=== PATIENT | female | born 1935 | race Caucasian/White ===

== ENCOUNTER 2021-07-28 09:03 | Inpatient (IN) | payer MEDICARE ==
[2021-07-28] MEDS ORDERED: ALBUTEROL HFA INHALER INHALATION PRN (09:41)
[2021-07-28] MEDS ORDERED: ALBUTEROL HFA INHALER INHALATION STA (09:41)
[2021-07-28] MEDS ORDERED: SODIUM CHLORIDE 0.9% 500 ML 500 ML IV STA (09:42)
--- NOTE | 2021-07-28 09:44 | ED ---
General Adult HPI - General Chief complaint: Upper Respiratory Infection Stated complaint: Cough, Fever Time Seen by Provider: 07/28/21 09:21 Source: patient, family, RN notes reviewed Mode of arrival: ambulatory Limitations: no limitations - History of Present Illness Initial comments: Patient is a pleasant 86-year-old female presenting to the emergency department with concerns for infection. Onset of symptoms was around a week ago. Patient does have cough that has been intermittent, somewhat severe at times. Patient does feel short of breath. Patient has had intermittent fevers. Questionable loss of taste or smell. Decreased appetite and decreased oral intake. No vomiting. Patient has had some loose stools. Patient has been vaccinated for COVID-19. Patient did take 2 tests at home they both came back negative. - Related Data Home Medications Medication Instructions Recorded Confirmed amLODIPine [Norvasc] 5 mg PO HS 09/21/14 07/28/21 busPIRone HCl [Buspar] 10 mg PO BID 09/21/14 07/28/21 Acetaminophen Tab [Tylenol Tab] 1,000 mg PO Q6H PRN 07/28/21 07/28/21 Atorvastatin [Lipitor] 20 mg PO HS 07/28/21 07/28/21 Diclofenac Sodium Gel [Voltaren 4 gm TOPICAL QID PRN 07/28/21 07/28/21 Gel] Gabapentin 600 mg PO TID 07/28/21 07/28/21 Ipratropium [place] 0.06%Nasal 2 spray EA NOSTRIL TID 07/28/21 07/28/21 [Atrovent Nasal 0.06%] Irbesartan [Avapro] 150 mg PO DAILY 07/28/21 07/28/21 Levothyroxine Sodium [Synthroid] 75 mcg PO DAILY 07/28/21 07/28/21 Mesalamine [Mesalamine ER] 1.5 gm PO DAILY 07/28/21 07/28/21 Allergies Allergy/AdvReac Type Severity Reaction Status Date / Time Sulfa (Sulfonamide Allergy Rash/Hives/ Verified 07/28/21 10:48 Antibiotics) Swelling Review of Systems ROS Statement: Those systems with pertinent positive or pertinent negative responses have been documented in the HPI. ROS Other: All systems not noted in ROS Statement are negative. Constitutional: Reports: fever, chills Eyes: Denies: eye pain ENT: Denies: ear pain Respiratory: Reports: cough, dyspnea Cardiovascular: Denies: chest pain Endocrine: Reports: fatigue Gastrointestinal: Reports: nausea. Denies: abdominal pain, vomiting Genitourinary: Denies: dysuria Musculoskeletal: Denies: back pain Skin: Denies: rash Neurological: Denies: weakness Past Medical History Past Medical History: Rheumatoid Arthritis (RA) Additional Past Medical History / Comment(s): CROHN'S DX, DIET CONTROLLED DIABETES, DEG DISC DX, auto immune, fibromyalgia History of Any Multi-Drug Resistant Organisms: None Reported Past Surgical History: Hysterectomy Past Anesthesia/Blood Transfusion Reactions: No Reported Reaction Past Psychological History: Anxiety Past Alcohol Use History: None Reported Past Drug Use History: None Reported - Past Family History Sister(s) Family Medical History: Cancer Additional Family Medical History / Comment(s): BREAST Mother Family Medical History: Congestive Heart Failure (CHF) General Exam Limitations: no limitations General appearance: alert, in no apparent distress Head exam: Present: normocephalic Eye exam: Present: normal appearance Neck exam: Present: normal inspection Respiratory exam: Present: rhonchi Cardiovascular Exam: Present: regular rate, normal rhythm, systolic murmur (States chronic) GI/Abdominal exam: Present: soft. Absent: tenderness Extremities exam: Present: normal inspection. Absent: pedal edema, calf tenderness Neurological exam: Present: alert Psychiatric exam: Present: normal affect, normal mood Skin exam: Present: normal color Course Vital Signs 07/28/21 07/28/21 07/28/21 09:12 10:16 10:19 Temperature 98.4 F Pulse Rate 96 80 Respiratory 18 18 28 H Rate Blood Pressure 120/75 107/72 O2 Sat by Pulse 81 L 95 Oximetry EKG Findings - EKG Comments: EKG Findings:: Normal sinus rhythm with a rate of 79. W[place] 144. QRS 104. QT 408. QTC 467. Normal axis. LVH with repolarization changes. Medical Decision Making - Medical Decision Making Suspicion still is somewhat high for COVID-19 infection. Patient and family updated. Case was discussed in detail with Dr. Snyder, who will admit covering Dr. peter ramos. Pulmonary will be placed on consult. Patient and family are familiar with Dr. Mora. Computed tomography scan will be ordered as well. - Lab Data Result diagrams: 07/28/21 10:15 07/28/21 10:15 Lab Results 07/28/21 07/28/21 07/28/21 Range/Units 09:42 10:15 10:15 WBC 13.9 H (3.8-10.6) k/uL RBC 5.06 (3.80-5.40) m/uL Hgb 15.1 (11.4-16.0) gm/dL Hct 44.6 (34.0-46.0) % MCV 88.1 (80.0-100.0) fL MCH 29.8 (25.0-35.0) pg MCHC 33.8 (31.0-37.0) g/dL RDW 13.7 (11.5-15.5) % Plt Count 273 (150-450) k/uL MPV 7.3 Neutrophils % 89 % Lymphocytes % 6 % Monocytes % 3 % Eosinophils % 1 % Basophils % 0 % Neutrophils # 12.4 H (1.3-7.7) k/uL Lymphocytes # 0.8 L (1.0-4.8) k/uL Monocytes # 0.5 (0-1.0) k/uL Eosinophils # 0.1 (0-0.7) k/uL Basophils # 0.0 (0-0.2) k/uL PT 11.0 (9.0-12.0) sec INR 1.0 (<1.2) APTT 24.9 (22.0-30.0) sec D-Dimer 1.09 H (<0.60) mg/L FEU Sodium (137-145) mmol/L Potassium (3.5-5.1) mmol/L Chloride (98-107) mmol/L Carbon Dioxide (22-30) mmol/L Anion Gap mmol/L BUN (7-17) mg/dL Creatinine (0.52-1.04) mg/dL Est GFR (CKD-EPI)AfAm (>60 ml/min/1.73 sqM) Est GFR (CKD-EPI)NonAf (>60 ml/min/1.73 sqM) Glucose (74-99) mg/dL Plasma Lactic Acid Alexis (0.7-2.0) mmol/L Calcium (8.4-10.2) mg/dL Magnesium (1.6-2.3) mg/dL Total Bilirubin (0.2-1.3) mg/dL AST (14-36) U/L ALT (4-34) U/L Alkaline Phosphatase (38-126) U/L Lactate Dehydrogenase (313-618) U/L C-Reactive Protein (<1.0) mg/dL NT-Pro-B Natriuret Pep pg/mL Total Protein (6.3-8.2) g/dL Albumin (3.5-5.0) g/dL Coronavirus (PCR) Not Detected (Not Detectd) 07/28/21 07/28/21 07/28/21 Range/Units 10:15 10:15 10:15 WBC (3.8-10.6) k/uL RBC (3.80-5.40) m/uL Hgb (11.4-16.0) gm/dL Hct (34.0-46.0) % MCV (80.0-100.0) fL MCH (25.0-35.0) pg MCHC (31.0-37.0) g/dL RDW (11.5-15.5) % Plt Count (150-450) k/uL MPV Neutrophils % % Lymphocytes % % Monocytes % % Eosinophils % % Basophils % % Neutrophils # (1.3-7.7) k/uL Lymphocytes # (1.0-4.8) k/uL Monocytes # (0-1.0) k/uL Eosinophils # (0-0.7) k/uL Basophils # (0-0.2) k/uL PT (9.0-12.0) sec INR (<1.2) APTT (22.0-30.0) sec D-Dimer (<0.60) mg/L FEU Sodium 133 L (137-145) mmol/L Potassium 4.3 (3.5-5.1) mmol/L Chloride 98 (98-107) mmol/L Carbon Dioxide 24 (22-30) mmol/L Anion Gap 11 mmol/L BUN 20 H (7-17) mg/dL Creatinine 0.74 (0.52-1.04) mg/dL Est GFR (CKD-EPI)AfAm 87 (>60 ml/min/1.73 sqM) Est GFR (CKD-EPI)NonAf 75 (>60 ml/min/1.73 sqM) Glucose 127 H (74-99) mg/dL Plasma Lactic Acid Alexis 1.3 (0.7-2.0) mmol/L Calcium 9.3 (8.4-10.2) mg/dL Magnesium 1.8 (1.6-2.3) mg/dL Total Bilirubin 0.9 (0.2-1.3) mg/dL AST 50 H (14-36) U/L ALT 25 (4-34) U/L Alkaline Phosphatase 92 (38-126) U/L Lactate Dehydrogenase 1055 H (313-618) U/L C-Reactive Protein 7.6 H (<1.0) mg/dL NT-Pro-B Natriuret Pep 1100 pg/mL Total Protein 6.2 L (6.3-8.2) g/dL Albumin 3.7 (3.5-5.0) g/dL Coronavirus (PCR) (Not Detectd) - Radiology Data Radiology results: image reviewed (Chest x-ray shows bilateral interstitial changes) Disposition Clinical Impression: Dyspnea, Hypoxia Disposition: ADMITTED IP TO THIS [facility] Condition: Serious Is patient prescribed a controlled substance at d/c from ED?: No Referrals: Ozzy Chaney DO [Primary Care Provider] - 1-2 days Decision Time: 11:44
--- NOTE | 2021-07-28 10:16 | XR ---
EXAMINATION TYPE: XR chest 1V portable DATE OF EXAM: 07/28/2021 HISTORY: Shortness of breath. COMPARISON: 11/03/2014 TECHNIQUE: Single view of the chest is submitted. FINDINGS: Demonstrated are scattered senescent parenchymal change. Diffuse bilateral reticulonodular infiltrates are seen compatible with Covid 19 pneumonia. The heart is stable. Hilar and mediastinal structures are within normal limits. Degenerative changes are seen of the dorsal spine. IMPRESSION: 1. Diffuse bilateral reticulonodular infiltrates are seen compatible with Covid 19 pneumonia.
[2021-07-28 10:34] LABS: Partial Thromboplastin Time 24.9 sec (22.0-30.0)
[2021-07-28 10:37] LABS: Basophils % (A) 0 %; Eosinophils # (A) 0.1 k/uL (0-0.7); Eosinophils % (A) 1 %; HCT 44.6 % (34.0-46.0); HGB 15.1 gm/dL (11.4-16.0); Lymphocytes # (A) 0.8 k/uL (1.0-4.8); Lymphocytes % (A) 6 %; MCH 29.8 pg (25.0-35.0); MCHC 33.8 g/dL (31.0-37.0); MCV 88.1 fL (80.0-100.0); Mean Platelet Volume 7.3; Monocytes # (A) 0.5 k/uL (0-1.0); Monocytes % (A) 3 %; Neutrophils # (A) 12.4 k/uL (1.3-7.7); Neutrophils % (A) 89 %; Platelet Count 273 k/uL (150-450); RBC 5.06 m/uL (3.80-5.40); RDW 13.7 % (11.5-15.5); WBC 13.9 k/uL (3.8-10.6)
[2021-07-28 10:43] LABS: Albumin 3.7 g/dL (3.5-5.0); C Reactive Protein 7.6 mg/dL (<1.0); Calcium 9.3 mg/dL (8.4-10.2); Magnesium 1.8 mg/dL (1.6-2.3); Potassium 4.3 mmol/L (3.5-5.1); Total Bilirubin 0.9 mg/dL (0.2-1.3); Total Protein 6.2 g/dL (6.3-8.2)
[2021-07-28] MEDS ORDERED: NALOXONE 0.4 MG/ML 1 ML VIAL IV PRN (11:46)
[2021-07-28] MEDS ORDERED: AZITHROMYCIN 500 MG in SODIUM CHLORIDE 0.9% 250 ML IVPB STA (11:48)
[2021-07-28] MEDS ORDERED: PNEUMONIA PROTOCOL UTILIZED 1 EACH MISC PO PRN (11:48)
[2021-07-28] MEDS ORDERED: DEXAMETHASONE SOD PHOSPHATE 10 MG/ML 1 ML VIAL IVP SCH (12:00)
--- NOTE | 2021-07-28 13:16 | CT ---
EXAMINATION TYPE: CT angio chest DATE OF EXAM: 07/28/2021 COMPARISON: None HISTORY: dyspnea CT DLP: 253 mGycm CONTRAST: CT chest with contrast and 3D reconstruction with MIP imaging is performed with IV Contrast, patient injected with 100 mL of Isovue 370. Contrast-enhanced CT of the chest was performed through the course of the pulmonary arteries with kacey g and mediastinal window settings submitted. 3D reconstruction with MIP imaging was also performed. PULMONARY ARTERIES: The pulmonary arteries and their major tributaries are patent. I do not see juan pablo dence for sizable filling defect to suggest pulmonary embolic process. LUNGS: Reticulonodular and groundglass infiltrates. Underlying fibrosis. No evidence for atelectasis. No pulmonary nodule or mass is detected. No pleural effusion. MEDIASTINUM: Thoracic aorta is of normal caliber,however, evaluation is limited given timing of the contrast bolus. If there is concern for thoracic aortic pathology consider ION. Correlate clinicall y . The heart is enlarged. No evidence for mediastinal mass. No mediastinal lymph nodes greater uma n 1cm. HILAR STRUCTURES: No evidence for mass. No hilar lymph nodes greater than 1 cm. UPPER ABDOMEN: No significant abnormality is seen. IMPRESSION: 1. No evidence for Pulmonary embolism at this time.
[2021-07-28] MEDS ORDERED: MELATONIN 3 MG TABLET PO PRN (13:28)
[2021-07-28] MEDS ORDERED: ONDANSETRON 4 MG/2 ML VIAL IVP PRN (13:28)
--- NOTE | 2021-07-28 13:57 | P.HPIM ---
History of Present Illness H&P Date: 07/28/21 Chief Complaint: Short of breath This is a pleasant 86-year-old patient, follows with Dr. Chaney. Chronic stable medical conditions include rheumatoid arthritis, Crohn's disease, diet- controlled diabetes, autoimmune disorder, fibromyalgia. She does follow Dr. Reed from rheumatology and does Rituxan injections every 6 months. Sees due for her next one. Patient did take her COVID vaccines back in . She doesn't go out much. For 7 days patient suspect upper cough. Very congested. Clear sputum. Has had fever and chills. Patient also had diarrhea. Some dark stool. No abdominal pain. Patient chronic stable medical conditions also include anxiety, hypothyroid, peripheral neuropathy, hyperlipidemia. Appetite is poor. Initial rapid COVID testing in the ER was negative. A more definitive PCR was sent out. Patient is accompanied by her [id number]. Patient is rather tired and rundown. She is also had chronic immune lung condition in the past. Review of systems: GEN.: Tired, fever or chills, decreased appetite EYES: None HEENT: None NECK: None RESPIRATORY: As above CARDIOVASCULAR: None GASTROINTESTINAL: As above GENITOURINARY: None MUSCULOSKELETAL: Joint pains LYMPHATICS: None HEMATOLOGICAL: None PSYCHIATRY: None NEUROLOGICAL: None Past medical history to include: Anxiety, hypothyroid, peripheral neuropathy, hyperlipidemia, rheumatoid arthritis, Crohn's disease, diet-controlled diabetes, autoimmune lung disorder, fibromyalgia Social history: Lives with son and [id number]. No smoking no alcohol. Family history: Breast cancer Physical examination: VITAL SIGNS: 98.4, 96, 24, 120/75, 81% on room air: On presentation GENERAL: BMI 29.3, declining in bed, awake, tired. EYES: Pupils equal. Conjunctiva normal. HEENT: External appearance of nose and ears normal, oral cavity grossly normal. NECK: JVD not raised; masses not palpable. HEART: First and second heart sounds are normal; no edema. LUNGS: Respiratory rate increased, bilateral coarse crackles. ABDOMEN: Soft, nontender, liver spleen not palpable, no masses palpable. PSYCH: Alert and oriented x3; mood and affect some anxietyl. MUSCULAR skeletal: Evidence of rheumatoid arthritis especially in the hands, significant NEUROLOGICAL: Cranial nerves grossly intact; no facial asymmetry, power and sensation grossly intact. LYMPHATICS: No lymph nodes palpable in the axilla and neck INVESTIGATIONS, reviewed in the clinical context: WBC 13.9 hemoglobin 15.1 platelets 273 lymphocytes 0.8 d-dimer 1.09 sodium 133 potassium 4.3 creatinine 0.74 CRP 7.6 Coronavirus [PCR/rapid]: Negative Influenza A, influenza B, RSV, Coronavirus PCR: Not detected EKG tracing personally reviewed by me-normal sinus rhythm, LVH Chest x-ray film personally reviewed by me-bilateral infiltrate changes, so we'll discontinue chronic. Also looked at the films from 2017 CT angiogram chest: Negative for PE. Reticular-nodular and groundglass infiltrates. Underlying fibrosis. Assessment and plan: -Possible bacterial pneumonia suspected gram-negative. IV cefepime. Check pro-calcitonin. Sputum for Gram stain and culture. -Acute severe hypoxic respiratory failure from pneumonia Oxygen supplementation -Clinical suspicion for COVID-19 was high. Initial rapid antigen tested PCR was negative. A more definitive repeat COVID-19 immunoassay test was done/PCR that came back also negative -Chronic rheumatoid arthritis Patient does getRituxan injections every 6 months -Chronic Crohn's disease Patient did complain of some dock stools. No abdominal pain. GI services are not available in the hospital. We'll consult content writer surgery. 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 bronchodilators. Resume home medications. Check procalcitonin. Care was discussed with the patient and [id number] at the bedside. Consult pulmonary. Sputum for Gram stain and culture. Mucinex. Given the complexity and severity of patient's condition expect the patient to be in the hospital at least for 2 overnights Past Medical History Past Medical History: Rheumatoid Arthritis (RA) Additional Past Medical History / Comment(s): CROHN'S DX, DIET CONTROLLED DIABETES, DEG DISC DX, auto immune, fibromyalgia History of Any Multi-Drug Resistant Organisms: None Reported Past Surgical History: Hysterectomy Past Anesthesia/Blood Transfusion Reactions: No Reported Reaction Past Psychological History: Anxiety Past Alcohol Use History: None Reported Past Drug Use History: None Reported - Past Family History Sister(s) Family Medical History: Cancer Additional Family Medical History / Comment(s): BREAST Mother Family Medical History: Congestive Heart Failure (CHF) Medications and Allergies Home Medications Medication Instructions Recorded Confirmed Type amLODIPine [Norvasc] 5 mg PO HS 09/21/14 07/28/21 History busPIRone HCl [Buspar] 10 mg PO BID 09/21/14 07/28/21 History Acetaminophen Tab [Tylenol Tab] 1,000 mg PO Q6H PRN 07/28/21 07/28/21 History Atorvastatin [Lipitor] 20 mg PO HS 07/28/21 07/28/21 History Diclofenac Sodium Gel [Voltaren 4 gm TOPICAL QID PRN 07/28/21 07/28/21 History Gel] Gabapentin 600 mg PO TID 07/28/21 07/28/21 History Ipratropium [place] 0.06%Nasal 2 spray EA NOSTRIL TID 07/28/21 07/28/21 History [Atrovent Nasal 0.06%] Irbesartan [Avapro] 150 mg PO DAILY 07/28/21 07/28/21 History Levothyroxine Sodium [Synthroid] 75 mcg PO DAILY 07/28/21 07/28/21 History Mesalamine [Mesalamine ER] 1.5 gm PO DAILY 07/28/21 07/28/21 History Allergies Allergy/AdvReac Type Severity Reaction Status Date / Time Sulfa (Sulfonamide Allergy Rash/Hives/ Verified 07/28/21 10:48 Antibiotics) Swelling Physical Exam Vitals: Vital Signs Temp Pulse Resp BP Pulse Ox 07/28/21 10:19 28 H 07/28/21 10:16 80 18 107/72 95 07/28/21 09:12 98.4 F 96 18 120/75 81 L Intake and Output 07/27/21 07/28/21 07/28/21 22:59 06:59 14:59 Other: Weight 72.575 kg Results CBC & Chem 7: 07/28/21 10:15 07/28/21 10:15 Labs: Abnormal Lab Results - Last 24 Hours (Table) 07/28/21 07/28/21 07/28/21 Range/Units 10:15 10:15 10:15 WBC 13.9 H (3.8-10.6) k/uL Neutrophils # 12.4 H (1.3-7.7) k/uL Lymphocytes # 0.8 L (1.0-4.8) k/uL D-Dimer 1.09 H (<0.60) mg/L FEU Sodium 133 L (137-145) mmol/L BUN 20 H (7-17) mg/dL Glucose 127 H (74-99) mg/dL AST 50 H (14-36) U/L Lactate Dehydrogenase 1055 H (313-618) U/L C-Reactive Protein 7.6 H (<1.0) mg/dL Total Protein 6.2 L (6.3-8.2) g/dL
[2021-07-28] MEDS: SODIUM CHLORIDE 0.9% 1,000 ML IV SCH ×2 (14:02→23:49)
[2021-07-28] MEDS: guaiFENesin 600 MG TABLET.ER PO SCH ×3 (14:22→21:01)
[2021-07-28] MEDS: ENOXAPARIN 40 MG/0.4 ML SYRINGE SQ SCH (14:24)
[2021-07-28] MEDS: ASCORBIC ACID 500 MG TAB PO SCH ×2 (14:24→21:02)
[2021-07-28] MEDS: CHOLECALCIFEROL 25 MCG (1000 IU) TABLET PO SCH (14:24)
[2021-07-28] MEDS: ZINC SULFATE 220 MG CAP PO SCH (14:49)
[2021-07-28] MEDS: ALBUTEROL HFA INHALER INHALATION SCH ×2 (14:58→21:48)
[2021-07-28] MEDS ORDERED: CEFEPIME 2 GM in SODIUM CHLORIDE 0.9% 100 ML IVPB SCH (16:00)
--- NOTE | 2021-07-28 16:53 | P.CNPUL ---
History of Present Illness Consult date: 07/28/21 Requesting physician: Aly Snyder Reason for consult: pneumonia Chief complaint: Cough and shortness of breath. History of present illness: This is an 86-year-old female primarily a patient of Dr. Rodriguez, patient is known to have history of rheumatoid arthritis, on multiple medications for her rheumatoid arthritis, she is also on rituxin infusions every 6 months. Patient is being followed by rheumatology, patient is current on her immunization including COVID-19 vaccination, she did receive moderna, 2 injections, and she did not receive her third booster. Patient stated that her last injection was in October. Came in today with 7 days' history of cough, congestion, describes the cough as productive with slightly yellow tinged sputum, patient also has multiple GI symptoms including poor appetite, diarrhea, denies any abdominal pain. She also had intermittent fevers and chills. Body aches were also described. However the patient had negative rapid PCR for COVID-19 infection and a follow-up test was also done and it came back also negative. Her chest x- ray and CT of the chest are abnormal. Chest x-ray is suggestive of interstitial lung disease. CT of the chest showed diffuse reticulonodular and ground glass opacities throughout both lungs. Possible underlying fibrosis noted. No pulmonary mass nodule and no real effusion noted. No evidence of lymphadenopathy. And no evidence of thromboembolic disease. CBC showed a bit of leukocytosis with WBC count of 13.9. Lymphopenia was noted. Normal electrolytes, normal renal profile, LDH was 1055 and BNP level was 1100. Pro- calcitonin level is pending. Patient had negative PCR for sanchez virus infection. She had negative screening for influenza A, influenza B, RSV. Patient was hypoxic on room air, O2 saturations was 81%, however she was placed on 5 L and her oxygen saturation was up to 96% considering her pulmonary presentation, this consult was initiated. And I saw the patient in the ER. Patient is already on Rocephin and Zithromax, however the admitting physician changed her antibiotics to cefepime. She is on DVT prophylaxis, she is also on methylprednisolone 40 mg IV push every 8 hours. Review of Systems GEN.: Multiple confusional symptoms as noted in HPI. EYES: None HEENT: None NECK: None RESPIRATORY: As noted in HPI. CARDIOVASCULAR: None GASTROINTESTINAL: As above GENITOURINARY: None MUSCULOSKELETAL: History of rheumatoid arthritis. LYMPHATICS: None HEMATOLOGICAL: None PSYCHIATRY: None NEUROLOGICAL: None Past Medical History Past Medical History: Rheumatoid Arthritis (RA) Additional Past Medical History / Comment(s): CROHN'S DX, DIET CONTROLLED DIABETES, DEG DISC DX, auto immune, fibromyalgia History of Any Multi-Drug Resistant Organisms: None Reported Past Surgical History: Hysterectomy Past Anesthesia/Blood Transfusion Reactions: No Reported Reaction Past Psychological History: Anxiety Past Alcohol Use History: None Reported Past Drug Use History: None Reported - Past Family History Sister(s) Family Medical History: Cancer Additional Family Medical History / Comment(s): BREAST Mother Family Medical History: Congestive Heart Failure (CHF) Medications and Allergies Home Medications Medication Instructions Recorded Confirmed Type amLODIPine [Norvasc] 5 mg PO HS 09/21/14 07/28/21 History busPIRone HCl [Buspar] 10 mg PO BID 09/21/14 07/28/21 History Acetaminophen Tab [Tylenol Tab] 1,000 mg PO Q6H PRN 07/28/21 07/28/21 History Atorvastatin [Lipitor] 20 mg PO HS 07/28/21 07/28/21 History Diclofenac Sodium Gel [Voltaren 4 gm TOPICAL QID PRN 07/28/21 07/28/21 History Gel] Gabapentin 600 mg PO TID 07/28/21 07/28/21 History Ipratropium [place] 0.06%Nasal 2 spray EA NOSTRIL TID 07/28/21 07/28/21 History [Atrovent Nasal 0.06%] Irbesartan [Avapro] 150 mg PO DAILY 07/28/21 07/28/21 History Levothyroxine Sodium [Synthroid] 75 mcg PO DAILY 07/28/21 07/28/21 History Mesalamine [Mesalamine ER] 1.5 gm PO DAILY 07/28/21 07/28/21 History Allergies Allergy/AdvReac Type Severity Reaction Status Date / Time Sulfa (Sulfonamide Allergy Rash/Hives/ Verified 07/28/21 10:48 Antibiotics) Swelling Physical Exam Vitals: Vital Signs Temp Pulse Resp BP Pulse Ox 07/28/21 16:09 85 18 136/95 96 07/28/21 10:19 28 H 07/28/21 10:16 80 18 107/72 95 07/28/21 09:12 98.4 F 96 18 120/75 81 L Intake and Output 07/28/21 07/28/21 07/28/21 06:59 14:59 22:59 Other: Weight 72.575 kg Physical Exam: Revealed an 86-year-old female extremely pleasant, in no distress, on 5 L nasal cannula. Head: Atraumatic, normocephalic. HEENT: Latanya, EOMI, nonicteric. [Neck is supple.] [No neck masses.] [No thyromegaly.] [No JVD.] Moist mucous membranes. Chest: [Symmetrical chest expansion, bilateral crackles and rhonchi noted. Cardiac Exam: [Normal S1 and S2, no S3 gallop, no murmur.] Abdomen: [Soft, nontender, no megaly, no rebound, no guarding, normal bowel sounds.] Extremities: [No clubbing, no edema, no cyanosis. Rheumatoid deformities noted in both hands, otherwise negative.] Neurological Exam: Alert and oriented 3, no gross focal deficits. Psychiatric: Normal mood, affect and normal mental status examination. Skin: No rashes. Results - Laboratory Findings CBC and BMP: 07/28/21 10:15 07/28/21 10:15 PT/INR, D-dimer PT 11.0 sec (9.0-12.0) 07/28/21 10:15 INR 1.0 (<1.2) 07/28/21 10:15 D-Dimer 1.09 mg/L FEU (<0.60) H 07/28/21 10:15 Abnormal lab findings: Abnormal Labs 07/28/21 07/28/21 07/28/21 10:15 10:15 10:15 WBC 13.9 H Neutrophils # 12.4 H Lymphocytes # 0.8 L D-Dimer 1.09 H Sodium 133 L BUN 20 H Glucose 127 H AST 50 H Lactate Dehydrogenase 1055 H C-Reactive Protein 7.6 H Total Protein 6.2 L - Diagnostic Findings CT scan - chest: image reviewed (As noted in HPI.) Assessment and Plan Assessment: Impression: Acute hypoxic respiratory failure secondary to interstitial lung disease and suspect superimposed community acquired pneumonia, strongly doubt COVID-19 pneumonia considering the patient had 2 negative PCR tests, and she is immunized/vaccinated. Rheumatoid arthritis and rheumatoid lung disease. Is strongly suspected based on the chest x-ray from this admission and based on previous chest x-ray from 2017. Bronchiolitis obliterans with organizing pneumonia is also in the differential hence we will continue Solu-Medrol. Benign essential hypertension. Dyslipidemia. History of hypothyroidism. Recommendation: Agree with antibiotics/cefepime Agree with bronchodilators. Agree with checking pro-calcitonin. Reviewed and discussed the CT of the chest findings with the patient and her [id number]. If the patient does not show much improvement in the next couple of days, will definitely consider bronchoscopy and lavage on this patient. We will continue to follow. Time with Patient: Greater than 30
[2021-07-28] MEDS: methylPREDNISolone SOD SUCCI 40 MG/ML 1 ML VIAL IV SCH ×2 (17:54→23:49)
[2021-07-28] MEDS: CEFEPIME 2 GM in SODIUM CHLORIDE 0.9% 100 ML IVPB SCH (18:19)
[2021-07-28 20:27] LABS: Glucose,Whole Blood 118 mg/dL (75-99)
[2021-07-28] MEDS ORDERED: amLODIPine 5 MG TAB PO SCH (21:00)
[2021-07-28] MEDS: busPIRone HCl 10 MG TAB PO SCH (21:02)
[2021-07-28] MEDS: GABAPENTIN 300 MG CAP PO SCH (21:02)
[2021-07-28] MEDS: ATORVASTATIN 20 MG TAB PO SCH (21:02)
[2021-07-28] MEDS: IPRATROPIUM BROMIDE 0.06% NASAL SPRAY (15 ML) EA NOSTRIL SCH (21:07)
[2021-07-29] MEDS: ALBUTEROL HFA INHALER INHALATION SCH ×5 (01:16→20:55)
[2021-07-29] MEDS: CEFEPIME 2 GM in SODIUM CHLORIDE 0.9% 100 ML IVPB SCH ×2 (05:59→16:55)
[2021-07-29] MEDS: ACETAMINOPHEN TAB 500 MG TAB PO PRN (05:59)
[2021-07-29] MEDS ORDERED: DICLOFENAC SODIUM GEL 100 GM TUBE TOPICAL PRN (06:00)
[2021-07-29] MEDS: LEVOTHYROXINE 75 MCG TAB PO SCH (06:05)
--- NOTE | 2021-07-29 07:41 | XR ---
EXAMINATION TYPE: XR chest 1V DATE OF EXAM: 07/29/2021 COMPARISON: Chest x-ray 07/28/2021 HISTORY: Pneumonia TECHNIQUE: Single frontal view of the chest is obtained. FINDINGS: Bilateral airspace disease, prominence of interstitium again noted. Cardiac mediastinal si lhouette is likely stable accounting for differences in technique, exam is apical lordotic, heart is enlarged. There are overlying artifacts. There is no evident pneumothorax or pleural effusion. There is a spinal curvature. Prominence of pulmonary arteries noted. IMPRESSION: Correlate for pneumonia, there is underlying interstitial lung disease and possibly pulm onary artery hypertension
[2021-07-29] MEDS: BALSALAZIDE DISODIUM 750 MG CAPSULE PO SCH ×3 (08:52→23:07)
[2021-07-29] MEDS: busPIRone HCl 10 MG TAB PO SCH ×2 (08:52→23:10)
[2021-07-29] MEDS: ENOXAPARIN 40 MG/0.4 ML SYRINGE SQ SCH (08:53)
[2021-07-29] MEDS: methylPREDNISolone SOD SUCCI 40 MG/ML 1 ML VIAL IV SCH ×3 (08:53→23:11)
[2021-07-29] MEDS: guaiFENesin 600 MG TABLET.ER PO SCH ×4 (08:53→23:08)
[2021-07-29] MEDS: CHOLECALCIFEROL 25 MCG (1000 IU) TABLET PO SCH (08:53)
[2021-07-29] MEDS: ASCORBIC ACID 500 MG TAB PO SCH ×2 (08:53→23:08)
[2021-07-29] MEDS: ZINC SULFATE 220 MG CAP PO SCH (08:53)
[2021-07-29] MEDS: GABAPENTIN 300 MG CAP PO SCH ×3 (08:53→23:10)
[2021-07-29] MEDS: LOSARTAN 50 MG TAB PO SCH (08:53)
[2021-07-29] MEDS ORDERED: AZITHROMYCIN 500 MG TAB PO SCH (09:00)
[2021-07-29] MEDS ORDERED: amLODIPine 2.5 MG TAB PO SCH (09:00)
[2021-07-29] MEDS: SODIUM CHLORIDE 0.9% 1,000 ML IV SCH (15:39)
--- NOTE | 2021-07-29 17:56 | P.PN ---
Progress Note - Text Progress Note Date: 07/29/21 Chief Complaint: Short of breath This is a pleasant 86-year-old patient, follows with Dr. Chaney. Chronic stable medical conditions include rheumatoid arthritis, Crohn's disease, diet- controlled diabetes, autoimmune disorder, fibromyalgia. She does follow Dr. Reed from rheumatology and does Rituxan injections every 6 months. Sees due for her next one. Patient did take her COVID vaccines back in . She doesn't go out much. For 7 days patient suspect upper cough. Very congested. Clear sputum. Has had fever and chills. Patient also had diarrhea. Some dark stool. No abdominal pain. Patient chronic stable medical conditions also include anxiety, hypothyroid, peripheral neuropathy, hyperlipidemia. Appetite is poor. Initial rapid COVID testing in the ER was negative. A more definitive PCR was sent out. Patient is accompanied by her [id number]. Patient is rather tired and rundown. She is also had chronic immune lung condition in the past. July 29: Short of breath. Tired. 5 L nasal cannula. Eating about 50%. In bed. Review of systems: Was done for constitutional, cardiovascular, GI, pulmonary. relevant finding as above Active Medications Acetaminophen (Acetaminophen Tab 500 Mg Tab) 1,000 mg PO Q6HR PRN PRN Reason: Fever>101 Last Admin: 07/29/21 05:59 Dose: 1,000 mg Documented by: Albuterol Sulfate (Albuterol Hfa Inhaler) 2 puff INHALATION RT-Q6H [facility] Last Admin: 07/29/21 15:15 Dose: 2 puff Documented by: Albuterol Sulfate (Albuterol Hfa Inhaler) 2 puff INHALATION RT-Q6H PRN PRN Reason: Shortness Of Breath Or Wheezing Amlodipine Besylate (Amlodipine 2.5 Mg Tab) 2.5 mg PO [facility] Ascorbic Acid (Ascorbic Acid 500 Mg Tab) 500 mg PO BID [facility] Last Admin: 07/29/21 08:53 Dose: 500 mg Documented by: Atorvastatin Calcium (Atorvastatin 20 Mg Tab) 20 mg PO HS [facility] Last Admin: 07/28/21 21:02 Dose: 20 mg Documented by: Balsalazide (Balsalazide Disodium 750 Mg Capsule) 2,250 mg PO TID [facility] Last Admin: 07/29/21 15:39 Dose: 2,250 mg Documented by: Buspirone HCl (Buspirone Hcl 10 Mg Tab) 10 mg PO BID [facility] Last Admin: 07/29/21 08:52 Dose: 10 mg Documented by: Cholecalciferol (Cholecalciferol 25 Mcg (1000 Iu) Tablet) 100 mcg PO DAILY [facility] Last Admin: 07/29/21 08:53 Dose: 100 mcg Documented by: Diclofenac Sodium (Diclofenac Sodium Gel 100 Gm Tube) 4 gm TOPICAL QID PRN; Protocol PRN Reason: Pain Enoxaparin Sodium (Enoxaparin 40 Mg/0.4 Ml Syringe) 40 mg SQ DAILY [facility] Last Admin: 07/29/21 08:53 Dose: 40 mg Documented by: Gabapentin (Gabapentin 300 Mg Cap) 600 mg PO TID [facility] Last Admin: 07/29/21 15:39 Dose: 600 mg Documented by: Guaifenesin (Guaifenesin 600 Mg Tablet.Er) 600 mg PO QID [facility] Last Admin: 07/29/21 16:55 Dose: 600 mg Documented by: Sodium Chloride (Saline 0.9%) 1,000 mls @ 75 mls/hr IV .[id number] [facility] Last Admin: 07/29/21 15:39 Dose: 75 mls/hr Documented by: Cefepime HCl 2 gm/ Sodium (Chloride) 100 mls @ 25 mls/hr IVPB Q12H [facility] Last Admin: 07/29/21 16:55 Dose: 25 mls/hr Documented by: Ipratropium Ferron (Ipratropium Ferron 0.06% Nasal Harlan (15 Ml)) 2 spray EA NOSTRIL TID [facility] Last Admin: 07/28/21 21:07 Dose: Not Given Documented by: Levothyroxine Sodium (Levothyroxine 75 Mcg Tab) 75 mcg PO DAILY@0630 [facility] Last Admin: 07/29/21 06:05 Dose: 75 mcg Documented by: Lorazepam (Lorazepam 0.5 Mg Tab) 0.5 mg PO Q6HR PRN PRN Reason: Anxiety Losartan Potassium (Losartan 50 Mg Tab) 50 mg PO DAILY [facility] Last Admin: 07/29/21 08:53 Dose: 50 mg Documented by: Melatonin (Melatonin 3 Mg Tablet) 3 mg PO HS PRN PRN Reason: Insomnia Methylprednisolone Sodium Succinate (Methylprednisolone Sod Succi 40 Mg/Ml 1 Ml Vial) 40 mg IV Q8HR [facility] Last Admin: 07/29/21 15:39 Dose: 40 mg Documented by: Miscellaneous Information (Pneumonia Protocol Utilized 1 Each [facility]) 1 each PO ONCE PRN PRN Reason: Per Protocol Naloxone HCl (Naloxone 0.4 Mg/Ml 1 Ml Vial) 0.2 mg IV Q2M PRN PRN Reason: Opioid Reversal Ondansetron HCl (Ondansetron 4 Mg/2 Ml Vial) 4 mg IVP Q8HR PRN PRN Reason: Nausea And Vomiting Zinc Sulfate (Zinc Sulfate 220 Mg Cap) 220 mg PO DAILY [facility] Last Admin: 07/29/21 08:53 Dose: 220 mg Documented by: Past medical history to include: Anxiety, hypothyroid, peripheral neuropathy, hyperlipidemia, rheumatoid arthritis, Crohn's disease, diet-controlled diabetes, autoimmune lung disorder, fibromyalgia Social history: Lives with son and [id number]. No smoking no alcohol. Family history: Breast cancer Physical examination: VITAL SIGNS: 97.7, 97, 17, 129 with 70, 92% on 5 L GENERAL: Declining bed, awake, tired. EYES: Pupils equal. Conjunctiva normal. HEENT: External appearance of nose and ears normal, oral cavity grossly normal. NECK: JVD not raised; masses not palpable. HEART: First and second heart sounds are normal; no edema. LUNGS: Respiratory rate increased, bilateral coarse crackles. ABDOMEN: Soft, nontender, liver spleen not palpable, no masses palpable. PSYCH: Alert and oriented x3; mood and affect some anxietyl. MUSCULAR skeletal: Evidence of rheumatoid arthritis especially in the hands, significant INVESTIGATIONS, reviewed in the clinical context: July 29: Procalcitonin 3.98 WBC 13.9 hemoglobin 15.1 platelets 273 lymphocytes 0.8 d-dimer 1.09 sodium 133 potassium 4.3 creatinine 0.74 CRP 7.6 Coronavirus [PCR/rapid]: Negative Influenza A, influenza B, RSV, Coronavirus PCR: Not detected EKG tracing personally reviewed by me-normal sinus rhythm, LVH Chest x-ray film personally reviewed by me-bilateral infiltrate changes, so we'll discontinue chronic. Also looked at the films from 2017 CT angiogram chest: Negative for PE. Reticular-nodular and groundglass infiltrates. Underlying fibrosis. Assessment and plan: - bacterial pneumonia suspected gram-negative. IV cefepime. . Sputum for Gram stain and culture. -Acute severe hypoxic respiratory failure from pneumonia: Slow to respond 5 L nasal cannula -Patient had complained of dark stools. Consult surgery. Check occult blood in stool -Initial Clinical suspicion for COVID-19 was high. Initial rapid antigen tested PCR was negative. A more definitive repeat COVID-19 immunoassay test was done/PCR that came back also negative -Chronic rheumatoid arthritis Patient does getRituxan injections every 6 months -Chronic Crohn's disease Patient did complain of some dark stools. No abdominal pain. GI services are not available in the hospital. We'll consult airborne operations manager surgery. 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 bronchodilators. 5 L nasal cannula. Mucinex. Encourage oral intake. Up in chair as tolerated. Check occult blood. Consult surgery. Follow H&H.
--- NOTE | 2021-07-29 18:16 | P.PN ---
Subjective Progress Note Date: 07/29/21 Principal diagnosis: Acute hypoxic respiratory failure secondary to pneumonia, patient ruled out for COVID-19 pneumonia with -2 tests. However it is not entirely ruled out. This is an 86-year-old female primarily a patient of Dr. Rodriguez, patient is known to have history of rheumatoid arthritis, on multiple medications for her rheumatoid arthritis, she is also on rituxin infusions every 6 months. Patient is being followed by rheumatology, patient is current on her immunization including COVID-19 vaccination, she did receive moderna, 2 injections, and she did not receive her third booster. Patient stated that her last injection was in October. Came in today with 7 days' history of cough, congestion, describes the cough as productive with slightly yellow tinged sputum, patient also has multiple GI symptoms including poor appetite, diarrhea, denies any abdominal pa in. She also had intermittent fevers and chills. Body aches were also described. However the patient had negative rapid PCR for COVID-19 infection and a follow-up test was also done and it came back also negative. Her chest x- ray and CT of the chest are abnormal. Chest x-ray is suggestive of interstitial lung disease. CT of the chest showed diffuse reticulonodular and ground glass opacities throughout both lungs. Possible underlying fibrosis noted. No pulmonary mass nodule and no real effusion noted. No evidence of lymphadenopathy. And no evidence of thromboembolic disease. CBC showed a bit of leukocytosis with WBC count of 13.9. Lymphopenia was noted. Normal electrolytes, normal renal profile, LDH was 1055 and BNP level was 1100. Pro- calcitonin level is pending. Patient had negative PCR for sanchez virus infection. She had negative screening for influenza A, influenza B, RSV. Patient was hypoxic on room air, O2 saturations was 81%, however she was placed on 5 L and her oxygen saturation was up to 96% considering her pulmonary presentation, this consult was initiated. And I saw the patient in the ER. Patient is already on Rocephin and Zithromax, however the admitting physician changed her antibiotics to cefepime. She is on DVT prophylaxis, she is also on methylprednisolone 40 mg IV push every 8 hours. Reevaluated today on 07/29/2021, patient is feeling better today, breathing easier, less cough and less shortness of breath, less GI symptoms. Patient came in with multiple constitutional symptoms as noted above. Chest x-ray showed bilateral interstitial infiltrates, PCR for COVID-19 pneumonia was negative 2. Patient is now on 5 L nasal cannula, O2 sats is 94%. Her pro calcitonin today is 1.25. Patient tested negative for COVID-19, tested negative for influenza A, influenza B and for RSV. Objective - Vital Signs Vital signs: Vital Signs Temp 98.3 F 07/29/21 16:45 Pulse 80 07/29/21 16:45 Resp 18 07/29/21 16:45 BP 118/68 07/29/21 16:45 Pulse Ox 94 L 07/29/21 16:45 Intake & Output 07/28/21 07/29/21 07/29/21 18:59 06:59 18:59 Intake Total 200 100 Balance 200 100 Weight 72.575 kg Intake: Intake, IV Titration 200 100 Amount Cefepime 2 gm In Sodium 100 100 Chloride 0.9% 100 ml @ 25 mls/hr IVPB Q12H [facility] Rx# :[id number] Cefepime 2 gm In Sodium 100 Chloride 0.9% 100 ml @ 25 mls/hr IVPB Q8HR [facility] Rx# :[id number] Other: Voiding Method Bedside Commode # Voids 1 # Bowel Movements 0 - Exam Physical Exam: Revealed an 86-year-old female extremely pleasant, in main is on 5 L nasal cannula with O2 sat showed 94% Head: Atraumatic, normocephalic. HEENT: Latanya, EOMI, nonicteric. [Neck is supple.] [No neck masses.] [No thyromegaly.] [No JVD.] Moist mucous membranes. Chest: [Symmetrical chest expansion, bilateral crackles and rhonchi noted. Cardiac Exam: [Normal S1 and S2, no S3 gallop, no murmur.] Abdomen: [Soft, nontender, no megaly, no rebound, no guarding, normal bowel sounds.] Extremities: [No clubbing, no edema, no cyanosis. Rheumatoid deformities noted in both hands, otherwise negative.] Neurological Exam: Alert and oriented 3, no gross focal deficits. Psychiatric: Normal mood, affect and normal mental status examination. Skin: No rashes. - Labs CBC & Chem 7: 07/28/21 10:15 07/28/21 10:15 Labs: Abnormal Lab Results - Last 24 Hours (Table) 07/28/21 07/28/21 Range/Units 10:15 20:25 POC Glucose (mg/dL) 118 H (75-99) mg/dL Ferritin 375.0 H (10.0-291.0) ng/mL Microbiology - Last 24 Hours (Table) 07/28/21 11:45 Blood Culture - Preliminary Blood No Growth after 24 hours 07/28/21 12:00 Blood Culture - Preliminary Blood No Growth after 24 hours Assessment and Plan Assessment: Impression: Acute hypoxic respiratory failure secondary to interstitial lung disease and suspect superimposed community acquired pneumonia, strongly doubt COVID-19 pneumonia considering the patient had 2 negative PCR tests, and she is immunized/vaccinated. Patient was also noted to have elevated pro calcitonin. Rheumatoid arthritis and rheumatoid lung disease. Is strongly suspected based on the chest x-ray from this admission and based on previous chest x-ray from 2017. Bronchiolitis obliterans with organizing pneumonia is also in the differential hence we will continue Solu-Medrol. Benign essential hypertension. Dyslipidemia. History of hypothyroidism. Recommendation: Continue antibiotics/cefepime Continue bronchodilators. Monitor pro calcitonin. Would recommend possibly Solu-Medrol if the patient does not show significant improvement in the next 2 days. Would even recommending bronchoscopy if necessary We will continue to follow. Time with Patient: Less than 30
[2021-07-29] MEDS: amLODIPine 2.5 MG TAB PO SCH (23:09)
[2021-07-29] MEDS: ATORVASTATIN 20 MG TAB PO SCH (23:10)
[2021-07-29] MEDS: IPRATROPIUM BROMIDE 0.06% NASAL SPRAY (15 ML) EA NOSTRIL SCH (23:21)
[2021-07-30] MEDS: ALBUTEROL HFA INHALER INHALATION SCH ×4 (03:34→19:37)
[2021-07-30] MEDS: CEFEPIME 2 GM in SODIUM CHLORIDE 0.9% 100 ML IVPB SCH ×2 (05:54→16:22)
[2021-07-30] MEDS: LEVOTHYROXINE 75 MCG TAB PO SCH (05:54)
[2021-07-30] MEDS: SODIUM CHLORIDE 0.9% 1,000 ML IV SCH ×2 (05:54→16:22)
[2021-07-30 06:38] LABS: Basophils % (A) 0 %; Eosinophils % (A) 0 %; HCT 41.1 % (34.0-46.0); HGB 13.2 gm/dL (11.4-16.0); Hypochromasia Moderate; Lymphocytes # (A) 0.6 k/uL (1.0-4.8); Lymphocytes % (A) 6 %; MCH 29.6 pg (25.0-35.0); MCHC 32.1 g/dL (31.0-37.0); MCV 92.2 fL (80.0-100.0); Mean Platelet Volume 7.9; Monocytes # (A) 0.3 k/uL (0-1.0); Monocytes % (A) 3 %; Neutrophils # (A) 10.3 k/uL (1.3-7.7); Neutrophils % (A) 91 %; Platelet Count 285 k/uL (150-450); RBC 4.46 m/uL (3.80-5.40); RDW 13.3 % (11.5-15.5); WBC 11.3 k/uL (3.8-10.6)
[2021-07-30] MEDS: CHOLECALCIFEROL 25 MCG (1000 IU) TABLET PO SCH (08:02)
[2021-07-30] MEDS: ASCORBIC ACID 500 MG TAB PO SCH ×2 (08:02→20:32)
[2021-07-30] MEDS: busPIRone HCl 10 MG TAB PO SCH ×2 (08:02→20:32)
[2021-07-30] MEDS: methylPREDNISolone SOD SUCCI 40 MG/ML 1 ML VIAL IV SCH ×3 (08:02→23:24)
[2021-07-30] MEDS: ZINC SULFATE 220 MG CAP PO SCH (08:02)
[2021-07-30] MEDS: BALSALAZIDE DISODIUM 750 MG CAPSULE PO SCH (08:03)
[2021-07-30] MEDS: ENOXAPARIN 40 MG/0.4 ML SYRINGE SQ SCH (08:03)
[2021-07-30] MEDS: guaiFENesin 600 MG TABLET.ER PO SCH ×4 (08:04→20:32)
[2021-07-30] MEDS: LOSARTAN 50 MG TAB PO SCH (08:04)
[2021-07-30] MEDS: GABAPENTIN 300 MG CAP PO SCH ×3 (08:04→20:31)
--- NOTE | 2021-07-30 10:36 | P.GSCN ---
History of Present Illness Consult date: 07/30/21 Reason for Consult: GI bleed History of present illness: Patient admitted with shortness of breath. The evaluated for atypical pneumonia. Covid tests have been negative. She did have a dark colored stool. States it was tarry in color. Stool is now brown in color. No abdominal pain. Patient has a history of previous ulcers and follows with Dr. Reed for a personal history of Crohn's disease. Hemoglobin 13.2. Review of Systems The patient denies any acute changes in vision or hearing, no dysphagia or odyn ophagia, no chest pain or shortness of breath, no dysuria or hematuria, no headache, no runny nose, no unexplained weight loss Past Medical History Past Medical History: Rheumatoid Arthritis (RA) Additional Past Medical History / Comment(s): CROHN'S DX, DIET CONTROLLED DIABETES, DEG DISC DX, auto immune, fibromyalgia History of Any Multi-Drug Resistant Organisms: None Reported Past Surgical History: Hysterectomy, Orthopedic Surgery Additional Past Surgical History / Comment(s): Rt TKR Past Anesthesia/Blood Transfusion Reactions: No Reported Reaction Past Psychological History: Anxiety Smoking Status: Never smoker Past Alcohol Use History: None Reported Past Drug Use History: None Reported - Past Family History Sister(s) Family Medical History: Cancer Additional Family Medical History / Comment(s): BREAST Mother Family Medical History: Congestive Heart Failure (CHF) Medications and Allergies Home Medications Medication Instructions Recorded Confirmed Type amLODIPine [Norvasc] 2.5 mg PO HS 09/21/14 07/29/21 History busPIRone HCl [Buspar] 10 mg PO BID 09/21/14 07/28/21 History Acetaminophen Tab [Tylenol Tab] 1,000 mg PO Q6H PRN 07/28/21 07/28/21 History Atorvastatin [Lipitor] 20 mg PO HS 07/28/21 07/28/21 History Diclofenac Sodium Gel [Voltaren 4 gm TOPICAL QID PRN 07/28/21 07/28/21 History Gel] Gabapentin 600 mg PO TID 07/28/21 07/28/21 History Ipratropium Braxton 0.06%Nasal 2 spray EA NOSTRIL TID 07/28/21 07/28/21 History [Atrovent Nasal 0.06%] Irbesartan [Avapro] 150 mg PO DAILY 07/28/21 07/28/21 History Levothyroxine Sodium [Synthroid] 75 mcg PO DAILY 07/28/21 07/28/21 History Mesalamine [Mesalamine ER] 1.5 gm PO DAILY 07/28/21 07/28/21 History Allergies Allergy/AdvReac Type Severity Reaction Status Date / Time Sulfa (Sulfonamide Allergy Rash/Hives/ Verified 07/28/21 10:48 Antibiotics) Swelling Surgical - Exam Vital Signs Temp Pulse Resp BP Pulse Ox 98.4 F 96 18 120/75 81 L 07/28/21 09:12 07/28/21 09:12 07/28/21 09:12 07/28/21 09:12 07/28/21 09:12 Physical exam: General: Well-developed, well-nourished HEENT: Normocephalic, sclerae nonicteric Abdomen: Nontender, nondistended Extremities: Mild lower extremity edema Neuro: Alert and oriented Results - Labs 07/30/21 05:52 07/28/21 10:15 Abnormal Lab Results - Last 24 Hours (Table) 07/29/21 07/30/21 Range/Units 10:03 05:52 WBC 11.3 H (3.8-10.6) k/uL Neutrophils # 10.3 H (1.3-7.7) k/uL Lymphocytes # 0.6 L (1.0-4.8) k/uL Procalcitonin 1.25 H (0.02-0.09) ng/mL Microbiology - Last 24 Hours (Table) 07/28/21 11:45 Blood Culture - Preliminary Blood No Growth after 24 hours 07/28/21 12:00 Blood Culture - Preliminary Blood No Growth after 24 hours Assessment and Plan (1) GI bleed Narrative/Plan: 86-year-old female with dark tarry stool. Those symptoms have resolved. Patient only on prophylactic Lovenox at this point. Patient has a personal history of Crohn's disease and follows with Dr. Reed for that. Recommend GI consult if bleeding recurs. No surgical intervention planned. We'll sign off. Call if needed. Current Visit: Yes Status: Acute Code(s): K92.2 - GASTROINTESTINAL HEMORRHAGE, UNSPECIFIED SNOMED Code(s): 52753228
--- NOTE | 2021-07-30 12:56 | P.PN ---
Subjective Progress Note Date: 07/30/21 This is an 86-year-old female primarily a patient of Dr. Rodriguez, patient is known to have history of rheumatoid arthritis, on multiple medications for her rheumatoid arthritis, she is also on rituxin infusions every 6 months. Patient is being followed by rheumatology, patient is current on her immunization including COVID-19 vaccination, she did receive moderna, 2 injections, and she did not receive her third booster. Patient stated that her last injection was in October. Came in today with 7 days' history of cough, congestion, describes the cough as productive with slightly yellow tinged sputum, patient also has multiple GI symptoms including poor appetite, diarrhea, denies any abdominal marysol n. She also had intermittent fevers and chills. Body aches were also described. However the patient had negative rapid PCR for COVID-19 infection and a follow-up test was also done and it came back also negative. Her chest x- ray and CT of the chest are abnormal. Chest x-ray is suggestive of interstitial lung disease. CT of the chest showed diffuse reticulonodular and ground glass opacities throughout both lungs. Possible underlying fibrosis noted. No pulmonary mass nodule and no real effusion noted. No evidence of lymphadenopathy. And no evidence of thromboembolic disease. CBC showed a bit of leukocytosis with WBC count of 13.9. Lymphopenia was noted. Normal electrolytes, normal renal profile, LDH was 1055 and BNP level was 1100. Pro- calcitonin level is pending. Patient had negative PCR for sanchez virus infection. She had negative screening for influenza A, influenza B, RSV. Patient was hypoxic on room air, O2 saturations was 81%, however she was placed on 5 L and her oxygen saturation was up to 96% considering her pulmonary presentation, this consult was initiated. And I saw the patient in the ER. Patient is already on Rocephin and Zithromax, however the admitting physician changed her antibiotics to cefepime. She is on DVT prophylaxis, she is also on methylprednisolone 40 mg IV push every 8 hours. Reevaluated today on 07/29/2021, patient is feeling better today, breathing easier, less cough and less shortness of breath, less GI symptoms. Patient came in with multiple constitutional symptoms as noted above. Chest x-ray showed bilateral interstitial infiltrates, PCR for COVID-19 pneumonia was negative 2. Patient is now on 5 L nasal cannula, O2 sats is 94%. Her pro calcitonin today is 1.25. Patient tested negative for COVID-19, tested negative for influenza A, influenza B and for RSV. On 07/30/2021 patient seen in follow-up on medical surgical floor, she is resting comfortably in bed, she remains on 5 L of oxygen, pulse ox is 91-92%, breathing comfortably, she states her cough is improving, she is not producing any significant amount of sputum, at times she is able to clear some sanderson colored phlegm, she has been afebrile, hemodynamically she has been stable, she remains on cefepime for possibility of underlying community-acquired pneumonia, she remains on IV steroids, she tested negative for COVID 19, RSV and influenza A and B, her pro calcitonin level is improving on today's labs and is down to 0.95 from previous levels of 3.98 on admission. White count is improving and is down to 11.3, hemoglobin is 13.2, blood cultures have shown no growth, mild wheezes on today's exam. Objective - Vital Signs Vital signs: Vital Signs Temp 97.9 F 07/30/21 09:22 Pulse 82 07/30/21 09:22 Resp 20 07/30/21 09:22 BP 147/79 07/30/21 09:22 Pulse Ox 92 L 07/30/21 09:22 Intake & Output 07/29/21 07/30/21 07/30/21 18:59 06:59 18:59 Intake Total 100 Balance 100 Intake: Intake, IV Titration 100 Amount Cefepime 2 gm In Sodium 100 Chloride 0.9% 100 ml @ 25 mls/hr IVPB Q12H [facility] Rx# :[id number] Other: Voiding Method Bedside Commode # Voids 1 - Exam GENERAL EXAM: Alert, very pleasant, 86-year-old white female, on 5 L of oxygen and the pulse ox of 92% comfortable in no apparent distress. HEAD: Normocephalic/atraumatic. EYES: Normal reaction of pupils, equal size. Conjunctiva pink, sclera white. NOSE: Clear with pink turbinates. THROAT: No erythema or exudates. NECK: No masses, no JVD, no thyroid enlargement, no adenopathy. CHEST: No chest wall deformity. Symmetrical expansion. LUNGS: Equal air entry with bilateral crackles and mild wheezes CVS: Regular rate and rhythm, normal S1 and S2, no gallops, no murmurs, no rubs ABDOMEN: Soft, nontender. No hepatosplenomegaly, normal bowel sounds, no guarding or rigidity. EXTREMITIES: No clubbing, no edema, no cyanosis, 2+ pulses and upper and lower extremities. MUSCULOSKELETAL: Muscle strength and tone normal. SPINE: No scoliosis or deformity SKIN: No rashes CENTRAL NERVOUS SYSTEM: Alert and oriented -3. No focal deficits, tone is normal in all 4 extremities. PSYCHIATRIC: Alert and oriented -3. Appropriate affect. Intact judgment and insight. - Labs CBC & Chem 7: 07/30/21 05:52 07/28/21 10:15 Labs: Abnormal Lab Results - Last 24 Hours (Table) 07/29/21 07/30/21 07/30/21 Range/Units 10:03 05:52 05:52 WBC 11.3 H (3.8-10.6) k/uL Neutrophils # 10.3 H (1.3-7.7) k/uL Lymphocytes # 0.6 L (1.0-4.8) k/uL Procalcitonin 1.25 H 0.95 H (0.02-0.09) ng/mL Microbiology - Last 24 Hours (Table) 07/28/21 11:45 Blood Culture - Preliminary Blood No Growth after 24 hours 07/28/21 12:00 Blood Culture - Preliminary Blood No Growth after 24 hours Assessment and Plan Plan: Assessment: #1. Acute hypoxic respiratory failure secondary to interstitial lung disease and suspected superimposed, mucoid pneumonia. Patient tested negative for COVID-19, influenza A and B and RSV. Patient also had 2 previous negative PCR test. Patient is fully immunized against COVID 19. #2. Elevated pro-calcitonin suggesting possibility of bacterial pneumonia, possibly community acquired, patient is currently covered with cefepime #3. History of rheumatoid arthritis and rheumatoid lung disease. #4. Bronchiolitis obliterans with organizing pneumonia #5. Hypertension #6. Dyslipidemia #7. History of hypothyroidism Plan: Clinically patient is feeling better, her cough is improving She states she was never really short of breath but her cough was one of her main complaints Weaning FiO2 to maintain O2 saturations at or above 90% Encouraged patient to sit up in the chair, Sputum sample has been collected and will be sent for culture Pro-calcitonin level is improving Vital signs have been stable We'll continue to follow I performed a history & physical examination of the patient and discussed their management with my nurse practitioner, Saundra Schwartz. I reviewed the nurse practitioner's note and agree with the documented findings and plan of care. Lung sounds are positive for diminished breath sounds throughout the lung salvador. The findings and the impression was discussed with the patient. I attest to the documentation by the nurse practitioner. Time with Patient: Less than 30
--- NOTE | 2021-07-30 13:29 | P.PN ---
Progress Note - Text Progress Note Date: 07/30/21 Chief Complaint: Short of breath This is a pleasant 86-year-old patient, follows with Dr. Chaney. Chronic stable medical conditions include rheumatoid arthritis, Crohn's disease, diet- controlled diabetes, autoimmune disorder, fibromyalgia. She does follow Dr. Reed from rheumatology and does Rituxan injections every 6 months. Sees due for her next one. Patient did take her COVID vaccines back in . She doesn't go out much. For 7 days patient suspect upper cough. Very congested. Clear sputum. Has had fever and chills. Patient also had diarrhea. Some dark stool. No abdominal pain. Patient chronic stable medical conditions also include anxiety, hypothyroid, peripheral neuropathy, hyperlipidemia. Appetite is poor. Initial rapid COVID testing in the ER was negative. A more definitive PCR was sent out. Patient is accompanied by her [id number]. Patient is rather tired and rundown. She is also had chronic immune lung condition in the past. July 29: Short of breath. Tired. 5 L nasal cannula. Eating about 50%. In bed. July 30: Some shortness of breath. Some cough. 5 L nasal cannula. Eating some. Tired. Review of systems: Was done for constitutional, cardiovascular, GI, pulmonary. relevant finding as above Active Medications Acetaminophen (Acetaminophen Tab 500 Mg Tab) 1,000 mg PO Q6HR PRN PRN Reason: Fever>101 Last Admin: 07/29/21 05:59 Dose: 1,000 mg Documented by: Albuterol Sulfate (Albuterol Hfa Inhaler) 2 puff INHALATION RT-Q6H [facility] Last Admin: 07/30/21 11:55 Dose: 2 puff Documented by: Albuterol Sulfate (Albuterol Hfa Inhaler) 2 puff INHALATION RT-Q6H PRN PRN Reason: Shortness Of Breath Or Wheezing Amlodipine Besylate (Amlodipine 2.5 Mg Tab) 2.5 mg PO [facility] Last Admin: 07/29/21 23:09 Dose: 2.5 mg Documented by: Ascorbic Acid (Ascorbic Acid 500 Mg Tab) 500 mg PO BID [facility] Last Admin: 07/30/21 08:02 Dose: 500 mg Documented by: Atorvastatin Calcium (Atorvastatin 20 Mg Tab) 20 mg PO [facility] Last Admin: 07/29/21 23:10 Dose: 20 mg Documented by: Balsalazide (Balsalazide Disodium 750 Mg Capsule) 2,250 mg PO TID [facility] Last Admin: 07/30/21 08:03 Dose: 2,250 mg Documented by: Buspirone HCl (Buspirone Hcl 10 Mg Tab) 10 mg PO BID [facility] Last Admin: 07/30/21 08:02 Dose: 10 mg Documented by: Cholecalciferol (Cholecalciferol 25 Mcg (1000 Iu) Tablet) 100 mcg PO DAILY [facility] Last Admin: 07/30/21 08:02 Dose: 100 mcg Documented by: Diclofenac Sodium (Diclofenac Sodium Gel 100 Gm Tube) 4 gm TOPICAL QID PRN; Protocol PRN Reason: Pain Enoxaparin Sodium (Enoxaparin 40 Mg/0.4 Ml Syringe) 40 mg SQ DAILY [facility] Last Admin: 07/30/21 08:03 Dose: 40 mg Documented by: Gabapentin (Gabapentin 300 Mg Cap) 600 mg PO TID [facility] Last Admin: 07/30/21 08:04 Dose: 600 mg Documented by: Guaifenesin (Guaifenesin 600 Mg Tablet.Er) 600 mg PO QID [facility] Last Admin: 07/30/21 12:02 Dose: 600 mg Documented by: Sodium Chloride (Saline 0.9%) 1,000 mls @ 75 mls/hr IV .[id number] [facility] Last Admin: 07/30/21 05:54 Dose: 75 mls/hr Documented by: Cefepime HCl 2 gm/ Sodium (Chloride) 100 mls @ 25 mls/hr IVPB Q12H [facility] Last Admin: 07/30/21 05:54 Dose: 25 mls/hr Documented by: Ipratropium [place] (Ipratropium [place] 0.06% Nasal [place] (15 Ml)) 2 spray EA NOSTRIL TID [facility] Last Admin: 07/29/21 23:21 Dose: Not Given Documented by: Levothyroxine Sodium (Levothyroxine 75 Mcg Tab) 75 mcg PO DAILY@0630 [facility] Last Admin: 07/30/21 05:54 Dose: 75 mcg Documented by: Lorazepam (Lorazepam 0.5 Mg Tab) 0.5 mg PO Q6HR PRN PRN Reason: Anxiety Losartan Potassium (Losartan 50 Mg Tab) 50 mg PO DAILY [facility] Last Admin: 07/30/21 08:04 Dose: 50 mg Documented by: Melatonin (Melatonin 3 Mg Tablet) 3 mg PO HS PRN PRN Reason: Insomnia Methylprednisolone Sodium Succinate (Methylprednisolone Sod Succi 40 Mg/Ml 1 Ml Vial) 40 mg IV Q8HR [facility] Last Admin: 07/30/21 08:02 Dose: 40 mg Documented by: Miscellaneous Information (Pneumonia Protocol Utilized 1 Each [facility]) 1 each PO ONCE PRN PRN Reason: Per Protocol Naloxone HCl (Naloxone 0.4 Mg/Ml 1 Ml Vial) 0.2 mg IV Q2M PRN PRN Reason: Opioid Reversal Ondansetron HCl (Ondansetron 4 Mg/2 Ml Vial) 4 mg IVP Q8HR PRN PRN Reason: Nausea And Vomiting Zinc Sulfate (Zinc Sulfate 220 Mg Cap) 220 mg PO DAILY [facility] Last Admin: 07/30/21 08:02 Dose: 220 mg Documented by: Past medical history to include: Anxiety, hypothyroid, peripheral neuropathy, hyperlipidemia, rheumatoid arthritis, Crohn's disease, diet-controlled diabetes, autoimmune lung disorder, fibromyalgia Social history: Lives with son and [id number]. No smoking no alcohol. Family history: Breast cancer Physical examination: VITAL SIGNS: 97.9, 82, 20, 147.79, 92% on 5 L GENERAL: reclining bed, awake, tired. EYES: Pupils equal. Conjunctiva normal. HEENT: External appearance of nose and ears normal, oral cavity grossly normal. NECK: JVD not raised; masses not palpable. HEART: First and second heart sounds are normal; no edema. LUNGS: Respiratory rate increased, decreased- bilateral coarse crackles. ABDOMEN: Soft, nontender, liver spleen not palpable, no masses palpable. PSYCH: Alert and oriented x3; mood and affect some anxiety MUSCULAR skeletal: Evidence of rheumatoid arthritis especially in the hands, significant INVESTIGATIONS, reviewed in the clinical context: July 30: White count 9.3 hemoglobin 13.2 pro-calcitonin 0.95 July 29: Procalcitonin 3.98 WBC 13.9 hemoglobin 15.1 platelets 273 lymphocytes 0.8 d-dimer 1.09 sodium 133 potassium 4.3 creatinine 0.74 CRP 7.6 Coronavirus [PCR/rapid]: Negative Influenza A, influenza B, RSV, Coronavirus PCR: Not detected EKG tracing personally reviewed by me-normal sinus rhythm, LV[facility] Chest x-ray film personally reviewed by me-bilateral infiltrate changes, so we'll discontinue chronic. Also looked at the films from 2017 CT angiogram chest: Negative for PE. Reticular-nodular and groundglass infiltrates. Underlying fibrosis. Assessment and plan: - bacterial pneumonia suspected gram-negative.: Slow to respond IV cefepime. . Sputum for Gram stain and culture. -Acute severe hypoxic respiratory failure from pneumonia: Slow to respond 5 L nasal cannula -Patient had complained of dark stools. Consult surgery. Check occult blood in stool -Initial Clinical suspicion for COVID-19 was high. Initial rapid antigen tested PCR was negative. A more definitive repeat COVID-19 immunoassay test was done/PCR that came back also negative -Chronic rheumatoid arthritis Patient does getRituxan injections every 6 months -Chronic Crohn's disease Patient did complain of some dark stools. No abdominal pain. GI services are not available in the hospital. We'll consult international guest coordinator surgery. 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 bronchodilators. 5 L nasal cannula. Mucinex. No further dark stools. No interventions per surgery. Follow closely.
[2021-07-30] MEDS: IPRATROPIUM BROMIDE 0.06% NASAL SPRAY (15 ML) EA NOSTRIL SCH ×2 (16:07→20:32)
[2021-07-30] MEDS: ATORVASTATIN 20 MG TAB PO SCH (20:31)
[2021-07-30] MEDS: amLODIPine 2.5 MG TAB PO SCH (20:31)
[2021-07-31] MEDS: ALBUTEROL HFA INHALER INHALATION SCH ×4 (01:04→19:41)
[2021-07-31] MEDS: CEFEPIME 2 GM in SODIUM CHLORIDE 0.9% 100 ML IVPB SCH ×2 (06:19→17:25)
[2021-07-31] MEDS: methylPREDNISolone SOD SUCCI 40 MG/ML 1 ML VIAL IV SCH ×3 (06:20→17:25)
[2021-07-31] MEDS: LEVOTHYROXINE 75 MCG TAB PO SCH (06:20)
[2021-07-31 07:38] LABS: Basophils % (A) 0 %; Eosinophils % (A) 0 %; HCT 39.5 % (34.0-46.0); HGB 12.7 gm/dL (11.4-16.0); Hypochromasia Slight; Lymphocytes # (A) 0.7 k/uL (1.0-4.8); Lymphocytes % (A) 4 %; MCH 28.9 pg (25.0-35.0); MCHC 32.2 g/dL (31.0-37.0); MCV 89.7 fL (80.0-100.0); Mean Platelet Volume 7.1; Monocytes # (A) 0.6 k/uL (0-1.0); Monocytes % (A) 4 %; Neutrophils % (A) 92 %; Platelet Count 375 k/uL (150-450); RDW 13.3 % (11.5-15.5); WBC 17.4 k/uL (3.8-10.6)
[2021-07-31] MEDS: guaiFENesin 600 MG TABLET.ER PO SCH ×4 (09:07→21:43)
[2021-07-31] MEDS: ZINC SULFATE 220 MG CAP PO SCH (09:07)
[2021-07-31] MEDS: CHOLECALCIFEROL 25 MCG (1000 IU) TABLET PO SCH (09:07)
[2021-07-31] MEDS: IPRATROPIUM BROMIDE 0.06% NASAL SPRAY (15 ML) EA NOSTRIL SCH ×3 (09:07→23:18)
[2021-07-31] MEDS: GABAPENTIN 300 MG CAP PO SCH ×3 (09:07→21:41)
[2021-07-31] MEDS: busPIRone HCl 10 MG TAB PO SCH ×2 (09:07→21:40)
[2021-07-31] MEDS: ENOXAPARIN 40 MG/0.4 ML SYRINGE SQ SCH (09:07)
[2021-07-31] MEDS: LOSARTAN 50 MG TAB PO SCH (09:07)
[2021-07-31] MEDS: ASCORBIC ACID 500 MG TAB PO SCH ×2 (09:07→21:41)
[2021-07-31] MEDS: IPRATROPIUM-ALBUTEROL 3 ML NEB INHALATION SCH ×4 (12:52→23:11)
--- NOTE | 2021-07-31 14:55 | P.PN ---
Progress Note - Text Progress Note Date: 07/31/21 Chief Complaint: Short of breath This is a pleasant 86-year-old patient, follows with Dr. Chaney. Chronic stable medical conditions include rheumatoid arthritis, Crohn's disease, diet- controlled diabetes, autoimmune disorder, fibromyalgia. She does follow Dr. Reed from rheumatology and does Rituxan injections every 6 months. Sees due for her next one. Patient did take her COVID vaccines back in . She doesn't go out much. For 7 days patient suspect upper cough. Very congested. Clear sputum. Has had fever and chills. Patient also had diarrhea. Some dark stool. No abdominal pain. Patient chronic stable medical conditions also include anxiety, hypothyroid, peripheral neuropathy, hyperlipidemia. Appetite is poor. Initial rapid COVID testing in the ER was negative. A more definitive PCR was sent out. Patient is accompanied by her [id number]. Patient is rather tired and rundown. She is also had chronic immune lung condition in the past. July 29: Short of breath. Tired. 5 L nasal cannula. Eating about 50%. In bed. July 30: Some shortness of breath. Some cough. 5 L nasal cannula. Eating some. Tired. July 31: Worsening short of breath. On 15 L nasal cannula. Congested cough. Eating about 50%. Laying in bed Review of systems: Was done for constitutional, cardiovascular, GI, pulmonary. relevant finding as above Active Medications Acetaminophen (Acetaminophen Tab 500 Mg Tab) 1,000 mg PO Q6HR PRN PRN Reason: Fever>101 Last Admin: 07/29/21 05:59 Dose: 1,000 mg Documented by: Albuterol Sulfate (Albuterol Hfa Inhaler) 2 puff INHALATION RT-Q6H [facility] Last Admin: 07/31/21 12:51 Dose: 2 puff Documented by: Albuterol Sulfate (Albuterol Hfa Inhaler) 2 puff INHALATION RT-Q6H PRN PRN Reason: Shortness Of Breath Or Wheezing Albuterol/Ipratropium (Ipratropium-Albuterol 3 Ml Neb) 3 ml INHALATION RT-Q4H [facility] Last Admin: 07/31/21 12:52 Dose: Not Given Documented by: Amlodipine Besylate (Amlodipine 2.5 Mg Tab) 2.5 mg PO [facility] Last Admin: 07/30/21 20:31 Dose: 2.5 mg Documented by: Ascorbic Acid (Ascorbic Acid 500 Mg Tab) 500 mg PO BID [facility] Last Admin: 07/31/21 09:07 Dose: 500 mg Documented by: Atorvastatin Calcium (Atorvastatin 20 Mg Tab) 20 mg PO HS [facility] Last Admin: 07/30/21 20:31 Dose: 20 mg Documented by: Budesonide/Formoterol Fumarate (Symbicort 160-4.5 Mcg Inhaler) 2 puff INHALATION RT-BID [facility] Buspirone HCl (Buspirone Hcl 10 Mg Tab) 10 mg PO BID [facility] Last Admin: 07/31/21 09:07 Dose: 10 mg Documented by: Cholecalciferol (Cholecalciferol 25 Mcg (1000 Iu) Tablet) 100 mcg PO DAILY [facility] Last Admin: 07/31/21 09:07 Dose: 100 mcg Documented by: Diclofenac Sodium (Diclofenac Sodium Gel 100 Gm Tube) 4 gm TOPICAL QID PRN; Protocol PRN Reason: Pain Enoxaparin Sodium (Enoxaparin 40 Mg/0.4 Ml Syringe) 40 mg SQ DAILY [facility] Last Admin: 07/31/21 09:07 Dose: 40 mg Documented by: Gabapentin (Gabapentin 300 Mg Cap) 600 mg PO TID [facility] Last Admin: 07/31/21 09:07 Dose: 600 mg Documented by: Guaifenesin (Guaifenesin 600 Mg Tablet.Er) 600 mg PO QID [facility] Last Admin: 07/31/21 09:07 Dose: 600 mg Documented by: Sodium Chloride (Saline 0.9%) 1,000 mls @ 75 mls/hr IV .[id number] [facility] Last Admin: 07/30/21 16:22 Dose: 75 mls/hr Documented by: Cefepime HCl 2 gm/ Sodium (Chloride) 100 mls @ 25 mls/hr IVPB Q12H [facility] Last Admin: 07/31/21 06:19 Dose: 25 mls/hr Documented by: Ipratropium [place] (Ipratropium [place] 0.06% Nasal [place] (15 Ml)) 2 spray EA NOSTRIL TID [facility] Last Admin: 07/31/21 13:38 Dose: Not Given Documented by: Levothyroxine Sodium (Levothyroxine 75 Mcg Tab) 75 mcg PO DAILY@0630 [facility] Last Admin: 07/31/21 06:20 Dose: 75 mcg Documented by: Lorazepam (Lorazepam 0.5 Mg Tab) 0.5 mg PO Q6HR PRN PRN Reason: Anxiety Losartan Potassium (Losartan 50 Mg Tab) 50 mg PO DAILY [facility] Last Admin: 07/31/21 09:07 Dose: 50 mg Documented by: Melatonin (Melatonin 3 Mg Tablet) 3 mg PO HS [facility] Methylprednisolone Sodium Succinate (Methylprednisolone Sod Succi 40 Mg/Ml 1 Ml Vial) 40 mg IV Q6HR [facility] Last Admin: 07/31/21 13:41 Dose: 40 mg Documented by: Miscellaneous Information (Pneumonia Protocol Utilized [address] [facility]) 1 each PO ONCE PRN PRN Reason: Per Protocol Naloxone HCl (Naloxone 0.4 Mg/Ml 1 Ml Vial) 0.2 mg IV Q2M PRN PRN Reason: Opioid Reversal Ondansetron HCl (Ondansetron 4 Mg/2 Ml Vial) 4 mg IVP Q8HR PRN PRN Reason: Nausea And Vomiting Zinc Sulfate (Zinc Sulfate 220 Mg Cap) 220 mg PO DAILY [facility] Last Admin: 07/31/21 09:07 Dose: 220 mg Documented by: Past medical history to include: Anxiety, hypothyroid, peripheral neuropathy, hyperlipidemia, rheumatoid arthritis, Crohn's disease, diet-controlled diabetes, autoimmune lung disorder, fibromyalgia Social history: Lives with son and [id number]. No smoking no alcohol. Family history: Breast cancer Physical examination: VITAL SIGNS: 97, 96, 92, 1 58 x 69, 88% on 15 L GENERAL: reclining bed, awake, tired. EYES: Pupils equal. Conjunctiva normal. HEENT: External appearance of nose and ears normal, oral cavity grossly normal. NECK: JVD not raised; masses not palpable. HEART: First and second heart sounds are normal; no edema. LUNGS: Respiratory rate increased, not able to speak in full sentences, decreased- bilateral coarse crackles. ABDOMEN: Soft, nontender, liver spleen not palpable, no masses palpable. PSYCH: Alert and oriented x3; mood and affect some anxiety MUSCULAR skeletal: Evidence of rheumatoid arthritis especially in the hands, significant INVESTIGATIONS, reviewed in the clinical context: July 31: White count 17.4 hemoglobin 12.7 Occult stool positive July 30: White count 9.3 hemoglobin 13.2 pro-calcitonin 0.95 July 29: Procalcitonin 3.98 WBC 13.9 hemoglobin 15.1 platelets 273 lymphocytes 0.8 d-dimer 1.09 sodium 133 potassium 4.3 creatinine 0.74 CRP 7.6 Coronavirus [PCR/rapid]: Negative Influenza A, influenza B, RSV, Coronavirus PCR: Not detected EKG tracing personally reviewed by me-normal sinus rhythm, [facility] Chest x-ray film personally reviewed by me-bilateral infiltrate changes, so we'll discontinue chronic. Also looked at the films from 2017 CT angiogram chest: Negative for PE. Reticular-nodular and groundglass infiltrates. Underlying fibrosis. Assessment and plan: - bacterial pneumonia suspected gram-negative.: Slow to respond IV cefepime. . Sputum for Gram stain and culture. -Acute severe hypoxic respiratory failure from pneumonia: Worsening 15 L nasal cannula -Patient had complained of dark stools. Consult surgery. Stool occult positive. Consult GI -Initial Clinical suspicion for COVID-19 was high. Initial rapid antigen tested PCR was negative. A more definitive repeat COVID-19 immunoassay test was done/PCR that came back also negative -Chronic rheumatoid arthritis Patient does getRituxan injections every 6 months -Chronic Crohn's disease Patient did complain of some dark stools. No abdominal pain. GI services are not available in the hospital. We'll consult concrete truck driver surgery. 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 bronchodilators. 15 L nasal cannula. Consult GI for dark stools. Add Symbicort. Follow with pulmonary.
[2021-07-31] MEDS ORDERED: FUROSEMIDE 10 MG/ML 4 ML VIAL IV STA (16:46)
[2021-07-31] MEDS: SODIUM CHLORIDE 0.9% 1,000 ML IV SCH (17:22)
--- NOTE | 2021-07-31 17:28 | P.PN ---
Subjective Progress Note Date: 07/31/21 This is an 86-year-old female primarily a patient of Dr. Rodriguez, patient is known to have history of rheumatoid arthritis, on multiple medications for her rheumatoid arthritis, she is also on rituxin infusions every 6 months. Patient is being followed by rheumatology, patient is current on her immunization including COVID-19 vaccination, she did receive moderna, 2 injections, and she did not receive her third booster. Patient stated that her last injection was in October. Came in today with 7 days' history of cough, congestion, describes the cough as productive with slightly yellow tinged sputum, patient also has multiple GI symptoms including poor appetite, diarrhea, denies any abdominal marysol n. She also had intermittent fevers and chills. Body aches were also described. However the patient had negative rapid PCR for COVID-19 infection and a follow-up test was also done and it came back also negative. Her chest x- ray and CT of the chest are abnormal. Chest x-ray is suggestive of interstitial lung disease. CT of the chest showed diffuse reticulonodular and ground glass opacities throughout both lungs. Possible underlying fibrosis noted. No pulmonary mass nodule and no real effusion noted. No evidence of lymphadenopathy. And no evidence of thromboembolic disease. CBC showed a bit of leukocytosis with WBC count of 13.9. Lymphopenia was noted. Normal electrolytes, normal renal profile, LDH was 1055 and BNP level was 1100. Pro- calcitonin level is pending. Patient had negative PCR for sanchez virus infection. She had negative screening for influenza A, influenza B, RSV. Patient was hypoxic on room air, O2 saturations was 81%, however she was placed on 5 L and her oxygen saturation was up to 96% considering her pulmonary presentation, this consult was initiated. And I saw the patient in the ER. Patient is already on Rocephin and Zithromax, however the admitting physician changed her antibiotics to cefepime. She is on DVT prophylaxis, she is also on methylprednisolone 40 mg IV push every 8 hours. Reevaluated today on 07/29/2021, patient is feeling better today, breathing easier, less cough and less shortness of breath, less GI symptoms. Patient came in with multiple constitutional symptoms as noted above. Chest x-ray showed bilateral interstitial infiltrates, PCR for COVID-19 pneumonia was negative 2. Patient is now on 5 L nasal cannula, O2 sats is 94%. Her pro calcitonin today is 1.25. Patient tested negative for COVID-19, tested negative for influenza A, influenza B and for RSV. On 07/30/2021 patient seen in follow-up on medical surgical floor, she is resting comfortably in bed, she remains on 5 L of oxygen, pulse ox is 91-92%, breathing comfortably, she states her cough is improving, she is not producing any significant amount of sputum, at times she is able to clear some sanderson colored phlegm, she has been afebrile, hemodynamically she has been stable, she remains on cefepime for possibility of underlying community-acquired pneumonia, she remains on IV steroids, she tested negative for COVID 19, RSV and influenza A and B, her pro calcitonin level is improving on today's labs and is down to 0.95 from previous levels of 3.98 on admission. White count is improving and is down to 11.3, hemoglobin is 13.2, blood cultures have shown no growth, mild wheezes on today's exam. On 07/31/2021 patient seen in follow-up on medical surgical floor, her oxygen demand had increased in last 24 hours, and patient today is on 15 L per high flow nasal cannula and 100% nonrebreather mask, and her pulse ox is in the order of 85-88%, she's been afebrile, hemodynamically she is been stable, she states that she has been coughing up some pink tinged phlegm. Denies any chest discomfort, lung sounds reveal diffuse crackles throughout the lung salvador, she remains on cefepime for empiric antibiotic coverage, her blood cultures have remained negative, remains on IV steroids and nebulized bronchodilators. This x-ray is pending, patient will be given a dose of IV Lasix, her pro-calcitonin level is actually improving on today's labs, to 0.95. CTA chest showed no PE Objective - Vital Signs Vital signs: Vital Signs Temp 97.0 F L 07/31/21 14:33 Pulse 96 07/31/21 14:33 Resp 16 07/31/21 14:33 BP 158/69 07/31/21 14:33 Pulse Ox 88 L 07/31/21 14:33 Intake & Output 12/12/21 12/13/21 12/13/21 18:59 06:59 18:59 Intake Total 100 Balance 100 Intake: Intake, IV Titration 100 Amount Cefepime 2 gm In Sodium 100 Chloride 0.9% 100 ml @ 25 mls/hr IVPB Q12H [facility] Rx# :[id number] Other: Voiding Method Toilet Toilet Bedside Commode Bedside Commode # Voids 2 - Exam GENERAL EXAM: Alert, very pleasant, 86-year-old white female, 15 L and 100% nonrebreather mask, with pulse ox of 84% comfortable in no apparent distress. HEAD: Normocephalic/atraumatic. EYES: Normal reaction of pupils, equal size. Conjunctiva pink, sclera white. NOSE: Clear with pink turbinates. THROAT: No erythema or exudates. NECK: No masses, no JVD, no thyroid enlargement, no adenopathy. CHEST: No chest wall deformity. Symmetrical expansion. LUNGS: Equal air entry with bilateral crackles and mild wheezes CVS: Regular rate and rhythm, normal S1 and S2, no gallops, no murmurs, no rubs ABDOMEN: Soft, nontender. No hepatosplenomegaly, normal bowel sounds, no guarding or rigidity. EXTREMITIES: No clubbing, no edema, no cyanosis, 2+ pulses and upper and lower extremities. MUSCULOSKELETAL: Muscle strength and tone normal. SPINE: No scoliosis or deformity SKIN: No rashes CENTRAL NERVOUS SYSTEM: Alert and oriented -3. No focal deficits, tone is normal in all 4 extremities. PSYCHIATRIC: Alert and oriented -3. Appropriate affect. Intact judgment and insight. - Labs CBC & Chem 7: 07/31/21 06:33 07/28/21 10:15 Labs: Abnormal Lab Results - Last 24 Hours (Table) 07/31/21 Range/Units 06:33 WBC 17.4 H (3.8-10.6) k/uL Neutrophils # 16.0 H (1.3-7.7) k/uL Lymphocytes # 0.7 L (1.0-4.8) k/uL Microbiology - Last 24 Hours (Table) 07/28/21 11:45 Blood Culture - Preliminary Blood No Growth after 72 hours 07/28/21 12:00 Blood Culture - Preliminary Blood No Growth after 72 hours Assessment and Plan Plan: Assessment: #1. Acute hypoxic respiratory failure secondary to interstitial lung disease and suspected superimposed, mucoid pneumonia. Patient tested negative for COVID-19, influenza A and B and RSV. Patient also had 2 previous negative PCR test. Patient is fully immunized against COVID 19. Today's evaluation her oxygenation has worsened, and patient is being placed on Airvo. #2. Elevated pro-calcitonin suggesting possibility of bacterial pneumonia, possibly community acquired, patient is currently covered with cefepime, improving #3. History of rheumatoid arthritis and rheumatoid lung disease. #4. Bronchiolitis obliterans with organizing pneumonia #5. Hypertension #6. Dyslipidemia #7. History of hypothyroidism Plan: Continue IV steroids Continue current antibiotics We will give the patient 1 dose of Lasix obtain stat chest x-ray The chest x-ray in the morning Send a sputum culture Continue nebulized bronchodilators patient is requiring more oxygen and she will be placed on Airvo Procalcitonin level is improving Accurate intake and output Daily weight Follow up CMP in am I performed a history & physical examination of the patient and discussed their management with my nurse practitioner, Saundra Schwartz. I reviewed the nurse practitioner's note and agree with the documented findings and plan of care. Lung sounds are positive for diminished breath sounds throughout the lung salvador. The findings and the impression was discussed with the patient. I attest to the documentation by the nurse practitioner. Time with Patient: Less than 30
--- NOTE | 2021-07-31 17:44 | XR ---
EXAMINATION TYPE: XR chest 1V portable DATE OF EXAM: 07/31/2021 COMPARISON: 07/29/2021 HISTORY: Shortness of breath and cough TECHNIQUE: Single frontal view of the chest is obtained. FINDINGS: There are increased bilateral diffuse marked interstitial opacities. No pleural effusion, or pneumothorax seen. The cardiac silhouette size is within normal limits. The osseous structures are intact. IMPRESSION: Worsening diffuse interstitial opacities.
[2021-07-31] MEDS: methylPREDNISolone SOD SUCCI 125 MG/2 ML VIAL IV SCH ×2 (18:18→23:16)
[2021-07-31] MEDS: SYMBICORT 160-4.5 MCG INHALER INHALATION SCH (19:42)
[2021-07-31] MEDS: MELATONIN 3 MG TABLET PO SCH (21:40)
[2021-07-31] MEDS: ATORVASTATIN 20 MG TAB PO SCH (21:40)
[2021-07-31] MEDS: amLODIPine 2.5 MG TAB PO SCH (21:40)
[2021-07-31] MEDS ORDERED: ALBUTEROL NEBULIZED 2.5 MG/3 ML INHALATION PRN (23:08)
[2021-07-31] MEDS ORDERED: ALBUTEROL HFA INHALER INHALATION PRN (23:10)
[2021-08-01] MEDS: methylPREDNISolone SOD SUCCI 125 MG/2 ML VIAL IV SCH ×4 (05:17→22:55)
[2021-08-01] MEDS: CEFEPIME 2 GM in SODIUM CHLORIDE 0.9% 100 ML IVPB SCH ×3 (05:17→20:54)
[2021-08-01] MEDS: LEVOTHYROXINE 75 MCG TAB PO SCH (05:21)
[2021-08-01] MEDS: IPRATROPIUM-ALBUTEROL 3 ML NEB INHALATION SCH ×5 (05:25→19:34)
--- NOTE | 2021-08-01 08:13 | XR ---
EXAMINATION TYPE: XR chest 1V portable DATE OF EXAM: 08/01/2021 COMPARISON: 07/31/2021 HISTORY: Shortness of breath TECHNIQUE: Single frontal view of the chest is obtained. FINDINGS: There are increased bilateral diffuse marked interstitial opacities. No pleural effusion, or pneumothorax seen. The cardiac silhouette size is within normal limits. The osseous structures are intact. IMPRESSION: Diffuse bilateral infiltrates are stable. Correlate for diffuse pneumonia versus ARDS.
[2021-08-01] MEDS: SYMBICORT 160-4.5 MCG INHALER INHALATION SCH ×2 (09:28→19:34)
[2021-08-01 09:42] LABS: Basophils # (A) 0.03 X 10*3/uL (0.00-0.10); Basophils % (A) 0.2 %; Eosinophils # (A) 0 X 10*3/uL (0.04-0.35); Eosinophils % (A) 0 %; HCT 43.3 % (37.2-46.3); HGB 13.5 g/dL (12.0-15.0); Lymphocytes # (A) 0.39 X 10*3/uL (0.90-5.00); Lymphocytes % (A) 2.7 %; MCHC 31.2 g/dL (32.0-37.0); MCV 89.6 fL (80.0-97.0); Mean Platelet Volume 9.5 fL (9.5-12.2); Monocytes # (A) 0.45 X 10*3/uL (0.20-1.00); Monocytes % (A) 3.1 %; Neutrophils # (A) 13.38 X 10*3/uL (1.80-7.70); Neutrophils % (A) 92.3 %; Platelet Count 340 X 10*3/uL (140-440); RBC 4.83 X 10*6/uL (4.10-5.20); RDW 13.3 % (11.5-14.5); WBC 14.49 X 10*3/uL (4.50-10.00)
[2021-08-01] MEDS: GABAPENTIN 300 MG CAP PO SCH ×3 (10:01→20:52)
[2021-08-01] MEDS: LOSARTAN 50 MG TAB PO SCH (10:01)
[2021-08-01] MEDS: busPIRone HCl 10 MG TAB PO SCH ×2 (10:01→20:52)
[2021-08-01] MEDS: guaiFENesin 600 MG TABLET.ER PO SCH ×5 (10:01→20:52)
[2021-08-01] MEDS: ASCORBIC ACID 500 MG TAB PO SCH ×2 (10:01→20:52)
[2021-08-01] MEDS: ENOXAPARIN 40 MG/0.4 ML SYRINGE SQ SCH (10:01)
[2021-08-01] MEDS: ZINC SULFATE 220 MG CAP PO SCH (10:01)
[2021-08-01] MEDS: CHOLECALCIFEROL 25 MCG (1000 IU) TABLET PO SCH (10:01)
[2021-08-01 10:54] LABS: African American GFR (CKD) 110.9 (60.0-200.0); Albumin 3.7 g/dL (3.8-4.9); Albumin/Globulin Ratio 1.68 (1.60-3.17); Anion Gap 12.5 mmol/L (10.00-18.00); BUN/Creat Ratio 40.75 Ratio (12.00-20.00); Blood Urea Nitrogen 16.3 mg/dL (9.0-27.0); Calcium 8.9 mg/dL (8.7-10.3); Carbon Dioxide 32.5 mmol/L (20.0-27.5); Globulin 2.2 g/dL (1.6-3.3); Non-African American GFR(CKD) 95.6 (60.0-200.0); Potassium 4.2 mmol/L (3.5-5.5); Total Bilirubin 0.6 mg/dL (0.30-1.20); Total Protein 5.9 g/dL (6.2-8.2)
--- NOTE | 2021-08-01 11:25 | P.CONS ---
History of Present Illness - Reason for Consult Consult date: 08/01/21 dark stool Requesting physician: Aly Snyder - Chief Complaint Shortness of breath, cough, fever - History of Present Illness This is an 86-year-old female who presented to the emergency department 4 days ago with complaints of cough, shortness of breath and fever. Patient had a CT angiogram of the chest and that had ruled out pulmonary embolism. Pulmonary consultation was placed and patient is being treated for mucoid a pneumonia with suspected COVID-19 infection. However patient has had 2 negative COVID-19 swabs. The patient initially reported some black stools on admission therefore initially general surgery was consulted and now gastroenterology. She has a past medical history including rheumatoid arthritis Crohn's disease, type 2 diabetes mellitus diet controlled and fibromyalgia.the patient reports taking mesalamine for her Crohn's disease and states her last Crohn's exacerbation was approximately 2 years ago. She follows with Dr. Villafuerte for her Crohn's disease and states that it is been well controlled. She denies any abdominal pain, cramping, bloody bowel movements, diarrhea, nausea or vomiting. Her last colonoscopy was reported 3 years ago. Patient's respiratory status has been declining transition to Airvo yesterday. She's been afebrile. WBC 14.4 hemoglobin 13.5 hematocrit 43 platelet count 340,000. She did have a positive occult stool on 07/30/2021. Patient states she is no longer having any black stool or blood in her stool. She states her stools soft and brown. Review of Systems REVIEW OF SYSTEMS: CARDIOPULMONARY: No chest pain. Shortness of breath and cough. Gastrointestinal: No abdominal pain.. No nausea or vomiting. No hematemesis, coffee-ground emesis. No rectal bleeding, or melena. GENITOURINARY: No dysuria or hematuria. MUSCULOSKELETAL: Reports normal range of motion., Joint pain. SKIN: No rashes. No jaundice. ENDOCRINE: No chills, fevers. No excessive weight gain or loss. No polydipsia or polyuria. PSYCHIATRIC: Unremarkable. NEUROLOGY: No change in mental status. Denies dizziness, headache. ENT: Vision unremarkable. CONSTITUTIONAL: No recent weight loss. No fever, chills, night sweats. Past Medical History Past Medical History: Rheumatoid Arthritis (RA) Additional Past Medical History / Comment(s): CROHN'S DX, DIET CONTROLLED DIABETES, DEG DISC DX, auto immune, fibromyalgia History of Any Multi-Drug Resistant Organisms: None Reported Past Surgical History: Hysterectomy, Orthopedic Surgery Additional Past Surgical History / Comment(s): Rt TKR Past Anesthesia/Blood Transfusion Reactions: No Reported Reaction Past Psychological History: Anxiety Smoking Status: Never smoker Past Alcohol Use History: None Reported Past Drug Use History: None Reported - Past Family History Sister(s) Family Medical History: Cancer Additional Family Medical History / Comment(s): BREAST Mother Family Medical History: Congestive Heart Failure (CHF) Medications and Allergies Home Medications Medication Instructions Recorded Confirmed Type amLODIPine [Norvasc] 2.5 mg PO HS 09/21/14 07/29/21 History busPIRone HCl [Buspar] 10 mg PO BID 09/21/14 07/28/21 History Acetaminophen Tab [Tylenol Tab] 1,000 mg PO Q6H PRN 07/28/21 07/28/21 History Atorvastatin [Lipitor] 20 mg PO HS 07/28/21 07/28/21 History Diclofenac Sodium Gel [Voltaren 4 gm TOPICAL QID PRN 07/28/21 07/28/21 History Gel] Gabapentin 600 mg PO TID 07/28/21 07/28/21 History Ipratropium [place] 0.06%Nasal 2 spray EA NOSTRIL TID 07/28/21 07/28/21 History [Atrovent Nasal 0.06%] Irbesartan [Avapro] 150 mg PO DAILY 07/28/21 07/28/21 History Levothyroxine Sodium [Synthroid] 75 mcg PO DAILY 07/28/21 07/28/21 History Mesalamine [Mesalamine ER] 1.5 gm PO DAILY 07/28/21 07/28/21 History Allergies Allergy/AdvReac Type Severity Reaction Status Date / Time Sulfa (Sulfonamide Allergy Rash/Hives/ Verified 07/28/21 10:48 Antibiotics) Swelling Physical Exam Vitals: Vital Signs Temp Pulse Pulse Resp BP BP Pulse Ox 08/01/21 05:31 96.4 F L 94 26 H 154/85 90 L 08/01/21 01:49 97.6 F 89 20 135/67 92 L 07/31/21 23:06 81 L 07/31/21 22:46 81 L 07/31/21 22:33 97.4 F L 90 20 123/71 79 L 07/31/21 18:17 97.4 F L 93 18 152/81 83 L 07/31/21 16:59 90 07/31/21 16:43 90 07/31/21 14:33 97.0 F L 96 16 158/69 88 L 07/31/21 10:00 98.2 F 95 17 151/77 85 L 07/31/21 09:01 91 L Intake and Output 07/31/21 08/01/21 08/01/21 22:59 06:59 14:59 Other: Voiding Method Bedside Commode # Voids 3 3 Weight 81.5 kg General appearance: The patient is alert, oriented, appears in no acute distress. HET: Head is normocephalic and atraumatic. Conjunctiva pink. Sclera anicteric. Neck: Supple without lymphadenopathy. Trachea midline. Heart: S1 S2. Regular rate and rhythm. Lungs: Clear to auscultation. Abdomen: Soft, nontender, nondistended with bowel sounds. No guarding or rigidity. Skin: No rashes. No jaundice. Extremities: Normal skin color and turgor. No pedal edema. Neurological: No focal deficits. Alert and oriented x3. Results CBC & Chem 7: 08/01/21 06:48 08/01/21 06:48 Labs: Microbiology - Last 24 Hours (Table) 07/28/21 11:45 Blood Culture - Preliminary Blood No Growth after 72 hours 07/28/21 12:00 Blood Culture - Preliminary Blood No Growth after 72 hours Comments: Chest CT angiogram with no evidence of pulmonary embolism Most recent chest x-ray showing diffuse bilateral infiltrates that are stable. Correlate for diffuse pneumonia versus ARDS Assessment and Plan (1) Crohn's disease Narrative/Plan: Is a 86-year-old patient known to Dr. Villafuerte with a history of Crohn's disease. Patient states her Crohn's disease has been now well controlled and is on mesalamine. Her last exacerbation was approximately 2 years ago. The patient had presented to the emergency department with complaints of shortness of breath and cough. She is currently being treated for mucoid no pneumonia and has become hypoxic secondary to the above. She is now on Arava. Apparently she states on initial admission 4 days ago she did have some black stool, they tested that and it was positive for occult blood. Patient denies any further black stools states that she's been having normal brown bowel movement since. Her hemoglobin is stable at 13.5. She reports her last colonoscopy approximately 3 years ago. There are no plans for any endoscopic evaluation. Likely occult blood related to patient's history of Crohn's disease. Seems to be well controlled at this time on her mesalamine. Patient will follow up outpatient with Dr. Villafuerte as previously scheduled. Current Visit: Yes Status: Acute Code(s): K50.90 - CROHN'S DISEASE, UNSPECIFIED, WITHOUT COMPLICATIONS SNOMED Code(s): 55863966 (2) Pneumonia Current Visit: Yes Status: Acute Code(s): J18.9 - PNEUMONIA, UNSPECIFIED ORGANISM SNOMED Code(s): 908372820 (3) Hypoxia Current Visit: Yes Status: Acute Code(s): R09.02 - HYPOXEMIA SNOMED Code (s): 025603284 Plan: 1. Continue symptomatic and supportive care 2. Continue mesalamine 3. No plans on endoscopic evaluation 4. Patient to follow-up with Dr. Villafuerte as scheduled 5. Repeat CBC in morning Thank you for this consultation, we will continue to follow. Dr. Kandice Villafuerte I agree with the dictator's note, documented as a scribe by Tomasa Pichardo.
[2021-08-01 12:44] LABS: ABG Base Excess 18.4 mmol/L; ABG Oxygen Saturation 91.8 % (94-97); ABG PCO2 57 mmHg (35-45); ABG PH 7.47 (7.35-7.45); ABG TCO2 44 mmol/L (19-24); Allen Test Performed? Yes
[2021-08-01 12:52] LABS: ABG PO2 57 mmHg (83-108)
[2021-08-01 12:53] LABS: ABG HCO3 42 mmol/L (21-25)
--- NOTE | 2021-08-01 13:02 | P.PN ---
Subjective Progress Note Date: 08/01/21 This is an 86-year-old female primarily a patient of Dr. Rodriguez, patient is known to have history of rheumatoid arthritis, on multiple medications for her rheumatoid arthritis, she is also on rituxin infusions every 6 months. Patient is being followed by rheumatology, patient is current on her immunization including COVID-19 vaccination, she did receive moderna, 2 injections, and she did not receive her third booster. Patient stated that her last injection was in October. Came in today with 7 days' history of cough, congestion, describes the cough as productive with slightly yellow tinged sputum, patient also has multiple GI symptoms including poor appetite, diarrhea, denies any abdominal marysol n. She also had intermittent fevers and chills. Body aches were also described. However the patient had negative rapid PCR for COVID-19 infection and a follow-up test was also done and it came back also negative. Her chest x- ray and CT of the chest are abnormal. Chest x-ray is suggestive of interstitial lung disease. CT of the chest showed diffuse reticulonodular and ground glass opacities throughout both lungs. Possible underlying fibrosis noted. No pulmonary mass nodule and no real effusion noted. No evidence of lymphadenopathy. And no evidence of thromboembolic disease. CBC showed a bit of leukocytosis with WBC count of 13.9. Lymphopenia was noted. Normal electrolytes, normal renal profile, LDH was 1055 and BNP level was 1100. Pro- calcitonin level is pending. Patient had negative PCR for sanchez virus infection. She had negative screening for influenza A, influenza B, RSV. Patient was hypoxic on room air, O2 saturations was 81%, however she was placed on 5 L and her oxygen saturation was up to 96% considering her pulmonary presentation, this consult was initiated. And I saw the patient in the ER. Patient is already on Rocephin and Zithromax, however the admitting physician changed her antibiotics to cefepime. She is on DVT prophylaxis, she is also on methylprednisolone 40 mg IV push every 8 hours. Reevaluated today on 07/29/2021, patient is feeling better today, breathing easier, less cough and less shortness of breath, less GI symptoms. Patient came in with multiple constitutional symptoms as noted above. Chest x-ray showed bilateral interstitial infiltrates, PCR for COVID-19 pneumonia was negative 2. Patient is now on 5 L nasal cannula, O2 sats is 94%. Her pro calcitonin today is 1.25. Patient tested negative for COVID-19, tested negative for influenza A, influenza B and for RSV. On 07/30/2021 patient seen in follow-up on medical surgical floor, she is resting comfortably in bed, she remains on 5 L of oxygen, pulse ox is 91-92%, breathing comfortably, she states her cough is improving, she is not producing any significant amount of sputum, at times she is able to clear some sanderson colored phlegm, she has been afebrile, hemodynamically she has been stable, she remains on cefepime for possibility of underlying community-acquired pneumonia, she remains on IV steroids, she tested negative for COVID 19, RSV and influenza A and B, her pro calcitonin level is improving on today's labs and is down to 0.95 from previous levels of 3.98 on admission. White count is improving and is down to 11.3, hemoglobin is 13.2, blood cultures have shown no growth, mild wheezes on today's exam. On 07/31/2021 patient seen in follow-up on medical surgical floor, her oxygen demand had increased in last 24 hours, and patient today is on 15 L per high flow nasal cannula and 100% nonrebreather mask, and her pulse ox is in the order of 85-88%, she's been afebrile, hemodynamically she is been stable, she states that she has been coughing up some pink tinged phlegm. Denies any chest discomfort, lung sounds reveal diffuse crackles throughout the lung salvador, she remains on cefepime for empiric antibiotic coverage, her blood cultures have remained negative, remains on IV steroids and nebulized bronchodilators. This x-ray is pending, patient will be given a dose of IV Lasix, her pro-calcitonin level is actually improving on today's labs, to 0.95. CTA chest showed no PE On 08/01/2021 patient is seen in follow-up on medical surgical floor. Yesterday her oxygenation has significantly worsened, patient was placed on Airvo at 60 L and FiO2 of 90%, and a nonrebreather mask, and her pulse ox was 81%, and patient was becoming tachypneic and tired. She was subsequently placed on BiPAP support with pressures of 12 and 6 in the 100%. She is satting better, at 92-93%, breathing more comfortably, she is awake and alert, answering questions a ppropriately, she was given a dose of IV Lasix yesterday, her net fluid balance is difficult to estimate, today's chest x-ray shows diffuse bilateral infiltrates that are stable in appearance, no pleural effusion or pneumothorax. Correlate for diffuse pneumonia versus ARDS. Patient is on antibiotics in the form of cefepime, blood cultures have shown no growth so far. We have not been able to obtain a sputum for culture. Afebrile, hemodynamically she's been stable. She is on IV steroids and nebulized bronchodilators. Her pro calcitonin level was actually improving on yesterday's labs, and today it is further improved and is down to 0.25 from initial level of 3.98 on 07/28/2021. ProBNP level was 1100. White blood cell count is slightly improved compared to yesterday, and is down to 14.49, hemoglobin is 13.5, sodium is 142, potassium is 4.2, BUN is 16, creatinine 0.4. Patient tested negative for COVID-19 per PCR test, and her antibiotic test was also negative, negative for influenza A and B and RSV. Objective - Vital Signs Vital signs: Vital Signs Temp 96.1 F L 08/01/21 10:21 Pulse 85 08/01/21 10:21 Resp 24 08/01/21 10:46 BP 151/76 08/01/21 10:21 Pulse Ox 91 L 08/01/21 10:21 Intake & Output 07/31/21 08/01/21 08/01/21 18:59 06:59 18:59 Weight 81.5 kg Other: Voiding Method Toilet Bedside Commode Bedside Commode Bedside Commode # Voids 3 3 - Exam GENERAL EXAM: Alert, very pleasant, 86-year-old white female, currently on BiPAP support at 12 and 6 and FiO2 100% HEAD: Normocephalic/atraumatic. EYES: Normal reaction of pupils, equal size. Conjunctiva pink, sclera white. NOSE: Clear with pink turbinates. THROAT: No erythema or exudates. NECK: No masses, no JVD, no thyroid enlargement, no adenopathy. CHEST: No chest wall deformity. Symmetrical expansion. LUNGS: Equal air entry with bilateral crackles and mild wheezes CVS: Regular rate and rhythm, normal S1 and S2, no gallops, no murmurs, no rubs ABDOMEN: Soft, nontender. No hepatosplenomegaly, normal bowel sounds, no guarding or rigidity. EXTREMITIES: No clubbing, no edema, no cyanosis, 2+ pulses and upper and lower extremities. MUSCULOSKELETAL: Muscle strength and tone normal. SPINE: No scoliosis or deformity SKIN: No rashes CENTRAL NERVOUS SYSTEM: Alert and oriented -3. No focal deficits, tone is normal in all 4 extremities. PSYCHIATRIC: Alert and oriented -3. Appropriate affect. Intact judgment and insight. - Labs CBC & Chem 7: 08/01/21 06:48 08/01/21 06:48 Labs: Abnormal Lab Results - Last 24 Hours (Table) 08/01/21 08/01/21 08/01/21 Range/Units 06:48 06:48 06:48 WBC 14.49 H (4.50-10.00) X 10*3/uL MCHC 31.2 L (32.0-37.0) g/dL Immature Gran # 0.24 H (0.00-0.04) X 10*3/uL Neutrophils # 13.38 H (1.80-7.70) X 10*3/uL Lymphocytes # 0.39 L (0.90-5.00) X 10*3/uL Eosinophils # 0 L (0.04-0.35) X 10*3/uL Carbon Dioxide 32.5 H (20.0-27.5) mmol/L Creatinine 0.4 L (0.6-1.5) mg/dL BUN/Creatinine Ratio 40.75 H (12.00-20.00) Ratio Glucose 201 H (70-110) mg/dL AST 38 H (13-35) U/L Total Protein 5.9 L (6.2-8.2) g/dL Albumin 3.7 L (3.8-4.9) g/dL Procalcitonin 0.25 H (0.02-0.09) ng/mL Microbiology - Last 24 Hours (Table) 07/28/21 11:45 Blood Culture - Preliminary Blood No Growth after 72 hours 07/28/21 12:00 Blood Culture - Preliminary Blood No Growth after 72 hours Assessment and Plan Plan: Assessment: #1. Acute hypoxic respiratory failure secondary to interstitial lung disease and suspected superimposed, mucoid pneumonia. Patient tested negative for COVID-19, influenza A and B and RSV. Patient also had 2 previous negative PCR test. Patient is fully immunized against COVID 19. Subsequently patient required Airvo and a nonrebreather, and was placed on BiPAP support on 08/01/2021 for respiratory fatigue. Will be transferred to the intensive care unit today on 08/01/2021. Current BiPAP pressures are 15 and 5 and FiO2 100% #2. ARDS related to pneumonia, currently on cefepime, IV steroids. Will be transferred to intensive care unit today on 08/01/2021 #3. Elevated pro-calcitonin suggesting possibility of bacterial pneumonia, possibly community acquired, patient is currently covered with cefepime, improving pro-calcitonin down to 0.25 on today's labs #4. 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 Hypertension #7. Dyslipidemia #8. History of hypothyroidism Plan: BiPAP support has been increased to 15 and 5, FiO2 is 100% Today's chest x-ray has been reviewed, patient's oxygenation has significantly worsened in the last 24 hours She is likely developing ARDS We will obtain a blood gas on those above-mentioned settings We'll transfer the patient to the intensive care unit for closer monitoring Continue IV steroids Continue current antibiotics Send a sputum culture Continue nebulized bronchodilators Discussed CODE STATUS with the patient and her family and she will remain a full code for now I performed a history & physical examination of the patient and discussed their management with my nurse practitioner, Saundra Schwartz. I reviewed the nurse practitioner's note and agree with the documented findings and plan of care. Lung sounds are positive for diminished breath sounds throughout the lung salvador. The findings and the impression was discussed with the patient. I attest to the documentation by the nurse practitioner. Time with Patient: Less than 30
[2021-08-01] MEDS: IPRATROPIUM BROMIDE 0.06% NASAL SPRAY (15 ML) EA NOSTRIL SCH ×4 (14:16→23:53)
[2021-08-01 14:33] LABS: Glucose,Whole Blood 255 mg/dL (75-99)
--- NOTE | 2021-08-01 14:39 | P.PN ---
Progress Note - Text Progress Note Date: 08/01/21 Chief Complaint: Short of breath This is a pleasant 86-year-old patient, follows with Dr. Chaney. Chronic stable medical conditions include rheumatoid arthritis, Crohn's disease, diet- controlled diabetes, autoimmune disorder, fibromyalgia. She does follow Dr. Reed from rheumatology and does Rituxan injections every 6 months. Sees due for her next one. Patient did take her COVID vaccines back in . She doesn't go out much. For 7 days patient suspect upper cough. Very congested. Clear sputum. Has had fever and chills. Patient also had diarrhea. Some dark stool. No abdominal pain. Patient chronic stable medical conditions also include anxiety, hypothyroid, peripheral neuropathy, hyperlipidemia. Appetite is poor. Initial rapid COVID testing in the ER was negative. A more definitive PCR was sent out. Patient is accompanied by her [id number]. Patient is rather tired and rundown. She is also had chronic immune lung condition in the past. July 29: Short of breath. Tired. 5 L nasal cannula. Eating about 50%. In bed. July 30: Some shortness of breath. Some cough. 5 L nasal cannula. Eating some. Tired. July 31: Worsening short of breath. On 15 L nasal cannula. Congested cough. Eating about 50%. Laying in bed August 01: Shortness of breath not improving. Patient placed on BiPAP. Being moved to the ICU. Decreased oral intake. Tired. Now having brown stools. Seen by GI. No further intervention. Review of systems: Was done for constitutional, cardiovascular, GI, pulmonary. relevant finding as above Active Medications Acetaminophen (Acetaminophen Tab 500 Mg Tab) 1,000 mg PO Q6HR PRN PRN Reason: Fever>101 Last Admin: 07/29/21 05:59 Dose: 1,000 mg Documented by: Albuterol Sulfate (Albuterol Hfa Inhaler) 2 puff INHALATION RT-Q6H PRN PRN Reason: Shortness Of Breath Or Wheezing Albuterol/Ipratropium (Ipratropium-Albuterol 3 Ml Neb) 3 ml INHALATION RT-Q4H [facility] Last Admin: 08/01/21 12:55 Dose: Not Given Documented by: Amlodipine Besylate (Amlodipine 2.5 Mg Tab) 2.5 mg PO HS [facility] Last Admin: 07/31/21 21:40 Dose: 2.5 mg Documented by: Ascorbic Acid (Ascorbic Acid 500 Mg Tab) 500 mg PO BID [facility] Last Admin: 08/01/21 10:01 Dose: 500 mg Documented by: Atorvastatin Calcium (Atorvastatin 20 Mg Tab) 20 mg PO [facility] Last Admin: 07/31/21 21:40 Dose: 20 mg Documented by: Budesonide/Formoterol Fumarate (Symbicort 160-4.5 Mcg Inhaler) 2 puff INHALATION RT-BID [facility] Last Admin: 08/01/21 09:28 Dose: Not Given Documented by: Buspirone HCl (Buspirone Hcl 10 Mg Tab) 10 mg PO BID [facility] Last Admin: 08/01/21 10:01 Dose: 10 mg Documented by: Cholecalciferol (Cholecalciferol 25 Mcg (1000 Iu) Tablet) 100 mcg PO DAILY [facility] Last Admin: 08/01/21 10:01 Dose: 100 mcg Documented by: Diclofenac Sodium (Diclofenac Sodium Gel 100 Gm Tube) 4 gm TOPICAL QID PRN; Protocol PRN Reason: Pain Enoxaparin Sodium (Enoxaparin 40 Mg/0.4 Ml Syringe) 40 mg SQ DAILY [facility] Last Admin: 08/01/21 10:01 Dose: 40 mg Documented by: Gabapentin (Gabapentin 300 Mg Cap) 600 mg PO TID [facility] Last Admin: 08/01/21 10:01 Dose: 600 mg Documented by: Guaifenesin (Guaifenesin 600 Mg Tablet.Er) 600 mg PO QID [facility] Last Admin: 08/01/21 12:30 Dose: Not Given Documented by: Cefepime HCl 2 gm/ Sodium (Chloride) 100 mls @ 25 mls/hr IVPB Q8H [facility] Last Admin: 08/01/21 14:17 Dose: 25 mls/hr Documented by: Ipratropium [place] (Ipratropium [place] 0.06% Nasal [place] (15 Ml)) 2 spray EA NOSTRIL TID [facility] Last Admin: 08/01/21 14:16 Dose: Not Given Documented by: Levothyroxine Sodium (Levothyroxine 75 Mcg Tab) 75 mcg PO DAILY@0630 [facility] Last Admin: 08/01/21 05:21 Dose: 75 mcg Documented by: Lorazepam (Lorazepam 0.5 Mg Tab) 0.5 mg PO Q6HR PRN PRN Reason: Anxiety Losartan Potassium (Losartan 50 Mg Tab) 50 mg PO DAILY [facility] Last Admin: 08/01/21 10:01 Dose: 50 mg Documented by: Melatonin (Melatonin 3 Mg Tablet) 3 mg PO HS [facility] Last Admin: 07/31/21 21:40 Dose: 3 mg Documented by: Methylprednisolone Sodium Succinate (Methylprednisolone Sod Succi 125 Mg/2 Ml Vial) 60 mg IV Q6HR [facility] Last Admin: 08/01/21 12:40 Dose: 60 mg Documented by: Miscellaneous Information (Pneumonia Protocol Utilized 1 Each [facility] 1 each PO ONCE PRN PRN Reason: Per Protocol Naloxone HCl (Naloxone 0.4 Mg/Ml 1 Ml Vial) 0.2 mg IV Q2M PRN PRN Reason: Opioid Reversal Ondansetron HCl (Ondansetron 4 Mg/2 Ml Vial) 4 mg IVP Q8HR PRN PRN Reason: Nausea And Vomiting Zinc Sulfate (Zinc Sulfate 220 Mg Cap) 220 mg PO DAILY [facility] Last Admin: 08/01/21 10:01 Dose: 220 mg Documented by: Past medical history to include: Anxiety, hypothyroid, peripheral neuropathy, hyperlipidemia, rheumatoid arthritis, Crohn's disease, diet-controlled diabetes, autoimmune lung disorder, fibromyalgia Social history: Lives with son and [id number]. No smoking no alcohol. Family history: Breast cancer Physical examination: VITAL SIGNS: 96.1, 95, 18, 1 5176, 91% on BiPAP GENERAL: reclining bed, awake, tired. EYES: Pupils equal. Conjunctiva normal. HEENT: External appearance of nose and ears normal, oral cavity grossly normal. NECK: JVD not raised; masses not palpable. HEART: First and second heart sounds are normal; no edema. LUNGS: Respiratory rate increased, not able to speak in full sentences, decreased- bilateral coarse crackles. ABDOMEN: Soft, nontender, liver spleen not palpable, no masses palpable. PSYCH: Alert and oriented x3; mood and affect some anxiety MUSCULAR skeletal: Evidence of rheumatoid arthritis especially in the hands, significant INVESTIGATIONS, reviewed in the clinical context: August 01: White count 14.4 hemoglobin 13.5. ABG: PCO2 57 pO2 57. Potassium 4.2 creatinine 0.4 July 31: White count 17.4 hemoglobin 12.7 Occult stool positive July 30: White count 9.3 hemoglobin 13.2 pro-calcitonin 0.95 July 29: Procalcitonin 3.98 WBC 13.9 hemoglobin 15.1 platelets 273 lymphocytes 0.8 d-dimer 1.09 sodium 133 potassium 4.3 creatinine 0.74 CRP 7.6 Coronavirus [PCR/rapid]: Negative Influenza A, influenza B, RSV, Coronavirus PCR: Not detected EKG tracing personally reviewed by me-normal sinus rhythm, LV[facility] Chest x-ray film personally reviewed by me-bilateral infiltrate changes, so we'll discontinue chronic. Also looked at the films from 2017 CT angiogram chest: Negative for PE. Reticular-nodular and groundglass infiltrates. Underlying fibrosis. Assessment and plan: - bacterial pneumonia suspected gram-negative.: Slow to respond IV cefepime. . Sputum for Gram stain and culture. -Acute severe hypoxic respiratory failure from pneumonia: Worsening BiPAP -ARDS secondary to suspected mucoid pneumonia Follow with celery packer -Patient had complained of dark stools. Consult surgery. Stool occult positive. Consult GI -Initial Clinical suspicion for COVID-19 was high. Initial rapid antigen tested PCR was negative. A more definitive repeat COVID-19 immunoassay test was done/PCR that came back also negative -Chronic rheumatoid arthritis Patient does getRituxan injections every 6 months -Chronic Crohn's disease Patient did complain of some dark stools. No abdominal pain. GI services are not available in the hospital. We'll consult bakery demonstrator surgery. 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 bronchodilators. BiPAP seen by GI currently no further intervention patient be moved to the ICU.
[2021-08-01 16:57] LABS: Glucose,Whole Blood 267 mg/dL (75-99)
[2021-08-01] MEDS: INSULIN ASPART (NovoLOG) 100 UNIT/ML VIAL SQ SCH ×2 (16:58→20:53)
[2021-08-01 20:06] LABS: Glucose,Whole Blood 137 mg/dL (75-99)
[2021-08-01] MEDS: ATORVASTATIN 20 MG TAB PO SCH (20:52)
[2021-08-01] MEDS: amLODIPine 2.5 MG TAB PO SCH (20:52)
[2021-08-01] MEDS: MELATONIN 3 MG TABLET PO SCH (21:58)
[2021-08-02] MEDS: IPRATROPIUM-ALBUTEROL 3 ML NEB INHALATION SCH ×6 (00:15→20:57)
[2021-08-02 04:21] LABS: Basophils # (A) 0.1 k/uL (0-0.2); Basophils % (A) 1 %; Eosinophils % (A) 0 %; HCT 44.4 % (34.0-46.0); Hypochromasia Slight; Lymphocytes # (A) 0.3 k/uL (1.0-4.8); Lymphocytes % (A) 2 %; MCH 28.5 pg (25.0-35.0); MCHC 31.7 g/dL (31.0-37.0); MCV 90.1 fL (80.0-100.0); Mean Platelet Volume 7.5; Monocytes # (A) 0.6 k/uL (0-1.0); Monocytes % (A) 4 %; Neutrophils # (A) 14.1 k/uL (1.3-7.7); Neutrophils % (A) 93 %; Platelet Count 371 k/uL (150-450); RBC 4.92 m/uL (3.80-5.40); RDW 13.1 % (11.5-15.5); WBC 15.2 k/uL (3.8-10.6)
[2021-08-02 05:08] LABS: African American GFR (CKD) >90 (>60 ml/min/1.73 sqM); Anion Gap 4 mmol/L; Blood Urea Nitrogen 27 mg/dL (7-17); Carbon Dioxide 38 mmol/L (22-30); Chloride 94 mmol/L (98-107); Glucose 206 mg/dL (74-99); Non-African American GFR(CKD) >90 (>60 ml/min/1.73 sqM); Potassium 4.5 mmol/L (3.5-5.1); Sodium 136 mmol/L (137-145)
[2021-08-02 06:25] LABS: Glucose,Whole Blood 194 mg/dL (75-99)
[2021-08-02] MEDS: CEFEPIME 2 GM in SODIUM CHLORIDE 0.9% 100 ML IVPB SCH ×3 (06:33→21:02)
[2021-08-02] MEDS: LEVOTHYROXINE 75 MCG TAB PO SCH (06:33)
[2021-08-02] MEDS: INSULIN ASPART (NovoLOG) 100 UNIT/ML VIAL SQ SCH ×4 (06:33→21:11)
[2021-08-02] MEDS: methylPREDNISolone SOD SUCCI 125 MG/2 ML VIAL IV SCH ×3 (06:33→19:15)
--- NOTE | 2021-08-02 07:10 | XR ---
EXAMINATION TYPE: XR chest 1V portable DATE OF EXAM: 08/02/2021 CLINICAL HISTORY: Difficulty breathing progress study. TECHNIQUE: Single AP portable semiupright view of the chest is obtained. COMPARISON: Chest x-ray from one day earlier and older studies. FINDINGS: Bilateral confluent reticular increased opacities redemonstrated. Cardiac silhouette size stable and within normal limits with ectatic and atherosclerotic aortic knob causing right-sided trac heal deviation. Underlying scoliosis redemonstrated. IMPRESSION: Bilateral confluent increased opacities redemonstrated consistent with covid-19 infection and/or ARDS. No significant change from one day earlier.
[2021-08-02] MEDS: SYMBICORT 160-4.5 MCG INHALER INHALATION SCH ×2 (07:52→20:57)
[2021-08-02] MEDS: ENOXAPARIN 40 MG/0.4 ML SYRINGE SQ SCH (08:55)
[2021-08-02] MEDS: CHOLECALCIFEROL 25 MCG (1000 IU) TABLET PO SCH (08:55)
[2021-08-02] MEDS: LOSARTAN 50 MG TAB PO SCH (08:56)
[2021-08-02] MEDS: ZINC SULFATE 220 MG CAP PO SCH (08:56)
[2021-08-02] MEDS: guaiFENesin 600 MG TABLET.ER PO SCH ×5 (08:56→21:14)
[2021-08-02] MEDS: GABAPENTIN 300 MG CAP PO SCH ×2 (08:56→19:15)
[2021-08-02] MEDS: ASCORBIC ACID 500 MG TAB PO SCH ×2 (08:56→21:00)
--- NOTE | 2021-08-02 12:11 | P.PN ---
Subjective Progress Note Date: 08/02/21 This is an 86-year-old female primarily a patient of Dr. Rodriguez, patient is known to have history of rheumatoid arthritis, on multiple medications for her rheumatoid arthritis, she is also on rituxin infusions every 6 months. Patient is being followed by rheumatology, patient is current on her immunization including COVID-19 vaccination, she did receive moderna, 2 injections, and she did not receive her third booster. Patient stated that her last injection was in October. Came in today with 7 days' history of cough, congestion, describes the cough as productive with slightly yellow tinged sputum, patient also has multiple GI symptoms including poor appetite, diarrhea, denies any abdominal marysol n. She also had intermittent fevers and chills. Body aches were also described. However the patient had negative rapid PCR for COVID-19 infection and a follow-up test was also done and it came back also negative. Her chest x- ray and CT of the chest are abnormal. Chest x-ray is suggestive of interstitial lung disease. CT of the chest showed diffuse reticulonodular and ground glass opacities throughout both lungs. Possible underlying fibrosis noted. No pulmonary mass nodule and no real effusion noted. No evidence of lymphadenopathy. And no evidence of thromboembolic disease. CBC showed a bit of leukocytosis with WBC count of 13.9. Lymphopenia was noted. Normal electrolytes, normal renal profile, LDH was 1055 and BNP level was 1100. Pro- calcitonin level is pending. Patient had negative PCR for sanchez virus infection. She had negative screening for influenza A, influenza B, RSV. Patient was hypoxic on room air, O2 saturations was 81%, however she was placed on 5 L and her oxygen saturation was up to 96% considering her pulmonary presentation, this consult was initiated. And I saw the patient in the ER. Patient is already on Rocephin and Zithromax, however the admitting physician changed her antibiotics to cefepime. She is on DVT prophylaxis, she is also on methylprednisolone 40 mg IV push every 8 hours. Reevaluated today on 07/29/2021, patient is feeling better today, breathing easier, less cough and less shortness of breath, less GI symptoms. Patient came in with multiple constitutional symptoms as noted above. Chest x-ray showed bilateral interstitial infiltrates, PCR for COVID-19 pneumonia was negative 2. Patient is now on 5 L nasal cannula, O2 sats is 94%. Her pro calcitonin today is 1.25. Patient tested negative for COVID-19, tested negative for influenza A, influenza B and for RSV. On 07/30/2021 patient seen in follow-up on medical surgical floor, she is resting comfortably in bed, she remains on 5 L of oxygen, pulse ox is 91-92%, breathing comfortably, she states her cough is improving, she is not producing any significant amount of sputum, at times she is able to clear some sanderson colored phlegm, she has been afebrile, hemodynamically she has been stable, she remains on cefepime for possibility of underlying community-acquired pneumonia, she remains on IV steroids, she tested negative for COVID 19, RSV and influenza A and B, her pro calcitonin level is improving on today's labs and is down to 0.95 from previous levels of 3.98 on admission. White count is improving and is down to 11.3, hemoglobin is 13.2, blood cultures have shown no growth, mild wheezes on today's exam. On 07/31/2021 patient seen in follow-up on medical surgical floor, her oxygen demand had increased in last 24 hours, and patient today is on 15 L per high flow nasal cannula and 100% nonrebreather mask, and her pulse ox is in the order of 85-88%, she's been afebrile, hemodynamically she is been stable, she states that she has been coughing up some pink tinged phlegm. Denies any chest discomfort, lung sounds reveal diffuse crackles throughout the lung salvador, she remains on cefepime for empiric antibiotic coverage, her blood cultures have remained negative, remains on IV steroids and nebulized bronchodilators. This x-ray is pending, patient will be given a dose of IV Lasix, her pro-calcitonin level is actually improving on today's labs, to 0.95. CTA chest showed no PE On 08/01/2021 patient is seen in follow-up on medical surgical floor. Yesterday her oxygenation has significantly worsened, patient was placed on Airvo at 60 L and FiO2 of 90%, and a nonrebreather mask, and her pulse ox was 81%, and patient was becoming tachypneic and tired. She was subsequently placed on BiPAP support with pressures of 12 and 6 in the 100%. She is satting better, at 92-93%, breathing more comfortably, she is awake and alert, answering questions a ppropriately, she was given a dose of IV Lasix yesterday, her net fluid balance is difficult to estimate, today's chest x-ray shows diffuse bilateral infiltrates that are stable in appearance, no pleural effusion or pneumothorax. Correlate for diffuse pneumonia versus ARDS. Patient is on antibiotics in the form of cefepime, blood cultures have shown no growth so far. We have not been able to obtain a sputum for culture. Afebrile, hemodynamically she's been stable. She is on IV steroids and nebulized bronchodilators. Her pro calcitonin level was actually improving on yesterday's labs, and today it is further improved and is down to 0.25 from initial level of 3.98 on 07/28/2021. ProBNP level was 1100. White blood cell count is slightly improved compared to yesterday, and is down to 14.49, hemoglobin is 13.5, sodium is 142, potassium is 4.2, BUN is 16, creatinine 0.4. Patient tested negative for COVID-19 per PCR test, and her antibiotic test was also negative, negative for influenza A and B and RSV. The patient is seen today 08/02/2021 in follow-up in the intensive care unit. She was transferred here yesterday after developing worsening hypoxemic respiratory failure. She is currently resting fairly comfortably in bed. Awake and alert in no acute distress. She is on the AirVo high flow oxygen at 60 L and 90% FiO2 with a nonrebreather mask used on and off. She has normal saline running at 20 ML's per hour. Chest x-ray continues to show possible septic ARDS versus pulmonary fibrosis versus rheumatoid lung. Blood cultures reveal no growth. White count 15.2. Hemoglobin 14.0. Lymphocytes 0.3. Sodium 136. Potassium 4.5. BUN 27. Creatinine 0.44. Glucose 206. Calcium 9.0. She is continued on DuoNeb inhalations, Symbicort, IV Solu-Medrol. Lovenox, vitamin supplements. She is on antibiotics in the form of cefepime. Pro calcitonin is down to 0.25. Objective - Vital Signs Vital signs: Vital Signs Temp 98.0 F 08/01/21 20:00 Pulse 82 08/02/21 07:00 Resp 21 08/02/21 07:00 BP 165/84 08/02/21 07:00 Pulse Ox 92 L 08/02/21 07:42 Intake & Output 08/01/21 08/02/21 08/02/21 18:59 06:59 18:59 Intake Total 490 440 20 Output Total 460 540 50 Balance 30 -100 -30 Weight 73.2 kg Intake: IV 20 200 20 ns 20 200 20 Intake, IV Titration 150 Amount Sodium Chloride 0.9% 1, 150 000 ml @ 75 mls/hr IV . [id number] [facility] Rx#:[id number] Oral 320 240 Output: Urine 460 540 50 Other: Voiding Method Indwelling Catheter Indwelling Catheter - Exam GENERAL EXAM: Alert, very pleasant, 86-year-old female patient, currently on AirVo high flow oxygen at 60 L and 90% FiO2 HEAD: Normocephalic/atraumatic. EYES: Normal reaction of pupils, equal size. Conjunctiva pink, sclera white. NOSE: Clear with pink turbinates. THROAT: No erythema or exudates. NECK: No masses, no JVD, no thyroid enlargement, no adenopathy. CHEST: No chest wall deformity. Symmetrical expansion. LUNGS: Equal air entry with bilateral crackles and mild wheezes CVS: Regular rate and rhythm, normal S1 and S2, no gallops, no murmurs, no rubs ABDOMEN: Soft, nontender. No hepatosplenomegaly, normal bowel sounds, no guarding or rigidity. EXTREMITIES: No clubbing, no edema, no cyanosis, 2+ pulses and upper and lower extremities. MUSCULOSKELETAL: Muscle strength and tone normal. SPINE: No scoliosis or deformity SKIN: No rashes CENTRAL NERVOUS SYSTEM:No focal deficits, tone is normal in all 4 extremities. PSYCHIATRIC: Alert and oriented -3. Appropriate affect. Intact judgment and insight. - Labs CBC & Chem 7: 08/02/21 03:34 08/02/21 03:34 Labs: Abnormal Lab Results - Last 24 Hours (Table) 08/01/21 08/01/21 08/01/21 Range/Units 12:38 14:32 16:55 WBC (3.8-10.6) k/uL Neutrophils # (1.3-7.7) k/uL Lymphocytes # (1.0-4.8) k/uL ABG pH 7.47 H (7.35-7.45) ABG pCO2 57 H (35-45) mmHg ABG pO2 57 L* (83-108) mmHg ABG HCO3 42 H* (21-25) mmol/L ABG Total CO2 44 H (19-24) mmol/L ABG O2 Saturation 91.8 L (94-97) % Sodium (137-145) mmol/L Chloride (98-107) mmol/L Carbon Dioxide (22-30) mmol/L BUN (7-17) mg/dL Creatinine (0.52-1.04) mg/dL Glucose (74-99) mg/dL POC Glucose (mg/dL) 255 H 267 H (75-99) mg/dL 08/01/21 08/02/21 08/02/21 Range/Units 20:04 03:34 03:34 WBC 15.2 H (3.8-10.6) k/uL Neutrophils # 14.1 H (1.3-7.7) k/uL Lymphocytes # 0.3 L (1.0-4.8) k/uL ABG pH (7.35-7.45) ABG pCO2 (35-45) mmHg ABG pO2 (83-108) mmHg ABG HCO3 (21-25) mmol/L ABG Total CO2 (19-24) mmol/L ABG O2 Saturation (94-97) % Sodium 136 L (137-145) mmol/L Chloride 94 L (98-107) mmol/L Carbon Dioxide 38 H (22-30) mmol/L BUN 27 H (7-17) mg/dL Creatinine 0.44 L (0.52-1.04) mg/dL Glucose 206 H (74-99) mg/dL POC Glucose (mg/dL) 137 H (75-99) mg/dL 08/02/21 Range/Units 06:23 WBC (3.8-10.6) k/uL Neutrophils # (1.3-7.7) k/uL Lymphocytes # (1.0-4.8) k/uL ABG pH (7.35-7.45) ABG pCO2 (35-45) mmHg ABG pO2 (83-108) mmHg ABG HCO3 (21-25) mmol/L ABG Total CO2 (19-24) mmol/L ABG O2 Saturation (94-97) % Sodium (137-145) mmol/L Chloride (98-107) mmol/L Carbon Dioxide (22-30) mmol/L BUN (7-17) mg/dL Creatinine (0.52-1.04) mg/dL Glucose (74-99) mg/dL POC Glucose (mg/dL) 194 H (75-99) mg/dL Microbiology - Last 24 Hours (Table) 07/28/21 11:45 Blood Culture - Preliminary Blood No Growth after 96 hours 07/28/21 12:00 Blood Culture - Preliminary Blood No Growth after 96 hours Assessment and Plan Assessment: 1 Acute hypoxic respiratory failure secondary to interstitial lung disease and suspected superimposed, mucoid pneumonia. Patient tested negative for COVID-19, influenza A and B and RSV. Patient also had 2 previous negative PCR test. Patient is fully immunized against COVID 19. Subsequently patient required Airvo and a nonrebreather, and was placed on BiPAP support on 08/01/2021 for respiratory fatigue. Transferred to the intensive care unit on 08/01/2021. Currently on AirVo high flow oxygen at 60 L and 90% FiO2 2 ARDS related to pneumonia, currently on cefepime, IV steroids. 3 Elevated pro-calcitonin suggesting possibility of bacterial pneumonia, possibly community acquired, patient is currently covered with cefepime, improving pro-calcitonin down to 0.25 on today's labs 4 History of rheumatoid arthritis and rheumatoid lung disease. 5 Bronchiolitis obliterans with organizing pneumonia 6 Hypertension 7 Dyslipidemia 8 History of hypothyroidism Plan: The patient was seen and evaluated We'll continue the current treatment plan Remains on bronchodilators, IV Solu-Medrol, antibiotics Currently on AirVo high flow oxygen Titrate the FiO2 as tolerated We will continue to follow I, the cosigning physician, performed a history & physical examination of the patient. Lungs sounds bilateral wheeze, coarse crackles. Maintaining good O2 saturations in the 90s on AirVo high flow oxygen at 60 L and 90% FiO2 along with a nonrebreather mask. I discussed the assessment and plan of care with my nurse practitioner, Micaela Parsons. I attest to the above note as dictated by her.
[2021-08-02 12:16] LABS: Glucose,Whole Blood 271 mg/dL (75-99)
[2021-08-02] MEDS: busPIRone HCl 10 MG TAB PO SCH ×3 (12:28→21:01)
[2021-08-02] MEDS: IPRATROPIUM BROMIDE 0.06% NASAL SPRAY (15 ML) EA NOSTRIL SCH ×2 (12:32→18:59)
--- NOTE | 2021-08-02 13:18 | P.PN ---
Subjective Progress Note Date: 08/02/21 Principal diagnosis: This is an 86-year-old female who presented to the emergency department 4 days ago with complaints of cough, shortness of breath and fever. Patient had a CT a ngiogram of the chest and that had ruled out pulmonary embolism. Pulmonary consultation was placed and patient is being treated for mucoid a pneumonia with suspected COVID-19 infection. However patient has had 2 negative COVID-19 swabs. The patient initially reported some black stools on admission therefore initially general surgery was consulted and now gastroenterology. She has a past medical history including rheumatoid arthritis Crohn's disease, type 2 diabetes mellitus diet controlled and fibromyalgia.the patient reports taking mesalamine for her Crohn's disease and states her last Crohn's exacerbation was approximately 2 years ago. She follows with Dr. Villafuerte for her Crohn's disease and states that it is been well controlled. She denies any abdominal pain, cramping, bloody bowel movements, diarrhea, nausea or vomiting. Her last colonoscopy was reported 3 years ago. 08/02/2021 Patient is seen and examined in the ICU. She was transferred to the ICU for sending hypoxemic respiratory failure. He continues to deny any signs or symptoms of GI bleed. Her hemoglobin is stable at 14, up from 13.5 yesterday. She denies any abdominal pain, nausea, or vomiting. Objective - Vital Signs Vital signs: Vital Signs Temp 98.0 F 08/01/21 20:00 Pulse 82 08/02/21 07:00 Resp 21 08/02/21 07:00 BP 165/84 08/02/21 07:00 Pulse Ox 92 L 08/02/21 07:42 Intake & Output 08/01/21 08/02/21 08/02/21 18:59 06:59 18:59 Intake Total 490 440 20 Output Total 460 540 50 Balance 30 -100 -30 Weight 73.2 kg Intake: IV 20 200 20 ns 20 200 20 Intake, IV Titration 150 Amount Sodium Chloride 0.9% 1, 150 000 ml @ 75 mls/hr IV . [id number] [facility] Rx#:[id number] Oral 320 240 Output: Urine 460 540 50 Other: Voiding Method Indwelling Catheter Indwelling Catheter - Exam General appearance: The patient is alert, oriented, appears in no acute distress. HET: Head is normocephalic and atraumatic. Conjunctiva pink. Sclera anicteric. Neck: Supple without lymphadenopathy. Abdomen: Soft, nontender, nondistended with bowel sounds. No guarding or rigidity. Extremities: Normal skin color and turgor. No pedal edema Skin: No rashes, no jaundice Neurological: No focal deficits. Alert and oriented x 3. - Labs CBC & Chem 7: 08/02/21 03:34 08/02/21 03:34 Labs: Abnormal Lab Results - Last 24 Hours (Table) 08/01/21 08/01/21 08/01/21 Range/Units 06:48 06:48 06:48 WBC 14.49 H (4.50-10.00) X 10*3/uL MCHC 31.2 L (32.0-37.0) g/dL Immature Gran # 0.24 H (0.00-0.04) X 10*3/uL Neutrophils # 13.38 H (1.80-7.70) X 10*3/uL Lymphocytes # 0.39 L (0.90-5.00) X 10*3/uL Eosinophils # 0 L (0.04-0.35) X 10*3/uL ABG pH (7.35-7.45) ABG pCO2 (35-45) mmHg ABG pO2 (83-108) mmHg ABG HCO3 (21-25) mmol/L ABG Total CO2 (19-24) mmol/L ABG O2 Saturation (94-97) % Sodium (137-145) mmol/L Chloride (98-107) mmol/L Carbon Dioxide 32.5 H (20.0-27.5) mmol/L BUN (7-17) mg/dL Creatinine 0.4 L (0.6-1.5) mg/dL BUN/Creatinine Ratio 40.75 H (12.00-20.00) Ratio Glucose 201 H (70-110) mg/dL POC Glucose (mg/dL) (75-99) mg/dL AST 38 H (13-35) U/L Total Protein 5.9 L (6.2-8.2) g/dL Albumin 3.7 L (3.8-4.9) g/dL Procalcitonin 0.25 H (0.02-0.09) ng/mL 08/01/21 08/01/21 08/01/21 Range/Units 12:38 14:32 16:55 WBC (4.50-10.00) X 10*3/uL MCHC (32.0-37.0) g/dL Immature Gran # (0.00-0.04) X 10*3/uL Neutrophils # (1.80-7.70) X 10*3/uL Lymphocytes # (0.90-5.00) X 10*3/uL Eosinophils # (0.04-0.35) X 10*3/uL ABG pH 7.47 H (7.35-7.45) ABG pCO2 57 H (35-45) mmHg ABG pO2 57 L* (83-108) mmHg ABG HCO3 42 H* (21-25) mmol/L ABG Total CO2 44 H (19-24) mmol/L ABG O2 Saturation 91.8 L (94-97) % Sodium (137-145) mmol/L Chloride (98-107) mmol/L Carbon Dioxide (20.0-27.5) mmol/L BUN (7-17) mg/dL Creatinine (0.6-1.5) mg/dL BUN/Creatinine Ratio (12.00-20.00) Ratio Glucose (70-110) mg/dL POC Glucose (mg/dL) 255 H 267 H (75-99) mg/dL AST (13-35) U/L Total Protein (6.2-8.2) g/dL Albumin (3.8-4.9) g/dL Procalcitonin (0.02-0.09) ng/mL 08/01/21 08/02/21 08/02/21 Range/Units 20:04 03:34 03:34 WBC 15.2 H (4.50-10.00) X 10*3/uL MCHC (32.0-37.0) g/dL Immature Gran # (0.00-0.04) X 10*3/uL Neutrophils # 14.1 H (1.80-7.70) X 10*3/uL Lymphocytes # 0.3 L (0.90-5.00) X 10*3/uL Eosinophils # (0.04-0.35) X 10*3/uL ABG pH (7.35-7.45) ABG pCO2 (35-45) mmHg ABG pO2 (83-108) mmHg ABG HCO3 (21-25) mmol/L ABG Total CO2 (19-24) mmol/L ABG O2 Saturation (94-97) % Sodium 136 L (137-145) mmol/L Chloride 94 L (98-107) mmol/L Carbon Dioxide 38 H (20.0-27.5) mmol/L BUN 27 H (7-17) mg/dL Creatinine 0.44 L (0.6-1.5) mg/dL BUN/Creatinine Ratio (12.00-20.00) Ratio Glucose 206 H (70-110) mg/dL POC Glucose (mg/dL) 137 H (75-99) mg/dL AST (13-35) U/L Total Protein (6.2-8.2) g/dL Albumin (3.8-4.9) g/dL Procalcitonin (0.02-0.09) ng/mL 08/02/21 Range/Units 06:23 WBC (4.50-10.00) X 10*3/uL MCHC (32.0-37.0) g/dL Immature Gran # (0.00-0.04) X 10*3/uL Neutrophils # (1.80-7.70) X 10*3/uL Lymphocytes # (0.90-5.00) X 10*3/uL Eosinophils # (0.04-0.35) X 10*3/uL ABG pH (7.35-7.45) ABG pCO2 (35-45) mmHg ABG pO2 (83-108) mmHg ABG HCO3 (21-25) mmol/L ABG Total CO2 (19-24) mmol/L ABG O2 Saturation (94-97) % Sodium (137-145) mmol/L Chloride (98-107) mmol/L Carbon Dioxide (20.0-27.5) mmol/L BUN (7-17) mg/dL Creatinine (0.6-1.5) mg/dL BUN/Creatinine Ratio (12.00-20.00) Ratio Glucose (70-110) mg/dL POC Glucose (mg/dL) 194 H (75-99) mg/dL AST (13-35) U/L Total Protein (6.2-8.2) g/dL Albumin (3.8-4.9) g/dL Procalcitonin (0.02-0.09) ng/mL Microbiology - Last 24 Hours (Table) 07/28/21 11:45 Blood Culture - Preliminary Blood No Growth after 96 hours 07/28/21 12:00 Blood Culture - Preliminary Blood No Growth after 96 hours Assessment and Plan (1) Crohn's disease Narrative/Plan: Is a 86-year-old patient known to Dr. Villafuerte with a history of Crohn's disease. Patient states her Crohn's disease has been now well controlled and is on mesalamine. Her last exacerbation was approximately 2 years ago. The patient had presented to the emergency department with complaints of shortness of breath and cough. She is currently being treated for mucoid no pneumonia and has become hypoxic secondary to the above. She is now on Arava. Apparently she states on initial admission 4 days ago she did have some black stool, they tested that and it was positive for occult blood. Patient denies any further black stools states that she's been having normal brown bowel movement since. Her hemoglobin is stable at 13.5. She reports her last colonoscopy approximately 3 years ago. There are no plans for any endoscopic evaluation. Likely occult blood related to patient's history of Crohn's disease. Seems to be well controlled at this time on her mesalamine. Patient will follow up outpatient with Dr. Villafuerte as previously scheduled. Current Visit: Yes Status: Acute Code(s): K50.90 - CROHN'S DISEASE, UNSPECIFIED, WITHOUT COMPLICATIONS SNOMED Code(s): 94555412 (2) Pneumonia Current Visit: Yes Status: Acute Code(s): J18.9 - PNEUMONIA, UNSPECIFIED ORGANISM SNOMED Code(s): 311021972 (3) Hypoxia Current Visit: Yes Status: Acute Code(s): R09.02 - HYPOXEMIA SNOMED Code(s): 442686466 Plan: 1. Continue symptomatic and supportive care 2. Continue mesalamine 3. No plans on endoscopic evaluation 4. Patient to follow-up with Dr. Villafuerte as scheduled 5. Monitor for signs and symptoms of GI bleed Thank you for this consultation, we will continue to follow. Dr. Kandice Villafuerte I agree with the dictator's note, documented as a scribe by Tomasa Pichardo.
[2021-08-02] MEDS: SODIUM CHLORIDE 0.9% 1,000 ML IV SCH ×2 (14:18→21:15)
[2021-08-02 17:46] LABS: Glucose,Whole Blood 118 mg/dL (75-99)
--- NOTE | 2021-08-02 18:48 | P.PN ---
Progress Note - Text Progress Note Date: 08/02/21 Chief Complaint: Short of breath This is a pleasant 86-year-old patient, follows with Dr. Chaney. Chronic stable medical conditions include rheumatoid arthritis, Crohn's disease, diet- controlled diabetes, autoimmune disorder, fibromyalgia. She does follow Dr. Reed from rheumatology and does Rituxan injections every 6 months. Sees due for her next one. Patient did take her COVID vaccines back in . She doesn't go out much. For 7 days patient suspect upper cough. Very congested. Clear sputum. Has had fever and chills. Patient also had diarrhea. Some dark stool. No abdominal pain. Patient chronic stable medical conditions also include anxiety, hypothyroid, peripheral neuropathy, hyperlipidemia. Appetite is poor. Initial rapid COVID testing in the ER was negative. A more definitive PCR was sent out. Patient is accompanied by her [id number]-gel. Patient is rather tired and rundown. She is also had chronic immune lung condition in the past. July 29: Short of breath. Tired. 5 L nasal cannula. Eating about 50%. In bed. July 30: Some shortness of breath. Some cough. 5 L nasal cannula. Eating some. Tired. July 31: Worsening short of breath. On 15 L nasal cannula. Congested cough. Eating about 50%. Laying in bed August 01: Shortness of breath not improving. Patient placed on BiPAP. Being moved to the ICU. Decreased oral intake. Tired. Now having brown stools. Seen by GI. No further intervention. August 02: ICU. Moved yesterday. Airvo:. 60 L/90%. With a nonrebreather mask. Barely eating. Short of breath. Tired. Sitting up in bed. Review of systems: Was done for constitutional, cardiovascular, GI, pulmonary. relevant finding as above Active Medications Acetaminophen (Acetaminophen Tab 500 Mg Tab) 1,000 mg PO Q6HR PRN PRN Reason: Fever>101 Last Admin: 07/29/21 05:59 Dose: 1,000 mg Documented by: Albuterol Sulfate (Albuterol Hfa Inhaler) 2 puff INHALATION RT-Q6H PRN PRN Reason: Shortness Of Breath Or Wheezing Albuterol/Ipratropium (Ipratropium-Albuterol 3 Ml Neb) 3 ml INHALATION RT-Q4H KWAME Last Admin: 12/15/21 16:28 Dose: Not Given Documented by: Amlodipine Besylate (Amlodipine 2.5 Mg Tab) 2.5 mg PO HS [facility] Last Admin: 08/01/21 20:52 Dose: 2.5 mg Documented by: Ascorbic Acid (Ascorbic Acid 500 Mg Tab) 500 mg PO BID [facility] Last Admin: 08/02/21 08:56 Dose: 500 mg Documented by: Atorvastatin Calcium (Atorvastatin 20 Mg Tab) 20 mg PO HS [facility] Last Admin: 08/01/21 20:52 Dose: 20 mg Documented by: Budesonide/Formoterol Fumarate (Symbicort 160-4.5 Mcg Inhaler) 2 puff INHALATION RT-BID [facility] Last Admin: 08/02/21 07:52 Dose: Not Given Documented by: Buspirone HCl (Buspirone Hcl 10 Mg Tab) 10 mg PO BID [facility] Last Admin: 08/02/21 13:07 Dose: Not Given Documented by: Cholecalciferol (Cholecalciferol 25 Mcg (1000 Iu) Tablet) 100 mcg PO DAILY [facility] Last Admin: 08/02/21 08:55 Dose: 100 mcg Documented by: Diclofenac Sodium (Diclofenac Sodium Gel 100 Gm Tube) 4 gm TOPICAL QID PRN; Protocol PRN Reason: Pain Enoxaparin Sodium (Enoxaparin 40 Mg/0.4 Ml Syringe) 40 mg SQ DAILY [facility] Last Admin: 08/02/21 08:55 Dose: 40 mg Documented by: Gabapentin (Gabapentin 300 Mg Cap) 600 mg PO TID [facility] Last Admin: 08/02/21 08:56 Dose: 600 mg Documented by: Guaifenesin (Guaifenesin 600 Mg Tablet.Er) 600 mg PO QID [facility] Last Admin: 08/02/21 13:07 Dose: Not Given Documented by: Cefepime HCl 2 gm/ Sodium (Chloride) 100 mls @ 25 mls/hr IVPB Q8H [facility] Last Admin: 08/02/21 14:17 Dose: 25 mls/hr Documented by: Sodium Chloride (Saline 0.9%) 1,000 mls @ 75 mls/hr IV .[id number] [facility] Last Admin: 08/02/21 14:18 Dose: 75 mls/hr Documented by: Insulin Aspart (Insulin Aspart (Novolog) 100 Unit/Ml Vial) 0 unit SQ ACHS [facility]; Protocol Last Admin: 08/02/21 13:00 Dose: 8 unit Documented by: Ipratropium [place] (Ipratropium [place] 0.06% Nasal Redig (15 Ml)) 2 spray EA NOSTRIL TID [facility] Last Admin: 08/02/21 12:32 Dose: 2 spray Documented by: Levothyroxine Sodium (Levothyroxine 75 Mcg Tab) 75 mcg PO DAILY@0630 [facility] Last Admin: 08/02/21 06:33 Dose: 75 mcg Documented by: Lorazepam (Lorazepam 0.5 Mg Tab) 0.5 mg PO Q6HR PRN PRN Reason: Anxiety Losartan Potassium (Losartan 50 Mg Tab) 50 mg PO DAILY [facility] Last Admin: 08/02/21 08:56 Dose: 50 mg Documented by: Melatonin (Melatonin 3 Mg Tablet) 3 mg PO HS [facility] Last Admin: 08/01/21 21:58 Dose: 3 mg Documented by: Methylprednisolone Sodium Succinate (Methylprednisolone Sod Succi 125 Mg/2 Ml Vial) 60 mg IV Q6HR [facility] Last Admin: 08/02/21 12:28 Dose: 60 mg Documented by: Miscellaneous Information (Pneumonia Protocol Utilized 1 Each [facility]) 1 each PO ONCE PRN PRN Reason: Per Protocol Naloxone HCl (Naloxone 0.4 Mg/Ml 1 Ml Vial) 0.2 mg IV Q2M PRN PRN Reason: Opioid Reversal Ondansetron HCl (Ondansetron 4 Mg/2 Ml Vial) 4 mg IVP Q8HR PRN PRN Reason: Nausea And Vomiting Zinc Sulfate (Zinc Sulfate 220 Mg Cap) 220 mg PO DAILY [facility] Last Admin: 08/02/21 08:56 Dose: 220 mg Documented by: Past medical history to include: Anxiety, hypothyroid, peripheral neuropathy, hyperlipidemia, rheumatoid arthritis, Crohn's disease, diet-controlled diabetes, autoimmune lung disorder, fibromyalgia Social history: Lives with son and [id number]. No smoking no alcohol. Family history: Breast cancer Physical examination: VITAL SIGNS: Afebrile, 82, 21, 1 6584, 92% on Airvo 60/88 GENERAL: reclining bed, awake, tired. EYES: Pupils equal. Conjunctiva normal. HEENT: External appearance of nose and ears normal, oral cavity grossly normal. NECK: JVD not raised; masses not palpable. HEART: First and second heart sounds are normal; no edema. LUNGS: Respiratory rate increased, not able to speak in full sentences, decreased- bilateral coarse crackles. ABDOMEN: Soft, nontender, liver spleen not palpable, no masses palpable. PSYCH: Alert and oriented x3; mood and affect-anxiety MUSCULAR skeletal: Evidence of rheumatoid arthritis especially in the hands, significant INVESTIGATIONS, reviewed in the clinical context: August 02: WBC 15.2 hemoglobin 14 platelets 371 sodium 136 potassium 4.5 BUN 27 creatinine 0.44. Chest x-ray: Bilateral cloudy infiltrates August 01: White count 14.4 hemoglobin 13.5. ABG: PCO2 57 pO2 57. Potassium 4.2 creatinine 0.4 July 31: White count 17.4 hemoglobin 12.7 Occult stool positive July 30: White count 9.3 hemoglobin 13.2 pro-calcitonin 0.95 July 29: Procalcitonin 3.98 WBC 13.9 hemoglobin 15.1 platelets 273 lymphocytes 0.8 d-dimer 1.09 sodium 133 potassium 4.3 creatinine 0.74 CRP 7.6 Coronavirus [PCR/rapid]: Negative Influenza A, influenza B, RSV, Coronavirus PCR: Not detected EKG tracing personally reviewed by me-normal sinus rhythm, [facility] Chest x-ray film personally reviewed by me-bilateral infiltrate changes, so we'll discontinue chronic. Also looked at the films from 2017 CT angiogram chest: Negative for PE. Reticular-nodular and groundglass infiltrates. Underlying fibrosis. Assessment and plan: - bacterial pneumonia suspected gram-negative.: Not improving IV cefepime. . Sputum for Gram stain and culture. -Acute severe hypoxic respiratory failure from pneumonia: Worsening On Airvo -ARDS secondary to suspected mucoid pneumonia Follow with manual arts therapist -Patient had complained of dark stools. Stool occult positive. Seen by GI. Follow -Initial Clinical suspicion for COVID-19 was high. Initial rapid antigen tested PCR was negative. A more definitive repeat COVID-19 immunoassay test was done/PCR that came back also negative -Chronic rheumatoid arthritis Patient does get Rituxan injections every 6 months -Chronic Crohn's disease Patient did complain of some dark stools. No abdominal pain. Initially GI services are not available in the hospital. We'll consult labour market economist surgery. 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 IV Solu-Medrol, bronchodilators. Airvo prognosis guarded. Follow with consultants.
[2021-08-02 20:48] LABS: Glucose,Whole Blood 244 mg/dL (75-99)
[2021-08-02] MEDS: ATORVASTATIN 20 MG TAB PO SCH (21:00)
[2021-08-02] MEDS: amLODIPine 2.5 MG TAB PO SCH (21:01)
[2021-08-02] MEDS: LORazepam 0.5 MG TAB PO PRN (21:10)
[2021-08-02] MEDS: MELATONIN 3 MG TABLET PO SCH (22:36)
[2021-08-03] MEDS: IPRATROPIUM-ALBUTEROL 3 ML NEB INHALATION SCH ×6 (00:09→19:44)
[2021-08-03] MEDS: GABAPENTIN 300 MG CAP PO SCH ×2 (00:52→08:20)
[2021-08-03] MEDS: methylPREDNISolone SOD SUCCI 125 MG/2 ML VIAL IV SCH ×4 (00:52→19:25)
[2021-08-03] MEDS: IPRATROPIUM BROMIDE 0.06% NASAL SPRAY (15 ML) EA NOSTRIL SCH ×2 (00:53→19:31)
[2021-08-03 04:06] LABS: Basophils % (A) 0 %; Eosinophils % (A) 0 %; HCT 39.7 % (34.0-46.0); HGB 12.5 gm/dL (11.4-16.0); Hypochromasia Slight; Lymphocytes # (A) 0.4 k/uL (1.0-4.8); Lymphocytes % (A) 3 %; MCH 28.2 pg (25.0-35.0); MCHC 31.5 g/dL (31.0-37.0); MCV 89.7 fL (80.0-100.0); Mean Platelet Volume 7.6; Monocytes # (A) 0.5 k/uL (0-1.0); Monocytes % (A) 4 %; Neutrophils # (A) 12.6 k/uL (1.3-7.7); Neutrophils % (A) 93 %; Platelet Count 344 k/uL (150-450); RBC 4.43 m/uL (3.80-5.40); RDW 13.1 % (11.5-15.5); WBC 13.5 k/uL (3.8-10.6)
[2021-08-03 04:16] LABS: ALT 22 U/L (4-34); AST 28 U/L (14-36); African American GFR (CKD) >90 (>60 ml/min/1.73 sqM); Albumin 2.8 g/dL (3.5-5.0); Alkaline Phosphatase 95 U/L (38-126); Anion Gap 1 mmol/L; Blood Urea Nitrogen 35 mg/dL (7-17); Calcium 8.5 mg/dL (8.4-10.2); Carbon Dioxide 39 mmol/L (22-30); Chloride 96 mmol/L (98-107); Glucose 160 mg/dL (74-99); Non-African American GFR(CKD) >90 (>60 ml/min/1.73 sqM); Potassium 4.5 mmol/L (3.5-5.1); Sodium 136 mmol/L (137-145); Total Bilirubin 0.8 mg/dL (0.2-1.3); Total Protein 5.2 g/dL (6.3-8.2)
[2021-08-03 06:42] LABS: Glucose,Whole Blood 227 mg/dL (75-99)
[2021-08-03] MEDS: LEVOTHYROXINE 75 MCG TAB PO SCH (06:45)
[2021-08-03] MEDS: CEFEPIME 2 GM in SODIUM CHLORIDE 0.9% 100 ML IVPB SCH ×3 (06:45→21:01)
[2021-08-03] MEDS: INSULIN ASPART (NovoLOG) 100 UNIT/ML VIAL SQ SCH ×4 (06:49→20:58)
--- NOTE | 2021-08-03 07:10 | XR ---
EXAMINATION TYPE: XR chest 1V portable DATE OF EXAM: 08/03/2021 CLINICAL HISTORY: Difficulty breathing and pneumonia progress study. TECHNIQUE: Single AP portable semiupright view of the chest is obtained. COMPARISON: Chest x-ray from one day earlier and older studies. FINDINGS: Bilateral confluent reticular increased opacities redemonstrated. Cardiac silhouette size stable and upper limits of normal with ectatic and atherosclerotic aortic knob causing right-sided tr acheal deviation. Underlying scoliosis redemonstrated. IMPRESSION: Bilateral confluent increased opacities redemonstrated consistent with covid-19 infection and/or ARDS. No significant change from one day earlier.
[2021-08-03] MEDS: busPIRone HCl 10 MG TAB PO SCH ×2 (08:20→21:13)
[2021-08-03] MEDS: LOSARTAN 50 MG TAB PO SCH (08:20)
[2021-08-03] MEDS: ENOXAPARIN 40 MG/0.4 ML SYRINGE SQ SCH (08:20)
[2021-08-03] MEDS: ZINC SULFATE 220 MG CAP PO SCH (08:20)
[2021-08-03] MEDS: CHOLECALCIFEROL 25 MCG (1000 IU) TABLET PO SCH (08:20)
[2021-08-03] MEDS: LORazepam 0.5 MG TAB PO PRN ×2 (08:20→20:58)
[2021-08-03] MEDS: guaiFENesin 600 MG TABLET.ER PO SCH ×4 (08:20→21:07)
[2021-08-03] MEDS: ASCORBIC ACID 500 MG TAB PO SCH ×2 (08:20→20:58)
[2021-08-03] MEDS ORDERED: SALINE NASAL GEL 14.1 GM TUBE NASAL PRN (08:40)
--- NOTE | 2021-08-03 09:12 | P.PN ---
Subjective Progress Note Date: 08/03/21 This is an 86-year-old female primarily a patient of Dr. Rodriguez, patient is known to have history of rheumatoid arthritis, on multiple medications for her rheumatoid arthritis, she is also on rituxin infusions every 6 months. Patient is being followed by rheumatology, patient is current on her immunization including COVID-19 vaccination, she did receive moderna, 2 injections, and she did not receive her third booster. Patient stated that her last injection was in October. Came in today with 7 days' history of cough, congestion, describes the cough as productive with slightly yellow tinged sputum, patient also has multiple GI symptoms including poor appetite, diarrhea, denies any abdominal marysol n. She also had intermittent fevers and chills. Body aches were also described. However the patient had negative rapid PCR for COVID-19 infection and a follow-up test was also done and it came back also negative. Her chest x- ray and CT of the chest are abnormal. Chest x-ray is suggestive of interstitial lung disease. CT of the chest showed diffuse reticulonodular and ground glass opacities throughout both lungs. Possible underlying fibrosis noted. No pulmonary mass nodule and no real effusion noted. No evidence of lymphadenopathy. And no evidence of thromboembolic disease. CBC showed a bit of leukocytosis with WBC count of 13.9. Lymphopenia was noted. Normal electrolytes, normal renal profile, LDH was 1055 and BNP level was 1100. Pro- calcitonin level is pending. Patient had negative PCR for sanchez virus infection. She had negative screening for influenza A, influenza B, RSV. Patient was hypoxic on room air, O2 saturations was 81%, however she was placed on 5 L and her oxygen saturation was up to 96% considering her pulmonary presentation, this consult was initiated. And I saw the patient in the ER. Patient is already on Rocephin and Zithromax, however the admitting physician changed her antibiotics to cefepime. She is on DVT prophylaxis, she is also on methylprednisolone 40 mg IV push every 8 hours. Reevaluated today on 07/29/2021, patient is feeling better today, breathing easier, less cough and less shortness of breath, less GI symptoms. Patient came in with multiple constitutional symptoms as noted above. Chest x-ray showed bilateral interstitial infiltrates, PCR for COVID-19 pneumonia was negative 2. Patient is now on 5 L nasal cannula, O2 sats is 94%. Her pro calcitonin today is 1.25. Patient tested negative for COVID-19, tested negative for influenza A, influenza B and for RSV. On 07/30/2021 patient seen in follow-up on medical surgical floor, she is resting comfortably in bed, she remains on 5 L of oxygen, pulse ox is 91-92%, breathing comfortably, she states her cough is improving, she is not producing any significant amount of sputum, at times she is able to clear some sanderson colored phlegm, she has been afebrile, hemodynamically she has been stable, she remains on cefepime for possibility of underlying community-acquired pneumonia, she remains on IV steroids, she tested negative for COVID 19, RSV and influenza A and B, her pro calcitonin level is improving on today's labs and is down to 0.95 from previous levels of 3.98 on admission. White count is improving and is down to 11.3, hemoglobin is 13.2, blood cultures have shown no growth, mild wheezes on today's exam. On 07/31/2021 patient seen in follow-up on medical surgical floor, her oxygen demand had increased in last 24 hours, and patient today is on 15 L per high flow nasal cannula and 100% nonrebreather mask, and her pulse ox is in the order of 85-88%, she's been afebrile, hemodynamically she is been stable, she states that she has been coughing up some pink tinged phlegm. Denies any chest discomfort, lung sounds reveal diffuse crackles throughout the lung salvador, she remains on cefepime for empiric antibiotic coverage, her blood cultures have remained negative, remains on IV steroids and nebulized bronchodilators. This x-ray is pending, patient will be given a dose of IV Lasix, her pro-calcitonin level is actually improving on today's labs, to 0.95. CTA chest showed no PE On 08/01/2021 patient is seen in follow-up on medical surgical floor. Yesterday her oxygenation has significantly worsened, patient was placed on Airvo at 60 L and FiO2 of 90%, and a nonrebreather mask, and her pulse ox was 81%, and patient was becoming tachypneic and tired. She was subsequently placed on BiPAP support with pressures of 12 and 6 in the 100%. She is satting better, at 92-93%, breathing more comfortably, she is awake and alert, answering questions a ppropriately, she was given a dose of IV Lasix yesterday, her net fluid balance is difficult to estimate, today's chest x-ray shows diffuse bilateral infiltrates that are stable in appearance, no pleural effusion or pneumothorax. Correlate for diffuse pneumonia versus ARDS. Patient is on antibiotics in the form of cefepime, blood cultures have shown no growth so far. We have not been able to obtain a sputum for culture. Afebrile, hemodynamically she's been stable. She is on IV steroids and nebulized bronchodilators. Her pro calcitonin level was actually improving on yesterday's labs, and today it is further improved and is down to 0.25 from initial level of 3.98 on 07/28/2021. ProBNP level was 1100. White blood cell count is slightly improved compared to yesterday, and is down to 14.49, hemoglobin is 13.5, sodium is 142, potassium is 4.2, BUN is 16, creatinine 0.4. Patient tested negative for COVID-19 per PCR test, and her antibiotic test was also negative, negative for influenza A and B and RSV. The patient is seen today 08/02/2021 in follow-up in the intensive care unit. She was transferred here yesterday after developing worsening hypoxemic respiratory failure. She is currently resting fairly comfortably in bed. Awake and alert in no acute distress. She is on the AirVo high flow oxygen at 60 L and 90% FiO2 with a nonrebreather mask used on and off. She has normal saline running at 20 ML's per hour. Chest x-ray continues to show possible septic ARDS versus pulmonary fibrosis versus rheumatoid lung. Blood cultures reveal no growth. White count 15.2. Hemoglobin 14.0. Lymphocytes 0.3. Sodium 136. Potassium 4.5. BUN 27. Creatinine 0.44. Glucose 206. Calcium 9.0. She is continued on DuoNeb inhalations, Symbicort, IV Solu-Medrol. Lovenox, vitamin supplements. She is on antibiotics in the form of cefepime. Pro calcitonin is down to 0.25. The patient is seen today 08/03/2021 in follow-up in the intensive care unit. She is currently sitting up in bed. Awake and alert in mild respiratory distress. She did utilize BiPAP for a few hours last night 31/01 in the 100% FiO2. She was subsequently transitioned to AirVo high flow oxygen at 60 L and 90% FiO2 plus a nonrebreather mask to maintain O2 saturations in the low 90s. She is normal saline at 75 ML's per hour. Chest x-ray continues to show bilateral patchy infiltrates. About the same today compared to previous. White count 13.5. Hemoglobin 12.5. Lymphocytes 0.4. Sodium 136. Potassium 4.5. Creatinine 0.44. Glucose 160. AST 28. ALT 22. She is continued on Symbicort, OB overall, IV Solu-Medrol. She remains on Lovenox for DVT prophylaxis. Vitamin supplements. She is on antibiotics in the form of cefepime. Objective - Vital Signs Vital signs: Vital Signs Temp 97.8 F 08/03/21 08:00 Pulse 83 08/03/21 08:00 Resp 12 08/03/21 08:00 BP 165/84 08/03/21 08:00 Pulse Ox 94 L 08/03/21 08:00 Intake & Output 08/02/21 08/03/21 08/03/21 18:59 06:59 18:59 Intake Total 740 1585 350 Output Total 560 630 75 Balance 180 955 275 Weight 72.5 kg Intake: IV 240 845 150 ns 240 845 150 Oral 500 740 200 Output: Urine 560 630 75 Other: Voiding Method Indwelling Catheter Indwelling Catheter - Exam GENERAL EXAM: Alert, very pleasant, 86-year-old female patient, currently on AirVo high flow oxygen at 60 L and 90% FiO2 HEAD: Normocephalic/atraumatic. EYES: Normal reaction of pupils, equal size. Conjunctiva pink, sclera white. NOSE: Clear with pink turbinates. THROAT: No erythema or exudates. NECK: No masses, no JVD, no thyroid enlargement, no adenopathy. CHEST: No chest wall deformity. Symmetrical expansion. LUNGS: Equal air entry with bilateral crackles and mild wheezes CVS: Regular rate and rhythm, normal S1 and S2, no gallops, no murmurs, no rubs ABDOMEN: Soft, nontender. No hepatosplenomegaly, normal bowel sounds, no guarding or rigidity. EXTREMITIES: No clubbing, no edema, no cyanosis, 2+ pulses and upper and lower extremities. MUSCULOSKELETAL: Muscle strength and tone normal. SPINE: No scoliosis or deformity SKIN: No rashes CENTRAL NERVOUS SYSTEM:No focal deficits, tone is normal in all 4 extremities. PSYCHIATRIC: Alert and oriented -3. Appropriate affect. Intact judgment and i nsight. - Labs CBC & Chem 7: 08/03/21 03:16 08/03/21 03:16 Labs: Abnormal Lab Results - Last 24 Hours (Table) 08/02/21 08/02/21 08/02/21 Range/Units 12:11 17:44 20:46 WBC (3.8-10.6) k/uL Neutrophils # (1.3-7.7) k/uL Lymphocytes # (1.0-4.8) k/uL Sodium (137-145) mmol/L Chloride (98-107) mmol/L Carbon Dioxide (22-30) mmol/L BUN (7-17) mg/dL Creatinine (0.52-1.04) mg/dL Glucose (74-99) mg/dL POC Glucose (mg/dL) 271 H 118 H 244 H (75-99) mg/dL Total Protein (6.3-8.2) g/dL Albumin (3.5-5.0) g/dL 08/03/21 08/03/21 08/03/21 Range/Units 03:16 03:16 06:41 WBC 13.5 H (3.8-10.6) k/uL Neutrophils # 12.6 H (1.3-7.7) k/uL Lymphocytes # 0.4 L (1.0-4.8) k/uL Sodium 136 L (137-145) mmol/L Chloride 96 L (98-107) mmol/L Carbon Dioxide 39 H (22-30) mmol/L BUN 35 H (7-17) mg/dL Creatinine 0.44 L (0.52-1.04) mg/dL Glucose 160 H (74-99) mg/dL POC Glucose (mg/dL) 227 H (75-99) mg/dL Total Protein 5.2 L (6.3-8.2) g/dL Albumin 2.8 L (3.5-5.0) g/dL Microbiology - Last 24 Hours (Table) 07/28/21 12:00 Blood Culture - Preliminary Blood No Growth after 120 hours 07/28/21 11:45 Blood Culture - Preliminary Blood No Growth after 120 hours Assessment and Plan Assessment: 1 Acute hypoxic respiratory failure secondary to interstitial lung disease and suspected superimposed, mucoid pneumonia. Patient tested negative for COVID-19, influenza A and B and RSV. Patient also had 2 previous negative PCR test. Patient is fully immunized against COVID 19. Subsequently patient required Airvo and a nonrebreather, and was placed on BiPAP support on 08/01/2021 for respiratory fatigue. Transferred to the intensive care unit on 08/01/2021. Currently on AirVo high flow oxygen at 60 L and 90% FiO2 2 ARDS related to pneumonia, currently on cefepime, IV steroids. 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 Lungs sounds bilateral wheeze, coarse crackles. Maintaining good O2 saturations in the 90s on AirVo high flow oxygen at 60 L and 90% FiO2 along with a nonrebreather mask. I discussed the assessment and plan of care with my nurse practitioner, Micaela Parsons. I attest to the above note as dictated by her. Time with Patient: Greater than 30
[2021-08-03] MEDS: SYMBICORT 160-4.5 MCG INHALER INHALATION SCH ×2 (09:33→19:44)
[2021-08-03 09:55] LABS: C Reactive Protein 3.3 mg/dL (<1.0)
[2021-08-03] MEDS: MAG HYDROX/AL HYDROX/SIMETH 30 ML, LIDOCAINE VISCOUS 30 ML, diphenhydrAMINE ELIXIR 75 M... PO SCH ×12 (10:31→21:03)
[2021-08-03 11:34] LABS: Glucose,Whole Blood 208 mg/dL (75-99)
--- NOTE | 2021-08-03 14:49 | P.PN ---
Progress Note - Text Progress Note Date: 08/03/21 Chief Complaint: Short of breath This is a pleasant 86-year-old patient, follows with Dr. Chaney. Chronic stable medical conditions include rheumatoid arthritis, Crohn's disease, diet- controlled diabetes, autoimmune disorder, fibromyalgia. She does follow Dr. Reed from rheumatology and does Rituxan injections every 6 months. Sees due for her next one. Patient did take her COVID vaccines back in . She doesn't go out much. For 7 days patient suspect upper cough. Very congested. Clear sputum. Has had fever and chills. Patient also had diarrhea. Some dark stool. No abdominal pain. Patient chronic stable medical conditions also include anxiety, hypothyroid, peripheral neuropathy, hyperlipidemia. Appetite is poor. Initial rapid COVID testing in the ER was negative. A more definitive PCR was sent out. Patient is accompanied by her [id number]. Patient is rather tired and rundown. She is also had chronic immune lung condition in the past. July 29: Short of breath. Tired. 5 L nasal cannula. Eating about 50%. In bed. July 30: Some shortness of breath. Some cough. 5 L nasal cannula. Eating some. Tired. July 31: Worsening short of breath. On 15 L nasal cannula. Congested cough. Eating about 50%. Laying in bed August 01: Shortness of breath not improving. Patient placed on BiPAP. Being moved to the ICU. Decreased oral intake. Tired. Now having brown stools. Seen by GI. No further intervention. August 02: ICU. Moved yesterday. Airvo:. 60 L/90%. With a nonrebreather mask. Barely eating. Short of breath. Tired. Sitting up in bed. August 03: ICU. On BiPAP. Decreased by mouth intake. Tired. Short of breath. Review of systems: Was done for constitutional, cardiovascular, GI, pulmonary. relevant finding as above Active Medications Acetaminophen (Acetaminophen Tab 500 Mg Tab) 1,000 mg PO Q6HR PRN PRN Reason: Fever>101 Last Admin: 07/29/21 05:59 Dose: 1,000 mg Documented by: Albuterol Sulfate (Albuterol Hfa Inhaler) 2 puff INHALATION RT-Q6H PRN PRN Reason: Shortness Of Breath Or Wheezing Albuterol/Ipratropium (Ipratropium-Albuterol 3 Ml Neb) 3 ml INHALATION RT-QID [facility] Last Admin: 08/03/21 12:39 Dose: 3 ml Documented by: Amlodipine Besylate (Amlodipine 2.5 Mg Tab) 2.5 mg PO HS [facility] Last Admin: 08/02/21 21:01 Dose: 2.5 mg Documented by: Ascorbic Acid (Ascorbic Acid 500 Mg Tab) 500 mg PO BID [facility] Last Admin: 08/03/21 08:20 Dose: 500 mg Documented by: Atorvastatin Calcium (Atorvastatin 20 Mg Tab) 20 mg PO [facility] Last Admin: 08/02/21 21:00 Dose: 20 mg Documented by: Budesonide/Formoterol Fumarate (Symbicort 160-4.5 Mcg Inhaler) 2 puff INHALATION RT-BID [facility] Last Admin: 08/03/21 09:33 Dose: Not Given Documented by: Buspirone HCl (Buspirone Hcl 10 Mg Tab) 10 mg PO BID [facility] Last Admin: 08/03/21 08:20 Dose: 10 mg Documented by: Cholecalciferol (Cholecalciferol 25 Mcg (1000 Iu) Tablet) 100 mcg PO DAILY [facility] Last Admin: 08/03/21 08:20 Dose: 100 mcg Documented by: Al Hydroxide/Mg Hydroxide 30 ml/ Lidocaine HCl 30 ml/Diphenhydramine HCl 75 mg/Acetaminophen 960 mg 0 ml PO TID [facility] Last Admin: 08/03/21 10:31 Dose: 30 ml Documented by: Diclofenac Sodium (Diclofenac Sodium Gel 100 Gm Tube) 4 gm TOPICAL QID PRN; Protocol PRN Reason: Pain Enoxaparin Sodium (Enoxaparin 40 Mg/0.4 Ml Syringe) 40 mg SQ DAILY [facility] Last Admin: 08/03/21 08:20 Dose: 40 mg Documented by: Gabapentin (Gabapentin 300 Mg Cap) 600 mg PO TID [facility] Last Admin: 08/03/21 08:20 Dose: 600 mg Documented by: Guaifenesin (Guaifenesin 600 Mg Tablet.Er) 600 mg PO QID [facility] Last Admin: 08/03/21 08:20 Dose: 600 mg Documented by: Cefepime HCl 2 gm/ Sodium (Chloride) 100 mls @ 25 mls/hr IVPB Q8H [facility] Last Admin: 08/03/21 06:45 Dose: 25 mls/hr Documented by: Sodium Chloride (Saline 0.9%) 1,000 mls @ 75 mls/hr IV .[id number] [facility] Last Admin: 08/02/21 21:15 Dose: 75 mls/hr Documented by: Insulin Aspart (Insulin Aspart (Novolog) 100 Unit/Ml Vial) 0 unit SQ [facility]; Protocol Last Admin: 08/03/21 12:56 Dose: 6 unit Documented by: Insulin Detemir (Insulin Detemir (Levemir) 100 Unit/Ml Syr) 14 unit SQ [facility] Ipratropium [place] (Ipratropium [place] 0.06% Nasal Var[place] (15 Ml)) 2 spray EA NOSTRIL TID [facility] Last Admin: 08/03/21 00:53 Dose: Not Given Documented by: Levothyroxine Sodium (Levothyroxine 75 Mcg Tab) 75 mcg PO DAILY@0630 [facility] Last Admin: 08/03/21 06:45 Dose: 75 mcg Documented by: Lorazepam (Lorazepam 0.5 Mg Tab) 0.5 mg PO Q6HR PRN PRN Reason: Anxiety Last Admin: 08/03/21 08:20 Dose: 0.5 mg Documented by: Losartan Potassium (Losartan 50 Mg Tab) 50 mg PO DAILY [facility] Last Admin: 08/03/21 08:20 Dose: 50 mg Documented by: Melatonin (Melatonin 3 Mg Tablet) 3 mg PO [facility] Last Admin: 08/02/21 22:36 Dose: Not Given Documented by: Methylprednisolone Sodium Succinate (Methylprednisolone Sod Succi 125 Mg/2 Ml Vial) 60 mg IV Q6HR [facility] Last Admin: 08/03/21 06:45 Dose: 60 mg Documented by: Miscellaneous Information (Pneumonia Protocol Utilized 1 Each [facility]) 1 each PO ONCE PRN PRN Reason: Per Protocol Naloxone HCl (Naloxone 0.4 Mg/Ml 1 Ml Vial) 0.2 mg IV Q2M PRN PRN Reason: Opioid Reversal Ondansetron HCl (Ondansetron 4 Mg/2 Ml Vial) 4 mg IVP Q8HR PRN PRN Reason: Nausea And Vomiting Sodium Chloride (Saline Nasal Gel 14.1 Gm Tube) 1 applic NASAL Q4HR PRN PRN Reason: Dry Nasal Passages Zinc Sulfate (Zinc Sulfate 220 Mg Cap) 220 mg PO DAILY [facility] Last Admin: 08/03/21 08:20 Dose: 220 mg Documented by: Past medical history to include: Anxiety, hypothyroid, peripheral neuropathy, hyperlipidemia, rheumatoid arthritis, Crohn's disease, diet-controlled diabetes, autoimmune lung disorder, fibromyalgia Social history: Lives with son and orgbjnaq-py-qox. No smoking no alcohol. Family history: Breast cancer Physical examination: VITAL SIGNS: 97.8, 83, 22, 160/84, 94% on BiPAP GENERAL: reclining bed, awake, tired. EYES: Pupils equal. Conjunctiva normal. HEENT: External appearance of nose and ears normal, oral cavity grossly normal. NECK: JVD not raised; masses not palpable. HEART: First and second heart sounds are normal; no edema. LUNGS: Respiratory rate increased, not able to speak in full sentences, decreased- bilateral coarse crackles. ABDOMEN: Soft, nontender, liver spleen not palpable, no masses palpable. PSYCH: Alert and oriented x3; mood and affect-anxiety MUSCULAR skeletal: Evidence of rheumatoid arthritis especially in the hands, significant INVESTIGATIONS, reviewed in the clinical context: August 03: WBC 13.5 hemoglobin 12.5 platelets 344 d-dimer 1.4 potassium 4.5 crit 35 creatinine 0.44 CRP 3.3 August 02: WBC 15.2 hemoglobin 14 platelets 371 sodium 136 potassium 4.5 BUN 27 creatinine 0.44. Chest x-ray: Bilateral cloudy infiltrates August 01: White count 14.4 hemoglobin 13.5. ABG: PCO2 57 pO2 57. Potassium 4.2 creatinine 0.4 July 31: White count 17.4 hemoglobin 12.7 Occult stool positive July 30: White count 9.3 hemoglobin 13.2 pro-calcitonin 0.95 July 29: Procalcitonin 3.98 WBC 13.9 hemoglobin 15.1 platelets 273 lymphocytes 0.8 d-dimer 1.09 sodium 133 potassium 4.3 creatinine 0.74 CRP 7.6 Coronavirus [PCR/rapid]: Negative Influenza A, influenza B, RSV, Coronavirus PCR: Not detected EKG tracing personally reviewed by me-normal sinus rhythm, [facility] Chest x-ray film personally reviewed by me-bilateral infiltrate changes, so we'll discontinue chronic. Also looked at the films from 2017 CT angiogram chest: Negative for PE. Reticular-nodular and groundglass infiltrates. Underlying fibrosis. Assessment and plan: - bacterial pneumonia suspected gram-negative.: Not improving IV cefepime. 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 Stool occult positive. Seen by GI. Follow conservatively -Initial Clinical suspicion for COVID-19 was high. Initial rapid antigen tested PCR was negative. A more definitive repeat COVID-19 immunoassay test was done/PCR that came back also negative -Chronic rheumatoid arthritis Patient does get Rituxan injections every 6 months -Chronic Crohn's disease Patient did complain of some dark stools. No abdominal pain. Initially GI services are not available in the hospital. 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 IV Solu-Medrol, bronchodilators. BiPAP, prognosis guarded. Follow with consultants.
--- NOTE | 2021-08-03 15:47 | P.PN ---
Subjective Progress Note Date: 08/03/21 Principal diagnosis: This is an 86-year-old female who presented to the emergency department 4 days ago with complaints of cough, shortness of breath and fever. Patient had a CT a ngiogram of the chest and that had ruled out pulmonary embolism. Pulmonary consultation was placed and patient is being treated for mucoid a pneumonia with suspected COVID-19 infection. However patient has had 2 negative COVID-19 swabs. The patient initially reported some black stools on admission therefore initially general surgery was consulted and now gastroenterology. She has a past medical history including rheumatoid arthritis Crohn's disease, type 2 diabetes mellitus diet controlled and fibromyalgia.the patient reports taking mesalamine for her Crohn's disease and states her last Crohn's exacerbation was approximately 2 years ago. She follows with Dr. Villafuerte for her Crohn's disease and states that it is been well controlled. She denies any abdominal pain, cramping, bloody bowel movements, diarrhea, nausea or vomiting. Her last colonoscopy was reported 3 years ago. 08/02/2021 Patient is seen and examined in the ICU. She was transferred to the ICU for sending hypoxemic respiratory failure. He continues to deny any signs or symptoms of GI bleed. Her hemoglobin is stable at 14, up from 13.5 yesterday. She denies any abdominal pain, nausea, or vomiting. 86-year-old female known to GI services with a history of Crohn's disease. Initial consultation was for black stool. She's had a stable hemoglobin since admission with no further signs of GI blood loss. Seen and examined in the ICU. No acute changes from a GI perspective. No signs or symptoms of GI bleed. Hemoglobin stable. Objective - Vital Signs Vital signs: Vital Signs Temp 97.8 F 08/03/21 08:00 Pulse 83 08/03/21 08:00 Resp 12 08/03/21 08:00 BP 165/84 08/03/21 08:00 Pulse Ox 94 L 08/03/21 08:00 Intake & Output 08/02/21 08/03/21 08/03/21 18:59 06:59 18:59 Intake Total 740 1585 350 Output Total 560 630 75 Balance 180 955 275 Weight 72.5 kg Intake: IV 240 845 150 ns 240 845 150 Oral 500 740 200 Output: Urine 560 630 75 Other: Voiding Method Indwelling Catheter Indwelling Catheter - Exam General appearance: The patient is alert, oriented, appears in no acute distress. HET: Head is normocephalic and atraumatic. Conjunctiva pink. Sclera anicteric. Neck: Supple without lymphadenopathy. Abdomen: Soft, nontender, nondistended with bowel sounds. No guarding or rigidity. Extremities: Normal skin color and turgor. No pedal edema Skin: No rashes, no jaundice Neurological: No focal deficits. Alert and oriented x 3. - Labs CBC & Chem 7: 08/03/21 03:16 08/03/21 03:16 Labs: Abnormal Lab Results - Last 24 Hours (Table) 08/02/21 08/02/21 08/02/21 Range/Units 12:11 17:44 20:46 WBC (3.8-10.6) k/uL Neutrophils # (1.3-7.7) k/uL Lymphocytes # (1.0-4.8) k/uL Sodium (137-145) mmol/L Chloride (98-107) mmol/L Carbon Dioxide (22-30) mmol/L BUN (7-17) mg/dL Creatinine (0.52-1.04) mg/dL Glucose (74-99) mg/dL POC Glucose (mg/dL) 271 H 118 H 244 H (75-99) mg/dL Total Protein (6.3-8.2) g/dL Albumin (3.5-5.0) g/dL 08/03/21 08/03/21 08/03/21 Range/Units 03:16 03:16 06:41 WBC 13.5 H (3.8-10.6) k/uL Neutrophils # 12.6 H (1.3-7.7) k/uL Lymphocytes # 0.4 L (1.0-4.8) k/uL Sodium 136 L (137-145) mmol/L Chloride 96 L (98-107) mmol/L Carbon Dioxide 39 H (22-30) mmol/L BUN 35 H (7-17) mg/dL Creatinine 0.44 L (0.52-1.04) mg/dL Glucose 160 H (74-99) mg/dL POC Glucose (mg/dL) 227 H (75-99) mg/dL Total Protein 5.2 L (6.3-8.2) g/dL Albumin 2.8 L (3.5-5.0) g/dL Microbiology - Last 24 Hours (Table) 07/28/21 12:00 Blood Culture - Preliminary Blood No Growth after 120 hours 07/28/21 11:45 Blood Culture - Preliminary Blood No Growth after 120 hours Assessment and Plan (1) Crohn's disease Narrative/Plan: Is a 86-year-old patient known to Dr. Villafuerte with a history of Crohn's disease. Patient states her Crohn's disease has been now well controlled and is on mesalamine. Her last exacerbation was approximately 2 years ago. The patient had presented to the emergency department with complaints of shortness of breath and cough. She is currently being treated for mucoid no pneumonia and has become hypoxic secondary to the above. She is now on Arava. Apparently she states on initial admission 4 days ago she did have some black stool, they tested that and it was positive for occult blood. Patient denies any further black stools states that she's been having normal brown bowel movement since. Her hemoglobin is stable at 13.5. She reports her last colonoscopy approximately 3 years ago. There are no plans for any endoscopic evaluation. Likely occult blood related to patient's history of Crohn's disease. Seems to be well controlled at this time on her mesalamine. Patient will follow up outpatient with Dr. Villafuerte as previously scheduled. Current Visit: Yes Status: Acute Code(s): K50.90 - CROHN'S DISEASE, UNSPECIFIED, WITHOUT COMPLICATIONS SNOMED Code(s): 15310700 (2) Pneumonia Current Visit: Yes Status: Acute Code(s): J18.9 - PNEUMONIA, UNSPECIFIED ORGANISM SNOMED Code(s): 956154703 (3) Hypoxia Current Visit: Yes Status: Acute Code(s): R09.02 - HYPOXEMIA SNOMED Code(s): 264816870 Plan: 1. Continue symptomatic and supportive care 2. Continue mesalamine 3. No plans on endoscopic evaluation 4. Patient to follow-up with Dr. Villafuerte as scheduled 5. Monitor for signs and symptoms of GI bleed Thank you for this consultation, we will continue to follow. Dr. Kandice Villafuerte I agree with the dictator's note, documented as a scribe by Tomasa Pichardo.
[2021-08-03 17:52] LABS: Glucose,Whole Blood 115 mg/dL (75-99)
[2021-08-03] MEDS: SODIUM CHLORIDE 0.9% 1,000 ML IV SCH (19:30)
[2021-08-03 20:46] LABS: Glucose,Whole Blood 230 mg/dL (75-99)
[2021-08-03] MEDS: ATORVASTATIN 20 MG TAB PO SCH (20:58)
[2021-08-03] MEDS: INSULIN DETEMIR (LEVEMIR) 100 UNIT/ML SYR SQ SCH (20:59)
[2021-08-03] MEDS: MELATONIN 3 MG TABLET PO SCH (21:01)
[2021-08-03] MEDS: amLODIPine 2.5 MG TAB PO SCH (21:13)
[2021-08-03] MEDS: GABAPENTIN 600 MG PO SCH (22:00)
[2021-08-04] MEDS: methylPREDNISolone SOD SUCCI 125 MG/2 ML VIAL IV SCH ×4 (01:02→18:27)
[2021-08-04] MEDS: SODIUM CHLORIDE 0.9% 1,000 ML IV SCH ×2 (01:07→15:00)
[2021-08-04] MEDS: LEVOTHYROXINE 75 MCG TAB PO SCH (06:32)
[2021-08-04] MEDS: CEFEPIME 2 GM in SODIUM CHLORIDE 0.9% 100 ML IVPB SCH ×3 (06:32→20:21)
[2021-08-04 07:08] LABS: Glucose,Whole Blood 92 mg/dL (75-99)
[2021-08-04] MEDS: INSULIN ASPART (NovoLOG) 100 UNIT/ML VIAL SQ SCH ×4 (07:21→20:28)
[2021-08-04] MEDS: IPRATROPIUM-ALBUTEROL 3 ML NEB INHALATION SCH ×4 (09:29→19:30)
[2021-08-04] MEDS: SYMBICORT 160-4.5 MCG INHALER INHALATION SCH ×2 (09:29→19:30)
[2021-08-04] MEDS: ENOXAPARIN 40 MG/0.4 ML SYRINGE SQ SCH (09:54)
[2021-08-04] MEDS: ASCORBIC ACID 500 MG TAB PO SCH ×2 (09:54→20:22)
[2021-08-04] MEDS: guaiFENesin 600 MG TABLET.ER PO SCH ×4 (09:54→20:21)
[2021-08-04] MEDS: ZINC SULFATE 220 MG CAP PO SCH (09:54)
[2021-08-04] MEDS: CHOLECALCIFEROL 25 MCG (1000 IU) TABLET PO SCH (09:54)
[2021-08-04] MEDS: LOSARTAN 50 MG TAB PO SCH (09:54)
[2021-08-04] MEDS: GABAPENTIN 600 MG PO SCH ×2 (09:55→18:27)
[2021-08-04] MEDS: MAG HYDROX/AL HYDROX/SIMETH 30 ML, LIDOCAINE VISCOUS 30 ML, diphenhydrAMINE ELIXIR 75 M... PO SCH ×12 (09:56→23:44)
[2021-08-04] MEDS: busPIRone HCl 10 MG TAB PO SCH ×2 (10:11→20:21)
[2021-08-04] MEDS: IPRATROPIUM BROMIDE 0.06% NASAL SPRAY (15 ML) EA NOSTRIL SCH ×2 (10:11→17:21)
--- NOTE | 2021-08-04 10:23 | P.PN ---
Subjective Progress Note Date: 08/04/21 This is an 86-year-old female primarily a patient of Dr. Rodriguez, patient is known to have history of rheumatoid arthritis, on multiple medications for her rheumatoid arthritis, she is also on rituxin infusions every 6 months. Patient is being followed by rheumatology, patient is current on her immunization including COVID-19 vaccination, she did receive moderna, 2 injections, and she did not receive her third booster. Patient stated that her last injection was in October. Came in today with 7 days' history of cough, congestion, describes the cough as productive with slightly yellow tinged sputum, patient also has multiple GI symptoms including poor appetite, diarrhea, denies any abdominal marysol n. She also had intermittent fevers and chills. Body aches were also described. However the patient had negative rapid PCR for COVID-19 infection and a follow-up test was also done and it came back also negative. Her chest x- ray and CT of the chest are abnormal. Chest x-ray is suggestive of interstitial lung disease. CT of the chest showed diffuse reticulonodular and ground glass opacities throughout both lungs. Possible underlying fibrosis noted. No pulmonary mass nodule and no real effusion noted. No evidence of lymphadenopathy. And no evidence of thromboembolic disease. CBC showed a bit of leukocytosis with WBC count of 13.9. Lymphopenia was noted. Normal electrolytes, normal renal profile, LDH was 1055 and BNP level was 1100. Pro- calcitonin level is pending. Patient had negative PCR for sanchez virus infection. She had negative screening for influenza A, influenza B, RSV. Patient was hypoxic on room air, O2 saturations was 81%, however she was placed on 5 L and her oxygen saturation was up to 96% considering her pulmonary presentation, this consult was initiated. And I saw the patient in the ER. Patient is already on Rocephin and Zithromax, however the admitting physician changed her antibiotics to cefepime. She is on DVT prophylaxis, she is also on methylprednisolone 40 mg IV push every 8 hours. Reevaluated today on 07/29/2021, patient is feeling better today, breathing easier, less cough and less shortness of breath, less GI symptoms. Patient came in with multiple constitutional symptoms as noted above. Chest x-ray showed bilateral interstitial infiltrates, PCR for COVID-19 pneumonia was negative 2. Patient is now on 5 L nasal cannula, O2 sats is 94%. Her pro calcitonin today is 1.25. Patient tested negative for COVID-19, tested negative for influenza A, influenza B and for RSV. On 07/30/2021 patient seen in follow-up on medical surgical floor, she is resting comfortably in bed, she remains on 5 L of oxygen, pulse ox is 91-92%, breathing comfortably, she states her cough is improving, she is not producing any significant amount of sputum, at times she is able to clear some sanderson colored phlegm, she has been afebrile, hemodynamically she has been stable, she remains on cefepime for possibility of underlying community-acquired pneumonia, she remains on IV steroids, she tested negative for COVID 19, RSV and influenza A and B, her pro calcitonin level is improving on today's labs and is down to 0.95 from previous levels of 3.98 on admission. White count is improving and is down to 11.3, hemoglobin is 13.2, blood cultures have shown no growth, mild wheezes on today's exam. On 07/31/2021 patient seen in follow-up on medical surgical floor, her oxygen demand had increased in last 24 hours, and patient today is on 15 L per high flow nasal cannula and 100% nonrebreather mask, and her pulse ox is in the order of 85-88%, she's been afebrile, hemodynamically she is been stable, she states that she has been coughing up some pink tinged phlegm. Denies any chest discomfort, lung sounds reveal diffuse crackles throughout the lung salvador, she remains on cefepime for empiric antibiotic coverage, her blood cultures have remained negative, remains on IV steroids and nebulized bronchodilators. This x-ray is pending, patient will be given a dose of IV Lasix, her pro-calcitonin level is actually improving on today's labs, to 0.95. CTA chest showed no PE On 08/01/2021 patient is seen in follow-up on medical surgical floor. Yesterday her oxygenation has significantly worsened, patient was placed on Airvo at 60 L and FiO2 of 90%, and a nonrebreather mask, and her pulse ox was 81%, and patient was becoming tachypneic and tired. She was subsequently placed on BiPAP support with pressures of 12 and 6 in the 100%. She is satting better, at 92-93%, breathing more comfortably, she is awake and alert, answering questions a ppropriately, she was given a dose of IV Lasix yesterday, her net fluid balance is difficult to estimate, today's chest x-ray shows diffuse bilateral infiltrates that are stable in appearance, no pleural effusion or pneumothorax. Correlate for diffuse pneumonia versus ARDS. Patient is on antibiotics in the form of cefepime, blood cultures have shown no growth so far. We have not been able to obtain a sputum for culture. Afebrile, hemodynamically she's been stable. She is on IV steroids and nebulized bronchodilators. Her pro calcitonin level was actually improving on yesterday's labs, and today it is further improved and is down to 0.25 from initial level of 3.98 on 07/28/2021. ProBNP level was 1100. White blood cell count is slightly improved compared to yesterday, and is down to 14.49, hemoglobin is 13.5, sodium is 142, potassium is 4.2, BUN is 16, creatinine 0.4. Patient tested negative for COVID-19 per PCR test, and her antibiotic test was also negative, negative for influenza A and B and RSV. The patient is seen today 08/02/2021 in follow-up in the intensive care unit. She was transferred here yesterday after developing worsening hypoxemic respiratory failure. She is currently resting fairly comfortably in bed. Awake and alert in no acute distress. She is on the AirVo high flow oxygen at 60 L and 90% FiO2 with a nonrebreather mask used on and off. She has normal saline running at 20 ML's per hour. Chest x-ray continues to show possible septic ARDS versus pulmonary fibrosis versus rheumatoid lung. Blood cultures reveal no growth. White count 15.2. Hemoglobin 14.0. Lymphocytes 0.3. Sodium 136. Potassium 4.5. BUN 27. Creatinine 0.44. Glucose 206. Calcium 9.0. She is continued on DuoNeb inhalations, Symbicort, IV Solu-Medrol. Lovenox, vitamin supplements. She is on antibiotics in the form of cefepime. Pro calcitonin is down to 0.25. The patient is seen today 08/03/2021 in follow-up in the intensive care unit. She is currently sitting up in bed. Awake and alert in mild respiratory distress. She did utilize BiPAP for a few hours last night 15/6 in the 100% FiO2. She was subsequently transitioned to AirVo high flow oxygen at 60 L and 90% FiO2 plus a nonrebreather mask to maintain O2 saturations in the low 90s. She is normal saline at 75 ML's per hour. Chest x-ray continues to show bilateral patchy infiltrates. About the same today compared to previous. White count 13.5. Hemoglobin 12.5. Lymphocytes 0.4. Sodium 136. Potassium 4.5. Creatinine 0.44. Glucose 160. AST 28. ALT 22. She is continued on Symbicort, OB overall, IV Solu-Medrol. She remains on Lovenox for DVT prophylaxis. Vitamin supplements. She is on antibiotics in the form of cefepime. The patient is seen today 08/04/2021 in follow-up in the intensive care unit. She is currently resting comfortably in bed. Awake and alert in no acute distress. She did utilize the BiPAP to approximate 2 AM. Settings are 15/6 and 100% FiO2. She wakes up confused and pulse off the device. She is currently calm and cooperative. She is on AirVo high flow oxygen now at 60 L and 82% FiO2. She is making good urine. 0.9 normal saline at 75 ML's per hour. Her appetite has been good. She remains in sinus rhythm. She remains on DuoNeb inhalations, Symbicort and IV Solu-Medrol. Lovenox for DVT prophylaxis. Antibiotics in the form of cefepime. No new labs today. Objective - Vital Signs Vital signs: Vital Signs Temp 97.7 F 08/04/21 04:00 Pulse 63 08/04/21 07:00 Resp 13 08/04/21 07:00 BP 143/67 08/04/21 07:00 Pulse Ox 96 08/04/21 07:00 Intake & Output 08/03/21 08/04/21 08/04/21 18:59 06:59 18:59 Intake Total 1540 525 75 Output Total 525 510 30 Balance 1015 15 45 Weight 72.5 kg 74.5 kg Intake: IV 900 525 75 ns 900 525 75 Oral 640 Output: Urine 525 510 30 Other: Voiding Method Indwelling Catheter Indwelling Catheter - Exam GENERAL EXAM: Alert, very pleasant, 86-year-old female patient, currently on AirVo high flow oxygen at 60 L and 82% FiO2 HEAD: Normocephalic/atraumatic. EYES: Normal reaction of pupils, equal size. Conjunctiva pink, sclera white. NOSE: Clear with pink turbinates. THROAT: No erythema or exudates. NECK: No masses, no JVD, no thyroid enlargement, no adenopathy. CHEST: No chest wall deformity. Symmetrical expansion. LUNGS: Equal air entry with bilateral crackles and mild wheezes CVS: Regular rate and rhythm, normal S1 and S2, no gallops, no murmurs, no rubs ABDOMEN: Soft, nontender. No hepatosplenomegaly, normal bowel sounds, no g uarding or rigidity. EXTREMITIES: No clubbing, no edema, no cyanosis, 2+ pulses and upper and lower extremities. MUSCULOSKELETAL: Muscle strength and tone normal. SPINE: No scoliosis or deformity SKIN: No rashes CENTRAL NERVOUS SYSTEM:No focal deficits, tone is normal in all 4 extremities. PSYCHIATRIC: Alert and oriented -3. Appropriate affect. Intact judgment and insight. - Labs CBC & Chem 7: 08/03/21 03:16 08/03/21 03:16 Labs: Abnormal Lab Results - Last 24 Hours (Table) 08/03/21 08/03/21 08/03/21 Range/Units 09:27 09:27 11:33 D-Dimer 1.41 H (<0.60) mg/L FEU POC Glucose (mg/dL) 208 H (75-99) mg/dL Lactate Dehydrogenase 1609 H (313-618) U/L C-Reactive Protein 3.3 H (<1.0) mg/dL 08/03/21 08/03/21 Range/Units 17:40 20:45 D-Dimer (<0.60) mg/L FEU POC Glucose (mg/dL) 115 H 230 H (75-99) mg/dL Lactate Dehydrogenase (313-618) U/L C-Reactive Protein (<1.0) mg/dL Microbiology - Last 24 Hours (Table) 07/28/21 11:45 Blood Culture - Final Blood No Growth after 144 hours 07/28/21 12:00 Blood Culture - Final Blood No Growth after 144 hours Assessment and Plan Assessment: 1 Acute hypoxic respiratory failure secondary to interstitial lung disease and suspected superimposed, mucoid pneumonia. Patient tested negative for COVID-19, influenza A and B and RSV. Patient also had 2 previous negative PCR test. Patient is fully immunized against COVID 19. Subsequently patient required Airvo and a nonrebreather, and was placed on BiPAP support on 08/01/2021 for respiratory fatigue. Transferred to the intensive care unit on 08/01/2021. Currently on AirVo high flow oxygen at 60 L and 82% FiO2 2 ARDS related to pneumonia, currently on cefepime, IV steroids. 3 Elevated pro-calcitonin suggesting possibility of bacterial pneumonia, possibly community acquired, patient is currently covered with cefepime, improving pro-calcitonin down to 0.25 on today's labs 4 History of rheumatoid arthritis and rheumatoid lung disease. 5 Bronchiolitis obliterans with organizing pneumonia 6 Hypertension 7 Dyslipidemia 8 History of hypothyroidism Plan: The patient was seen and evaluated Chest x-ray remains about the same No significant improvement Remains on bronchodilators, IV Solu-Medrol, antibiotics Currently on AirVo high flow oxygen Titrate the FiO2 as tolerated Condition remains guarded Dr. Love spoke with the patient's son in detail ABG is pending We will continue to follow I, the cosigning physician, performed a history & physical examination of the patient. Lungs sounds bilateral wheeze, coarse crackles. Maintaining good O2 saturations in the 90s on AirVo high flow oxygen at 60 L and 82% FiO2 along with a nonrebreather mask. I discussed the assessment and plan of care with my nurse practitioner, Micaela Parsons. I attest to the above note as dictated by her. Time with Patient: Greater than 30
[2021-08-04 10:30] LABS: ABG Base Excess 16.5 mmol/L; ABG Oxygen Saturation 96.5 % (94-97); ABG PCO2 61 mmHg (35-45); ABG PH 7.43 (7.35-7.45); ABG PO2 78 mmHg (83-108); ABG TCO2 43 mmol/L (19-24)
[2021-08-04 10:31] LABS: ABG HCO3 41 mmol/L (21-25)
[2021-08-04 10:32] LABS: Allen Test Performed? Yes
[2021-08-04 11:26] LABS: Glucose,Whole Blood 98 mg/dL (75-99)
[2021-08-04] MEDS: LORazepam 0.5 MG TAB PO PRN ×3 (12:13→23:57)
[2021-08-04 12:18] LABS: Glucose,Whole Blood 97 mg/dL (75-99)
--- NOTE | 2021-08-04 13:26 | P.PN ---
Subjective Progress Note Date: 08/04/21 Principal diagnosis: This is an 86-year-old female who presented to the emergency department 4 days ago with complaints of cough, shortness of breath and fever. Patient had a CT a ngiogram of the chest and that had ruled out pulmonary embolism. Pulmonary consultation was placed and patient is being treated for mucoid a pneumonia with suspected COVID-19 infection. However patient has had 2 negative COVID-19 swabs. The patient initially reported some black stools on admission therefore initially general surgery was consulted and now gastroenterology. She has a past medical history including rheumatoid arthritis Crohn's disease, type 2 diabetes mellitus diet controlled and fibromyalgia.the patient reports taking mesalamine for her Crohn's disease and states her last Crohn's exacerbation was approximately 2 years ago. She follows with Dr. Villafuerte for her Crohn's disease and states that it is been well controlled. She denies any abdominal pain, cramping, bloody bowel movements, diarrhea, nausea or vomiting. Her last colonoscopy was reported 3 years ago. 08/02/2021 Patient is seen and examined in the ICU. She was transferred to the ICU for sending hypoxemic respiratory failure. He continues to deny any signs or symptoms of GI bleed. Her hemoglobin is stable at 14, up from 13.5 yesterday. She denies any abdominal pain, nausea, or vomiting. 86-year-old female known to GI services with a history of Crohn's disease. Initial consultation was for black stool. She's had a stable hemoglobin since admission with no further signs of GI blood loss. Seen and examined in the ICU. No acute changes from a GI perspective. No signs or symptoms of GI bleed. Hemoglobin stable. She denies any abdominal pain, nausea, or vomiting. Objective - Vital Signs Vital signs: Vital Signs Temp 97.7 F 08/04/21 04:00 Pulse 63 08/04/21 07:00 Resp 13 08/04/21 07:00 BP 143/67 08/04/21 07:00 Pulse Ox 96 08/04/21 07:00 Intake & Output 08/03/21 08/04/21 08/04/21 18:59 06:59 18:59 Intake Total 1540 525 75 Output Total 525 510 30 Balance 1015 15 45 Weight 72.5 kg 74.5 kg Intake: IV 900 525 75 ns 900 525 75 Oral 640 Output: Urine 525 510 30 Other: Voiding Method Indwelling Catheter Indwelling Catheter - Exam General appearance: The patient is alert, oriented, appears in no acute distres s. HET: Head is normocephalic and atraumatic. Conjunctiva pink. Sclera anicteric. Neck: Supple without lymphadenopathy. Abdomen: Soft, nontender, nondistended with bowel sounds. No guarding or rigidity. Extremities: Normal skin color and turgor. No pedal edema Skin: No rashes, no jaundice Neurological: No focal deficits. Alert and oriented x 3. - Labs CBC & Chem 7: 08/03/21 03:16 08/03/21 03:16 Labs: Abnormal Lab Results - Last 24 Hours (Table) 08/03/21 08/03/21 08/03/21 Range/Units 09:27 09:27 11:33 D-Dimer 1.41 H (<0.60) mg/L FEU POC Glucose (mg/dL) 208 H (75-99) mg/dL Lactate Dehydrogenase 1609 H (313-618) U/L C-Reactive Protein 3.3 H (<1.0) mg/dL 08/03/21 08/03/21 Range/Units 17:40 20:45 D-Dimer (<0.60) mg/L FEU POC Glucose (mg/dL) 115 H 230 H (75-99) mg/dL Lactate Dehydrogenase (313-618) U/L C-Reactive Protein (<1.0) mg/dL Microbiology - Last 24 Hours (Table) 07/28/21 11:45 Blood Culture - Final Blood No Growth after 144 hours 07/28/21 12:00 Blood Culture - Final Blood No Growth after 144 hours Assessment and Plan (1) Crohn's disease Narrative/Plan: Is a 86-year-old patient known to Dr. Villafuerte with a history of Crohn's disease. Patient states her Crohn's disease has been now well controlled and is on mesalamine. Her last exacerbation was approximately 2 years ago. The patient had presented to the emergency department with complaints of shortness of breath and cough. She is currently being treated for mucoid no pneumonia and has become hypoxic secondary to the above. She is now on Arava. Apparently she states on initial admission 4 days ago she did have some black stool, they tested that and it was positive for occult blood. Patient denies any further black stools states that she's been having normal brown bowel movement since. Her hemoglobin is stable at 13.5. She reports her last colonoscopy approximate ly 3 years ago. There are no plans for any endoscopic evaluation. Likely occult blood related to patient's history of Crohn's disease. Seems to be well controlled at this time on her mesalamine. Patient will follow up outpatient with Dr. Villafuerte as previously scheduled. Current Visit: Yes Status: Acute Code(s): K50.90 - CROHN'S DISEASE, UNSPECIFIED, WITHOUT COMPLICATIONS SNOMED Code(s): 80453812 (2) Pneumonia Current Visit: Yes Status: Acute Code(s): J18.9 - PNEUMONIA, UNSPECIFIED ORGANISM SNOMED Code(s): 405221457 (3) Hypoxia Current Visit: Yes Status: Acute Code(s): R09.02 - HYPOXEMIA SNOMED Code(s): 064596629 Plan: 1. Continue symptomatic and supportive care 2. Continue mesalamine 3. No plans on endoscopic evaluation 4. Patient to follow-up with Dr. Villafuerte as scheduled Thank you for allowing us to participate in the care of the patient, the GI service will sign off, gastroenterology will not be available at the hospital this weekend and through next week. If further evaluation by gastroenterology is required the patient will need transfer as per the primary team's discretion. Dr. Kandice iVllafuerte I agree with the dictator's note, documented as a scribe by Tomasa Pichardo.
--- NOTE | 2021-08-04 14:50 | P.PN ---
Progress Note - Text Progress Note Date: 08/04/21 Chief Complaint: Short of breath This is a pleasant 86-year-old patient, follows with Dr. Chaney. Chronic stable medical conditions include rheumatoid arthritis, Crohn's disease, diet- controlled diabetes, autoimmune disorder, fibromyalgia. She does follow Dr. Reed from rheumatology and does Rituxan injections every 6 months. Sees due for her next one. Patient did take her COVID vaccines back in . She doesn't go out much. For 7 days patient suspect upper cough. Very congested. Clear sputum. Has had fever and chills. Patient also had diarrhea. Some dark stool. No abdominal pain. Patient chronic stable medical conditions also include anxiety, hypothyroid, peripheral neuropathy, hyperlipidemia. Appetite is poor. Initial rapid COVID testing in the ER was negative. A more definitive PCR was sent out. Patient is accompanied by her [id number]. Patient is rather tired and rundown. She is also had chronic immune lung condition in the past. July 29: Short of breath. Tired. 5 L nasal cannula. Eating about 50%. In bed. July 30: Some shortness of breath. Some cough. 5 L nasal cannula. Eating some. Tired. July 31: Worsening short of breath. On 15 L nasal cannula. Congested cough. Eating about 50%. Laying in bed August 01: Shortness of breath not improving. Patient placed on BiPAP. Being moved to the ICU. Decreased oral intake. Tired. Now having brown stools. Seen by GI. No further intervention. August 02: ICU. Moved yesterday. Airvo:. 60 L/90%. With a nonrebreather mask. Barely eating. Short of breath. Tired. Sitting up in bed. August 03: ICU. On BiPAP. Decreased by mouth intake. Tired. Short of breath. August 04: ICU: Patient between Airvo and BiPAP. Tired. Short of breath. Sinus rhythm. Patient's daughter is visiting. Eating some. Encouraged to use ensure. On IV cefepime. IV Solu-Medrol. Review of systems: Was done for constitutional, cardiovascular, GI, pulmonary. relevant finding as above Active Medications Acetaminophen (Acetaminophen Tab 500 Mg Tab) 1,000 mg PO Q6HR PRN PRN Reason: Fever>101 Last Admin: 07/29/21 05:59 Dose: 1,000 mg Documented by: Albuterol Sulfate (Albuterol Hfa Inhaler) 2 puff INHALATION RT-Q6H PRN PRN Reason: Shortness Of Breath Or Wheezing Albuterol/Ipratropium (Ipratropium-Albuterol 3 Ml Neb) 3 ml INHALATION RT-QID [facility] Last Admin: 08/04/21 14:04 Dose: Not Given Documented by: Amlodipine Besylate (Amlodipine 2.5 Mg Tab) 2.5 mg PO HS [facility] Last Admin: 08/03/21 21:13 Dose: 2.5 mg Documented by: Ascorbic Acid (Ascorbic Acid 500 Mg Tab) 500 mg PO BID [facility] Last Admin: 08/04/21 09:54 Dose: 500 mg Documented by: Atorvastatin Calcium (Atorvastatin 20 Mg Tab) 20 mg PO [facility] Last Admin: 08/03/21 20:58 Dose: 20 mg Documented by: Budesonide/Formoterol Fumarate (Symbicort 160-4.5 Mcg Inhaler) 2 puff INHALATION RT-BID [facility] Last Admin: 08/04/21 09:29 Dose: Not Given Documented by: Buspirone HCl (Buspirone Hcl 10 Mg Tab) 10 mg PO BID [facility] Last Admin: 08/04/21 10:11 Dose: 10 mg Documented by: Cholecalciferol (Cholecalciferol 25 Mcg (1000 Iu) Tablet) 100 mcg PO DAILY [facility] Last Admin: 08/04/21 09:54 Dose: 100 mcg Documented by: Al Hydroxide/Mg Hydroxide 30 ml/ Lidocaine HCl 30 ml/Diphenhydramine HCl 75 mg/Acetaminophen 960 mg 0 ml PO TID [facility] Last Admin: 08/04/21 09:56 Dose: 5 ml Documented by: Diclofenac Sodium (Diclofenac Sodium Gel 100 Gm Tube) 4 gm TOPICAL QID PRN; Protocol PRN Reason: Pain Enoxaparin Sodium (Enoxaparin 40 Mg/0.4 Ml Syringe) 40 mg SQ DAILY [facility] Last Admin: 08/04/21 09:54 Dose: 40 mg Documented by: Guaifenesin (Guaifenesin 600 Mg Tablet.Er) 600 mg PO QID [facility] Last Admin: 08/04/21 12:13 Dose: 600 mg Documented by: Cefepime HCl 2 gm/ Sodium (Chloride) 100 mls @ 25 mls/hr IVPB Q8H [facility] Last Admin: 08/04/21 06:32 Dose: 25 mls/hr Documented by: Sodium Chloride (Saline 0.9%) 1,000 mls @ 75 mls/hr IV .[id number] [facility] Last Admin: 08/04/21 01:07 Dose: 75 mls/hr Documented by: Insulin Aspart (Insulin Aspart (Novolog) 100 Unit/Ml Vial) 0 unit SQ [facility]; Protocol Last Admin: 08/04/21 12:17 Dose: Not Given Documented by: Insulin Detemir (Insulin Detemir (Levemir) 100 Unit/Ml Syr) 14 unit SQ [facility] Last Admin: 08/03/21 20:59 Dose: 14 unit Documented by: Ipratropium [place] (Ipratropium [place] 0.06% Nasal [place] (15 Ml)) 2 spray EA NOSTRIL TID [facility] Last Admin: 08/04/21 10:11 Dose: Not Given Documented by: Levothyroxine Sodium (Levothyroxine 75 Mcg Tab) 75 mcg PO DAILY@0630 [facility] Last Admin: 08/04/21 06:32 Dose: 75 mcg Documented by: Lorazepam (Lorazepam 0.5 Mg Tab) 0.5 mg PO Q6HR PRN PRN Reason: Anxiety Last Admin: 08/04/21 12:13 Dose: 0.5 mg Documented by: Losartan Potassium (Losartan 50 Mg Tab) 50 mg PO DAILY [facility] Last Admin: 08/04/21 09:54 Dose: 50 mg Documented by: Melatonin (Melatonin 3 Mg Tablet) 3 mg PO [facility] Last Admin: 08/03/21 21:01 Dose: 3 mg Documented by: Methylprednisolone Sodium Succinate (Methylprednisolone Sod Succi 125 Mg/2 Ml Vial) 60 mg IV Q6HR [facility] Last Admin: 08/04/21 12:13 Dose: 60 mg Documented by: Miscellaneous Information (Pneumonia Protocol Utilized 1 Each Misc) 1 each PO ONCE PRN PRN Reason: Per Protocol Naloxone HCl (Naloxone 0.4 Mg/Ml 1 Ml Vial) 0.2 mg IV Q2M PRN PRN Reason: Opioid Reversal Gabapentin 600 Mg (Tablets) 600 each PO TID [facility] Last Admin: 08/04/21 09:55 Dose: 600 each Documented by: Ondansetron HCl (Ondansetron 4 Mg/2 Ml Vial) 4 mg IVP Q8HR PRN PRN Reason: Nausea And Vomiting Sodium Chloride (Saline Nasal Gel 14.1 Gm Tube) 1 applic NASAL Q4HR PRN PRN Reason: Dry Nasal Passages Zinc Sulfate (Zinc Sulfate 220 Mg Cap) 220 mg PO DAILY [facility] Last Admin: 08/04/21 09:54 Dose: 220 mg Documented by: Past medical history to include: Anxiety, hypothyroid, peripheral neuropathy, hyperlipidemia, rheumatoid arthritis, Crohn's disease, diet-controlled diabetes, autoimmune lung disorder, fibromyalgia Social history: Lives with son and [id number]. No smoking no alcohol. Family history: Breast cancer Physical examination: VITAL SIGNS: 98.5, 82, 22, 150/75, 91% on Airvo GENERAL: reclining bed, awake, tired. EYES: Pupils equal. Conjunctiva normal. HEENT: External appearance of nose and ears normal, oral cavity grossly normal. NECK: JVD not raised; masses not palpable. HEART: First and second heart sounds are normal; no edema. LUNGS: Respiratory rate increased, not able to speak in full sentences,- bilateral coarse crackles. ABDOMEN: Soft, nontender, liver spleen not palpable, no masses palpable. PSYCH: Alert and oriented x3; mood and affect-anxiety MUSCULAR skeletal: Evidence of rheumatoid arthritis especially in the hands, significant INVESTIGATIONS, reviewed in the clinical context: August 04: ABG: PH 7.43 pCO2 61 pO2 78 August 03: WBC 13.5 hemoglobin 12.5 platelets 344 d-dimer 1.4 potassium 4.5 crit 35 creatinine 0.44 CRP 3.3 August 02: WBC 15.2 hemoglobin 14 platelets 371 sodium 136 potassium 4.5 BUN 27 creatinine 0.44. Chest x-ray: Bilateral cloudy infiltrates August 01: White count 14.4 hemoglobin 13.5. ABG: PCO2 57 pO2 57. Potassium 4.2 creatinine 0.4 July 31: White count 17.4 hemoglobin 12.7 Occult stool positive July 30: White count 9.3 hemoglobin 13.2 pro-calcitonin 0.95 July 29: Procalcitonin 3.98 WBC 13.9 hemoglobin 15.1 platelets 273 lymphocytes 0.8 d-dimer 1.09 sodium 133 potassium 4.3 creatinine 0.74 CRP 7.6 Coronavirus [PCR/rapid]: Negative Influenza A, influenza B, RSV, Coronavirus PCR: Not detected EKG tracing personally reviewed by me-normal sinus rhythm, LVH Chest x-ray film personally reviewed by me-bilateral infiltrate changes, so we'll discontinue chronic. Also looked at the films from 2017 CT angiogram chest: Negative for PE. Reticular-nodular and groundglass infiltrates. Underlying fibrosis. Assessment and plan: - bacterial pneumonia suspected gram-negative.: Not improving IV cefepime. -Acute severe hypoxic respiratory failure from pneumonia: Not improving On BiPAP/Airvo -ARDS secondary to suspected mucoid pneumonia Follow with electrical instrumentation technician -Episode of GI bleed- dark stools. Stool occult positive. Seen by GI. Follow closely -Initial Clinical suspicion for COVID-19 was high. Initial rapid antigen tested PCR was negative. A more definitive repeat COVID-19 immunoassay test was done/PCR that came back also negative -Chronic rheumatoid arthritis Patient does get Rituxan injections every 6 months -Chronic Crohn's disease Patient did complain of some dark stools. No abdominal pain. Initially GI services are not available in the hospital. We'll consult regional business development manager surgery. 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 IV Solu-Medrol, bronchodilators. BiPAP/airvo , prognosis guarded. Follow
[2021-08-04 16:28] LABS: Glucose,Whole Blood 185 mg/dL (75-99)
[2021-08-04] MEDS: ATORVASTATIN 20 MG TAB PO SCH (20:21)
[2021-08-04] MEDS: MELATONIN 3 MG TABLET PO SCH (20:21)
[2021-08-04] MEDS: INSULIN DETEMIR (LEVEMIR) 100 UNIT/ML SYR SQ SCH (20:22)
[2021-08-04 20:23] LABS: Glucose,Whole Blood 227 mg/dL (75-99)
[2021-08-04] MEDS: amLODIPine 2.5 MG TAB PO SCH (23:44)
[2021-08-05 03:43] LABS: Basophils % (A) 0 %; Eosinophils # (A) 0.1 k/uL (0-0.7); Eosinophils % (A) 0 %; HCT 40.7 % (34.0-46.0); Hypochromasia Slight; Lymphocytes # (A) 0.3 k/uL (1.0-4.8); Lymphocytes % (A) 2 %; MCH 28.8 pg (25.0-35.0); MCHC 31.9 g/dL (31.0-37.0); MCV 90.2 fL (80.0-100.0); Mean Platelet Volume 7.2; Monocytes # (A) 0.6 k/uL (0-1.0); Monocytes % (A) 3 %; Neutrophils # (A) 16.3 k/uL (1.3-7.7); Neutrophils % (A) 94 %; Platelet Count 317 k/uL (150-450); RBC 4.51 m/uL (3.80-5.40); RDW 13.4 % (11.5-15.5); WBC 17.4 k/uL (3.8-10.6)
[2021-08-05 04:01] LABS: ALT 23 U/L (4-34); AST 26 U/L (14-36); African American GFR (CKD) >90 (>60 ml/min/1.73 sqM); Albumin 2.8 g/dL (3.5-5.0); Alkaline Phosphatase 75 U/L (38-126); Anion Gap 0 mmol/L; Blood Urea Nitrogen 35 mg/dL (7-17); Calcium 8.6 mg/dL (8.4-10.2); Carbon Dioxide 40 mmol/L (22-30); Chloride 96 mmol/L (98-107); Glucose 59 mg/dL (74-99); Non-African American GFR(CKD) 88 (>60 ml/min/1.73 sqM); Potassium 4.8 mmol/L (3.5-5.1); Sodium 136 mmol/L (137-145); Total Bilirubin 0.5 mg/dL (0.2-1.3); Total Protein 5.1 g/dL (6.3-8.2)
[2021-08-05 05:27] LABS: Glucose,Whole Blood 68 mg/dL (75-99)
[2021-08-05] MEDS: GABAPENTIN 600 MG PO SCH ×3 (05:49→17:00)
[2021-08-05] MEDS: IPRATROPIUM BROMIDE 0.06% NASAL SPRAY (15 ML) EA NOSTRIL SCH ×3 (05:49→17:12)
[2021-08-05] MEDS: CEFEPIME 2 GM in SODIUM CHLORIDE 0.9% 100 ML IVPB SCH ×3 (05:49→19:45)
[2021-08-05] MEDS: SODIUM CHLORIDE 0.9% 1,000 ML IV SCH ×2 (05:49→17:20)
[2021-08-05] MEDS: methylPREDNISolone SOD SUCCI 125 MG/2 ML VIAL IV SCH ×4 (05:49→17:04)
[2021-08-05 06:11] LABS: Glucose,Whole Blood 85 mg/dL (75-99)
[2021-08-05] MEDS: LEVOTHYROXINE 75 MCG TAB PO SCH (06:22)
[2021-08-05] MEDS: INSULIN ASPART (NovoLOG) 100 UNIT/ML VIAL SQ SCH ×4 (06:22→20:10)
--- NOTE | 2021-08-05 06:26 | XR ---
EXAMINATION TYPE: XR chest 1V portable DATE OF EXAM: 08/05/2021 COMPARISON: 07/29/2021 HISTORY: Pneumonia TECHNIQUE: Single frontal view of the chest is obtained. FINDINGS: There are diffuse fluffy alveolar infiltrates which are unchanged compared to previous. Th ere is no pneumothorax or large pleural effusion. Heart size is normal. The osseous structures are intact although there are chronic rotator cuff tears bilaterally. IMPRESSION: Acute cardiopulmonary disease with diffuse alveolar infiltrates unchanged since previous . Bilateral chronic rotator cuff tears.
[2021-08-05] MEDS ORDERED: FUROSEMIDE 10 MG/ML 4 ML VIAL IV STA (08:05)
[2021-08-05] MEDS: IPRATROPIUM-ALBUTEROL 3 ML NEB INHALATION SCH ×4 (09:01→20:29)
[2021-08-05] MEDS: SYMBICORT 160-4.5 MCG INHALER INHALATION SCH ×2 (09:01→20:29)
[2021-08-05 09:12] LABS: Basophils % (A) 0 %; Eosinophils % (A) 0 %; HCT 42.8 % (34.0-46.0); Hypochromasia Slight; Lymphocytes # (A) 0.3 k/uL (1.0-4.8); Lymphocytes % (A) 2 %; MCH 29.7 pg (25.0-35.0); MCHC 32.7 g/dL (31.0-37.0); MCV 90.6 fL (80.0-100.0); Mean Platelet Volume 7.4; Monocytes # (A) 0.5 k/uL (0-1.0); Monocytes % (A) 3 %; Neutrophils # (A) 15.9 k/uL (1.3-7.7); Neutrophils % (A) 95 %; Platelet Count 284 k/uL (150-450); RBC 4.73 m/uL (3.80-5.40); RDW 13.3 % (11.5-15.5); WBC 16.7 k/uL (3.8-10.6)
[2021-08-05] MEDS: ASCORBIC ACID 500 MG TAB PO SCH ×2 (09:36→19:46)
[2021-08-05] MEDS: busPIRone HCl 10 MG TAB PO SCH ×2 (09:38→19:46)
[2021-08-05] MEDS: ENOXAPARIN 40 MG/0.4 ML SYRINGE SQ SCH (09:39)
[2021-08-05] MEDS: CHOLECALCIFEROL 25 MCG (1000 IU) TABLET PO SCH (09:39)
[2021-08-05] MEDS: guaiFENesin 600 MG TABLET.ER PO SCH ×4 (09:39→19:46)
[2021-08-05 09:40] LABS: African American GFR (CKD) >90 (>60 ml/min/1.73 sqM); Anion Gap 5 mmol/L; Blood Urea Nitrogen 32 mg/dL (7-17); Calcium 8.8 mg/dL (8.4-10.2); Carbon Dioxide 36 mmol/L (22-30); Chloride 95 mmol/L (98-107); Glucose 67 mg/dL (74-99); Non-African American GFR(CKD) >90 (>60 ml/min/1.73 sqM); Potassium 4.9 mmol/L (3.5-5.1); Sodium 136 mmol/L (137-145)
[2021-08-05] MEDS: ZINC SULFATE 220 MG CAP PO SCH (09:40)
[2021-08-05] MEDS: LOSARTAN 50 MG TAB PO SCH (09:40)
[2021-08-05] MEDS: MAG HYDROX/AL HYDROX/SIMETH 30 ML, LIDOCAINE VISCOUS 30 ML, diphenhydrAMINE ELIXIR 75 M... PO SCH ×12 (09:59→20:11)
[2021-08-05 11:42] LABS: Glucose,Whole Blood 183 mg/dL (75-99)
--- NOTE | 2021-08-05 11:44 | P.PN ---
Subjective Progress Note Date: 08/05/21 This is an 86-year-old female primarily a patient of Dr. Rodriguez, patient is known to have history of rheumatoid arthritis, on multiple medications for her rheumatoid arthritis, she is also on rituxin infusions every 6 months. Patient is being followed by rheumatology, patient is current on her immunization including COVID-19 vaccination, she did receive moderna, 2 injections, and she did not receive her third booster. Patient stated that her last injection was in October. Came in today with 7 days' history of cough, congestion, describes the cough as productive with slightly yellow tinged sputum, patient also has multiple GI symptoms including poor appetite, diarrhea, denies any abdominal marysol n. She also had intermittent fevers and chills. Body aches were also described. However the patient had negative rapid PCR for COVID-19 infection and a follow-up test was also done and it came back also negative. Her chest x- ray and CT of the chest are abnormal. Chest x-ray is suggestive of interstitial lung disease. CT of the chest showed diffuse reticulonodular and ground glass opacities throughout both lungs. Possible underlying fibrosis noted. No pulmonary mass nodule and no real effusion noted. No evidence of lymphadenopathy. And no evidence of thromboembolic disease. CBC showed a bit of leukocytosis with WBC count of 13.9. Lymphopenia was noted. Normal electrolytes, normal renal profile, LDH was 1055 and BNP level was 1100. Pro- calcitonin level is pending. Patient had negative PCR for sanchez virus infection. She had negative screening for influenza A, influenza B, RSV. Patient was hypoxic on room air, O2 saturations was 81%, however she was placed on 5 L and her oxygen saturation was up to 96% considering her pulmonary presentation, this consult was initiated. And I saw the patient in the ER. Patient is already on Rocephin and Zithromax, however the admitting physician changed her antibiotics to cefepime. She is on DVT prophylaxis, she is also on methylprednisolone 40 mg IV push every 8 hours. Reevaluated today on 07/29/2021, patient is feeling better today, breathing easier, less cough and less shortness of breath, less GI symptoms. Patient came in with multiple constitutional symptoms as noted above. Chest x-ray showed bilateral interstitial infiltrates, PCR for COVID-19 pneumonia was negative 2. Patient is now on 5 L nasal cannula, O2 sats is 94%. Her pro calcitonin today is 1.25. Patient tested negative for COVID-19, tested negative for influenza A, influenza B and for RSV. On 07/30/2021 patient seen in follow-up on medical surgical floor, she is resting comfortably in bed, she remains on 5 L of oxygen, pulse ox is 91-92%, breathing comfortably, she states her cough is improving, she is not producing any significant amount of sputum, at times she is able to clear some sanderson colored phlegm, she has been afebrile, hemodynamically she has been stable, she remains on cefepime for possibility of underlying community-acquired pneumonia, she remains on IV steroids, she tested negative for COVID 19, RSV and influenza A and B, her pro calcitonin level is improving on today's labs and is down to 0.95 from previous levels of 3.98 on admission. White count is improving and is down to 11.3, hemoglobin is 13.2, blood cultures have shown no growth, mild wheezes on today's exam. On 07/31/2021 patient seen in follow-up on medical surgical floor, her oxygen demand had increased in last 24 hours, and patient today is on 15 L per high flow nasal cannula and 100% nonrebreather mask, and her pulse ox is in the order of 85-88%, she's been afebrile, hemodynamically she is been stable, she states that she has been coughing up some pink tinged phlegm. Denies any chest discomfort, lung sounds reveal diffuse crackles throughout the lung salvador, she remains on cefepime for empiric antibiotic coverage, her blood cultures have remained negative, remains on IV steroids and nebulized bronchodilators. This x-ray is pending, patient will be given a dose of IV Lasix, her pro-calcitonin level is actually improving on today's labs, to 0.95. CTA chest showed no PE On 08/01/2021 patient is seen in follow-up on medical surgical floor. Yesterday her oxygenation has significantly worsened, patient was placed on Airvo at 60 L and FiO2 of 90%, and a nonrebreather mask, and her pulse ox was 81%, and patient was becoming tachypneic and tired. She was subsequently placed on BiPAP support with pressures of 12 and 6 in the 100%. She is satting better, at 92-93%, breathing more comfortably, she is awake and alert, answering questions a ppropriately, she was given a dose of IV Lasix yesterday, her net fluid balance is difficult to estimate, today's chest x-ray shows diffuse bilateral infiltrates that are stable in appearance, no pleural effusion or pneumothorax. Correlate for diffuse pneumonia versus ARDS. Patient is on antibiotics in the form of cefepime, blood cultures have shown no growth so far. We have not been able to obtain a sputum for culture. Afebrile, hemodynamically she's been stable. She is on IV steroids and nebulized bronchodilators. Her pro calcitonin level was actually improving on yesterday's labs, and today it is further improved and is down to 0.25 from initial level of 3.98 on 07/28/2021. ProBNP level was 1100. White blood cell count is slightly improved compared to yesterday, and is down to 14.49, hemoglobin is 13.5, sodium is 142, potassium is 4.2, BUN is 16, creatinine 0.4. Patient tested negative for COVID-19 per PCR test, and her antibiotic test was also negative, negative for influenza A and B and RSV. The patient is seen today 08/02/2021 in follow-up in the intensive care unit. She was transferred here yesterday after developing worsening hypoxemic respiratory failure. She is currently resting fairly comfortably in bed. Awake and alert in no acute distress. She is on the AirVo high flow oxygen at 60 L and 90% FiO2 with a nonrebreather mask used on and off. She has normal saline running at 20 ML's per hour. Chest x-ray continues to show possible septic ARDS versus pulmonary fibrosis versus rheumatoid lung. Blood cultures reveal no growth. White count 15.2. Hemoglobin 14.0. Lymphocytes 0.3. Sodium 136. Potassium 4.5. BUN 27. Creatinine 0.44. Glucose 206. Calcium 9.0. She is continued on DuoNeb inhalations, Symbicort, IV Solu-Medrol. Lovenox, vitamin supplements. She is on antibiotics in the form of cefepime. Pro calcitonin is down to 0.25. The patient is seen today 08/03/2021 in follow-up in the intensive care unit. She is currently sitting up in bed. Awake and alert in mild respiratory distress. She did utilize BiPAP for a few hours last night 15/6 in the 100% FiO2. She was subsequently transitioned to AirVo high flow oxygen at 60 L and 90% FiO2 plus a nonrebreather mask to maintain O2 saturations in the low 90s. She is normal saline at 75 ML's per hour. Chest x-ray continues to show bilateral patchy infiltrates. About the same today compared to previous. White count 13.5. Hemoglobin 12.5. Lymphocytes 0.4. Sodium 136. Potassium 4.5. Creatinine 0.44. Glucose 160. AST 28. ALT 22. She is continued on Symbicort, OB overall, IV Solu-Medrol. She remains on Lovenox for DVT prophylaxis. Vitamin supplements. She is on antibiotics in the form of cefepime. The patient is seen today 08/04/2021 in follow-up in the intensive care unit. She is currently resting comfortably in bed. Awake and alert in no acute distress. She did utilize the BiPAP to approximate 2 AM. Settings are 15/6 and 100% FiO2. She wakes up confused and pulse off the device. She is currently calm and cooperative. She is on AirVo high flow oxygen now at 60 L and 82% FiO2. She is making good urine. 0.9 normal saline at 75 ML's per hour. Her appetite has been good. She remains in sinus rhythm. She remains on DuoNeb inhalations, Symbicort and IV Solu-Medrol. Lovenox for DVT prophylaxis. Antibiotics in the form of cefepime. No new labs today. The patient is seen today 08/05/2021 in follow-up in the intensive care unit. She is currently awake and alert in no acute distress. Resting fairly comfortably on the AirVo high flow oxygen device at 60 L and 83% FiO2. She had utilize the BiPAP last night with settings of 15/6 and 90% FiO2. chest x-ray showing diffuse fluffy alveolar infiltrates unchanged compared to previous. No pneumothorax or large pleural effusions. Blood cultures revealed no growth. White count 16.7. Hemoglobin 14.0. Sodium 136. Potassium 4.9. Creatinine 0.4. She is continued on Symbicort, albuterol, IV Solu-Medrol. Lovenox for DVT prophylaxis. Antibiotics in the form of cefepime. Objective - Vital Signs Vital signs: Vital Signs Temp 98.5 F 08/05/21 08:00 Pulse 73 08/05/21 11:00 Resp 15 08/05/21 11:00 BP 148/90 08/05/21 11:00 Pulse Ox 100 08/05/21 11:00 Intake & Output 08/04/21 08/05/21 08/05/21 18:59 06:59 18:59 Intake Total 1220 900 510 Output Total 465 700 620 Balance 755 200 -110 Weight 78.1 kg Intake: IV 900 900 170 ns 900 900 170 Intake, IV Titration 100 Amount Cefepime 2 gm In Sodium 100 Chloride 0.9% 100 ml @ 25 mls/hr IVPB Q8H [facility] Rx#: [id number] Oral 320 Tube Feeding 240 Output: Urine 465 700 620 Other: Voiding Method Indwelling Catheter Indwelling Catheter Indwelling Catheter - Exam GENERAL EXAM: Alert, very pleasant, 86-year-old female patient, currently on AirVo high flow oxygen at 60 L and 82% FiO2 HEAD: Normocephalic/atraumatic. EYES: Normal reaction of pupils, equal size. Conjunctiva pink, sclera white. NOSE: Clear with pink turbinates. THROAT: No erythema or exudates. NECK: No masses, no JVD, no thyroid enlargement, no adenopathy. CHEST: No chest wall deformity. Symmetrical expansion. LUNGS: Equal air entry with bilateral crackles and mild wheezes CVS: Regular rate and rhythm, normal S1 and S2, no gallops, no murmurs, no rubs ABDOMEN: Soft, nontender. No hepatosplenomegaly, normal bowel sounds, no guarding or rigidity. EXTREMITIES: No clubbing, no edema, no cyanosis, 2+ pulses and upper and lower extremities. MUSCULOSKELETAL: Muscle strength and tone normal. SPINE: No scoliosis or deformity SKIN: No rashes CENTRAL NERVOUS SYSTEM:No focal deficits, tone is normal in all 4 extremities. PSYCHIATRIC: Alert and oriented -3. Appropriate affect. Intact judgment and insight. - Labs CBC & Chem 7: 08/05/21 08:30 08/05/21 08:30 Labs: Abnormal Lab Results - Last 24 Hours (Table) 08/04/21 08/04/21 08/05/21 Range/Units 16:27 20:21 03:25 WBC 17.4 H (3.8-10.6) k/uL Neutrophils # 16.3 H (1.3-7.7) k/uL Lymphocytes # 0.3 L (1.0-4.8) k/uL Sodium (137-145) mmol/L Chloride (98-107) mmol/L Carbon Dioxide (22-30) mmol/L BUN (7-17) mg/dL Creatinine (0.52-1.04) mg/dL Glucose (74-99) mg/dL POC Glucose (mg/dL) 185 H 227 H (75-99) mg/dL Total Protein (6.3-8.2) g/dL Albumin (3.5-5.0) g/dL 08/05/21 08/05/21 08/05/21 Range/Units 03:25 05:25 08:30 WBC 16.7 H (3.8-10.6) k/uL Neutrophils # 15.9 H (1.3-7.7) k/uL Lymphocytes # 0.3 L (1.0-4.8) k/uL Sodium 136 L (137-145) mmol/L Chloride 96 L (98-107) mmol/L Carbon Dioxide 40 H (22-30) mmol/L BUN 35 H (7-17) mg/dL Creatinine (0.52-1.04) mg/dL Glucose 59 L (74-99) mg/dL POC Glucose (mg/dL) 68 L (75-99) mg/dL Total Protein 5.1 L (6.3-8.2) g/dL Albumin 2.8 L (3.5-5.0) g/dL 08/05/21 Range/Units 08:30 WBC (3.8-10.6) k/uL Neutrophils # (1.3-7.7) k/uL Lymphocytes # (1.0-4.8) k/uL Sodium 136 L (137-145) mmol/L Chloride 95 L (98-107) mmol/L Carbon Dioxide 36 H (22-30) mmol/L BUN 32 H (7-17) mg/dL Creatinine 0.40 L (0.52-1.04) mg/dL Glucose 67 L (74-99) mg/dL POC Glucose (mg/dL) (75-99) mg/dL Total Protein (6.3-8.2) g/dL Albumin (3.5-5.0) g/dL Assessment and Plan Assessment: 1 Acute hypoxic respiratory failure secondary to interstitial lung disease and suspected superimposed, mucoid pneumonia. Patient tested negative for COVID-19, influenza A and B and RSV. Patient also had 2 previous negative PCR test. Patient is fully immunized against COVID 19. Subsequently patient required Airvo and a nonrebreather, and was placed on BiPAP support on 08/01/2021 for respiratory fatigue. Transferred to the intensive care unit on 08/01/2021. Currently on AirVo high flow oxygen at 60 L and 82% FiO2 2 ARDS related to pneumonia, currently on cefepime, IV steroids. 3 Elevated pro-calcitonin suggesting possibility of bacterial pneumonia, possibly community acquired, patient is currently covered with cefepime, improving pro-calcitonin down to 0.25 on today's labs 4 History of rheumatoid arthritis and rheumatoid lung disease. 5 Bronchiolitis obliterans with organizing pneumonia 6 Hypertension 7 Dyslipidemia 8 History of hypothyroidism Plan: The patient was seen and evaluated Chest x-ray remains about the same Given Lasix 40 mg IVP 1 Decrease IV fluids to KVO Check a pro-calcitonin and BNP Remains on bronchodilators, IV Solu-Medrol, antibiotics Currently on AirVo high flow oxygen Titrate the FiO2 as tolerated Condition remains guarded We will continue to follow Critical care time 35 minutes I, the cosigning physician, performed a history & physical examination of the patient. Lungs sounds bilateral wheeze, coarse crackles. Maintaining good O2 saturations in the 90s on AirVo high flow oxygen at 60 L and 82% FiO2. I discussed the assessment and plan of care with my nurse practitioner, Micaela Parsons. I attest to the above note as dictated by her.
[2021-08-05 16:47] LABS: Glucose,Whole Blood 95 mg/dL (75-99)
[2021-08-05 17:29] LABS: Glucose,Whole Blood 109 mg/dL (75-99)
--- NOTE | 2021-08-05 17:50 | P.PN ---
Progress Note - Text Progress Note Date: 08/05/21 Chief Complaint: Short of breath This is a pleasant 86-year-old patient, follows with Dr. Chaney. Chronic stable medical conditions include rheumatoid arthritis, Crohn's disease, diet- controlled diabetes, autoimmune disorder, fibromyalgia. She does follow Dr. Reed from rheumatology and does Rituxan injections every 6 months. Sees due for her next one. Patient did take her COVID vaccines back in . She doesn't go out much. For 7 days patient suspect upper cough. Very congested. Clear sputum. Has had fever and chills. Patient also had diarrhea. Some dark stool. No abdominal pain. Patient chronic stable medical conditions also include anxiety, hypothyroid, peripheral neuropathy, hyperlipidemia. Appetite is poor. Initial rapid COVID testing in the ER was negative. A more definitive PCR was sent out. Patient is accompanied by her [id number]. Patient is rather tired and rundown. She is also had chronic immune lung condition in the past. July 29: Short of breath. Tired. 5 L nasal cannula. Eating about 50%. In bed. July 30: Some shortness of breath. Some cough. 5 L nasal cannula. Eating some. Tired. July 31: Worsening short of breath. On 15 L nasal cannula. Congested cough. Eating about 50%. Laying in bed August 01: Shortness of breath not improving. Patient placed on BiPAP. Being moved to the ICU. Decreased oral intake. Tired. Now having brown stools. Seen by GI. No further intervention. August 02: ICU. Moved yesterday. Airvo:. 60 L/90%. With a nonrebreather mask. Barely eating. Short of breath. Tired. Sitting up in bed. August 03: ICU. On BiPAP. Decreased by mouth intake. Tired. Short of breath. August 04: ICU: Patient between Airvo and BiPAP. Tired. Short of breath. Sinus rhythm. Patient's daughter is visiting. Eating some. Encouraged to use ensure. On IV cefepime. IV Solu-Medrol. August 05: ICU. On Airvo. Short of breath. IV cefepime. IV Solu-Medrol. Use BiPAP last night. Review of systems: Was done for constitutional, cardiovascular, GI, pulmonary. relevant finding as above Active Medications Acetaminophen (Acetaminophen Tab 500 Mg Tab) 1,000 mg PO Q6HR PRN PRN Reason: Fever>101 Last Admin: 07/29/21 05:59 Dose: 1,000 mg Documented by: Albuterol Sulfate (Albuterol Hfa Inhaler) 2 puff INHALATION RT-Q6H PRN PRN Reason: Shortness Of Breath Or Wheezing Albuterol/Ipratropium (Ipratropium-Albuterol 3 Ml Neb) 3 ml INHALATION RT-QID [facility] Last Admin: 08/05/21 15:54 Dose: Not Given Documented by: Amlodipine Besylate (Amlodipine 2.5 Mg Tab) 2.5 mg PO HS [facility] Last Admin: 08/04/21 23:44 Dose: 2.5 mg Documented by: Ascorbic Acid (Ascorbic Acid 500 Mg Tab) 500 mg PO BID [facility] Last Admin: 08/05/21 09:36 Dose: 500 mg Documented by: Atorvastatin Calcium (Atorvastatin 20 Mg Tab) 20 mg PO [facility] Last Admin: 08/04/21 20:21 Dose: 20 mg Documented by: Budesonide/Formoterol Fumarate (Symbicort 160-4.5 Mcg Inhaler) 2 puff INHALATION RT-BID [facility] Last Admin: 08/05/21 09:01 Dose: Not Given Documented by: Buspirone HCl (Buspirone Hcl 10 Mg Tab) 10 mg PO BID [facility] Last Admin: 08/05/21 09:38 Dose: 10 mg Documented by: Cholecalciferol (Cholecalciferol 25 Mcg (1000 Iu) Tablet) 100 mcg PO DAILY [facility] Last Admin: 08/05/21 09:39 Dose: 100 mcg Documented by: Al Hydroxide/Mg Hydroxide 30 ml/ Lidocaine HCl 30 ml/Diphenhydramine HCl 75 mg/Acetaminophen 960 mg 0 ml PO TID [facility] Last Admin: 08/05/21 17:00 Dose: 30 ml Documented by: Diclofenac Sodium (Diclofenac Sodium Gel 100 Gm Tube) 4 gm TOPICAL QID PRN; Protocol PRN Reason: Pain Enoxaparin Sodium (Enoxaparin 40 Mg/0.4 Ml Syringe) 40 mg SQ DAILY [facility] Last Admin: 08/05/21 09:39 Dose: 40 mg Documented by: Guaifenesin (Guaifenesin 600 Mg Tablet.Er) 600 mg PO QID [facility] Last Admin: 08/05/21 17:05 Dose: 600 mg Documented by: Cefepime HCl 2 gm/ Sodium (Chloride) 100 mls @ 25 mls/hr IVPB Q8H [facility] Last Admin: 08/05/21 09:35 Dose: 25 mls/hr Documented by: Sodium Chloride (Saline 0.9%) 1,000 mls @ 20 mls/hr IV .Q24H [facility] Last Admin: 08/05/21 17:20 Dose: 20 mls/hr Documented by: Insulin Aspart (Insulin Aspart (Novolog) 100 Unit/Ml Vial) 0 unit SQ [facility]; Protocol Last Admin: 08/05/21 17:00 Dose: Not Given Documented by: Insulin Detemir (Insulin Detemir (Levemir) 100 Unit/Ml Syr) 14 unit SQ [facility] Last Admin: 08/04/21 20:22 Dose: 14 unit Documented by: Ipratropium [place] (Ipratropium [place] 0.06% Nasal [place] (15 Ml)) 2 spray EA NOSTRIL TID [facility] Last Admin: 08/05/21 17:12 Dose: 2 spray Documented by: Levothyroxine Sodium (Levothyroxine 75 Mcg Tab) 75 mcg PO DAILY@0630 [facility] Last Admin: 08/05/21 06:22 Dose: 75 mcg Documented by: Lorazepam (Lorazepam 0.5 Mg Tab) 0.5 mg PO Q6HR PRN PRN Reason: Anxiety Last Admin: 08/04/21 23:57 Dose: 0.5 mg Documented by: Losartan Potassium (Losartan 50 Mg Tab) 50 mg PO DAILY [facility] Last Admin: 08/05/21 09:40 Dose: 50 mg Documented by: Melatonin (Melatonin 3 Mg Tablet) 3 mg PO [facility] Last Admin: 08/04/21 20:21 Dose: 3 mg Documented by: Methylprednisolone Sodium Succinate (Methylprednisolone Sod Succi 125 Mg/2 Ml Vial) 60 mg IV Q6HR [facility] Last Admin: 08/05/21 17:04 Dose: 60 mg Documented by: Miscellaneous Information (Pneumonia Protocol Utilized 1 Each Counts [facility]) 1 each PO ONCE PRN PRN Reason: Per Protocol Naloxone HCl (Naloxone 0.4 Mg/Ml 1 Ml Vial) 0.2 mg IV Q2M PRN PRN Reason: Opioid Reversal Gabapentin 600 Mg (Tablets) 600 each PO TID [facility] Last Admin: 08/05/21 17:00 Dose: 600 each Documented by: Ondansetron HCl (Ondansetron 4 Mg/2 Ml Vial) 4 mg IVP Q8HR PRN PRN Reason: Nausea And Vomiting Sodium Chloride (Saline Nasal Gel 14.1 Gm Tube) 1 applic NASAL Q4HR PRN PRN Reason: Dry Nasal Passages Zinc Sulfate (Zinc Sulfate 220 Mg Cap) 220 mg PO DAILY [facility] Last Admin: 08/05/21 09:40 Dose: 220 mg Documented by: Past medical history to include: Anxiety, hypothyroid, peripheral neuropathy, hyperlipidemia, rheumatoid arthritis, Crohn's disease, diet-controlled diabetes, autoimmune lung disorder, fibromyalgia Social history: Lives with son and [id number]. No smoking no alcohol. Family history: Breast cancer Physical examination: VITAL SIGNS: 74, 18, 139/77, 98% on Airvo GENERAL: reclining bed, tired. EYES: Pupils equal. Conjunctiva normal. HEENT: External appearance of nose and ears normal, oral cavity grossly normal. NECK: JVD not raised; masses not palpable. HEART: First and second heart sounds are normal; no edema. LUNGS: Respiratory rate increased, not able to speak in full sentences,- bilateral coarse crackles. ABDOMEN: Soft, nontender, liver spleen not palpable, no masses palpable. PSYCH: Alert and oriented x3; mood and affect-anxiety MUSCULAR skeletal: Evidence of rheumatoid arthritis especially in the hands, significant INVESTIGATIONS, reviewed in the clinical context: August 05: White count 16.7 hemoglobin 14 potassium 4.9 creatinine 0.4. Pro- calcitonin 0.09 August 04: ABG: PH 7.43 pCO2 61 pO2 78 August 03: WBC 13.5 hemoglobin 12.5 platelets 344 d-dimer 1.4 potassium 4.5 crit 35 creatinine 0.44 CRP 3.3 August 02: WBC 15.2 hemoglobin 14 platelets 371 sodium 136 potassium 4.5 BUN 27 creatinine 0.44. Chest x-ray: Bilateral cloudy infiltrates August 01: White count 14.4 hemoglobin 13.5. ABG: PCO2 57 pO2 57. Potassium 4.2 creatinine 0.4 July 31: White count 17.4 hemoglobin 12.7 Occult stool positive July 30: White count 9.3 hemoglobin 13.2 pro-calcitonin 0.95 July 29: Procalcitonin 3.98 WBC 13.9 hemoglobin 15.1 platelets 273 lymphocytes 0.8 d-dimer 1.09 sodium 133 potassium 4.3 creatinine 0.74 CRP 7.6 Coronavirus [PCR/rapid]: Negative Influenza A, influenza B, RSV, Coronavirus PCR: Not detected EKG tracing personally reviewed by me-normal sinus rhythm, [facility] Chest x-ray film personally reviewed by me-bilateral infiltrate changes, so we'll discontinue chronic. Also looked at the films from 2017 CT angiogram chest: Negative for PE. Reticular-nodular and groundglass infiltrates. Underlying fibrosis. Assessment and plan: - Mucoid/bacterial pneumonia suspected gram-negative.: Not improving IV cefepime. -Acute severe hypoxic respiratory failure from pneumonia: Not improving On BiPAP/Airvo -ARDS secondary to suspected mucoid pneumonia: Slow to respond Follow with past due accounts clerk -Episode of GI bleed- dark stools. Stool occult positive. Seen by GI. Follow closely -Initial Clinical suspicion for COVID-19 was high. Initial rapid antigen tested PCR was negative. A more definitive repeat COVID-19 immunoassay test was done/PCR that came back also negative -Chronic rheumatoid arthritis Patient does get Rituxan injections every 6 months -Chronic Crohn's disease Patient did complain of some dark stools. No abdominal pain. Initially GI services are not available in the hospital. We'll consult patient registration rep surgery. 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 IV Solu-Medrol, bronchodilators. BiPAP/airvo , prognosis guarded. Follow with past due accounts clerk
[2021-08-05] MEDS: LORazepam 0.5 MG TAB PO PRN (19:45)
[2021-08-05] MEDS: amLODIPine 2.5 MG TAB PO SCH (19:45)
[2021-08-05] MEDS: ATORVASTATIN 20 MG TAB PO SCH (19:46)
[2021-08-05] MEDS: MELATONIN 3 MG TABLET PO SCH (19:46)
[2021-08-05 20:07] LABS: Glucose,Whole Blood 298 mg/dL (75-99)
[2021-08-05] MEDS: INSULIN DETEMIR (LEVEMIR) 100 UNIT/ML SYR SQ SCH (20:10)
[2021-08-06] MEDS: methylPREDNISolone SOD SUCCI 125 MG/2 ML VIAL IV SCH ×2 (00:36→06:04)
[2021-08-06] MEDS: LORazepam 0.5 MG TAB PO PRN ×2 (01:35→20:12)
[2021-08-06] MEDS: GABAPENTIN 600 MG PO SCH ×4 (01:37→22:30)
[2021-08-06] MEDS: IPRATROPIUM BROMIDE 0.06% NASAL SPRAY (15 ML) EA NOSTRIL SCH ×4 (01:37→20:12)
[2021-08-06] MEDS: CEFEPIME 2 GM in SODIUM CHLORIDE 0.9% 100 ML IVPB SCH (06:04)
[2021-08-06] MEDS: LEVOTHYROXINE 75 MCG TAB PO SCH (06:04)
[2021-08-06 06:15] LABS: Glucose,Whole Blood 135 mg/dL (75-99)
[2021-08-06] MEDS: INSULIN ASPART (NovoLOG) 100 UNIT/ML VIAL SQ SCH ×4 (06:20→20:37)
[2021-08-06] MEDS: SYMBICORT 160-4.5 MCG INHALER INHALATION SCH ×2 (07:38→20:16)
[2021-08-06] MEDS: IPRATROPIUM-ALBUTEROL 3 ML NEB INHALATION SCH ×4 (07:38→20:16)
[2021-08-06 07:47] LABS: Basophils # (A) 0.1 k/uL (0-0.2); Basophils % (A) 0 %; Eosinophils % (A) 0 %; HCT 42.3 % (34.0-46.0); HGB 13.6 gm/dL (11.4-16.0); Lymphocytes # (A) 0.4 k/uL (1.0-4.8); Lymphocytes % (A) 2 %; MCH 28.6 pg (25.0-35.0); MCHC 32.2 g/dL (31.0-37.0); MCV 88.8 fL (80.0-100.0); Mean Platelet Volume 7.4; Monocytes # (A) 0.7 k/uL (0-1.0); Monocytes % (A) 4 %; Neutrophils # (A) 15.1 k/uL (1.3-7.7); Neutrophils % (A) 93 %; Platelet Count 249 k/uL (150-450); RBC 4.77 m/uL (3.80-5.40); RDW 12.8 % (11.5-15.5); WBC 16.3 k/uL (3.8-10.6)
--- NOTE | 2021-08-06 08:01 | XR ---
EXAMINATION TYPE: XR chest 1V portable DATE OF EXAM: 08/06/2021 COMPARISON: 08/05/2021 HISTORY: Shortness of breath TECHNIQUE: Single frontal view of the chest is obtained. FINDINGS: No change in the diffuse interstitial and alveolar opacity. No pneumothorax or large pleur al effusion. Heart size is normal. Chronic rotator cuff tear of the right shoulder. IMPRESSION: No change in the diffuse cardiopulmonary disease.
[2021-08-06 08:03] LABS: African American GFR (CKD) >90 (>60 ml/min/1.73 sqM); Blood Urea Nitrogen 31 mg/dL (7-17); Calcium 8.6 mg/dL (8.4-10.2); Chloride 93 mmol/L (98-107); Glucose 102 mg/dL (74-99); Non-African American GFR(CKD) 88 (>60 ml/min/1.73 sqM); Potassium 4.4 mmol/L (3.5-5.1); Sodium 136 mmol/L (137-145)
[2021-08-06 08:10] LABS: Anion Gap 4 mmol/L; Carbon Dioxide 39 mmol/L (22-30)
[2021-08-06] MEDS: busPIRone HCl 10 MG TAB PO SCH ×2 (09:54→20:11)
[2021-08-06] MEDS: ASCORBIC ACID 500 MG TAB PO SCH ×2 (09:54→20:12)
[2021-08-06] MEDS: CHOLECALCIFEROL 25 MCG (1000 IU) TABLET PO SCH (09:55)
[2021-08-06] MEDS: ENOXAPARIN 40 MG/0.4 ML SYRINGE SQ SCH ×2 (09:55→10:21)
[2021-08-06] MEDS: guaiFENesin 600 MG TABLET.ER PO SCH ×4 (09:55→20:12)
[2021-08-06] MEDS: LOSARTAN 50 MG TAB PO SCH (09:56)
[2021-08-06] MEDS: ZINC SULFATE 220 MG CAP PO SCH (09:56)
[2021-08-06] MEDS: MAG HYDROX/AL HYDROX/SIMETH 30 ML, LIDOCAINE VISCOUS 30 ML, diphenhydrAMINE ELIXIR 75 M... PO SCH ×12 (09:57→20:13)
--- NOTE | 2021-08-06 10:34 | P.PN ---
Subjective Progress Note Date: 08/06/21 This is an 86-year-old female primarily a patient of Dr. Rodriguez, patient is known to have history of rheumatoid arthritis, on multiple medications for her rheumatoid arthritis, she is also on rituxin infusions every 6 months. Patient is being followed by rheumatology, patient is current on her immunization including COVID-19 vaccination, she did receive moderna, 2 injections, and she did not receive her third booster. Patient stated that her last injection was in October. Came in today with 7 days' history of cough, congestion, describes the cough as productive with slightly yellow tinged sputum, patient also has multiple GI symptoms including poor appetite, diarrhea, denies any abdominal marysol n. She also had intermittent fevers and chills. Body aches were also described. However the patient had negative rapid PCR for COVID-19 infection and a follow-up test was also done and it came back also negative. Her chest x- ray and CT of the chest are abnormal. Chest x-ray is suggestive of interstitial lung disease. CT of the chest showed diffuse reticulonodular and ground glass opacities throughout both lungs. Possible underlying fibrosis noted. No pulmonary mass nodule and no real effusion noted. No evidence of lymphadenopathy. And no evidence of thromboembolic disease. CBC showed a bit of leukocytosis with WBC count of 13.9. Lymphopenia was noted. Normal electrolytes, normal renal profile, LDH was 1055 and BNP level was 1100. Pro- calcitonin level is pending. Patient had negative PCR for sanchez virus infection. She had negative screening for influenza A, influenza B, RSV. Patient was hypoxic on room air, O2 saturations was 81%, however she was placed on 5 L and her oxygen saturation was up to 96% considering her pulmonary presentation, this consult was initiated. And I saw the patient in the ER. Patient is already on Rocephin and Zithromax, however the admitting physician changed her antibiotics to cefepime. She is on DVT prophylaxis, she is also on methylprednisolone 40 mg IV push every 8 hours. Reevaluated today on 07/29/2021, patient is feeling better today, breathing easier, less cough and less shortness of breath, less GI symptoms. Patient came in with multiple constitutional symptoms as noted above. Chest x-ray showed bilateral interstitial infiltrates, PCR for COVID-19 pneumonia was negative 2. Patient is now on 5 L nasal cannula, O2 sats is 94%. Her pro calcitonin today is 1.25. Patient tested negative for COVID-19, tested negative for influenza A, influenza B and for RSV. On 07/30/2021 patient seen in follow-up on medical surgical floor, she is resting comfortably in bed, she remains on 5 L of oxygen, pulse ox is 91-92%, breathing comfortably, she states her cough is improving, she is not producing any significant amount of sputum, at times she is able to clear some sanderson colored phlegm, she has been afebrile, hemodynamically she has been stable, she remains on cefepime for possibility of underlying community-acquired pneumonia, she remains on IV steroids, she tested negative for COVID 19, RSV and influenza A and B, her pro calcitonin level is improving on today's labs and is down to 0.95 from previous levels of 3.98 on admission. White count is improving and is down to 11.3, hemoglobin is 13.2, blood cultures have shown no growth, mild wheezes on today's exam. On 07/31/2021 patient seen in follow-up on medical surgical floor, her oxygen demand had increased in last 24 hours, and patient today is on 15 L per high flow nasal cannula and 100% nonrebreather mask, and her pulse ox is in the order of 85-88%, she's been afebrile, hemodynamically she is been stable, she states that she has been coughing up some pink tinged phlegm. Denies any chest discomfort, lung sounds reveal diffuse crackles throughout the lung salvador, she remains on cefepime for empiric antibiotic coverage, her blood cultures have remained negative, remains on IV steroids and nebulized bronchodilators. This x-ray is pending, patient will be given a dose of IV Lasix, her pro-calcitonin level is actually improving on today's labs, to 0.95. CTA chest showed no PE On 08/01/2021 patient is seen in follow-up on medical surgical floor. Yesterday her oxygenation has significantly worsened, patient was placed on Airvo at 60 L and FiO2 of 90%, and a nonrebreather mask, and her pulse ox was 81%, and patient was becoming tachypneic and tired. She was subsequently placed on BiPAP support with pressures of 12 and 6 in the 100%. She is satting better, at 92-93%, breathing more comfortably, she is awake and alert, answering questions a ppropriately, she was given a dose of IV Lasix yesterday, her net fluid balance is difficult to estimate, today's chest x-ray shows diffuse bilateral infiltrates that are stable in appearance, no pleural effusion or pneumothorax. Correlate for diffuse pneumonia versus ARDS. Patient is on antibiotics in the form of cefepime, blood cultures have shown no growth so far. We have not been able to obtain a sputum for culture. Afebrile, hemodynamically she's been stable. She is on IV steroids and nebulized bronchodilators. Her pro calcitonin level was actually improving on yesterday's labs, and today it is further improved and is down to 0.25 from initial level of 3.98 on 07/28/2021. ProBNP level was 1100. White blood cell count is slightly improved compared to yesterday, and is down to 14.49, hemoglobin is 13.5, sodium is 142, potassium is 4.2, BUN is 16, creatinine 0.4. Patient tested negative for COVID-19 per PCR test, and her antibiotic test was also negative, negative for influenza A and B and RSV. On 08/06/2021 patient seen in follow-up in the intensive care unit, she is awake and alert, oriented 3, in no acute distress, she is currently on Airvo at 55 L and FiO2 of 65%, and her pulse ox is 94-95%, she is breathing comfortably, she states her breathing is improved. Overall she seems generally weak but no acute distress. She did wear BiPAP support last night with pressures of 15 and 6 and FiO2 of 90% for about 4 hours. She's been using BiPAP support on and off alt ernating with Airvo. Hemodynamically she stable, she isn't point tenderness an every 20 ML per hour, no other drugs, she is in sinus mechanism with a rate of 71. This had no acute events overnight, lung sounds reveal coarse inspiratory crackles at bilateral bases, no rhonchi or wheezing, no fever or chills, vital signs have been stable. Chest x-ray shows diffuse interstitial and alveolar opacities, no pneumothorax a large pleural effusion. She remains on cefepime for antibiotic coverage. She is on IV steroids at 60 mg every 6 hours, nebulized bronchodilators and Symbicort. She is doing better. Blood cultures have shown no growth. Her white count today is 16.3, hemoglobin is 13.6, sodium is 136, potassium is 4.4, chloride is 93, CO2 is 39, BUN is 34, creatinine 0.53. Her pro calcitonin level is not within normal limits at 0.09. Objective - Vital Signs Vital signs: Vital Signs Temp 97.7 F 08/06/21 04:00 Pulse 72 08/06/21 07:00 Resp 16 08/06/21 07:00 BP 164/74 08/06/21 07:00 Pulse Ox 94 L 08/06/21 07:00 Intake & Output 08/05/21 08/06/21 08/06/21 18:59 06:59 18:59 Intake Total 1090 240 20 Output Total 1160 725 50 Balance -70 -485 -30 Weight 79 kg Intake: IV 270 240 20 ns 270 240 20 Intake, IV Titration 100 Amount Cefepime 2 gm In Sodium 100 Chloride 0.9% 100 ml @ 25 mls/hr IVPB Q8H [facility] Rx#: [id number] Tube Feeding 720 Output: Urine 1160 725 50 Other: Voiding Method Indwelling Catheter Indwelling Catheter # Bowel Movements 1 - Exam GENERAL EXAM: Alert, very pleasant, 86-year-old white female, currently on Airvo at 55 l/min and Fio2 65% HEAD: Normocephalic/atraumatic. EYES: Normal reaction of pupils, equal size. Conjunctiva pink, sclera white. NOSE: Clear with pink turbinates. THROAT: No erythema or exudates. NECK: No masses, no JVD, no thyroid enlargement, no adenopathy. CHEST: No chest wall deformity. Symmetrical expansion. LUNGS: Equal air entry with coarse inspiratory bilateral crackles at the bilateral bases CVS: Regular rate and rhythm, normal S1 and S2, no gallops, no murmurs, no rubs ABDOMEN: Soft, nontender. No hepatosplenomegaly, normal bowel sounds, no guarding or rigidity. EXTREMITIES: No clubbing, no edema, no cyanosis, 2+ pulses and upper and lower extremities. MUSCULOSKELETAL: Muscle strength and tone normal. SPINE: No scoliosis or deformity SKIN: No rashes CENTRAL NERVOUS SYSTEM: Alert and oriented -3. No focal deficits, tone is normal in all 4 extremities. PSYCHIATRIC: Alert and oriented -3. Appropriate affect. Intact judgment and insight. - Labs CBC & Chem 7: 08/06/21 07:21 08/06/21 07:21 Labs: Abnormal Lab Results - Last 24 Hours (Table) 08/05/21 08/05/21 08/05/21 Range/Units 11:40 17:28 20:06 WBC (3.8-10.6) k/uL Neutrophils # (1.3-7.7) k/uL Lymphocytes # (1.0-4.8) k/uL Sodium (137-145) mmol/L Chloride (98-107) mmol/L Carbon Dioxide (22-30) mmol/L BUN (7-17) mg/dL Glucose (74-99) mg/dL POC Glucose (mg/dL) 183 H 109 H 298 H (75-99) mg/dL 08/06/21 08/06/21 08/06/21 Range/Units 06:14 07:21 07:21 WBC 16.3 H (3.8-10.6) k/uL Neutrophils # 15.1 H (1.3-7.7) k/uL Lymphocytes # 0.4 L (1.0-4.8) k/uL Sodium 136 L (137-145) mmol/L Chloride 93 L (98-107) mmol/L Carbon Dioxide 39 H (22-30) mmol/L BUN 31 H (7-17) mg/dL Glucose 102 H (74-99) mg/dL POC Glucose (mg/dL) 135 H (75-99) mg/dL Assessment and Plan Plan: Assessment: #1. Acute hypoxic respiratory failure secondary to interstitial lung disease and suspected superimposed, mucoid pneumonia. Patient tested negative for COVID-19, influenza A and B and RSV. Patient also had 2 previous negative PCR test. Patient is fully immunized against COVID 19. Subsequently patient r equired Airvo and a nonrebreather, and was placed on BiPAP support on 08/01/2021 for respiratory fatigue. Will be transferred to the intensive care unit today on 08/01/2021. Current BiPAP pressures are 15 and 5 and FiO2 100%. On 08/06/2021 patient is tolerating Airvo at 55 mL an FiO2 of 65% and alternating it with BiPAP as needed #2. ARDS related to pneumonia, currently on cefepime, IV steroids. Transferred to intensive care unit today on 08/01/2021. #3. Elevated pro-calcitonin suggesting possibility of bacterial pneumonia, possibly community acquired, patient is currently covered with cefepime, improved, and is down to 0.09 on 08/05/2021. Antibiotics will be discontinued. Blood cultures remain negative #4. 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 Hypertension #7. Dyslipidemia #8. History of hypothyroidism Plan: Continue weaning FiO2 to keep O2 sats at 90-92% Currently tolerating Airvo and 55 L and 65% FiO2 Alternate with BiPAP support as needed for respiratory fatigue Discontinue cefepime, follow pro-calcitonin is negative Cut back steroids to 40 mg q 6 h Continue nebulized bronchodilators Patient remains a full code for now However she is of sound mind and she voices her wish to be for no intubation The family however is undecided and is having a hard time agreeing on the dec ision For now however patient seems a little better Continue current medical treatment I performed a history & physical examination of the patient and discussed their management with my nurse practitioner, Saundra Schwartz. I reviewed the nurse practitioner's note and agree with the documented findings and plan of care. Lung sounds are positive for diminished breath sounds throughout the lung fie lds. The findings and the impression was discussed with the patient. I attest to the documentation by the nurse practitioner. Time with Patient: Greater than 30
[2021-08-06 11:40] LABS: Glucose,Whole Blood 178 mg/dL (75-99)
[2021-08-06] MEDS: methylPREDNISolone SOD SUCCI 40 MG/ML 1 ML VIAL IV SCH ×3 (12:54→20:11)
--- NOTE | 2021-08-06 16:19 | P.PN ---
Progress Note - Text Progress Note Date: 08/06/21 Chief Complaint: Short of breath This is a pleasant 86-year-old patient, follows with Dr. Chaney. Chronic stable medical conditions include rheumatoid arthritis, Crohn's disease, diet- controlled diabetes, autoimmune disorder, fibromyalgia. She does follow Dr. Reed from rheumatology and does Rituxan injections every 6 months. Sees due for her next one. Patient did take her COVID vaccines back in . She doesn't go out much. For 7 days patient suspect upper cough. Very congested. Clear sputum. Has had fever and chills. Patient also had diarrhea. Some dark stool. No abdominal pain. Patient chronic stable medical conditions also include anxiety, hypothyroid, peripheral neuropathy, hyperlipidemia. Appetite is poor. Initial rapid COVID testing in the ER was negative. A more definitive PCR was sent out. Patient is accompanied by her [id number]. Patient is rather tired and rundown. She is also had chronic immune lung condition in the past. July 29: Short of breath. Tired. 5 L nasal cannula. Eating about 50%. In bed. July 30: Some shortness of breath. Some cough. 5 L nasal cannula. Eating some. Tired. July 31: Worsening short of breath. On 15 L nasal cannula. Congested cough. Eating about 50%. Laying in bed August 01: Shortness of breath not improving. Patient placed on BiPAP. Being moved to the ICU. Decreased oral intake. Tired. Now having brown stools. Seen by GI. No further intervention. August 02: ICU. Moved yesterday. Airvo:. 60 L/90%. With a nonrebreather mask. Barely eating. Short of breath. Tired. Sitting up in bed. August 03: ICU. On BiPAP. Decreased by mouth intake. Tired. Short of breath. August 04: ICU: Patient between Airvo and BiPAP. Tired. Short of breath. Sinus rhythm. Patient's daughter is visiting. Eating some. Encouraged to use ensure. On IV cefepime. IV Solu-Medrol. August 05: ICU. On Airvo. Short of breath. IV cefepime. IV Solu-Medrol. August 06: ICU: Airvo. Remains short of breath. Cefepime discontinued by pulmonary. Review of systems: Was done for constitutional, cardiovascular, GI, pulmonary. relevant finding as above Active Medications Acetaminophen (Acetaminophen Tab 500 Mg Tab) 1,000 mg PO Q6HR PRN PRN Reason: Fever>101 Last Admin: 07/29/21 05:59 Dose: 1,000 mg Documented by: Albuterol Sulfate (Albuterol Hfa Inhaler) 2 puff INHALATION RT-Q6H PRN PRN Reason: Shortness Of Breath Or Wheezing Albuterol/Ipratropium (Ipratropium-Albuterol 3 Ml Neb) 3 ml INHALATION RT-QID [facility] Last Admin: 08/06/21 15:42 Dose: Not Given Documented by: Amlodipine Besylate (Amlodipine 2.5 Mg Tab) 2.5 mg PO HS [facility] Last Admin: 08/05/21 19:45 Dose: 2.5 mg Documented by: Ascorbic Acid (Ascorbic Acid 500 Mg Tab) 500 mg PO BID [facility] Last Admin: 08/06/21 09:54 Dose: 500 mg Documented by: Atorvastatin Calcium (Atorvastatin 20 Mg Tab) 20 mg PO HS [facility] Last Admin: 08/05/21 19:46 Dose: 20 mg Documented by: Budesonide/Formoterol Fumarate (Symbicort 160-4.5 Mcg Inhaler) 2 puff INHALATION RT-BID [facility] Last Admin: 08/06/21 07:38 Dose: Not Given Documented by: Buspirone HCl (Buspirone Hcl 10 Mg Tab) 10 mg PO BID [facility] Last Admin: 08/06/21 09:54 Dose: 10 mg Documented by: Cholecalciferol (Cholecalciferol 25 Mcg (1000 Iu) Tablet) 100 mcg PO DAILY [facility] Last Admin: 08/06/21 09:55 Dose: 100 mcg Documented by: Al Hydroxide/Mg Hydroxide 30 ml/ Lidocaine HCl 30 ml/Diphenhydramine HCl 75 mg/Acetaminophen 960 mg 0 ml PO TID [facility] Last Admin: 08/06/21 09:57 Dose: 30 ml Documented by: Diclofenac Sodium (Diclofenac Sodium Gel 100 Gm Tube) 4 gm TOPICAL QID PRN; Protocol PRN Reason: Pain Enoxaparin Sodium (Enoxaparin 40 Mg/0.4 Ml Syringe) 40 mg SQ DAILY [facility] Last Admin: 08/06/21 10:21 Dose: 40 mg Documented by: Guaifenesin (Guaifenesin 600 Mg Tablet.Er) 600 mg PO QID [facility] Last Admin: 08/06/21 12:54 Dose: 600 mg Documented by: Sodium Chloride (Saline 0.9%) 1,000 mls @ 20 mls/hr IV .Q24H [facility] Last Admin: 08/05/21 17:20 Dose: 20 mls/hr Documented by: Insulin Aspart (Insulin Aspart (Novolog) 100 Unit/Ml Vial) 0 unit SQ [facility]; Protocol Last Admin: 08/06/21 12:54 Dose: 4 unit Documented by: Insulin Detemir (Insulin Detemir (Levemir) 100 Unit/Ml Syr) 14 unit SQ [facility] Last Admin: 08/05/21 20:10 Dose: 14 unit Documented by: Ipratropium [place] (Ipratropium [place] 0.06% Nasal [place] (15 Ml)) 2 spray EA NOSTRIL TID [facility] Last Admin: 08/06/21 15:11 Dose: Not Given Documented by: Levothyroxine Sodium (Levothyroxine 75 Mcg Tab) 75 mcg PO DAILY@0630 [facility] Last Admin: 08/06/21 06:04 Dose: 75 mcg Documented by: Lorazepam (Lorazepam 0.5 Mg Tab) 0.5 mg PO Q6HR PRN PRN Reason: Anxiety Last Admin: 08/06/21 01:35 Dose: 0.5 mg Documented by: Losartan Potassium (Losartan 50 Mg Tab) 50 mg PO DAILY [facility] Last Admin: 08/06/21 09:56 Dose: 50 mg Documented by: Melatonin (Melatonin 3 Mg Tablet) 3 mg PO [facility] Last Admin: 08/05/21 19:46 Dose: 3 mg Documented by: Methylprednisolone Sodium Succinate (Methylprednisolone Sod Succi 40 Mg/Ml 1 Ml Vial) 40 mg IV Q6HR [facility] Last Admin: 08/06/21 12:54 Dose: 40 mg Documented by: Miscellaneous Information (Pneumonia Protocol Utilized [facility]) 1 each PO ONCE PRN PRN Reason: Per Protocol Naloxone HCl (Naloxone 0.4 Mg/Ml 1 Ml Vial) 0.2 mg IV Q2M PRN PRN Reason: Opioid Reversal Gabapentin 600 Mg (Tablets) 600 each PO TID [facility] Last Admin: 08/06/21 10:22 Dose: 600 each Documented by: Ondansetron HCl (Ondansetron 4 Mg/2 Ml Vial) 4 mg IVP Q8HR PRN PRN Reason: Nausea And Vomiting Sodium Chloride (Saline Nasal Gel 14.1 Gm Tube) 1 applic NASAL Q4HR PRN PRN Reason: Dry Nasal Passages Zinc Sulfate (Zinc Sulfate 220 Mg Cap) 220 mg PO DAILY [facility] Last Admin: 08/06/21 09:56 Dose: 220 mg Documented by: Past medical history to include: Anxiety, hypothyroid, peripheral neuropathy, hyperlipidemia, rheumatoid arthritis, Crohn's disease, diet-controlled diabetes, autoimmune lung disorder, fibromyalgia Social history: Lives with son and [id number]. No smoking no alcohol. Family history: Breast cancer Physical examination: VITAL SIGNS: Afebrile, 82, 22, 131/104, 95% on Airvo at 60% GENERAL: reclining bed, tired. EYES: Pupils equal. Conjunctiva normal. HEENT: External appearance of nose and ears normal, oral cavity grossly normal. NECK: JVD not raised; masses not palpable. HEART: First and second heart sounds are normal; no edema. LUNGS: Respiratory rate increased, not able to speak in full sentences,- bilateral coarse crackles. ABDOMEN: Soft, nontender, liver spleen not palpable, no masses palpable. PSYCH: Alert and oriented x3; mood and affect-anxiety MUSCULAR skeletal: Evidence of rheumatoid arthritis especially in the hands, significant INVESTIGATIONS, reviewed in the clinical context: August 06: WBC 16.3 hemoglobin 13.6 potassium 4.4 creatinine 0.53. Chest x- ray: No change August 05: White count 16.7 hemoglobin 14 potassium 4.9 creatinine 0.4. Pro- calcitonin 0.09 August 04: ABG: PH 7.43 pCO2 61 pO2 78 August 03: WBC 13.5 hemoglobin 12.5 platelets 344 d-dimer 1.4 potassium 4.5 crit 35 creatinine 0.44 CRP 3.3 August 02: WBC 15.2 hemoglobin 14 platelets 371 sodium 136 potassium 4.5 BUN 27 creatinine 0.44. Chest x-ray: Bilateral cloudy infiltrates August 01: White count 14.4 hemoglobin 13.5. ABG: PCO2 57 pO2 57. Potassium 4.2 creatinine 0.4 July 31: White count 17.4 hemoglobin 12.7 Occult stool positive July 30: White count 9.3 hemoglobin 13.2 pro-calcitonin 0.95 July 29: Procalcitonin 3.98 WBC 13.9 hemoglobin 15.1 platelets 273 lymphocytes 0.8 d-dimer 1.09 sodium 133 potassium 4.3 creatinine 0.74 CRP 7.6 Coronavirus [PCR/rapid]: Negative Influenza A, influenza B, RSV, Coronavirus PCR: Not detected EKG tracing personally reviewed by me-normal sinus rhythm, [facility] Chest x-ray film personally reviewed by me-bilateral infiltrate changes, so we'll discontinue chronic. Also looked at the films from 2017 CT angiogram chest: Negative for PE. Reticular-nodular and groundglass infilt rates. Underlying fibrosis. Assessment and plan: - Mucoid/bacterial pneumonia suspected gram-negative.: Not improving IV cefepime discontinued as procalcitonin decreased.. -Acute severe hypoxic respiratory failure from pneumonia: Not improving On BiPAP/Airvo -ARDS secondary to suspected mucoid pneumonia: Slow to respond Follow with rock crusher -Episode of GI bleed- dark stools. Stool occult positive. Seen by GI. Follow closely -Initial Clinical suspicion for COVID-19 was high. Initial rapid antigen tested PCR was negative. A more definitive repeat COVID-19 immunoassay test was do ne/PCR that came back also negative -Chronic rheumatoid arthritis Patient does get Rituxan injections every 6 months -Chronic Crohn's disease Patient did complain of some dark stools. No abdominal pain. Initially GI services are not available in the hospital. We'll consult regional administrative assistant surgery. 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 IV Solu-Medrol, bronchodilators. BiPAP/airvo , prognosis guarded. Follow with rock crusher
[2021-08-06] MEDS: SODIUM CHLORIDE 0.9% 1,000 ML IV SCH (17:13)
[2021-08-06 17:21] LABS: Glucose,Whole Blood 118 mg/dL (75-99)
[2021-08-06] MEDS: INSULIN DETEMIR (LEVEMIR) 100 UNIT/ML SYR SQ SCH (20:11)
[2021-08-06] MEDS: amLODIPine 2.5 MG TAB PO SCH (20:11)
[2021-08-06] MEDS: ATORVASTATIN 20 MG TAB PO SCH (20:12)
[2021-08-06] MEDS: MELATONIN 3 MG TABLET PO SCH (20:12)
[2021-08-06 20:26] LABS: Glucose,Whole Blood 358 mg/dL (75-99)
[2021-08-07 04:14] LABS: Basophils % (A) 0 %; Eosinophils # (A) 0.1 k/uL (0-0.7); Eosinophils % (A) 1 %; HCT 41.6 % (34.0-46.0); HGB 13.4 gm/dL (11.4-16.0); Lymphocytes # (A) 0.5 k/uL (1.0-4.8); Lymphocytes % (A) 3 %; MCH 28.6 pg (25.0-35.0); MCHC 32.3 g/dL (31.0-37.0); MCV 88.7 fL (80.0-100.0); Mean Platelet Volume 7.7; Monocytes # (A) 0.7 k/uL (0-1.0); Monocytes % (A) 4 %; Neutrophils % (A) 91 %; Platelet Count 229 k/uL (150-450); RBC 4.69 m/uL (3.80-5.40); RDW 12.9 % (11.5-15.5); WBC 15.3 k/uL (3.8-10.6)
[2021-08-07 04:33] LABS: African American GFR (CKD) >90 (>60 ml/min/1.73 sqM); Anion Gap 0 mmol/L; Blood Urea Nitrogen 33 mg/dL (7-17); Calcium 8.9 mg/dL (8.4-10.2); Carbon Dioxide 40 mmol/L (22-30); Chloride 94 mmol/L (98-107); Glucose 86 mg/dL (74-99); Non-African American GFR(CKD) >90 (>60 ml/min/1.73 sqM); Potassium 4.6 mmol/L (3.5-5.1); Sodium 134 mmol/L (137-145)
[2021-08-07] MEDS: LEVOTHYROXINE 75 MCG TAB PO SCH (05:33)
[2021-08-07] MEDS: methylPREDNISolone SOD SUCCI 40 MG/ML 1 ML VIAL IV SCH ×4 (05:34→20:19)
[2021-08-07 05:57] LABS: Glucose,Whole Blood 72 mg/dL (75-99)
[2021-08-07 05:57] LABS: Glucose,Whole Blood 52 mg/dL (75-99)
[2021-08-07] MEDS: INSULIN ASPART (NovoLOG) 100 UNIT/ML VIAL SQ SCH ×6 (06:08→20:59)
--- NOTE | 2021-08-07 07:17 | P.PN ---
Subjective Progress Note Date: 08/07/21 This is an 86-year-old female primarily a patient of Dr. Rodriguez, patient is known to have history of rheumatoid arthritis, on multiple medications for her rheumatoid arthritis, she is also on rituxin infusions every 6 months. Patient is being followed by rheumatology, patient is current on her immunization including COVID-19 vaccination, she did receive moderna, 2 injections, and she did not receive her third booster. Patient stated that her last injection was in October. Came in today with 7 days' history of cough, congestion, describes the cough as productive with slightly yellow tinged sputum, patient also has multiple GI symptoms including poor appetite, diarrhea, denies any abdominal pa in. She also had intermittent fevers and chills. Body aches were also described. However the patient had negative rapid PCR for COVID-19 infection and a follow-up test was also done and it came back also negative. Her chest x- ray and CT of the chest are abnormal. Chest x-ray is suggestive of interstitial lung disease. CT of the chest showed diffuse reticulonodular and ground glass opacities throughout both lungs. Possible underlying fibrosis noted. No pulmonary mass nodule and no real effusion noted. No evidence of lymphadenopathy. And no evidence of thromboembolic disease. CBC showed a bit of leukocytosis with WBC count of 13.9. Lymphopenia was noted. Normal electrolytes, normal renal profile, LDH was 1055 and BNP level was 1100. Pro- calcitonin level is pending. Patient had negative PCR for sanchez virus infection. She had negative screening for influenza A, influenza B, RSV. Patient was hypoxic on room air, O2 saturations was 81%, however she was placed on 5 L and her oxygen saturation was up to 96% considering her pulmonary presentation, this consult was initiated. And I saw the patient in the ER. Patient is already on Rocephin and Zithromax, however the admitting physician changed her antibiotics to cefepime. She is on DVT prophylaxis, she is also on methylprednisolone 40 mg IV push every 8 hours. Reevaluated today on 07/29/2021, patient is feeling better today, breathing easier, less cough and less shortness of breath, less GI symptoms. Patient came in with multiple constitutional symptoms as noted above. Chest x-ray showed bilateral interstitial infiltrates, PCR for COVID-19 pneumonia was negative 2. Patient is now on 5 L nasal cannula, O2 sats is 94%. Her pro calcitonin today is 1.25. Patient tested negative for COVID-19, tested negative for influenza A, influenza B and for RSV. On 07/30/2021 patient seen in follow-up on medical surgical floor, she is resting comfortably in bed, she remains on 5 L of oxygen, pulse ox is 91-92%, breathing comfortably, she states her cough is improving, she is not producing any significant amount of sputum, at times she is able to clear some sanderson colored phlegm, she has been afebrile, hemodynamically she has been stable, she remains on cefepime for possibility of underlying community-acquired pneumonia, she remains on IV steroids, she tested negative for COVID 19, RSV and influenza A and B, her pro calcitonin level is improving on today's labs and is down to 0.95 from previous levels of 3.98 on admission. White count is improving and is down to 11.3, hemoglobin is 13.2, blood cultures have shown no growth, mild wheezes on today's exam. On 07/31/2021 patient seen in follow-up on medical surgical floor, her oxygen demand had increased in last 24 hours, and patient today is on 15 L per high flow nasal cannula and 100% nonrebreather mask, and her pulse ox is in the order of 85-88%, she's been afebrile, hemodynamically she is been stable, she states that she has been coughing up some pink tinged phlegm. Denies any chest discomfort, lung sounds reveal diffuse crackles throughout the lung salvador, she remains on cefepime for empiric antibiotic coverage, her blood cultures have remained negative, remains on IV steroids and nebulized bronchodilators. This x-ray is pending, patient will be given a dose of IV Lasix, her pro-calcitonin level is actually improving on today's labs, to 0.95. CTA chest showed no PE On 08/01/2021 patient is seen in follow-up on medical surgical floor. Yesterday her oxygenation has significantly worsened, patient was placed on Airvo at 60 L and FiO2 of 90%, and a nonrebreather mask, and her pulse ox was 81%, and patient was becoming tachypneic and tired. She was subsequently placed on BiPAP support with pressures of 12 and 6 in the 100%. She is satting better, at 92-93%, breathing more comfortably, she is awake and alert, answering questions appropriately, she was given a dose of IV Lasix yesterday, her net fluid balance is difficult to estimate, today's chest x-ray shows diffuse bilateral infiltrates that are stable in appearance, no pleural effusion or pneumothorax. Correlate for diffuse pneumonia versus ARDS. Patient is on antibiotics in the form of cefepime, blood cultures have shown no growth so far. We have not been able to obtain a sputum for culture. Afebrile, hemodynamically she's been stable. She is on IV steroids and nebulized bronchodilators. Her pro calcitonin level was actually improving on yesterday's labs, and today it is further improved and is down to 0.25 from initial level of 3.98 on 07/28/2021. ProBNP level was 1100. White blood cell count is slightly improved compared to yesterday, and is down to 14.49, hemoglobin is 13.5, sodium is 142, potassium is 4.2, BUN is 16, creatinine 0.4. Patient tested negative for COVID-19 per PCR test, and her antibiotic test was also negative, negative for influenza A and B and RSV. On 08/06/2021 patient seen in follow-up in the intensive care unit, she is awake and alert, oriented 3, in no acute distress, she is currently on Airvo at 55 L and FiO2 of 65%, and her pulse ox is 94-95%, she is breathing comfortably, she states her breathing is improved. Overall she seems generally weak but no acute distress. She did wear BiPAP support last night with pressures of 15 and 6 and FiO2 of 90% for about 4 hours. She's been using BiPAP support on and off al ternating with Airvo. Hemodynamically she stable, she isn't point tenderness an every 20 ML per hour, no other drugs, she is in sinus mechanism with a rate of 71. This had no acute events overnight, lung sounds reveal coarse inspiratory crackles at bilateral bases, no rhonchi or wheezing, no fever or chills, vital signs have been stable. Chest x-ray shows diffuse interstitial and alveolar opacities, no pneumothorax a large pleural effusion. She remains on cefepime for antibiotic coverage. She is on IV steroids at 60 mg every 6 hours, nebulized bronchodilators and Symbicort. She is doing better. Blood cultures have shown no growth. Her white count today is 16.3, hemoglobin is 13.6, sodium is 136, potassium is 4.4, chloride is 93, CO2 is 39, BUN is 34, creatinine 0.53. Her pro calcitonin level is not within normal limits at 0.09. On today's evaluation of 08/07/2021, seeing the patient for a follow-up. Note that the patient is a self rheumatoid arthritis and the patient was taking Rituxan on outpatient basis and as such the patient is been essentially immunosuppressed. The patient presented to us with acute hypoxic respiratory failure. She likely has underlying rheumatoid lung and the patient developed diffuse bilateral ground glass pulmonary infiltrates and the exact cause has not been essentially clear established. Suspect acute lung injury/ARDS on top of her chronic ILD. In any rate, infectious agents have been all negative. COVID 19 testing is negative and the patient has already been vaccinated for COVID 19. The patient's pro calcitonin level was high at the time of admission at 3.98 indicating the possibility of a bacterial infection and along with the treatment of antibiotics, the pro calcitonin level dropped down to 0.09 from 08/05/2021. Nevertheless, the blood cultures have been essentially negative. Note that the patient's white cell count was also slightly elevated at time of admission and 13.9 and it went as high as 17.4 and currently her white cell count is at 15. Meanwhile, the patient was covered with broad-spectrum antibiotics. The patient was also covered with steroids. The patient completed a course of Rocephin and Zithromax initially and later on the antibiotic was switched to cefepime and the patient completed her course. On a separate note, the COVID 19 testing was negative by PCR and influenza A and B and RSV was also negative. Legionella urine antigen has not been checked and this needs to be completed. Noted the patient had been alternating between BiPAP and Airvo for respiratory support. This morning she is on Airvo at 15 L with an FiO2 of 50%. She is hemodynamically stable on no pressors. Blood work showed a sodium of 134 with a potassium level of 4.6, serum bicarbonate of 40, white cell count of 15.3 with hemoglobin of 13.4. The patient remains on Solu-Medrol at a dose of 40 mg every 6 hours. IV fluids are currently at KVO. Rest of the home medications of been ordered resume. Objective - Vital Signs Vital signs: Vital Signs Temp 97.7 F 08/07/21 04:00 Pulse 78 08/07/21 06:00 Resp 17 08/07/21 06:00 BP 162/73 08/07/21 06:00 Pulse Ox 93 L 08/07/21 06:00 Intake & Output 08/06/21 08/07/21 08/07/21 18:59 06:59 18:59 Intake Total 1080 260 Output Total 640 1045 Balance 440 -785 Weight 73.2 kg Intake: IV 240 260 ns 240 260 Oral 840 Output: Urine 640 1045 Other: Voiding Method Indwelling Catheter Indwelling Catheter # Bowel Movements 1 - Exam GENERAL EXAM: Alert, very pleasant, 86-year-old white female, currently on Airvo at 50 l/min and Fio2 50% HEAD: Normocephalic/atraumatic. EYES: Normal reaction of pupils, equal size. Conjunctiva pink, sclera white. NOSE: Clear with pink turbinates. THROAT: No erythema or exudates. NECK: No masses, no JVD, no thyroid enlargement, no adenopathy. CHEST: No chest wall deformity. Symmetrical expansion. LUNGS: Equal air entry with coarse inspiratory bilateral crackles at the bilateral bases CVS: Regular rate and rhythm, normal S1 and S2, no gallops, no murmurs, no rubs ABDOMEN: Soft, nontender. No hepatosplenomegaly, normal bowel sounds, no guarding or rigidity. EXTREMITIES: No clubbing, no edema, no cyanosis, 2+ pulses and upper and lower extremities. MUSCULOSKELETAL: Muscle strength and tone normal. SPINE: No scoliosis or deformity SKIN: No rashes CENTRAL NERVOUS SYSTEM: Alert and oriented -3. No focal deficits, tone is normal in all 4 extremities. PSYCHIATRIC: Alert and oriented -3. Appropriate affect. Intact judgment and insight. - Labs CBC & Chem 7: 08/07/21 04:00 08/07/21 04:00 Labs: Abnormal Lab Results - Last 24 Hours (Table) 08/06/21 08/06/21 08/06/21 Range/Units 07:21 07:21 11:39 WBC 16.3 H (3.8-10.6) k/uL Neutrophils # 15.1 H (1.3-7.7) k/uL Lymphocytes # 0.4 L (1.0-4.8) k/uL Sodium 136 L (137-145) mmol/L Chloride 93 L (98-107) mmol/L Carbon Dioxide 39 H (22-30) mmol/L BUN 31 H (7-17) mg/dL Creatinine (0.52-1.04) mg/dL Glucose 102 H (74-99) mg/dL POC Glucose (mg/dL) 178 H (75-99) mg/dL 08/06/21 08/06/21 08/07/21 Range/Units 17:19 20:24 04:00 WBC 15.3 H (3.8-10.6) k/uL Neutrophils # 14.0 H (1.3-7.7) k/uL Lymphocytes # 0.5 L (1.0-4.8) k/uL Sodium (137-145) mmol/L Chloride (98-107) mmol/L Carbon Dioxide (22-30) mmol/L BUN (7-17) mg/dL Creatinine (0.52-1.04) mg/dL Glucose (74-99) mg/dL POC Glucose (mg/dL) 118 H 358 H (75-99) mg/dL 08/07/21 08/07/21 08/07/21 Range/Units 04:00 05:53 05:55 WBC (3.8-10.6) k/uL Neutrophils # (1.3-7.7) k/uL Lymphocytes # (1.0-4.8) k/uL Sodium 134 L (137-145) mmol/L Chloride 94 L (98-107) mmol/L Carbon Dioxide 40 H (22-30) mmol/L BUN 33 H (7-17) mg/dL Creatinine 0.42 L (0.52-1.04) mg/dL Glucose (74-99) mg/dL POC Glucose (mg/dL) 52 L 72 L (75-99) mg/dL Assessment and Plan Plan: #1. Acute hypoxic respiratory failure secondary to interstitial lung disease and superimposed pneumonia. Patient tested negative for COVID-19, influenza A and B and RSV. Patient also had 2 previous negative PCR test. Patient is fully immunized against COVID 19. Subsequently patient required Airvo and a nonrebreather, and was placed on BiPAP support on 08/01/2021 for respiratory fatigue. Will be transferred to the intensive care unit today on 08/01/2021. Current BiPAP pressures are 15 and 5 and FiO2 100%. On 08/07/2021 patient is tolerating Airvo at 50 mL an FiO2 of 50% and alternating it with BiPAP as nee ded. There is no room for any further weaning. The patient desaturates even with talking. I think this is a presentation of chronic rheumatoid arthritis, ILD with an acute lung injury and the exact etiology has been not clear. Could be environmental factors, could be drugs, could be viral elements or even bacterial elements At the pro-calcitonin level was quite elevated at time of admission. Currently she is on IV Solu-Medrol. #2. ARDS related to pneumonia, currently on cefepime, IV steroids. Transferred to intensive care unit today on 08/01/2021. #3. Elevated pro-calcitonin suggesting possibility of bacterial pneumonia, possibly community acquired, patient is currently covered with cefepime, improved, and is down to 0.09 on 08/05/2021. Antibiotics will be discontinued. Blood cultures remain negative #4. 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 Hypertension #7. Dyslipidemia #8. History of hypothyroidism #9 history of immunosuppression as the patient has been receiving Rituxan , on an outpatient basis Plan: Continue weaning FiO2 to keep O2 sats at 90-92% Currently tolerating Airvo and 50 L and 50 % FiO2 A Legionella urine antigen Alternate with BiPAP support as needed for respiratory fatigue Completed the course of cefepime, follow pro-calcitonin is negative Continue IV Solu-Medrol 40 mg q 6 h Continue nebulized bronchodilators Patient remains a full code for now Continue current medical treatment Provide the patient incentive spirometer Any old x-ray would be useful for comparison. My suspicion is that the patient has some degree of chronic ILD Stable clinically and the patient can be transferred to a medical surgical floor today.
--- NOTE | 2021-08-07 08:52 | XR ---
EXAMINATION TYPE: XR chest 1V portable DATE OF EXAM: 08/07/2021 Comparison: 08/06/2021 Clinical History: 86-year-old female PNA Findings: Heart borderline enlarged. Diffuse interstitial and groundglass opacities bilaterally show no signifi cant change. No pleural effusion. Loss of the subacromial space on both sides compatible with chronic full-thickness rotator cuff tears. Impression: Continued diffuse interstitial and groundglass opacities bilaterally.
[2021-08-07] MEDS: IPRATROPIUM-ALBUTEROL 3 ML NEB INHALATION SCH ×4 (08:55→20:15)
[2021-08-07] MEDS: SYMBICORT 160-4.5 MCG INHALER INHALATION SCH ×2 (08:56→20:15)
[2021-08-07] MEDS: LOSARTAN 50 MG TAB PO SCH (09:26)
[2021-08-07] MEDS: CHOLECALCIFEROL 25 MCG (1000 IU) TABLET PO SCH (09:27)
[2021-08-07] MEDS: busPIRone HCl 10 MG TAB PO SCH ×2 (09:27→20:18)
[2021-08-07] MEDS: ZINC SULFATE 220 MG CAP PO SCH (09:27)
[2021-08-07] MEDS: ASCORBIC ACID 500 MG TAB PO SCH ×2 (09:28→20:19)
[2021-08-07] MEDS: guaiFENesin 600 MG TABLET.ER PO SCH ×4 (09:28→20:19)
[2021-08-07] MEDS: MAG HYDROX/AL HYDROX/SIMETH 30 ML, LIDOCAINE VISCOUS 30 ML, diphenhydrAMINE ELIXIR 75 M... PO SCH ×12 (09:31→20:19)
[2021-08-07] MEDS: IPRATROPIUM BROMIDE 0.06% NASAL SPRAY (15 ML) EA NOSTRIL SCH ×3 (09:40→20:19)
[2021-08-07 11:31] LABS: Glucose,Whole Blood 198 mg/dL (75-99)
[2021-08-07] MEDS: GABAPENTIN 600 MG PO SCH ×3 (13:13→20:19)
[2021-08-07 16:38] LABS: Glucose,Whole Blood 129 mg/dL (75-99)
[2021-08-07] MEDS: SODIUM CHLORIDE 0.9% 1,000 ML IV SCH (17:05)
[2021-08-07 20:06] LABS: Glucose,Whole Blood 362 mg/dL (75-99)
[2021-08-07] MEDS: amLODIPine 2.5 MG TAB PO SCH (20:18)
[2021-08-07] MEDS: INSULIN DETEMIR (LEVEMIR) 100 UNIT/ML SYR SQ SCH (20:18)
[2021-08-07] MEDS: MELATONIN 3 MG TABLET PO SCH (20:19)
[2021-08-07] MEDS: ATORVASTATIN 20 MG TAB PO SCH (20:19)
[2021-08-07] MEDS: LORazepam 0.5 MG TAB PO PRN (20:19)
--- NOTE | 2021-08-07 23:34 | P.PN ---
Subjective This is a pleasant 86-year-old patient, follows with Dr. Chaney. Chronic stable medical conditions include rheumatoid arthritis, Crohn's disease, diet- controlled diabetes, autoimmune disorder, fibromyalgia. She does follow Dr. Reed from rheumatology and does Rituxan injections every 6 months. Sees due for her next one. Patient did take her COVID vaccines back in . She doesn't go out much. For 7 days patient suspect upper cough. Very congested. Clear sputum. Has had fever and chills. Patient also had diarrhea. Some dark stool. No abdominal pain. Patient chronic stable medical conditions also include anxiety, hypothyroid, peripheral neuropathy, hyperlipidemia. Appetite is poor. Initial rapid COVID testing in the ER was negative. A more definitive PCR was sent out. Patient is accompanied by her [id number]. Patient is rather tired and rundown. She is also had chronic immune lung condition in the past. July 29: Short of breath. Tired. 5 L nasal cannula. Eating about 50%. In bed. July 30: Some shortness of breath. Some cough. 5 L nasal cannula. Eating some. Tired. July 31: Worsening short of breath. On 15 L nasal cannula. Congested cough. Eating about 50%. Laying in bed August 01: Shortness of breath not improving. Patient placed on BiPAP. Being moved to the ICU. Decreased oral intake. Tired. Now having brown stools. Seen by GI. No further intervention. August 02: ICU. Moved yesterday. Airvo:. 60 L/90%. With a nonrebreather mask. Barely eating. Short of breath. Tired. Sitting up in bed. August 03: ICU. On BiPAP. Decreased by mouth intake. Tired. Short of breath. August 04: ICU: Patient between Airvo and BiPAP. Tired. Short of breath. Sinus rhythm. Patient's daughter is visiting. Eating some. Encouraged to use ensure. On IV cefepime. IV Solu-Medrol. August 05: ICU. On Airvo. Short of breath. IV cefepime. IV Solu-Medrol. August 06: ICU: Airvo. Remains short of breath. Cefepime discontinued by pulmonary. 2020 This is a pleasant 86 years old female with multiple medical problems including history of rheumatoid arthritis and traumatic lung disease presents with respiratory depression and hypoxia, pulmonary service on the case. Family suspicious for interstitial lung disease secondary to rheumatoid lung disease, she was originally treated with antibiotic for superimposed bacterial infection which is now resolved. Thus patient now is currently kept on Solu-Medrol 40 mg. Insulin coverage to keep glucose controlled. 4calcitonin is normal at 0.09. She still patient on high flow nasal cannula at 50 L/m and 60% Objective - Vital Signs Vital signs: Vital Signs Temp 97.7 F 08/07/21 04:00 Pulse 79 08/07/21 10:00 Resp 12 08/07/21 10:00 BP 131/68 08/07/21 10:00 Pulse Ox 89 L 08/07/21 10:00 Intake & Output 08/06/21 08/07/21 08/07/21 18:59 06:59 18:59 Intake Total 1080 260 120 Output Total 640 1045 120 Balance 440 -785 0 Weight 73.2 kg Intake: IV 240 260 0 ns 240 260 0 Oral 840 120 Output: Urine 640 1045 120 Other: Voiding Method Indwelling Catheter Indwelling Catheter # Bowel Movements 1 - Exam GENERAL: The patient is alert and oriented x3, not in any acute distress. Well developed, well nourished. HEENT: Pupils are round and equally reacting to light. EOMI. No scleral icterus. No conjunctival pallor. Normocephalic, atraumatic. No pharyngeal erythema. No thyromegaly. CARDIOVASCULAR: S1 and S2 present. No murmurs, rubs, or gallops. -PULMONARY: Chest is clear to auscultation, no wheezing or crackles. Decreased breath sounds Tachypnea, easily fatigued. ABDOMEN: Soft, nontender, nondistended, normoactive bowel sounds. No palpable organomegaly. MUSCULOSKELETAL: No joint swelling or deformity. EXTREMITIES: No cyanosis, clubbing, or pedal edema. NEUROLOGICAL: Gross neurological examination did not reveal any focal deficits. SKIN: No rashes. no petechiae. - Labs CBC & Chem 7: 08/07/21 04:00 08/07/21 04:00 Labs: Abnormal Lab Results - Last 24 Hours (Table) 08/06/21 08/06/21 08/06/21 Range/Units 11:39 17:19 20:24 WBC (3.8-10.6) k/uL Neutrophils # (1.3-7.7) k/uL Lymphocytes # (1.0-4.8) k/uL Sodium (137-145) mmol/L Chloride (98-107) mmol/L Carbon Dioxide (22-30) mmol/L BUN (7-17) mg/dL Creatinine (0.52-1.04) mg/dL POC Glucose (mg/dL) 178 H 118 H 358 H (75-99) mg/dL 08/07/21 08/07/21 08/07/21 Range/Units 04:00 04:00 05:53 WBC 15.3 H (3.8-10.6) k/uL Neutrophils # 14.0 H (1.3-7.7) k/uL Lymphocytes # 0.5 L (1.0-4.8) k/uL Sodium 134 L (137-145) mmol/L Chloride 94 L (98-107) mmol/L Carbon Dioxide 40 H (22-30) mmol/L BUN 33 H (7-17) mg/dL Creatinine 0.42 L (0.52-1.04) mg/dL POC Glucose (mg/dL) 52 L (75-99) mg/dL 08/07/21 Range/Units 05:55 WBC (3.8-10.6) k/uL Neutrophils # (1.3-7.7) k/uL Lymphocytes # (1.0-4.8) k/uL Sodium (137-145) mmol/L Chloride (98-107) mmol/L Carbon Dioxide (22-30) mmol/L BUN (7-17) mg/dL Creatinine (0.52-1.04) mg/dL POC Glucose (mg/dL) 72 L (75-99) mg/dL Assessment and Plan Assessment: -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 -Acute severe hypoxic respiratory failure , requiring intubation and mechanical ventilation -Bacterial pneumonia and suspected on admission, efficiently treated for now -Chronic rheumatoid arthritis -Chronic Crohn's disease -Suspect underlying chronic rheumatoid lung -Secondary bronchospam -Anxiety disorder not otherwise specified -Essential hypertension -Hyperlipidemia -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 Continue same treatment. Continue with symptomatic treatment. Resume home medication. Monitor lytes and vitals. DVT and GI prophylaxis. Further recommendationsas per clinical course of the patient DVT prophylaxis: Subcutaneous Lovenox GI Prophylaxis: Pepcid Prognosis is guarded
[2021-08-08 06:19] LABS: Glucose,Whole Blood 83 mg/dL (75-99)
[2021-08-08] MEDS: INSULIN ASPART (NovoLOG) 100 UNIT/ML VIAL SQ SCH ×8 (06:38→20:57)
[2021-08-08] MEDS: methylPREDNISolone SOD SUCCI 40 MG/ML 1 ML VIAL IV SCH ×4 (06:50→23:12)
[2021-08-08] MEDS: LEVOTHYROXINE 75 MCG TAB PO SCH (06:51)
[2021-08-08] MEDS: IPRATROPIUM-ALBUTEROL 3 ML NEB INHALATION SCH ×4 (07:27→20:02)
[2021-08-08] MEDS: SYMBICORT 160-4.5 MCG INHALER INHALATION SCH ×2 (07:28→20:02)
--- NOTE | 2021-08-08 07:59 | P.PN ---
Subjective Progress Note Date: 08/08/21 This is an 86-year-old female primarily a patient of Dr. Rodriguez, patient is known to have history of rheumatoid arthritis, on multiple medications for her rheumatoid arthritis, she is also on rituxin infusions every 6 months. Patient is being followed by rheumatology, patient is current on her immunization including COVID-19 vaccination, she did receive moderna, 2 injections, and she did not receive her third booster. Patient stated that her last injection was in October. Came in today with 7 days' history of cough, congestion, describes the cough as productive with slightly yellow tinged sputum, patient also has multiple GI symptoms including poor appetite, diarrhea, denies any abdominal pa in. She also had intermittent fevers and chills. Body aches were also described. However the patient had negative rapid PCR for COVID-19 infection and a follow-up test was also done and it came back also negative. Her chest x- ray and CT of the chest are abnormal. Chest x-ray is suggestive of interstitial lung disease. CT of the chest showed diffuse reticulonodular and ground glass opacities throughout both lungs. Possible underlying fibrosis noted. No pulmonary mass nodule and no real effusion noted. No evidence of lymphadenopathy. And no evidence of thromboembolic disease. CBC showed a bit of leukocytosis with WBC count of 13.9. Lymphopenia was noted. Normal electrolytes, normal renal profile, LDH was 1055 and BNP level was 1100. Pro- calcitonin level is pending. Patient had negative PCR for sanchez virus infection. She had negative screening for influenza A, influenza B, RSV. Patient was hypoxic on room air, O2 saturations was 81%, however she was placed on 5 L and her oxygen saturation was up to 96% considering her pulmonary presentation, this consult was initiated. And I saw the patient in the ER. Patient is already on Rocephin and Zithromax, however the admitting physician changed her antibiotics to cefepime. She is on DVT prophylaxis, she is also on methylprednisolone 40 mg IV push every 8 hours. Reevaluated today on 07/29/2021, patient is feeling better today, breathing easier, less cough and less shortness of breath, less GI symptoms. Patient came in with multiple constitutional symptoms as noted above. Chest x-ray showed bilateral interstitial infiltrates, PCR for COVID-19 pneumonia was negative 2. Patient is now on 5 L nasal cannula, O2 sats is 94%. Her pro calcitonin today is 1.25. Patient tested negative for COVID-19, tested negative for influenza A, influenza B and for RSV. On 07/30/2021 patient seen in follow-up on medical surgical floor, she is resting comfortably in bed, she remains on 5 L of oxygen, pulse ox is 91-92%, breathing comfortably, she states her cough is improving, she is not producing any significant amount of sputum, at times she is able to clear some sanderson colored phlegm, she has been afebrile, hemodynamically she has been stable, she remains on cefepime for possibility of underlying community-acquired pneumonia, she remains on IV steroids, she tested negative for COVID 19, RSV and influenza A and B, her pro calcitonin level is improving on today's labs and is down to 0.95 from previous levels of 3.98 on admission. White count is improving and is down to 11.3, hemoglobin is 13.2, blood cultures have shown no growth, mild wheezes on today's exam. On 07/31/2021 patient seen in follow-up on medical surgical floor, her oxygen demand had increased in last 24 hours, and patient today is on 15 L per high flow nasal cannula and 100% nonrebreather mask, and her pulse ox is in the order of 85-88%, she's been afebrile, hemodynamically she is been stable, she states that she has been coughing up some pink tinged phlegm. Denies any chest discomfort, lung sounds reveal diffuse crackles throughout the lung salvador, she remains on cefepime for empiric antibiotic coverage, her blood cultures have remained negative, remains on IV steroids and nebulized bronchodilators. This x-ray is pending, patient will be given a dose of IV Lasix, her pro-calcitonin level is actually improving on today's labs, to 0.95. CTA chest showed no PE On 08/01/2021 patient is seen in follow-up on medical surgical floor. Yesterday her oxygenation has significantly worsened, patient was placed on Airvo at 60 L and FiO2 of 90%, and a nonrebreather mask, and her pulse ox was 81%, and patient was becoming tachypneic and tired. She was subsequently placed on BiPAP support with pressures of 12 and 6 in the 100%. She is satting better, at 92-93%, breathing more comfortably, she is awake and alert, answering questions appropriately, she was given a dose of IV Lasix yesterday, her net fluid balance is difficult to estimate, today's chest x-ray shows diffuse bilateral infiltrates that are stable in appearance, no pleural effusion or pneumothorax. Correlate for diffuse pneumonia versus ARDS. Patient is on antibiotics in the form of cefepime, blood cultures have shown no growth so far. We have not been able to obtain a sputum for culture. Afebrile, hemodynamically she's been stable. She is on IV steroids and nebulized bronchodilators. Her pro calcitonin level was actually improving on yesterday's labs, and today it is further improved and is down to 0.25 from initial level of 3.98 on 07/28/2021. ProBNP level was 1100. White blood cell count is slightly improved compared to yesterday, and is down to 14.49, hemoglobin is 13.5, sodium is 142, potassium is 4.2, BUN is 16, creatinine 0.4. Patient tested negative for COVID-19 per PCR test, and her antibiotic test was also negative, negative for influenza A and B and RSV. On 08/06/2021 patient seen in follow-up in the intensive care unit, she is awake and alert, oriented 3, in no acute distress, she is currently on Airvo at 55 L and FiO2 of 65%, and her pulse ox is 94-95%, she is breathing comfortably, she states her breathing is improved. Overall she seems generally weak but no acute distress. She did wear BiPAP support last night with pressures of 15 and 6 and FiO2 of 90% for about 4 hours. She's been using BiPAP support on and off al ternating with Airvo. Hemodynamically she stable, she isn't point tenderness an every 20 ML per hour, no other drugs, she is in sinus mechanism with a rate of 71. This had no acute events overnight, lung sounds reveal coarse inspiratory crackles at bilateral bases, no rhonchi or wheezing, no fever or chills, vital signs have been stable. Chest x-ray shows diffuse interstitial and alveolar opacities, no pneumothorax a large pleural effusion. She remains on cefepime for antibiotic coverage. She is on IV steroids at 60 mg every 6 hours, nebulized bronchodilators and Symbicort. She is doing better. Blood cultures have shown no growth. Her white count today is 16.3, hemoglobin is 13.6, sodium is 136, potassium is 4.4, chloride is 93, CO2 is 39, BUN is 34, creatinine 0.53. Her pro calcitonin level is not within normal limits at 0.09. On today's evaluation of 08/07/2021, seeing the patient for a follow-up. Note that the patient is a self rheumatoid arthritis and the patient was taking Rituxan on outpatient basis and as such the patient is been essentially immunosuppressed. The patient presented to us with acute hypoxic respiratory failure. She likely has underlying rheumatoid lung and the patient developed diffuse bilateral ground glass pulmonary infiltrates and the exact cause has not been essentially clear established. Suspect acute lung injury/ARDS on top of her chronic ILD. In any rate, infectious agents have been all negative. COVID 19 testing is negative and the patient has already been vaccinated for COVID 19. The patient's pro calcitonin level was high at the time of admission at 3.98 indicating the possibility of a bacterial infection and along with the treatment of antibiotics, the pro calcitonin level dropped down to 0.09 from 08/05/2021. Nevertheless, the blood cultures have been essentially negative. Note that the patient's white cell count was also slightly elevated at time of admission and 13.9 and it went as high as 17.4 and currently her white cell count is at 15. Meanwhile, the patient was covered with broad-spectrum antibiotics. The patient was also covered with steroids. The patient completed a course of Rocephin and Zithromax initially and later on the antibiotic was switched to cefepime and the patient completed her course. On a separate note, the COVID 19 testing was negative by PCR and influenza A and B and RSV was also negative. Legionella urine antigen has not been checked and this needs to be completed. Noted the patient had been alternating between BiPAP and Airvo for respiratory support. This morning she is on Airvo at 15 L with an FiO2 of 50%. She is hemodynamically stable on no pressors. Blood work showed a sodium of 134 with a potassium level of 4.6, serum bicarbonate of 40, white cell count of 15.3 with hemoglobin of 13.4. The patient remains on Solu-Medrol at a dose of 40 mg every 6 hours. IV fluids are currently at KVO. Rest of the home medications of been ordered resume. On today's evaluation of 08/08/2021, the patient is quite stable and the patient is currently on Airvo 45 L an FiO2 of 60%. She is stable. She thinks that she is improving. She is less short of breath compared to yesterday. Overnight, she was the BiPAP for respiratory support. Limited cough. No significant s putum production. No fever. No chills. She remains on IV Solu-Medrol 40 mg every 6 hours. She is also on Levemir insulin 14 units at bedtime along with 6 units of NovoLog with meals and a sliding scale coverage. She is using incentive spirometer. She was able to tolerate dinner last night. White cell count from yesterday was 15.3. No labs are available from today. Blood sugar from today this morning is 83. The patient is going to be transferred to medical surgical floor. Her IV fluids are currently at KVO. No other significant events otherwise for now. Objective - Vital Signs Vital signs: Vital Signs Temp 98 F 08/08/21 02:00 Pulse 90 08/08/21 07:40 Resp 16 08/08/21 02:00 BP 157/68 08/08/21 02:00 Pulse Ox 96 08/08/21 07:32 Intake & Output 08/07/21 08/08/21 08/08/21 18:59 06:59 18:59 Intake Total 240 Output Total 1485 1375 Balance -1245 -1375 Weight 74 kg Intake: IV 0 ns 0 Oral 240 Output: Urine 1485 1375 Other: Voiding Method Indwelling Catheter Indwelling Catheter - Exam GENERAL EXAM: Alert, very pleasant, 86-year-old white female, currently on Airvo at 45 l/min and Fio2 60% HEAD: Normocephalic/atraumatic. EYES: Normal reaction of pupils, equal size. Conjunctiva pink, sclera white. NOSE: Clear with pink turbinates. THROAT: No erythema or exudates. NECK: No masses, no JVD, no thyroid enlargement, no adenopathy. CHEST: No chest wall deformity. Symmetrical expansion. LUNGS: Equal air entry with coarse inspiratory bilateral crackles at the bilat eral bases CVS: Regular rate and rhythm, normal S1 and S2, no gallops, no murmurs, no rubs ABDOMEN: Soft, nontender. No hepatosplenomegaly, normal bowel sounds, no guarding or rigidity. EXTREMITIES: No clubbing, no edema, no cyanosis, 2+ pulses and upper and lower extremities. MUSCULOSKELETAL: Muscle strength and tone normal. SPINE: No scoliosis or deformity SKIN: No rashes CENTRAL NERVOUS SYSTEM: Alert and oriented -3. No focal deficits, tone is normal in all 4 extremities. PSYCHIATRIC: Alert and oriented -3. Appropriate affect. Intact judgment and insight. - Labs CBC & Chem 7: 08/07/21 04:00 08/07/21 04:00 Labs: Abnormal Lab Results - Last 24 Hours (Table) 08/07/21 08/07/21 08/07/21 Range/Units 11:30 16:37 20:04 POC Glucose (mg/dL) 198 H 129 H 362 H (75-99) mg/dL Assessment and Plan Plan: #1. Acute hypoxic respiratory failure secondary to interstitial lung disease and superimposed pneumonia. Patient tested negative for COVID-19, influenza A and B and RSV. Patient also had 2 previous negative PCR test. Patient is fully immunized against COVID 19. Subsequently patient required Airvo and a nonrebreather, and was placed on BiPAP support on 08/01/2021 for respiratory fatigue. Will be transferred to the intensive care unit today on 08/01/2021. Current BiPAP pressures are 15 and 5 and FiO2 100%. On 08/08/2021 the patient remains on Airvo at 45 L with an FiO2 of 60%. Her chest x-ray findings are stable. She remains off antibiotics. She is on steroids. She reports clinical improvement although there is some limited improvement in the oxygenation and the patient's pulse ox is in the low 90s at this point in time. She is stable. She can be transferred out of the intensive care unit. I would suggest the possibility of an acute lung injury either from environmental factors or viral elements. Bacteria is possible knowing that the patient's pro-calcitonin was elevated at the time of admission. Currently she is off antibiotics. Acute exacerbation of her chronic ILD is also another consideration this patient. Noted the patient was immunosuppressed and she was receiving rituxan on outpatient basis. #2. ARDS related to pneumonia, currently on cefepime, IV steroids. Transferred to intensive care unit today on 08/01/2021. #3. Elevated pro-calcitonin suggesting possibility of bacterial pneumonia, possibly community acquired, patient is currently covered with cefepime, improved, and is down to 0.09 on 08/05/2021. Antibiotics will be discontinued. Blood cultures remain negative #4. 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 Hypertension #7. Dyslipidemia #8. History of hypothyroidism #9 history of immunosuppression as the patient has been receiving Rituxan , on an outpatient basis Plan: Continue weaning FiO2 to keep O2 sats at 90-92% Currently tolerating Airvo and 45 L and 60 % FiO2 A Legionella urine antigen pending Alternate with BiPAP support as needed for respiratory fatigue Completed the course of cefepime, follow pro-calcitonin is negative Continue IV Solu-Medrol 40 mg q 6 h Continue nebulized bronchodilators Patient remains a full code for now Continue current medical treatment Provide the patient incentive spirometer Any old x-ray would be useful for comparison. My suspicion is that the patient has some degree of chronic ILD Stable clinically and the patient can be transferred to a medical surgical floor today.
[2021-08-08] MEDS: LOSARTAN 50 MG TAB PO SCH (09:30)
[2021-08-08] MEDS: guaiFENesin 600 MG TABLET.ER PO SCH ×4 (09:30→20:55)
[2021-08-08] MEDS: CHOLECALCIFEROL 25 MCG (1000 IU) TABLET PO SCH (09:30)
[2021-08-08] MEDS: ZINC SULFATE 220 MG CAP PO SCH (09:30)
[2021-08-08] MEDS: ENOXAPARIN 40 MG/0.4 ML SYRINGE SQ SCH (09:30)
[2021-08-08] MEDS: GABAPENTIN 600 MG PO SCH ×3 (09:30→22:18)
[2021-08-08] MEDS: FAMOTIDINE 20 MG/2 ML VIAL IV SCH ×2 (09:31→20:56)
[2021-08-08] MEDS: busPIRone HCl 10 MG TAB PO SCH ×2 (09:32→20:56)
[2021-08-08] MEDS: ASCORBIC ACID 500 MG TAB PO SCH ×2 (09:32→20:56)
[2021-08-08] MEDS: IPRATROPIUM BROMIDE 0.06% NASAL SPRAY (15 ML) EA NOSTRIL SCH ×3 (09:33→20:58)
[2021-08-08] MEDS: MAG HYDROX/AL HYDROX/SIMETH 30 ML, LIDOCAINE VISCOUS 30 ML, diphenhydrAMINE ELIXIR 75 M... PO SCH ×12 (09:33→20:58)
[2021-08-08 11:15] LABS: Glucose,Whole Blood 94 mg/dL (75-99)
[2021-08-08 13:55] VITALS: BMI 29.8
[2021-08-08 16:37] LABS: Glucose,Whole Blood 79 mg/dL (75-99)
[2021-08-08] MEDS: SODIUM CHLORIDE 0.9% 1,000 ML IV SCH (17:36)
[2021-08-08 20:23] LABS: Glucose,Whole Blood 316 mg/dL (75-99)
[2021-08-08] MEDS: ATORVASTATIN 20 MG TAB PO SCH (20:55)
[2021-08-08] MEDS: MELATONIN 3 MG TABLET PO SCH (20:55)
[2021-08-08] MEDS: amLODIPine 2.5 MG TAB PO SCH (20:56)
--- NOTE | 2021-08-08 21:27 | P.PN ---
Subjective This is a pleasant 86-year-old patient, follows with Dr. Chaney. Chronic stable medical conditions include rheumatoid arthritis, Crohn's disease, diet- controlled diabetes, autoimmune disorder, fibromyalgia. She does follow Dr. Reed from rheumatology and does Rituxan injections every 6 months. Sees due for her next one. Patient did take her COVID vaccines back in . She doesn't go out much. For 7 days patient suspect upper cough. Very congested. Clear sputum. Has had fever and chills. Patient also had diarrhea. Some dark stool. No abdominal pain. Patient chronic stable medical conditions also include anxiety, hypothyroid, peripheral neuropathy, hyperlipidemia. Appetite is poor. Initial rapid COVID testing in the ER was negative. A more definitive PCR was sent out. Patient is accompanied by her [id number]. Patient is rather tired and rundown. She is also had chronic immune lung condition in the past. July 29: Short of breath. Tired. 5 L nasal cannula. Eating about 50%. In bed. July 30: Some shortness of breath. Some cough. 5 L nasal cannula. Eating some. Tired. July 31: Worsening short of breath. On 15 L nasal cannula. Congested cough. Eating about 50%. Laying in bed August 01: Shortness of breath not improving. Patient placed on BiPAP. Being moved to the ICU. Decreased oral intake. Tired. Now having brown stools. Seen by GI. No further intervention. August 02: ICU. Moved yesterday. Airvo:. 60 L/90%. With a nonrebreather mask. Barely eating. Short of breath. Tired. Sitting up in bed. August 03: ICU. On BiPAP. Decreased by mouth intake. Tired. Short of breath. August 04: ICU: Patient between Airvo and BiPAP. Tired. Short of breath. Sinus rhythm. Patient's daughter is visiting. Eating some. Encouraged to use ensure. On IV cefepime. IV Solu-Medrol. August 05: ICU. On Airvo. Short of breath. IV cefepime. IV Solu-Medrol. August 06: ICU: Airvo. Remains short of breath. Cefepime discontinued by pulmonary. 08/07/2021 This is a pleasant 86 years old female with multiple medical problems including history of rheumatoid arthritis and traumatic lung disease presents with respiratory depression and hypoxia, pulmonary service on the case. Family suspicious for interstitial lung disease secondary to rheumatoid lung disease, she was originally treated with antibiotic for superimposed bacterial infection which is now resolved. Thus patient now is currently kept on Solu-Medrol 40 mg. Insulin coverage to keep glucose controlled. 4calcitonin is normal at 0.09. She still patient on high flow nasal cannula at 50 L/m and 60% 08/08/2021 Patient is awake and alert, she is breathing somewhat easier with slightly improved oxygen requirements down to 45 L/m with FiO2 of 55% with improvement patient moved to the general medical floor at [facility]. No labs from today were chest x-ray however she is kept on IV salmeterol 40 mg. 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 so we changed Levemir to 10 units daily and lower NovoLog 5 units medial and continued with ISS Patient will need midline Check labs tomorrow morning Objective - Vital Signs Vital signs: Vital Signs Temp 98 F 08/08/21 02:00 Pulse 90 08/08/21 07:40 Resp 16 08/08/21 02:00 BP 157/68 08/08/21 02:00 Pulse Ox 96 08/08/21 07:32 Intake & Output 08/07/21 08/08/21 08/08/21 18:59 06:59 18:59 Intake Total 240 Output Total 1485 1375 Balance -1245 -1375 Weight 74 kg Intake: IV 0 ns 0 Oral 240 Output: Urine 1485 1375 Other: Voiding Method Indwelling Catheter Indwelling Catheter - Exam GENERAL: The patient is alert and oriented x3, not in any acute distress. Well developed, well nourished. HEENT: Pupils are round and equally reacting to light. EOMI. No scleral icterus. No conjunctival pallor. Normocephalic, atraumatic. No pharyngeal erythema. No thyromegaly. CARDIOVASCULAR: S1 and S2 present. No murmurs, rubs, or gallops. -PULMONARY: Chest is clear to auscultation, no wheezing or crackles. Decreased breath sounds Tachypnea, easily fatigued. ABDOMEN: Soft, nontender, nondistended, normoactive bowel sounds. No palpable organomegaly. MUSCULOSKELETAL: No joint swelling or deformity. EXTREMITIES: No cyanosis, clubbing, or pedal edema. NEUROLOGICAL: Gross neurological examination did not reveal any focal deficits. SKIN: No rashes. no petechiae. 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 -Acute severe hypoxic respiratory failure , requiring intubation and mechanical ventilation -Bacterial pneumonia and suspected on admission, efficiently treated for now -Chronic rheumatoid arthritis -Chronic Crohn's disease -Suspect underlying chronic rheumatoid lung -Secondary bronchospam -Anxiety disorder not otherwise specified -Essential hypertension -Hyperlipidemia -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 Continue same treatment. Continue with symptomatic treatment. Resume home medication. Monitor lytes and vitals. DVT and GI prophylaxis. Further recommendationsas per clinical course of the patient DVT prophylaxis: Subcutaneous Lovenox GI Prophylaxis: Pepcid Prognosis is guarded
[2021-08-09 06:28] LABS: Glucose,Whole Blood 212 mg/dL (75-99)
[2021-08-09] MEDS: methylPREDNISolone SOD SUCCI 40 MG/ML 1 ML VIAL IV SCH ×4 (06:42→23:26)
[2021-08-09] MEDS: LEVOTHYROXINE 75 MCG TAB PO SCH (06:42)
[2021-08-09] MEDS: INSULIN ASPART (NovoLOG) 100 UNIT/ML VIAL SQ SCH ×8 (07:03→21:29)
[2021-08-09 08:57] LABS: Basophils % (A) 0 %; Eosinophils % (A) 0 %; HCT 44.7 % (34.0-46.0); HGB 13.8 gm/dL (11.4-16.0); Hypochromasia Slight; Lymphocytes # (A) 0.4 k/uL (1.0-4.8); Lymphocytes % (A) 3 %; MCHC 30.9 g/dL (31.0-37.0); MCV 90.5 fL (80.0-100.0); Mean Platelet Volume 8.2; Monocytes # (A) 0.2 k/uL (0-1.0); Monocytes % (A) 2 %; Neutrophils # (A) 11.3 k/uL (1.3-7.7); Neutrophils % (A) 95 %; Platelet Count 218 k/uL (150-450); RBC 4.94 m/uL (3.80-5.40); RDW 13.1 % (11.5-15.5); WBC 11.9 k/uL (3.8-10.6)
[2021-08-09] MEDS ORDERED: INSULIN DETEMIR (LEVEMIR) 100 UNIT/ML SYR SQ SCH ×2 (09:00)
[2021-08-09] MEDS: SYMBICORT 160-4.5 MCG INHALER INHALATION SCH ×2 (09:01→19:30)
[2021-08-09] MEDS: IPRATROPIUM-ALBUTEROL 3 ML NEB INHALATION SCH ×4 (09:01→19:30)
[2021-08-09 09:43] LABS: African American GFR (CKD) >90 (>60 ml/min/1.73 sqM); Anion Gap 5 mmol/L; Blood Urea Nitrogen 26 mg/dL (7-17); Carbon Dioxide 37 mmol/L (22-30); Chloride 93 mmol/L (98-107); Glucose 206 mg/dL (74-99); LDH 1286 U/L (313-618); Non-African American GFR(CKD) 87 (>60 ml/min/1.73 sqM); Potassium 5.4 mmol/L (3.5-5.1); Sodium 135 mmol/L (137-145)
[2021-08-09] MEDS: ZINC SULFATE 220 MG CAP PO SCH (10:00)
[2021-08-09] MEDS: ASCORBIC ACID 500 MG TAB PO SCH ×2 (10:00→20:27)
[2021-08-09] MEDS: CHOLECALCIFEROL 25 MCG (1000 IU) TABLET PO SCH (10:00)
[2021-08-09] MEDS: LOSARTAN 50 MG TAB PO SCH (10:00)
[2021-08-09] MEDS: busPIRone HCl 10 MG TAB PO SCH ×2 (10:01→20:27)
[2021-08-09] MEDS: FAMOTIDINE 20 MG/2 ML VIAL IV SCH ×2 (10:01→20:27)
[2021-08-09] MEDS: ENOXAPARIN 40 MG/0.4 ML SYRINGE SQ SCH (10:01)
[2021-08-09] MEDS: guaiFENesin 600 MG TABLET.ER PO SCH ×4 (10:01→20:28)
[2021-08-09] MEDS: GABAPENTIN 600 MG PO SCH ×3 (10:02→21:41)
[2021-08-09] MEDS: IPRATROPIUM BROMIDE 0.06% NASAL SPRAY (15 ML) EA NOSTRIL SCH ×3 (10:02→20:37)
[2021-08-09] MEDS: MAG HYDROX/AL HYDROX/SIMETH 30 ML, LIDOCAINE VISCOUS 30 ML, diphenhydrAMINE ELIXIR 75 M... PO SCH ×12 (10:02→20:37)
--- NOTE | 2021-08-09 10:56 | P.PN ---
Subjective Progress Note Date: 08/09/21 This is an 86-year-old female primarily a patient of Dr. Rodriguez, patient is known to have history of rheumatoid arthritis, on multiple medications for her rheumatoid arthritis, she is also on rituxin infusions every 6 months. Patient is being followed by rheumatology, patient is current on her immunization including COVID-19 vaccination, she did receive moderna, 2 injections, and she did not receive her third booster. Patient stated that her last injection was in October. Came in today with 7 days' history of cough, congestion, describes the cough as productive with slightly yellow tinged sputum, patient also has multiple GI symptoms including poor appetite, diarrhea, denies any abdominal marysol n. She also had intermittent fevers and chills. Body aches were also described. However the patient had negative rapid PCR for COVID-19 infection and a follow-up test was also done and it came back also negative. Her chest x- ray and CT of the chest are abnormal. Chest x-ray is suggestive of interstitial lung disease. CT of the chest showed diffuse reticulonodular and ground glass opacities throughout both lungs. Possible underlying fibrosis noted. No pulmonary mass nodule and no real effusion noted. No evidence of lymphadenopathy. And no evidence of thromboembolic disease. CBC showed a bit of leukocytosis with WBC count of 13.9. Lymphopenia was noted. Normal electrolytes, normal renal profile, LDH was 1055 and BNP level was 1100. Pro- calcitonin level is pending. Patient had negative PCR for sanchez virus infection. She had negative screening for influenza A, influenza B, RSV. Patient was hypoxic on room air, O2 saturations was 81%, however she was placed on 5 L and her oxygen saturation was up to 96% considering her pulmonary presentation, this consult was initiated. And I saw the patient in the ER. Patient is already on Rocephin and Zithromax, however the admitting physician changed her antibiotics to cefepime. She is on DVT prophylaxis, she is also on methylprednisolone 40 mg IV push every 8 hours. Reevaluated today on 07/29/2021, patient is feeling better today, breathing easier, less cough and less shortness of breath, less GI symptoms. Patient came in with multiple constitutional symptoms as noted above. Chest x-ray showed bilateral interstitial infiltrates, PCR for COVID-19 pneumonia was negative 2. Patient is now on 5 L nasal cannula, O2 sats is 94%. Her pro calcitonin today is 1.25. Patient tested negative for COVID-19, tested negative for influenza A, influenza B and for RSV. On 07/30/2021 patient seen in follow-up on medical surgical floor, she is resting comfortably in bed, she remains on 5 L of oxygen, pulse ox is 91-92%, breathing comfortably, she states her cough is improving, she is not producing any significant amount of sputum, at times she is able to clear some sanderson colored phlegm, she has been afebrile, hemodynamically she has been stable, she remains on cefepime for possibility of underlying community-acquired pneumonia, she remains on IV steroids, she tested negative for COVID 19, RSV and influenza A and B, her pro calcitonin level is improving on today's labs and is down to 0.95 from previous levels of 3.98 on admission. White count is improving and is down to 11.3, hemoglobin is 13.2, blood cultures have shown no growth, mild wheezes on today's exam. On 07/31/2021 patient seen in follow-up on medical surgical floor, her oxygen demand had increased in last 24 hours, and patient today is on 15 L per high flow nasal cannula and 100% nonrebreather mask, and her pulse ox is in the order of 85-88%, she's been afebrile, hemodynamically she is been stable, she states that she has been coughing up some pink tinged phlegm. Denies any chest discomfort, lung sounds reveal diffuse crackles throughout the lung salvador, she remains on cefepime for empiric antibiotic coverage, her blood cultures have remained negative, remains on IV steroids and nebulized bronchodilators. This x-ray is pending, patient will be given a dose of IV Lasix, her pro-calcitonin level is actually improving on today's labs, to 0.95. CTA chest showed no PE On 08/01/2021 patient is seen in follow-up on medical surgical floor. Yesterday her oxygenation has significantly worsened, patient was placed on Airvo at 60 L and FiO2 of 90%, and a nonrebreather mask, and her pulse ox was 81%, and patient was becoming tachypneic and tired. She was subsequently placed on BiPAP support with pressures of 12 and 6 in the 100%. She is satting better, at 92-93%, breathing more comfortably, she is awake and alert, answering questions a ppropriately, she was given a dose of IV Lasix yesterday, her net fluid balance is difficult to estimate, today's chest x-ray shows diffuse bilateral infiltrates that are stable in appearance, no pleural effusion or pneumothorax. Correlate for diffuse pneumonia versus ARDS. Patient is on antibiotics in the form of cefepime, blood cultures have shown no growth so far. We have not been able to obtain a sputum for culture. Afebrile, hemodynamically she's been stable. She is on IV steroids and nebulized bronchodilators. Her pro calcitonin level was actually improving on yesterday's labs, and today it is further improved and is down to 0.25 from initial level of 3.98 on 07/28/2021. ProBNP level was 1100. White blood cell count is slightly improved compared to yesterday, and is down to 14.49, hemoglobin is 13.5, sodium is 142, potassium is 4.2, BUN is 16, creatinine 0.4. Patient tested negative for COVID-19 per PCR test, and her antibiotic test was also negative, negative for influenza A and B and RSV. On 08/06/2021 patient seen in follow-up in the intensive care unit, she is awake and alert, oriented 3, in no acute distress, she is currently on Airvo at 55 L and FiO2 of 65%, and her pulse ox is 94-95%, she is breathing comfortably, she states her breathing is improved. Overall she seems generally weak but no acute distress. She did wear BiPAP support last night with pressures of 15 and 6 and FiO2 of 90% for about 4 hours. She's been using BiPAP support on and off alt ernating with Airvo. Hemodynamically she stable, she isn't point tenderness an every 20 ML per hour, no other drugs, she is in sinus mechanism with a rate of 71. This had no acute events overnight, lung sounds reveal coarse inspiratory crackles at bilateral bases, no rhonchi or wheezing, no fever or chills, vital signs have been stable. Chest x-ray shows diffuse interstitial and alveolar opacities, no pneumothorax a large pleural effusion. She remains on cefepime for antibiotic coverage. She is on IV steroids at 60 mg every 6 hours, nebulized bronchodilators and Symbicort. She is doing better. Blood cultures have shown no growth. Her white count today is 16.3, hemoglobin is 13.6, sodium is 136, potassium is 4.4, chloride is 93, CO2 is 39, BUN is 34, creatinine 0.53. Her pro calcitonin level is not within normal limits at 0.09. On 08/09/2021 patient seen in follow-up on medical surgical floor, she remains on irritable at 45 L/m, and FiO2 of 54%, and her pulse ox is between 88-90%, she's been afebrile, hemodynamically stable, she is awake and alert, she is generally weak, but yesterday she was able to get up in chair and sit up for a few hours. She states her breathing is improving, limited cough, no phlegm production. Lung sounds reveal coarse inspiratory crackles at bilateral mid to lower lungs, no rhonchi, no wheezing, no complaints of chest pain. She remains on IV Solu-Medrol 40 mg every 6 hours, she has completed a course of antibiotics, has had no fever or chills, her blood cultures have shown no growth, her pro-calcitonin level was within normal limits on 08/05/2021 and her antibiotics have been discontinued. She remains on nebulized bronchodilators, Symbicort, she is on GI and DVT prophylaxis, today's labs have been reviewed showing white blood cell count of 11.9, improving, hemoglobin is 13.8, platelet count is 218, sodium is 135, potassium 5.4, chloride is 93, CO2 37, B1 is 26 creatinine 0.54. She is tolerating oral intake. Overall she states she feels like she is getting better, breathing easier, she only required BiPAP support for 1 hour last night, she wants to try not using it at night as she has difficulty sleeping with the mask on. Objective - Vital Signs Vital signs: Vital Signs Temp 97.6 F 08/09/21 09:44 Pulse 79 08/09/21 09:44 Resp 20 08/09/21 09:44 BP 125/66 08/09/21 09:44 Pulse Ox 88 L 08/09/21 09:44 Intake & Output 08/08/21 08/09/21 08/09/21 18:59 06:59 18:59 Intake Total 240 Output Total 400 500 Balance -400 -500 240 Weight 74 kg Intake: Oral 240 Output: Urine 400 500 Uretheral (Griffin) 500 Other: Voiding Method Indwelling Catheter Indwelling Catheter - Exam GENERAL EXAM: Alert, very pleasant, 86-year-old white female, currently on Airvo at 45 l/min and Fio2 55% HEAD: Normocephalic/atraumatic. EYES: Normal reaction of pupils, equal size. Conjunctiva pink, sclera white. NOSE: Clear with pink turbinates. THROAT: No erythema or exudates. NECK: No masses, no JVD, no thyroid enlargement, no adenopathy. CHEST: No chest wall deformity. Symmetrical expansion. LUNGS: Equal air entry with coarse inspiratory bilateral crackles at the bilateral bases CVS: Regular rate and rhythm, normal S1 and S2, no gallops, no murmurs, no rubs ABDOMEN: Soft, nontender. No hepatosplenomegaly, normal bowel sounds, no guarding or rigidity. EXTREMITIES: No clubbing, no edema, no cyanosis, 2+ pulses and upper and lower extremities. MUSCULOSKELETAL: Muscle strength and tone normal. SPINE: No scoliosis or deformity SKIN: No rashes CENTRAL NERVOUS SYSTEM: Alert and oriented -3. No focal deficits, tone is normal in all 4 extremities. PSYCHIATRIC: Alert and oriented -3. Appropriate affect. Intact judgment and insight. - Labs CBC & Chem 7: 08/09/21 07:51 08/09/21 07:51 Labs: Abnormal Lab Results - Last 24 Hours (Table) 08/08/21 08/09/21 08/09/21 Range/Units 20:21 06:26 07:51 WBC 11.9 H (3.8-10.6) k/uL MCHC 30.9 L (31.0-37.0) g/dL Neutrophils # 11.3 H (1.3-7.7) k/uL Lymphocytes # 0.4 L (1.0-4.8) k/uL Sodium (137-145) mmol/L Potassium (3.5-5.1) mmol/L Chloride (98-107) mmol/L Carbon Dioxide (22-30) mmol/L BUN (7-17) mg/dL Glucose (74-99) mg/dL POC Glucose (mg/dL) 316 H 212 H (75-99) mg/dL Lactate Dehydrogenase (313-618) U/L 08/09/21 Range/Units 07:51 WBC (3.8-10.6) k/uL MCHC (31.0-37.0) g/dL Neutrophils # (1.3-7.7) k/uL Lymphocytes # (1.0-4.8) k/uL Sodium 135 L (137-145) mmol/L Potassium 5.4 H (3.5-5.1) mmol/L Chloride 93 L (98-107) mmol/L Carbon Dioxide 37 H (22-30) mmol/L BUN 26 H (7-17) mg/dL Glucose 206 H (74-99) mg/dL POC Glucose (mg/dL) (75-99) mg/dL Lactate Dehydrogenase 1286 H (313-618) U/L Assessment and Plan Plan: Assessment: #1. Acute hypoxic respiratory failure secondary to interstitial lung disease and suspected superimposed, mucoid pneumonia. Patient tested negative for COVID-19, influenza A and B and RSV. Patient also had 2 previous negative PCR test. Patient is fully immunized against COVID 19. Subsequently patient r equired Airvo and a nonrebreather, and was placed on BiPAP support on 08/01/2021 for respiratory fatigue. Will be transferred to the intensive care unit today on 08/01/2021. Current BiPAP pressures are 15 and 5 and FiO2 100%. On 08/09/2021 patient is tolerating Airvo at 45 mL an FiO2 of 55% and BiPAP support on a as needed basis however she is requiring BiPAP support less and less and only used it for 1 hour last night #2. ARDS related to pneumonia, currently on cefepime, IV steroids. Transferred to intensive care unit today on 08/01/2021. #3. Elevated pro-calcitonin suggesting possibility of bacterial pneumonia, possibly community acquired, patient is currently covered with cefepime, improved, and is down to 0.09 on 08/05/2021. Antibiotics will be discontinued. Blood cultures remain negative #4. 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 Hypertension #7. Dyslipidemia #8. History of hypothyroidism Plan: Continue weaning FiO2 to keep O2 sats at 90-92% Remains on Airvo, but breathing much more comfortably, the flow is currently at 45 L/m and FiO2 is currently at 55% Continue current dose Solu-Medrol 40 mg every 6 hours Continue nebulized bronchodilators She has completed her antibiotics She's had no fever or chills, her blood cultures have shown no growth, her leukocytosis is improving on today's labs She seems to be clinically improving Increase activity as tolerated Encourage the patient to sit up in the chair She is using BiPAP support on a limited basis and we can probably discontinue it at this point We'll continue to follow her clinical course and make recommendations a ccordingly I performed a history & physical examination of the patient and discussed their management with my nurse practitioner, Saundra Schwartz. I reviewed the nurse practitioner's note and agree with the documented findings and plan of care. Lung sounds are positive for diminished breath sounds throughout the lung salvador. The findings and the impression was discussed with the patient. I att est to the documentation by the nurse practitioner. Time with Patient: Less than 30
[2021-08-09 11:19] LABS: C Reactive Protein 2.7 mg/dL (<1.0)
[2021-08-09 11:47] LABS: Glucose,Whole Blood 238 mg/dL (75-99)
--- NOTE | 2021-08-09 11:55 | P.PN ---
Subjective This is a pleasant 86-year-old patient, follows with Dr. Chaney. Chronic stable medical conditions include rheumatoid arthritis, Crohn's disease, diet- controlled diabetes, autoimmune disorder, fibromyalgia. She does follow Dr. Reed from rheumatology and does Rituxan injections every 6 months. Sees due for her next one. Patient did take her COVID vaccines back in . She doesn't go out much. For 7 days patient suspect upper cough. Very congested. Clear sputum. Has had fever and chills. Patient also had diarrhea. Some dark stool. No abdominal pain. Patient chronic stable medical conditions also include anxiety, hypothyroid, peripheral neuropathy, hyperlipidemia. Appetite is poor. Initial rapid COVID testing in the ER was negative. A more definitive PCR was sent out. Patient is accompanied by her [id number]. Patient is rather tired and rundown. She is also had chronic immune lung condition in the past. July 29: Short of breath. Tired. 5 L nasal cannula. Eating about 50%. In bed. July 30: Some shortness of breath. Some cough. 5 L nasal cannula. Eating some. Tired. July 31: Worsening short of breath. On 15 L nasal cannula. Congested cough. Eating about 50%. Laying in bed August 01: Shortness of breath not improving. Patient placed on BiPAP. Being moved to the ICU. Decreased oral intake. Tired. Now having brown stools. Seen by GI. No further intervention. August 02: ICU. Moved yesterday. Airvo:. 60 L/90%. With a nonrebreather mask. Barely eating. Short of breath. Tired. Sitting up in bed. August 03: ICU. On BiPAP. Decreased by mouth intake. Tired. Short of breath. August 04: ICU: Patient between Airvo and BiPAP. Tired. Short of breath. Sinus rhythm. Patient's daughter is visiting. Eating some. Encouraged to use ensure. On IV cefepime. IV Solu-Medrol. August 05: ICU. On Airvo. Short of breath. IV cefepime. IV Solu-Medrol. August 06: ICU: Airvo. Remains short of breath. Cefepime discontinued by pulmonary. 08/07/2021 This is a pleasant 86 years old female with multiple medical problems including history of rheumatoid arthritis and traumatic lung disease presents with respiratory depression and hypoxia, pulmonary service on the case. Family suspicious for interstitial lung disease secondary to rheumatoid lung disease, she was originally treated with antibiotic for superimposed bacterial infection which is now resolved. Thus patient now is currently kept on Solu-Medrol 40 mg. Insulin coverage to keep glucose controlled. 4calcitonin is normal at 0.09. She still patient on high flow nasal cannula at 50 L/m and 60% 08/08/2021 Patient is awake and alert, she is breathing somewhat easier with slightly improved oxygen requirements down to 45 L/m with FiO2 of 55% with improvement patient moved to the general medical floor at [facility] today. No labs from today were chest x-ray however she is kept on IV salmeterol 40 mg. 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 Patient reports feeling better and chest currently on 45 L/m with saturation of 88%, close to her oxygen requirement from yesterday. Her labs showing mild improvement with WBC down to 11 K while she is on steroids. Inflammatory markers trending down to 1286 LDH and 2.7 CRP. D-dimer is 0.79. Glucose is better today, more than 200, increase her Levemir 10 units daily up to 15 units. Continue with 5 units of NovoLog with meals. She remains on Solu-Medrol 40 mg and bronchodilator Objective - Vital Signs Vital signs: Vital Signs Temp 97.6 F 08/09/21 09:44 Pulse 79 08/09/21 09:44 Resp 20 08/09/21 09:44 BP 125/66 08/09/21 09:44 Pulse Ox 88 L 08/09/21 09:44 Intake & Output 08/08/21 08/09/21 08/09/21 18:59 06:59 18:59 Intake Total 240 Output Total 400 500 Balance -400 -500 240 Weight 74 kg Intake: Oral 240 Output: Urine 400 500 Uretheral (Griffin) 500 Other: Voiding Method Indwelling Catheter Indwelling Catheter Indwelling Catheter - Exam GENERAL: The patient is alert and oriented x3, not in any acute distress. Well developed, well nourished. HEENT: Pupils are round and equally reacting to light. EOMI. No scleral icterus. No conjunctival pallor. Normocephalic, atraumatic. No pharyngeal erythema. No thyromegaly. CARDIOVASCULAR: S1 and S2 present. No murmurs, rubs, or gallops. -PULMONARY: Chest is clear to auscultation, no wheezing or crackles. Decreased breath sounds Tachypnea, easily fatigued. ABDOMEN: Soft, nontender, nondistended, normoactive bowel sounds. No palpable organomegaly. MUSCULOSKELETAL: No joint swelling or deformity. EXTREMITIES: No cyanosis, clubbing, or pedal edema. NEUROLOGICAL: Gross neurological examination did not reveal any focal deficits. SKIN: No rashes. no petechiae. - Labs CBC & Chem 7: 08/09/21 07:51 08/09/21 07:51 Labs: Abnormal Lab Results - Last 24 Hours (Table) 08/08/21 08/09/21 08/09/21 Range/Units 20:21 06:26 07:51 WBC 11.9 H (3.8-10.6) k/uL MCHC 30.9 L (31.0-37.0) g/dL Neutrophils # 11.3 H (1.3-7.7) k/uL Lymphocytes # 0.4 L (1.0-4.8) k/uL D-Dimer (<0.60) mg/L FEU Sodium (137-145) mmol/L Potassium (3.5-5.1) mmol/L Chloride (98-107) mmol/L Carbon Dioxide (22-30) mmol/L BUN (7-17) mg/dL Glucose (74-99) mg/dL POC Glucose (mg/dL) 316 H 212 H (75-99) mg/dL Lactate Dehydrogenase (313-618) U/L C-Reactive Protein (<1.0) mg/dL 08/09/21 08/09/21 08/09/21 Range/Units 07:51 11:01 11:43 WBC (3.8-10.6) k/uL MCHC (31.0-37.0) g/dL Neutrophils # (1.3-7.7) k/uL Lymphocytes # (1.0-4.8) k/uL D-Dimer 0.79 H (<0.60) mg/L FEU Sodium 135 L (137-145) mmol/L Potassium 5.4 H (3.5-5.1) mmol/L Chloride 93 L (98-107) mmol/L Carbon Dioxide 37 H (22-30) mmol/L BUN 26 H (7-17) mg/dL Glucose 206 H (74-99) mg/dL POC Glucose (mg/dL) 238 H (75-99) mg/dL Lactate Dehydrogenase 1286 H (313-618) U/L C-Reactive Protein 2.7 H (<1.0) mg/dL Assessment and Plan Assessment: -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 -Acute severe hypoxic respiratory failure , requiring intubation and mechanical ventilation -Bacterial pneumonia and suspected on admission, efficiently treated for now -Chronic rheumatoid arthritis -Chronic Crohn's disease -Suspect underlying chronic rheumatoid lung -Secondary bronchospam -Anxiety disorder not otherwise specified -Essential hypertension -Hyperlipidemia -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 Continue same treatment. Continue with sym ptomatic treatment. Resume home medication. Monitor lytes and vitals. DVT and GI prophylaxis. Further recommendationsas per clinical course of the patient DVT prophylaxis: Subcutaneous Lovenox GI Prophylaxis: Pepcid Prognosis is guarded
[2021-08-09 16:45] LABS: Glucose,Whole Blood 248 mg/dL (75-99)
[2021-08-09] MEDS: SODIUM CHLORIDE 0.9% 1,000 ML IV SCH (17:24)
[2021-08-09] MEDS: amLODIPine 2.5 MG TAB PO SCH (20:27)
[2021-08-09] MEDS: ATORVASTATIN 20 MG TAB PO SCH (20:27)
[2021-08-09] MEDS: MELATONIN 3 MG TABLET PO SCH (20:29)
[2021-08-09 20:30] LABS: Glucose,Whole Blood 105 mg/dL (75-99)
[2021-08-10 06:10] LABS: Glucose,Whole Blood 210 mg/dL (75-99)
[2021-08-10] MEDS: methylPREDNISolone SOD SUCCI 40 MG/ML 1 ML VIAL IV SCH (06:29)
[2021-08-10] MEDS: LEVOTHYROXINE 75 MCG TAB PO SCH (06:29)
[2021-08-10] MEDS: INSULIN ASPART (NovoLOG) 100 UNIT/ML VIAL SQ SCH ×8 (06:29→21:12)
[2021-08-10 07:30] LABS: Basophils % (A) 0 %; Eosinophils % (A) 0 %; HGB 13.2 gm/dL (11.4-16.0); Hypochromasia Slight; Lymphocytes # (A) 0.4 k/uL (1.0-4.8); Lymphocytes % (A) 3 %; MCH 27.6 pg (25.0-35.0); MCHC 30.6 g/dL (31.0-37.0); MCV 89.9 fL (80.0-100.0); Mean Platelet Volume 8.2; Monocytes # (A) 0.3 k/uL (0-1.0); Monocytes % (A) 2 %; Neutrophils # (A) 13.2 k/uL (1.3-7.7); Neutrophils % (A) 95 %; Platelet Count 183 k/uL (150-450); RBC 4.78 m/uL (3.80-5.40); WBC 13.9 k/uL (3.8-10.6)
[2021-08-10 07:43] LABS: ALT 54 U/L (4-34); AST 42 U/L (14-36); African American GFR (CKD) >90 (>60 ml/min/1.73 sqM); Alkaline Phosphatase 88 U/L (38-126); Anion Gap 4 mmol/L; Blood Urea Nitrogen 26 mg/dL (7-17); Calcium 8.7 mg/dL (8.4-10.2); Carbon Dioxide 38 mmol/L (22-30); Chloride 94 mmol/L (98-107); Glucose 193 mg/dL (74-99); Non-African American GFR(CKD) >90 (>60 ml/min/1.73 sqM); Potassium 4.8 mmol/L (3.5-5.1); Sodium 136 mmol/L (137-145); Total Bilirubin 0.6 mg/dL (0.2-1.3); Total Protein 5.4 g/dL (6.3-8.2)
--- NOTE | 2021-08-10 08:32 | XR ---
EXAMINATION TYPE: XR chest 1V portable DATE OF EXAM: 08/10/2021 COMPARISON: Chest x-ray 08/07/2021 HISTORY: Elevated d-dimer, abnormal chest x-ray, chest CT 07/28/2021 TECHNIQUE: Single frontal view of the chest is obtained. FINDINGS: Pleural-parenchymal changes are similar to prior exam. Cardiac mediastinal silhouette is s table, heart is enlarged, pulmonary artery is prominent. Aorta is dense. No evident pneumothorax or p leural effusion. There are overlying leads. Lung volumes are low. IMPRESSION: Findings similar to prior exam, correlate for Covid pneumonia versus edema, there is und erlying interstitial lung disease, possible pulmonary artery hypertension
[2021-08-10] MEDS: ZINC SULFATE 220 MG CAP PO SCH (08:46)
[2021-08-10] MEDS: ASCORBIC ACID 500 MG TAB PO SCH ×2 (08:46→21:11)
[2021-08-10] MEDS: FAMOTIDINE 20 MG/2 ML VIAL IV SCH ×2 (08:46→21:12)
[2021-08-10] MEDS: guaiFENesin 600 MG TABLET.ER PO SCH ×4 (08:46→21:13)
[2021-08-10] MEDS: LOSARTAN 50 MG TAB PO SCH (08:46)
[2021-08-10] MEDS: CHOLECALCIFEROL 25 MCG (1000 IU) TABLET PO SCH (08:46)
[2021-08-10] MEDS: busPIRone HCl 10 MG TAB PO SCH ×2 (08:46→21:11)
[2021-08-10] MEDS: ENOXAPARIN 40 MG/0.4 ML SYRINGE SQ SCH (08:47)
[2021-08-10] MEDS: INSULIN DETEMIR (LEVEMIR) 100 UNIT/ML SYR SQ SCH (08:47)
[2021-08-10] MEDS: IPRATROPIUM BROMIDE 0.06% NASAL SPRAY (15 ML) EA NOSTRIL SCH ×3 (08:48→22:33)
[2021-08-10] MEDS: SYMBICORT 160-4.5 MCG INHALER INHALATION SCH ×2 (08:49→20:50)
[2021-08-10] MEDS: MAG HYDROX/AL HYDROX/SIMETH 30 ML, LIDOCAINE VISCOUS 30 ML, diphenhydrAMINE ELIXIR 75 M... PO SCH ×12 (08:49→21:14)
[2021-08-10] MEDS: IPRATROPIUM-ALBUTEROL 3 ML NEB INHALATION SCH ×4 (08:49→20:50)
[2021-08-10] MEDS: GABAPENTIN 600 MG PO SCH (09:00)
[2021-08-10 11:41] LABS: Glucose,Whole Blood 125 mg/dL (75-99)
--- NOTE | 2021-08-10 12:06 | P.PN ---
Subjective Progress Note Date: 08/10/21 This is an 86-year-old female primarily a patient of Dr. Rodriguez, patient is known to have history of rheumatoid arthritis, on multiple medications for her rheumatoid arthritis, she is also on rituxin infusions every 6 months. Patient is being followed by rheumatology, patient is current on her immunization including COVID-19 vaccination, she did receive moderna, 2 injections, and she did not receive her third booster. Patient stated that her last injection was in October. Came in today with 7 days' history of cough, congestion, describes the cough as productive with slightly yellow tinged sputum, patient also has multiple GI symptoms including poor appetite, diarrhea, denies any abdominal marysol n. She also had intermittent fevers and chills. Body aches were also described. However the patient had negative rapid PCR for COVID-19 infection and a follow-up test was also done and it came back also negative. Her chest x- ray and CT of the chest are abnormal. Chest x-ray is suggestive of interstitial lung disease. CT of the chest showed diffuse reticulonodular and ground glass opacities throughout both lungs. Possible underlying fibrosis noted. No pulmonary mass nodule and no real effusion noted. No evidence of lymphadenopathy. And no evidence of thromboembolic disease. CBC showed a bit of leukocytosis with WBC count of 13.9. Lymphopenia was noted. Normal electrolytes, normal renal profile, LDH was 1055 and BNP level was 1100. Pro- calcitonin level is pending. Patient had negative PCR for sanchez virus infection. She had negative screening for influenza A, influenza B, RSV. Patient was hypoxic on room air, O2 saturations was 81%, however she was placed on 5 L and her oxygen saturation was up to 96% considering her pulmonary presentation, this consult was initiated. And I saw the patient in the ER. Patient is already on Rocephin and Zithromax, however the admitting physician changed her antibiotics to cefepime. She is on DVT prophylaxis, she is also on methylprednisolone 40 mg IV push every 8 hours. Reevaluated today on 07/29/2021, patient is feeling better today, breathing easier, less cough and less shortness of breath, less GI symptoms. Patient came in with multiple constitutional symptoms as noted above. Chest x-ray showed bilateral interstitial infiltrates, PCR for COVID-19 pneumonia was negative 2. Patient is now on 5 L nasal cannula, O2 sats is 94%. Her pro calcitonin today is 1.25. Patient tested negative for COVID-19, tested negative for influenza A, influenza B and for RSV. On 07/30/2021 patient seen in follow-up on medical surgical floor, she is resting comfortably in bed, she remains on 5 L of oxygen, pulse ox is 91-92%, breathing comfortably, she states her cough is improving, she is not producing any significant amount of sputum, at times she is able to clear some sanderson colored phlegm, she has been afebrile, hemodynamically she has been stable, she remains on cefepime for possibility of underlying community-acquired pneumonia, she remains on IV steroids, she tested negative for COVID 19, RSV and influenza A and B, her pro calcitonin level is improving on today's labs and is down to 0.95 from previous levels of 3.98 on admission. White count is improving and is down to 11.3, hemoglobin is 13.2, blood cultures have shown no growth, mild wheezes on today's exam. On 07/31/2021 patient seen in follow-up on medical surgical floor, her oxygen demand had increased in last 24 hours, and patient today is on 15 L per high flow nasal cannula and 100% nonrebreather mask, and her pulse ox is in the order of 85-88%, she's been afebrile, hemodynamically she is been stable, she states that she has been coughing up some pink tinged phlegm. Denies any chest discomfort, lung sounds reveal diffuse crackles throughout the lung salvador, she remains on cefepime for empiric antibiotic coverage, her blood cultures have remained negative, remains on IV steroids and nebulized bronchodilators. This x-ray is pending, patient will be given a dose of IV Lasix, her pro-calcitonin level is actually improving on today's labs, to 0.95. CTA chest showed no PE On 08/01/2021 patient is seen in follow-up on medical surgical floor. Yesterday her oxygenation has significantly worsened, patient was placed on Airvo at 60 L and FiO2 of 90%, and a nonrebreather mask, and her pulse ox was 81%, and patient was becoming tachypneic and tired. She was subsequently placed on BiPAP support with pressures of 12 and 6 in the 100%. She is satting better, at 92-93%, breathing more comfortably, she is awake and alert, answering questions a ppropriately, she was given a dose of IV Lasix yesterday, her net fluid balance is difficult to estimate, today's chest x-ray shows diffuse bilateral infiltrates that are stable in appearance, no pleural effusion or pneumothorax. Correlate for diffuse pneumonia versus ARDS. Patient is on antibiotics in the form of cefepime, blood cultures have shown no growth so far. We have not been able to obtain a sputum for culture. Afebrile, hemodynamically she's been stable. She is on IV steroids and nebulized bronchodilators. Her pro calcitonin level was actually improving on yesterday's labs, and today it is further improved and is down to 0.25 from initial level of 3.98 on 07/28/2021. ProBNP level was 1100. White blood cell count is slightly improved compared to yesterday, and is down to 14.49, hemoglobin is 13.5, sodium is 142, potassium is 4.2, BUN is 16, creatinine 0.4. Patient tested negative for COVID-19 per PCR test, and her antibiotic test was also negative, negative for influenza A and B and RSV. The patient is seen today 08/02/2021 in follow-up in the intensive care unit. She was transferred here yesterday after developing worsening hypoxemic respiratory failure. She is currently resting fairly comfortably in bed. Awake and alert in no acute distress. She is on the AirVo high flow oxygen at 60 L and 90% FiO2 with a nonrebreather mask used on and off. She has normal saline running at 20 ML's per hour. Chest x-ray continues to show possible septic ARDS versus pulmonary fibrosis versus rheumatoid lung. Blood cultures reveal no growth. White count 15.2. Hemoglobin 14.0. Lymphocytes 0.3. Sodium 136. Potassium 4.5. BUN 27. Creatinine 0.44. Glucose 206. Calcium 9.0. She is continued on DuoNeb inhalations, Symbicort, IV Solu-Medrol. Lovenox, vitamin supplements. She is on antibiotics in the form of cefepime. Pro calcitonin is down to 0.25. The patient is seen today 08/03/2021 in follow-up in the intensive care unit. She is currently sitting up in bed. Awake and alert in mild respiratory distress. She did utilize BiPAP for a few hours last night 15/6 in the 100% FiO2. She was subsequently transitioned to AirVo high flow oxygen at 60 L and 90% FiO2 plus a nonrebreather mask to maintain O2 saturations in the low 90s. She is normal saline at 75 ML's per hour. Chest x-ray continues to show bilateral patchy infiltrates. About the same today compared to previous. White count 13.5. Hemoglobin 12.5. Lymphocytes 0.4. Sodium 136. Potassium 4.5. Creatinine 0.44. Glucose 160. AST 28. ALT 22. She is continued on Symbicort, OB overall, IV Solu-Medrol. She remains on Lovenox for DVT prophylaxis. Vitamin supplements. She is on antibiotics in the form of cefepime. The patient is seen today 08/04/2021 in follow-up in the intensive care unit. She is currently resting comfortably in bed. Awake and alert in no acute distress. She did utilize the BiPAP to approximate 2 AM. Settings are 15/6 and 100% FiO2. She wakes up confused and pulse off the device. She is currently calm and cooperative. She is on AirVo high flow oxygen now at 60 L and 82% FiO2. She is making good urine. 0.9 normal saline at 75 ML's per hour. Her appetite has been good. She remains in sinus rhythm. She remains on DuoNeb inhalations, Symbicort and IV Solu-Medrol. Lovenox for DVT prophylaxis. Antibiotics in the form of cefepime. No new labs today. The patient is seen today 08/05/2021 in follow-up in the intensive care unit. She is currently awake and alert in no acute distress. Resting fairly comfortably on the AirVo high flow oxygen device at 60 L and 83% FiO2. She had utilize the BiPAP last night with settings of 15/6 and 90% FiO2. chest x-ray showing diffuse fluffy alveolar infiltrates unchanged compared to previous. No pneumothorax or large pleural effusions. Blood cultures revealed no growth. White count 16.7. Hemoglobin 14.0. Sodium 136. Potassium 4.9. Creatinine 0.4. She is continued on Symbicort, albuterol, IV Solu-Medrol. Lovenox for DVT prophylaxis. Antibiotics in the form of cefepime. The patient is seen today 08/10/2021 in follow-up on the selective care unit. She is currently sitting up in a chair at the bedside. Awake and alert in no acute distress. She is down to 45 L and 55% FiO2 via the AirVo high flow oxygen device. Chest x-ray continues to show pleuroparenchymal changes similar compared to previous with possible underlying interstitial lung disease versus interstitial edema. Her Balsalazide had been discontinued as a possible culprit for the pneumonitis. She is currently on Symbicort, DuoNeb inhalations, IV Solu-Medrol. Lovenox for DVT prophylaxis. White count 13.9. Hemoglobin 13.2. D-dimer 0.75. Sodium 136. Potassium 4.8. Creatinine 0.46. AST 42. ALT 54. Glucose 125. She had completed a course of cefepime. Objective - Vital Signs Vital signs: Vital Signs Temp 97.2 F L 08/10/21 08:41 Pulse 72 08/10/21 09:01 Resp 20 08/10/21 08:41 BP 134/68 08/10/21 08:41 Pulse Ox 94 L 08/10/21 08:41 Intake & Output 08/09/21 08/10/21 08/10/21 18:59 06:59 18:59 Intake Total 360 280 120 Output Total 1200 3000 Balance -840 -2720 120 Weight 73 kg Intake: Intake, IV Titration 180 Amount Sodium Chloride 0.9% 1, 180 000 ml @ 20 mls/hr IV . Q24H [facility] Rx#:[id number] Oral 360 100 120 Output: Urine 1200 3000 Uretheral (Griffin) 1500 Other: Voiding Method Indwelling Catheter Indwelling Catheter - Exam GENERAL EXAM: Alert, very pleasant, 86-year-old female patient, up in a chair at the bedside, currently on AirVo high flow oxygen at 45 L and 55% FiO2 HEAD: Normocephalic/atraumatic. EYES: Normal reaction of pupils, equal size. Conjunctiva pink, sclera white. NOSE: Clear with pink turbinates. THROAT: No erythema or exudates. NECK: No masses, no JVD, no thyroid enlargement, no adenopathy. CHEST: No chest wall deformity. Symmetrical expansion. LUNGS: Equal air entry with bilateral crackles CVS: Regular rate and rhythm, normal S1 and S2, no gallops, no murmurs, no rubs ABDOMEN: Soft, nontender. No hepatosplenomegaly, normal bowel sounds, no guarding or rigidity. EXTREMITIES: No clubbing, no edema, no cyanosis, 2+ pulses and upper and lower extremities. MUSCULOSKELETAL: Muscle strength and tone normal. SPINE: No scoliosis or deformity SKIN: No rashes CENTRAL NERVOUS SYSTEM:No focal deficits, tone is normal in all 4 extremities. PSYCHIATRIC: Alert and oriented -3. Appropriate affect. Intact judgment and insight. - Labs CBC & Chem 7: 08/10/21 06:56 08/10/21 06:56 Labs: Abnormal Lab Results - Last 24 Hours (Table) 08/09/21 08/09/21 08/10/21 Range/Units 16:44 20:28 05:48 WBC (3.8-10.6) k/uL MCHC (31.0-37.0) g/dL Neutrophils # (1.3-7.7) k/uL Lymphocytes # (1.0-4.8) k/uL D-Dimer (<0.60) mg/L FEU Sodium (137-145) mmol/L Chloride (98-107) mmol/L Carbon Dioxide (22-30) mmol/L BUN (7-17) mg/dL Creatinine (0.52-1.04) mg/dL Glucose (74-99) mg/dL POC Glucose (mg/dL) 248 H 105 H 210 H (75-99) mg/dL AST (14-36) U/L ALT (4-34) U/L Total Protein (6.3-8.2) g/dL Albumin (3.5-5.0) g/dL 08/10/21 08/10/21 08/10/21 Range/Units 06:56 06:56 06:56 WBC 13.9 H (3.8-10.6) k/uL MCHC 30.6 L (31.0-37.0) g/dL Neutrophils # 13.2 H (1.3-7.7) k/uL Lymphocytes # 0.4 L (1.0-4.8) k/uL D-Dimer 0.75 H (<0.60) mg/L FEU Sodium 136 L (137-145) mmol/L Chloride 94 L (98-107) mmol/L Carbon Dioxide 38 H (22-30) mmol/L BUN 26 H (7-17) mg/dL Creatinine 0.46 L (0.52-1.04) mg/dL Glucose 193 H (74-99) mg/dL POC Glucose (mg/dL) (75-99) mg/dL AST 42 H (14-36) U/L ALT 54 H (4-34) U/L Total Protein 5.4 L (6.3-8.2) g/dL Albumin 3.0 L (3.5-5.0) g/dL 08/10/21 Range/Units 11:40 WBC (3.8-10.6) k/uL MCHC (31.0-37.0) g/dL Neutrophils # (1.3-7.7) k/uL Lymphocytes # (1.0-4.8) k/uL D-Dimer (<0.60) mg/L FEU Sodium (137-145) mmol/L Chloride (98-107) mmol/L Carbon Dioxide (22-30) mmol/L BUN (7-17) mg/dL Creatinine (0.52-1.04) mg/dL Glucose (74-99) mg/dL POC Glucose (mg/dL) 125 H (75-99) mg/dL AST (14-36) U/L ALT (4-34) U/L Total Protein (6.3-8.2) g/dL Albumin (3.5-5.0) g/dL Assessment and Plan Assessment: 1 Acute hypoxic respiratory failure secondary to interstitial lung disease and suspected superimposed, mucoid pneumonia. Patient tested negative for COVID-19, influenza A and B and RSV. Patient also had 2 previous negative PCR test. Patient is fully immunized against COVID 19. Subsequently patient required Airvo and a nonrebreather, and was placed on BiPAP support on 08/01/2021 for respiratory fatigue. Transferred to the intensive care unit on 08/01/2021. Seen today August 10 on the selective care unit. She is up in a chair at the bedside. She is on AirVo high flow oxygen at 45 L and 55% FiO2. 2 ARDS related to pneumonia, completed cefepime, currently on IV steroids. 3 Elevated pro-calcitonin suggesting possibility of bacterial pneumonia, possibly community acquired, patient is currently covered with cefepime, improving pro-calcitonin down to 0.25 on today's labs 4 History of rheumatoid arthritis and rheumatoid lung disease. 5 Bronchiolitis obliterans with organizing pneumonia 6 Hypertension 7 Dyslipidemia 8 History of hypothyroidism Plan: The patient was seen and evaluated Chest x-ray remains about the same Will discontinue IV Solu-Medrol, start oral prednisone Currently on AirVo high flow oxygen Titrate the FiO2 as tolerated Condition remains guarded We will continue to follow I, the cosigning physician, performed a history & physical examination of the patient. Lungs sounds bilateral coarse crackles. Maintaining good O2 saturations in the 90s on AirVo high flow oxygen at 45 L and 55% FiO2. I discussed the assessment and plan of care with my nurse practitioner, Micaela Parsons. I attest to the above note as dictated by her.
[2021-08-10 16:30] LABS: Glucose,Whole Blood 87 mg/dL (75-99)
[2021-08-10] MEDS: GABAPENTIN 300 MG CAP PO SCH ×2 (16:50→21:13)
[2021-08-10] MEDS: SODIUM CHLORIDE 0.9% 1,000 ML IV SCH (16:51)
--- NOTE | 2021-08-10 18:34 | P.PN ---
Subjective This is a pleasant 86-year-old patient, follows with Dr. Chaney. Chronic stable medical conditions include rheumatoid arthritis, Crohn's disease, diet- controlled diabetes, autoimmune disorder, fibromyalgia. She does follow Dr. Reed from rheumatology and does Rituxan injections every 6 months. Sees due for her next one. Patient did take her COVID vaccines back in . She doesn't go out much. For 7 days patient suspect upper cough. Very congested. Clear sputum. Has had fever and chills. Patient also had diarrhea. Some dark stool. No abdominal pain. Patient chronic stable medical conditions also include anxiety, hypothyroid, peripheral neuropathy, hyperlipidemia. Appetite is poor. Initial rapid COVID testing in the ER was negative. A more definitive PCR was sent out. Patient is accompanied by her [id number]. Patient is rather tired and rundown. She is also had chronic immune lung condition in the past. July 29: Short of breath. Tired. 5 L nasal cannula. Eating about 50%. In bed. July 30: Some shortness of breath. Some cough. 5 L nasal cannula. Eating some. Tired. July 31: Worsening short of breath. On 15 L nasal cannula. Congested cough. Eating about 50%. Laying in bed August 01: Shortness of breath not improving. Patient placed on BiPAP. Being moved to the ICU. Decreased oral intake. Tired. Now having brown stools. Seen by GI. No further intervention. August 02: ICU. Moved yesterday. Airvo:. 60 L/90%. With a nonrebreather mask. Barely eating. Short of breath. Tired. Sitting up in bed. August 03: ICU. On BiPAP. Decreased by mouth intake. Tired. Short of breath. August 04: ICU: Patient between Airvo and BiPAP. Tired. Short of breath. Sinus rhythm. Patient's daughter is visiting. Eating some. Encouraged to use ensure. On IV cefepime. IV Solu-Medrol. August 05: ICU. On Airvo. Short of breath. IV cefepime. IV Solu-Medrol. August 06: ICU: Airvo. Remains short of breath. Cefepime discontinued by pulmonary. 08/07/2021 This is a pleasant 86 years old female with multiple medical problems including history of rheumatoid arthritis and traumatic lung disease presents with respiratory depression and hypoxia, pulmonary service on the case. Family suspicious for interstitial lung disease secondary to rheumatoid lung disease, she was originally treated with antibiotic for superimposed bacterial infection which is now resolved. Thus patient now is currently kept on Solu-Medrol 40 mg. Insulin coverage to keep glucose controlled. 4calcitonin is normal at 0.09. She still patient on high flow nasal cannula at 50 L/m and 60% 08/08/2021 Patient is awake and alert, she is breathing somewhat easier with slightly improved oxygen requirements down to 45 L/m with FiO2 of 55% with improvement patient moved to the general medical floor at [facility] today. No labs from today were chest x-ray however she is kept on IV salmeterol 40 mg. 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 Patient reports feeling better and chest currently on 45 L/m with saturation of 88%, close to her oxygen requirement from yesterday. Her labs showing mild improvement with WBC down to 11 K while she is on steroids. Inflammatory markers trending down to 1286 LDH and 2.7 CRP. D-dimer is 0.79. Glucose is better today, more than 200, increase her Levemir 10 units daily up to 15 units. Continue with 5 units of NovoLog with meals. She remains on Solu-Medrol 40 mg and bronchodilator 08/10/2021 Patient clinically still awake and alert but tired and mildly lethargic no change from yesterday, no much dyspnea at rest. She is hemodynamically stable Patient WBC is 13.9, her glucose also is improving too much because she is getting too much of a sliding scale. Therefore we will discontinue the sliding scale and adjust her Levemir and NovoLog with meals accordingly. Currently we will keep on Levemir 15 units and 5 units with meals. She is also on salmeterol 40 mg, also she is receiving multiple vitamins. She remains on high flow nasal cannula with the same coverage with 45 L/m and 55% with normal change. Objective - Vital Signs Vital signs: Vital Signs Temp 97.2 F L 08/10/21 08:41 Pulse 72 08/10/21 09:01 Resp 20 08/10/21 08:41 BP 134/68 08/10/21 08:41 Pulse Ox 94 L 08/10/21 08:41 Intake & Output 08/09/21 08/10/21 08/10/21 18:59 06:59 18:59 Intake Total 360 280 120 Output Total 1200 3000 Balance -090 -3905 120 Weight 73 kg Intake: Intake, IV Titration 180 Amount Sodium Chloride 0.9% 1, 180 000 ml @ 20 mls/hr IV . Q24H [facility] Rx#:[id number] Oral 360 100 120 Output: Urine 1200 3000 Uretheral (Griffin) 1500 Other: Voiding Method Indwelling Catheter Indwelling Catheter - Exam GENERAL: The patient is alert and oriented x3, not in any acute distress. Well developed, well nourished. HEENT: Pupils are round and equally reacting to light. EOMI. No scleral icterus. No conjunctival pallor. Normocephalic, atraumatic. No pharyngeal erythema. No thyromegaly. CARDIOVASCULAR: S1 and S2 present. No murmurs, rubs, or gallops. -PULMONARY: Chest is clear to auscultation, no wheezing or crackles. Decreased breath sounds Tachypnea, easily fatigued. ABDOMEN: Soft, nontender, nondistended, normoactive bowel sounds. No palpable organomegaly. MUSCULOSKELETAL: No joint swelling or deformity. EXTREMITIES: No cyanosis, clubbing, or pedal edema. NEUROLOGICAL: Gross neurological examination did not reveal any focal deficits. SKIN: No rashes. no petechiae. - Labs CBC & Chem 7: 08/10/21 06:56 08/10/21 06:56 Labs: Abnormal Lab Results - Last 24 Hours (Table) 08/09/21 08/09/21 08/10/21 Range/Units 16:44 20:28 05:48 WBC (3.8-10.6) k/uL MCHC (31.0-37.0) g/dL Neutrophils # (1.3-7.7) k/uL Lymphocytes # (1.0-4.8) k/uL D-Dimer (<0.60) mg/L FEU Sodium (137-145) mmol/L Chloride (98-107) mmol/L Carbon Dioxide (22-30) mmol/L BUN (7-17) mg/dL Creatinine (0.52-1.04) mg/dL Glucose (74-99) mg/dL POC Glucose (mg/dL) 248 H 105 H 210 H (75-99) mg/dL AST (14-36) U/L ALT (4-34) U/L Total Protein (6.3-8.2) g/dL Albumin (3.5-5.0) g/dL 08/10/21 08/10/21 08/10/21 Range/Units 06:56 06:56 06:56 WBC 13.9 H (3.8-10.6) k/uL MCHC 30.6 L (31.0-37.0) g/dL Neutrophils # 13.2 H (1.3-7.7) k/uL Lymphocytes # 0.4 L (1.0-4.8) k/uL D-Dimer 0.75 H (<0.60) mg/L FEU Sodium 136 L (137-145) mmol/L Chloride 94 L (98-107) mmol/L Carbon Dioxide 38 H (22-30) mmol/L BUN 26 H (7-17) mg/dL Creatinine 0.46 L (0.52-1.04) mg/dL Glucose 193 H (74-99) mg/dL POC Glucose (mg/dL) (75-99) mg/dL AST 42 H (14-36) U/L ALT 54 H (4-34) U/L Total Protein 5.4 L (6.3-8.2) g/dL Albumin 3.0 L (3.5-5.0) g/dL 08/10/21 Range/Units 11:40 WBC (3.8-10.6) k/uL MCHC (31.0-37.0) g/dL Neutrophils # (1.3-7.7) k/uL Lymphocytes # (1.0-4.8) k/uL D-Dimer (<0.60) mg/L FEU Sodium (137-145) mmol/L Chloride (98-107) mmol/L Carbon Dioxide (22-30) mmol/L BUN (7-17) mg/dL Creatinine (0.52-1.04) mg/dL Glucose (74-99) mg/dL POC Glucose (mg/dL) 125 H (75-99) mg/dL AST (14-36) U/L ALT (4-34) U/L Total Protein (6.3-8.2) g/dL Albumin (3.5-5.0) g/dL Assessment and Plan Assessment: -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 Therefore we'll keep insulin Levemir 15 units and NovoLog 5 units with meals Labs and medication were reviewed.. Continue same treatment. Continue with symptomatic treatment. Resume home medication. Monitor lytes and vitals. DVT and GI prophylaxis. Further recommendationsas per clinical course of the patient DVT prophylaxis: Subcutaneous Lovenox GI Prophylaxis: Pepcid Prognosis is guarded
[2021-08-10 21:05] LABS: Glucose,Whole Blood 199 mg/dL (75-99)
[2021-08-10] MEDS: amLODIPine 2.5 MG TAB PO SCH (21:11)
[2021-08-10] MEDS: ATORVASTATIN 20 MG TAB PO SCH (21:11)
[2021-08-10] MEDS: MELATONIN 3 MG TABLET PO SCH (21:13)
[2021-08-11 04:01] LABS: Glucose,Whole Blood 56 mg/dL (75-99)
[2021-08-11] MEDS: INSULIN ASPART (NovoLOG) 100 UNIT/ML VIAL SQ SCH ×7 (04:11→21:53)
[2021-08-11 04:19] LABS: Glucose,Whole Blood 62 mg/dL (75-99)
[2021-08-11 04:37] LABS: Glucose,Whole Blood 66 mg/dL (75-99)
[2021-08-11 04:40] LABS: Glucose,Whole Blood 55 mg/dL (75-99)
[2021-08-11 05:02] LABS: Glucose,Whole Blood 79 mg/dL (75-99)
[2021-08-11] MEDS: LEVOTHYROXINE 75 MCG TAB PO SCH (05:02)
[2021-08-11 06:16] LABS: Glucose,Whole Blood 133 mg/dL (75-99)
[2021-08-11] MEDS: IPRATROPIUM-ALBUTEROL 3 ML NEB INHALATION SCH ×4 (07:56→21:19)
[2021-08-11] MEDS: SYMBICORT 160-4.5 MCG INHALER INHALATION SCH (07:56)
[2021-08-11] MEDS ORDERED: predniSONE 20 MG TAB PO SCH (09:00)
[2021-08-11] MEDS: LOSARTAN 50 MG TAB PO SCH (09:38)
[2021-08-11] MEDS: GABAPENTIN 300 MG CAP PO SCH ×3 (09:38→20:12)
[2021-08-11] MEDS: busPIRone HCl 10 MG TAB PO SCH ×2 (09:38→20:13)
[2021-08-11] MEDS: guaiFENesin 600 MG TABLET.ER PO SCH ×4 (09:38→20:13)
[2021-08-11] MEDS: CHOLECALCIFEROL 25 MCG (1000 IU) TABLET PO SCH (09:38)
[2021-08-11] MEDS: ZINC SULFATE 220 MG CAP PO SCH (09:38)
[2021-08-11] MEDS: ENOXAPARIN 40 MG/0.4 ML SYRINGE SQ SCH (09:38)
[2021-08-11] MEDS: FAMOTIDINE 20 MG/2 ML VIAL IV SCH ×2 (09:39→20:13)
[2021-08-11] MEDS: MAG HYDROX/AL HYDROX/SIMETH 30 ML, LIDOCAINE VISCOUS 30 ML, diphenhydrAMINE ELIXIR 75 M... PO SCH ×12 (09:41→20:15)
[2021-08-11] MEDS: IPRATROPIUM BROMIDE 0.06% NASAL SPRAY (15 ML) EA NOSTRIL SCH ×3 (09:42→20:15)
[2021-08-11] MEDS: ASCORBIC ACID 500 MG TAB PO SCH ×2 (09:43→20:13)
[2021-08-11 11:50] LABS: Glucose,Whole Blood 110 mg/dL (75-99)
--- NOTE | 2021-08-11 12:46 | P.PN ---
Subjective Progress Note Date: 08/11/21 This is an 86-year-old female primarily a patient of Dr. Rodriguez, patient is known to have history of rheumatoid arthritis, on multiple medications for her rheumatoid arthritis, she is also on rituxin infusions every 6 months. Patient is being followed by rheumatology, patient is current on her immunization including COVID-19 vaccination, she did receive moderna, 2 injections, and she did not receive her third booster. Patient stated that her last injection was in October. Came in today with 7 days' history of cough, congestion, describes the cough as productive with slightly yellow tinged sputum, patient also has multiple GI symptoms including poor appetite, diarrhea, denies any abdominal marysol n. She also had intermittent fevers and chills. Body aches were also described. However the patient had negative rapid PCR for COVID-19 infection and a follow-up test was also done and it came back also negative. Her chest x- ray and CT of the chest are abnormal. Chest x-ray is suggestive of interstitial lung disease. CT of the chest showed diffuse reticulonodular and ground glass opacities throughout both lungs. Possible underlying fibrosis noted. No pulmonary mass nodule and no real effusion noted. No evidence of lymphadenopathy. And no evidence of thromboembolic disease. CBC showed a bit of leukocytosis with WBC count of 13.9. Lymphopenia was noted. Normal electrolytes, normal renal profile, LDH was 1055 and BNP level was 1100. Pro- calcitonin level is pending. Patient had negative PCR for sanchez virus infection. She had negative screening for influenza A, influenza B, RSV. Patient was hypoxic on room air, O2 saturations was 81%, however she was placed on 5 L and her oxygen saturation was up to 96% considering her pulmonary presentation, this consult was initiated. And I saw the patient in the ER. Patient is already on Rocephin and Zithromax, however the admitting physician changed her antibiotics to cefepime. She is on DVT prophylaxis, she is also on methylprednisolone 40 mg IV push every 8 hours. Reevaluated today on 07/29/2021, patient is feeling better today, breathing easier, less cough and less shortness of breath, less GI symptoms. Patient came in with multiple constitutional symptoms as noted above. Chest x-ray showed bilateral interstitial infiltrates, PCR for COVID-19 pneumonia was negative 2. Patient is now on 5 L nasal cannula, O2 sats is 94%. Her pro calcitonin today is 1.25. Patient tested negative for COVID-19, tested negative for influenza A, influenza B and for RSV. On 07/30/2021 patient seen in follow-up on medical surgical floor, she is resting comfortably in bed, she remains on 5 L of oxygen, pulse ox is 91-92%, breathing comfortably, she states her cough is improving, she is not producing any significant amount of sputum, at times she is able to clear some sanderson colored phlegm, she has been afebrile, hemodynamically she has been stable, she remains on cefepime for possibility of underlying community-acquired pneumonia, she remains on IV steroids, she tested negative for COVID 19, RSV and influenza A and B, her pro calcitonin level is improving on today's labs and is down to 0.95 from previous levels of 3.98 on admission. White count is improving and is down to 11.3, hemoglobin is 13.2, blood cultures have shown no growth, mild wheezes on today's exam. On 07/31/2021 patient seen in follow-up on medical surgical floor, her oxygen demand had increased in last 24 hours, and patient today is on 15 L per high flow nasal cannula and 100% nonrebreather mask, and her pulse ox is in the order of 85-88%, she's been afebrile, hemodynamically she is been stable, she states that she has been coughing up some pink tinged phlegm. Denies any chest discomfort, lung sounds reveal diffuse crackles throughout the lung salvador, she remains on cefepime for empiric antibiotic coverage, her blood cultures have remained negative, remains on IV steroids and nebulized bronchodilators. This x-ray is pending, patient will be given a dose of IV Lasix, her pro-calcitonin level is actually improving on today's labs, to 0.95. CTA chest showed no PE On 08/01/2021 patient is seen in follow-up on medical surgical floor. Yesterday her oxygenation has significantly worsened, patient was placed on Airvo at 60 L and FiO2 of 90%, and a nonrebreather mask, and her pulse ox was 81%, and patient was becoming tachypneic and tired. She was subsequently placed on BiPAP support with pressures of 12 and 6 in the 100%. She is satting better, at 92-93%, breathing more comfortably, she is awake and alert, answering questions a ppropriately, she was given a dose of IV Lasix yesterday, her net fluid balance is difficult to estimate, today's chest x-ray shows diffuse bilateral infiltrates that are stable in appearance, no pleural effusion or pneumothorax. Correlate for diffuse pneumonia versus ARDS. Patient is on antibiotics in the form of cefepime, blood cultures have shown no growth so far. We have not been able to obtain a sputum for culture. Afebrile, hemodynamically she's been stable. She is on IV steroids and nebulized bronchodilators. Her pro calcitonin level was actually improving on yesterday's labs, and today it is further improved and is down to 0.25 from initial level of 3.98 on 07/28/2021. ProBNP level was 1100. White blood cell count is slightly improved compared to yesterday, and is down to 14.49, hemoglobin is 13.5, sodium is 142, potassium is 4.2, BUN is 16, creatinine 0.4. Patient tested negative for COVID-19 per PCR test, and her antibiotic test was also negative, negative for influenza A and B and RSV. The patient is seen today 08/02/2021 in follow-up in the intensive care unit. She was transferred here yesterday after developing worsening hypoxemic respiratory failure. She is currently resting fairly comfortably in bed. Awake and alert in no acute distress. She is on the AirVo high flow oxygen at 60 L and 90% FiO2 with a nonrebreather mask used on and off. She has normal saline running at 20 ML's per hour. Chest x-ray continues to show possible septic ARDS versus pulmonary fibrosis versus rheumatoid lung. Blood cultures reveal no growth. White count 15.2. Hemoglobin 14.0. Lymphocytes 0.3. Sodium 136. Potassium 4.5. BUN 27. Creatinine 0.44. Glucose 206. Calcium 9.0. She is continued on DuoNeb inhalations, Symbicort, IV Solu-Medrol. Lovenox, vitamin supplements. She is on antibiotics in the form of cefepime. Pro calcitonin is down to 0.25. The patient is seen today 08/03/2021 in follow-up in the intensive care unit. She is currently sitting up in bed. Awake and alert in mild respiratory distress. She did utilize BiPAP for a few hours last night 15/6 in the 100% FiO2. She was subsequently transitioned to AirVo high flow oxygen at 60 L and 90% FiO2 plus a nonrebreather mask to maintain O2 saturations in the low 90s. She is normal saline at 75 ML's per hour. Chest x-ray continues to show bilateral patchy infiltrates. About the same today compared to previous. White count 13.5. Hemoglobin 12.5. Lymphocytes 0.4. Sodium 136. Potassium 4.5. Creatinine 0.44. Glucose 160. AST 28. ALT 22. She is continued on Symbicort, OB overall, IV Solu-Medrol. She remains on Lovenox for DVT prophylaxis. Vitamin supplements. She is on antibiotics in the form of cefepime. The patient is seen today 08/04/2021 in follow-up in the intensive care unit. She is currently resting comfortably in bed. Awake and alert in no acute distress. She did utilize the BiPAP to approximate 2 AM. Settings are 15/6 and 100% FiO2. She wakes up confused and pulse off the device. She is currently calm and cooperative. She is on AirVo high flow oxygen now at 60 L and 82% FiO2. She is making good urine. 0.9 normal saline at 75 ML's per hour. Her appetite has been good. She remains in sinus rhythm. She remains on DuoNeb inhalations, Symbicort and IV Solu-Medrol. Lovenox for DVT prophylaxis. Antibiotics in the form of cefepime. No new labs today. The patient is seen today 08/05/2021 in follow-up in the intensive care unit. She is currently awake and alert in no acute distress. Resting fairly comfortably on the AirVo high flow oxygen device at 60 L and 83% FiO2. She had utilize the BiPAP last night with settings of 15/6 and 90% FiO2. chest x-ray showing diffuse fluffy alveolar infiltrates unchanged compared to previous. No pneumothorax or large pleural effusions. Blood cultures revealed no growth. White count 16.7. Hemoglobin 14.0. Sodium 136. Potassium 4.9. Creatinine 0.4. She is continued on Symbicort, albuterol, IV Solu-Medrol. Lovenox for DVT prophylaxis. Antibiotics in the form of cefepime. The patient is seen today 08/10/2021 in follow-up on the selective care unit. She is currently sitting up in a chair at the bedside. Awake and alert in no acute distress. She is down to 45 L and 55% FiO2 via the AirVo high flow oxygen device. Chest x-ray continues to show pleuroparenchymal changes similar compared to previous with possible underlying interstitial lung disease versus interstitial edema. Her Balsalazide had been discontinued as a possible culprit for the pneumonitis. She is currently on Symbicort, DuoNeb inhalations, IV Solu-Medrol. Lovenox for DVT prophylaxis. White count 13.9. Hemoglobin 13.2. D-dimer 0.75. Sodium 136. Potassium 4.8. Creatinine 0.46. AST 42. ALT 54. Glucose 125. She had completed a course of cefepime. The patient is seen today 08/11/2021 in follow-up on the selective care unit. She is currently resting quite comfortably in bed. Awake and alert in no acute distress. She remains on AirVo high flow oxygen at 45 L and 55% FiO2 with O2 saturation at 90%. Blood glucose 110. She has been slow to progress. She does remain on DuoNeb inhalations, Symbicort, prednisone. Lovenox for DVT prophylaxis. She remains in a -2.3 L balance. Objective - Vital Signs Vital signs: Vital Signs Temp 98.3 F 08/11/21 08:30 Pulse 90 08/11/21 11:45 Resp 18 08/11/21 08:30 BP 142/77 08/11/21 08:30 Pulse Ox 91 L 08/11/21 09:54 Intake & Output 08/10/21 08/11/21 08/11/21 18:59 06:59 18:59 Intake Total 1108 360 270 Output Total 1200 2600 1325 Balance -92 -2510 -1058 Weight 73.5 kg Intake: IV 10 10 Invasive Line 4 10 10 Oral 1098 360 260 Output: Urine 1200 2600 1325 Uretheral (Griffin) 1200 1300 600 Other: Voiding Method Indwelling Catheter Indwelling Catheter Indwelling Catheter # Voids 1 - Exam GENERAL EXAM: Alert, very pleasant, 86-year-old female patient, resting com fortably in bed, currently on AirVo high flow oxygen at 45 L and 55% FiO2 HEAD: Normocephalic/atraumatic. EYES: Normal reaction of pupils, equal size. Conjunctiva pink, sclera white. NOSE: Clear with pink turbinates. THROAT: No erythema or exudates. NECK: No masses, no JVD, no thyroid enlargement, no adenopathy. CHEST: No chest wall deformity. Symmetrical expansion. LUNGS: Equal air entry with bilateral crackles CVS: Regular rate and rhythm, normal S1 and S2, no gallops, no murmurs, no rubs ABDOMEN: Soft, nontender. No hepatosplenomegaly, normal bowel sounds, no guarding or rigidity. EXTREMITIES: No clubbing, no edema, no cyanosis, 2+ pulses and upper and lower extremities. MUSCULOSKELETAL: Muscle strength and tone normal. SPINE: No scoliosis or deformity SKIN: No rashes CENTRAL NERVOUS SYSTEM:No focal deficits, tone is normal in all 4 extremities. PSYCHIATRIC: Alert and oriented -3. Appropriate affect. Intact judgment and insight. - Labs CBC & Chem 7: 08/10/21 06:56 08/10/21 06:56 Labs: Abnormal Lab Results - Last 24 Hours (Table) 08/10/21 08/11/21 08/11/21 Range/Units 20:04 03:59 04:18 POC Glucose (mg/dL) 199 H 56 L 62 L (75-99) mg/dL 08/11/21 08/11/21 08/11/21 Range/Units 04:36 04:39 06:02 POC Glucose (mg/dL) 66 L 55 L 133 H (75-99) mg/dL 08/11/21 Range/Units 11:43 POC Glucose (mg/dL) 110 H (75-99) mg/dL Assessment and Plan Assessment: 1 Acute hypoxic respiratory failure secondary to interstitial lung disease and suspected superimposed, mucoid pneumonia. Patient tested negative for COVID-19, influenza A and B and RSV. Patient also had 2 previous negative PCR test. Patient is fully immunized against COVID 19. Subsequently patient required Airvo and a nonrebreather, and was placed on BiPAP support on 08/01/2021 for respiratory fatigue. Transferred to the intensive care unit on 08/01/2021. Se en today August 10 on the selective care unit. She is on AirVo high flow oxygen at 45 L and 55% FiO2. She has been slow to progress. 2 ARDS related to pneumonia, completed cefepime, currently on prednisone. 3 Elevated pro-calcitonin suggesting possibility of bacterial pneumonia, possibly community acquired, patient completed a course of cefepime, improving pro-calcitonin down to 0.25 4 History of rheumatoid arthritis and rheumatoid lung disease. 5 Bronchiolitis obliterans with organizing pneumonia 6 Hypertension 7 Dyslipidemia 8 History of hypothyroidism Plan: The patient was seen and evaluated Currently on AirVo high flow oxygen Titrate the FiO2 as tolerated Completed antibiotics Remains on bronchodilators, prednisone Condition remains guarded She has been slow to progress Plan is for subacute rehab post discharge We will continue to follow I, the cosigning physician, performed a history & physical examination of the patient. Lungs sounds bilateral coarse crackles. Maintaining good O2 saturations in the 90s on AirVo high flow oxygen at 45 L and 55% FiO2. I discussed the assessment and plan of care with my nurse practitioner, Micaela Parsons. I attest to the above note as dictated by her.
[2021-08-11] MEDS: INSULIN DETEMIR (LEVEMIR) 100 UNIT/ML SYR SQ SCH (13:12)
[2021-08-11] MEDS: SODIUM CHLORIDE 0.9% 1,000 ML IV SCH (16:45)
[2021-08-11 16:59] LABS: Glucose,Whole Blood 216 mg/dL (75-99)
--- NOTE | 2021-08-11 17:54 | P.PN ---
Progress Note - Text Progress Note Date: 08/11/21 Chief Complaint: Short of breath This is a pleasant 86-year-old patient, follows with Dr. Chaney. Chronic stable medical conditions include rheumatoid arthritis, Crohn's disease, diet- controlled diabetes, autoimmune disorder, fibromyalgia. She does follow Dr. Reed from rheumatology and does Rituxan injections every 6 months. Sees due for her next one. Patient did take her COVID vaccines back in . She doesn't go out much. For 7 days patient suspect upper cough. Very congested. Clear sputum. Has had fever and chills. Patient also had diarrhea. Some dark stool. No abdominal pain. Patient chronic stable medical conditions also include anxiety, hypothyroid, peripheral neuropathy, hyperlipidemia. Appetite is poor. Initial rapid COVID testing in the ER was negative. A more definitive PCR was sent out. Patient is accompanied by her [id number]. Patient is rather tired and rundown. She is also had chronic immune lung condition in the past. July 29: Short of breath. Tired. 5 L nasal cannula. Eating about 50%. In bed. July 30: Some shortness of breath. Some cough. 5 L nasal cannula. Eating some. Tired. July 31: Worsening short of breath. On 15 L nasal cannula. Congested cough. Eating about 50%. Laying in bed August 01: Shortness of breath not improving. Patient placed on BiPAP. Being moved to the ICU. Decreased oral intake. Tired. Now having brown stools. Seen by GI. No further intervention. August 02: ICU. Moved yesterday. Airvo:. 60 L/90%. With a nonrebreather mask. Barely eating. Short of breath. Tired. Sitting up in bed. August 03: ICU. On BiPAP. Decreased by mouth intake. Tired. Short of breath. August 04: ICU: Patient between Airvo and BiPAP. Tired. Short of breath. Sinus rhythm. Patient's daughter is visiting. Eating some. Encouraged to use ensure. On IV cefepime. IV Solu-Medrol. August 05: ICU. On Airvo. Short of breath. IV cefepime. IV Solu-Medrol. August 06: ICU: Airvo. Remains short of breath. Cefepime discontinued by pulmonary. August 11: Did not feel like eating breakfast. Diet. Had a bowel movement. On Airvo 50/90. Tired. Had a lengthy discussion with the patient about her CODE STATUS and also met with the family to include her son 2 daughters and [id number]. Then Dr. Mora spoke to her. Made DO NOT RESUSCITATE. We alsotalked. about subject of hospice depending on clinical course Review of systems: Was done for constitutional, cardiovascular, GI, pulmonary. relevant finding as above Active Medications Acetaminophen (Acetaminophen Tab 500 Mg Tab) 1,000 mg PO Q6HR PRN PRN Reason: Fever>101 Last Admin: 07/29/21 05:59 Dose: 1,000 mg Documented by: Albuterol Sulfate (Albuterol Hfa Inhaler) 2 puff INHALATION RT-Q6H PRN PRN Reason: Shortness Of Breath Or Wheezing Albuterol/Ipratropium (Ipratropium-Albuterol 3 Ml Neb) 3 ml INHALATION RT-QID [facility] Last Admin: 08/11/21 16:05 Dose: 3 ml Documented by: Amlodipine Besylate (Amlodipine 2.5 Mg Tab) 2.5 mg PO [facility] Last Admin: 08/10/21 21:11 Dose: 2.5 mg Documented by: Ascorbic Acid (Ascorbic Acid 500 Mg Tab) 500 mg PO BID [facility] Last Admin: 08/11/21 09:43 Dose: 500 mg Documented by: Atorvastatin Calcium (Atorvastatin 20 Mg Tab) 20 mg PO [facility] Last Admin: 08/10/21 21:11 Dose: 20 mg Documented by: Budesonide/Formoterol Fumarate (Symbicort 160-4.5 Mcg Inhaler) 2 puff INHALATION RT-BID [facility] Last Admin: 08/11/21 07:56 Dose: 2 puff Documented by: Buspirone HCl (Buspirone Hcl 10 Mg Tab) 10 mg PO BID [facility] Last Admin: 08/11/21 09:38 Dose: 10 mg Documented by: Cholecalciferol (Cholecalciferol 25 Mcg (1000 Iu) Tablet) 100 mcg PO DAILY [facility] Last Admin: 08/11/21 09:38 Dose: 100 mcg Documented by: Al Hydroxide/Mg Hydroxide 30 ml/ Lidocaine HCl 30 ml/Diphenhydramine HCl 75 mg/Acetaminophen 960 mg 0 ml PO TID [facility] Last Admin: 08/11/21 16:45 Dose: Not Given Documented by: Diclofenac Sodium (Diclofenac Sodium Gel 100 Gm Tube) 4 gm TOPICAL QID PRN; Protocol PRN Reason: Pain Enoxaparin Sodium (Enoxaparin 40 Mg/0.4 Ml Syringe) 40 mg SQ DAILY [facility] Last Admin: 08/11/21 09:38 Dose: 40 mg Documented by: Famotidine (Famotidine 20 Mg/2 Ml Vial) 20 mg IV Q12HR [facility] Last Admin: 08/11/21 09:39 Dose: 20 mg Documented by: Furosemide (Furosemide 10 Mg/Ml 2 Ml Vial) 20 mg IV Q12HR [facility] Gabapentin (Gabapentin 300 Mg Cap) 600 mg PO TID [facility] Last Admin: 08/11/21 17:41 Dose: 600 mg Documented by: Guaifenesin (Guaifenesin 600 Mg Tablet.Er) 600 mg PO QID [facility] Last Admin: 08/11/21 17:43 Dose: 600 mg Documented by: Sodium Chloride (Saline 0.9%) 1,000 mls @ 20 mls/hr IV .Q24H [facility] Last Admin: 08/11/21 16:45 Dose: Not Given Documented by: Insulin Aspart (Insulin Aspart (Novolog) 100 Unit/Ml Vial) 0 unit SQ ACHS [facility]; Protocol Last Admin: 08/11/21 17:42 Dose: 7 unit Documented by: Insulin Aspart (Insulin Aspart (Novolog) 100 Unit/Ml Vial) 5 unit SQ ACHS [facility] Last Admin: 08/11/21 17:38 Dose: Not Given Documented by: Insulin Detemir (Insulin Detemir (Levemir) 100 Unit/Ml Syr) 15 unit SQ DAILY [facility] Last Admin: 08/11/21 13:12 Dose: Not Given Documented by: Ipratropium Hustler (Ipratropium Hustler 0.06% Nasal [place] (15 Ml)) 2 spray EA NOSTRIL TID [facility] Last Admin: 08/11/21 16:45 Dose: Not Given Documented by: Levothyroxine Sodium (Levothyroxine 75 Mcg Tab) 75 mcg PO DAILY@0630 [facility] Last Admin: 08/11/21 05:02 Dose: 75 mcg Documented by: Lorazepam (Lorazepam 0.5 Mg Tab) 0.5 mg PO Q6HR PRN PRN Reason: Anxiety Last Admin: 08/07/21 20:19 Dose: 0.5 mg Documented by: Losartan Potassium (Losartan 50 Mg Tab) 50 mg PO DAILY [facility] Last Admin: 08/11/21 09:38 Dose: 50 mg Documented by: Melatonin (Melatonin 3 Mg Tablet) 3 mg PO HS [facility] Last Admin: 08/10/21 21:13 Dose: 3 mg Documented by: Miscellaneous Information (Pneumonia Protocol Utilized 1 Each Misc) 1 each PO ONCE PRN PRN Reason: Per Protocol Naloxone HCl (Naloxone 0.4 Mg/Ml 1 Ml Vial) 0.2 mg IV Q2M PRN PRN Reason: Opioid Reversal Ondansetron HCl (Ondansetron 4 Mg/2 Ml Vial) 4 mg IVP Q8HR PRN PRN Reason: Nausea And Vomiting Prednisone (Prednisone 20 Mg Tab) 60 mg PO DAILY [facility] Sodium Chloride (Saline Nasal Gel 14.1 Gm Tube) 1 applic NASAL Q4HR PRN PRN Reason: Dry Nasal [place] Last Admin: 08/08/21 23:11 Dose: 1 applic Documented by: Zinc Sulfate (Zinc Sulfate 220 Mg Cap) 220 mg PO DAILY [facility] Last Admin: 08/11/21 09:38 Dose: 220 mg Documented by: Past medical history to include: Anxiety, hypothyroid, peripheral neuropathy, hyperlipidemia, rheumatoid arthritis, Crohn's disease, diet-controlled diabetes, autoimmune lung disorder, fibromyalgia Social history: Lives with son and [id number]. No smoking no alcohol. Family history: Breast cancer Physical examination: VITAL SIGNS: 98.6, 92, 26, 140s over 57, 93% on a removal 50/90 GENERAL: reclining bed, tired. EYES: Pupils equal. Conjunctiva normal. HEENT: External appearance of nose and ears normal, oral cavity grossly normal. NECK: JVD not raised; masses not palpable. HEART: First and second heart sounds are normal; no edema. LUNGS: Respiratory rate increased, - bilateral coarse crackles. ABDOMEN: Soft, nontender, liver spleen not palpable, no masses palpable. PSYCH: Alert and oriented x3; mood and affect-anxiety MUSCULAR skeletal: Evidence of rheumatoid arthritis especially in the hands, significant INVESTIGATIONS, reviewed in the clinical context: August 11: Accu-Cheks noted August 06: WBC 16.3 hemoglobin 13.6 potassium 4.4 creatinine 0.53. Chest x- ray: No change August 05: White count 16.7 hemoglobin 14 potassium 4.9 creatinine 0.4. Pro-calcitonin 0.09 August 04: ABG: PH 7.43 pCO2 61 pO2 78 August 03: WBC 13.5 hemoglobin 12.5 platelets 344 d-dimer 1.4 potassium 4.5 crit 35 creatinine 0.44 CRP 3.3 August 02: WBC 15.2 hemoglobin 14 platelets 371 sodium 136 potassium 4.5 BUN 27 creatinine 0.44. Chest x-ray: Bilateral cloudy infiltrates August 01: White count 14.4 hemoglobin 13.5. ABG: PCO2 57 pO2 57. Potassium 4.2 creatinine 0.4 July 31: White count 17.4 hemoglobin 12.7 Occult stool positive July 30: White count 9.3 hemoglobin 13.2 pro-calcitonin 0.95 July 29: Procalcitonin 3.98 WBC 13.9 hemoglobin 15.1 platelets 273 lymphocytes 0.8 d-dimer 1.09 sodium 133 potassium 4.3 creatinine 0.74 CRP 7.6 Coronavirus [PCR/rapid]: Negative Influenza A, influenza B, RSV, Coronavirus PCR: Not detected EKG tracing personally reviewed by me-normal sinus rhythm, [facility] Chest x-ray film personally reviewed by me-bilateral infiltrate changes, so we'll discontinue chronic. Also looked at the films from 2017 CT angiogram chest: Negative for PE. Reticular-nodular and groundglass infiltrates. Underlying fibrosis. Assessment and plan: - Mucoid/bacterial pneumonia suspected gram-negative.: Not improving IV cefepime discontinued as procalcitonin decreased.. -Acute severe hypoxic respiratory failure from pneumonia: Not improving On BiPAP/Airvo. 50/90 -ARDS secondary to suspected mucoid pneumonia: Slow to respond Follow with tuber helper -Episode of GI bleed- dark stools. Stool occult positive. Seen by GI. Follow closely -Initial Clinical suspicion for COVID-19 was high. Initial rapid antigen tested PCR was negative. A more definitive repeat COVID-19 immunoassay test was done/PCR that came back also negative -Chronic rheumatoid arthritis Patient does get Rituxan injections every 6 months -Chronic Crohn's disease Patient did complain of some dark stools. No abdominal pain. Initially GI services are not available in the hospital. We'll consult front attendant surgery. 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 Airvo 50/90., bronchodilators. Continue other medications. Care was discussed with the patient and family members. And the nurse. Also with Dr. Mora. Later patient scored status was changed to DO NOT RESUSCITATE Advanced care planning: This was discussed with the patient and her children and [id number]. They have advanced directive. Patient's overall condition was discussed at length. CODE STATUS was discussed. He alsotopic of hospice. My recommendation would be DO NOT RESUSCITATE given her overall condition. Questions were answered. Guarded prognosis was discussed. Time spent for this about 20 minutes
[2021-08-11] MEDS: ATORVASTATIN 20 MG TAB PO SCH (20:12)
[2021-08-11] MEDS: LOPERAMIDE 2 MG CAP PO SCH (20:13)
[2021-08-11] MEDS: MELATONIN 3 MG TABLET PO SCH (20:13)
[2021-08-11] MEDS: FUROSEMIDE 10 MG/ML 2 ML VIAL IV SCH (20:13)
[2021-08-11] MEDS: amLODIPine 2.5 MG TAB PO SCH (20:14)
[2021-08-11 21:11] LABS: Glucose,Whole Blood 150 mg/dL (75-99)
[2021-08-11] MEDS: FORMOTEROL FUMARATE 20 MCG/2 ML NEBU INHALATION SCH (21:18)
[2021-08-11] MEDS: BUDESONIDE 1 MG/2 ML NEBU INHALATION SCH (21:19)
[2021-08-12 06:13] LABS: Glucose,Whole Blood 103 mg/dL (75-99)
[2021-08-12] MEDS: INSULIN ASPART (NovoLOG) 100 UNIT/ML VIAL SQ SCH ×4 (06:37→21:23)
[2021-08-12] MEDS: LEVOTHYROXINE 75 MCG TAB PO SCH (06:39)
--- NOTE | 2021-08-12 09:10 | XR ---
EXAMINATION TYPE: XR chest 1V portable DATE OF EXAM: 08/12/2021 COMPARISON: [id number] HISTORY: 86 years Female. STUDY INDICATION GIVEN: acute lung injury . TECHNIQUE: AP upright chest radiograph IMPRESSION: Stable bilateral left greater than right patchy and interstitial opacities. No pneumothorax or large effusion. COPD/emphysema changes noted. Normal cardiomediastinal silhouette. Stable appearance of the osseous structures without acute abnormality.
[2021-08-12] MEDS: IPRATROPIUM-ALBUTEROL 3 ML NEB INHALATION SCH ×4 (09:42→21:13)
[2021-08-12] MEDS: BUDESONIDE 1 MG/2 ML NEBU INHALATION SCH ×2 (09:42→21:13)
[2021-08-12] MEDS: FORMOTEROL FUMARATE 20 MCG/2 ML NEBU INHALATION SCH ×2 (09:42→21:13)
[2021-08-12] MEDS: CHOLECALCIFEROL 25 MCG (1000 IU) TABLET PO SCH (09:54)
[2021-08-12] MEDS: LOSARTAN 50 MG TAB PO SCH (09:54)
[2021-08-12] MEDS: guaiFENesin 600 MG TABLET.ER PO SCH ×4 (09:54→21:23)
[2021-08-12] MEDS: LOPERAMIDE 2 MG CAP PO SCH (09:54)
[2021-08-12] MEDS: ZINC SULFATE 220 MG CAP PO SCH (09:54)
[2021-08-12] MEDS: busPIRone HCl 10 MG TAB PO SCH ×2 (09:54→21:22)
[2021-08-12] MEDS: ASCORBIC ACID 500 MG TAB PO SCH ×2 (09:54→21:23)
[2021-08-12] MEDS: predniSONE 20 MG TAB PO SCH (09:54)
[2021-08-12] MEDS: MAG HYDROX/AL HYDROX/SIMETH 30 ML, LIDOCAINE VISCOUS 30 ML, diphenhydrAMINE ELIXIR 75 M... PO SCH ×12 (09:55→21:25)
[2021-08-12] MEDS: GABAPENTIN 300 MG CAP PO SCH ×3 (09:55→21:23)
[2021-08-12] MEDS: FUROSEMIDE 10 MG/ML 2 ML VIAL IV SCH ×2 (09:55→21:24)
[2021-08-12] MEDS: IPRATROPIUM BROMIDE 0.06% NASAL SPRAY (15 ML) EA NOSTRIL SCH ×3 (09:55→21:24)
[2021-08-12] MEDS: FAMOTIDINE 20 MG/2 ML VIAL IV SCH ×2 (09:55→21:23)
[2021-08-12] MEDS: ENOXAPARIN 40 MG/0.4 ML SYRINGE SQ SCH (09:55)
[2021-08-12] MEDS: INSULIN DETEMIR (LEVEMIR) 100 UNIT/ML SYR SQ SCH (09:57)
--- NOTE | 2021-08-12 10:29 | P.PN ---
Subjective Progress Note Date: 08/12/21 This is an 86-year-old female primarily a patient of Dr. Rodriguez, patient is known to have history of rheumatoid arthritis, on multiple medications for her rheumatoid arthritis, she is also on rituxin infusions every 6 months. Patient is being followed by rheumatology, patient is current on her immunization including COVID-19 vaccination, she did receive moderna, 2 injections, and she did not receive her third booster. Patient stated that her last injection was in October. Came in today with 7 days' history of cough, congestion, describes the cough as productive with slightly yellow tinged sputum, patient also has multiple GI symptoms including poor appetite, diarrhea, denies any abdominal marysol n. She also had intermittent fevers and chills. Body aches were also described. However the patient had negative rapid PCR for COVID-19 infection and a follow-up test was also done and it came back also negative. Her chest x- ray and CT of the chest are abnormal. Chest x-ray is suggestive of interstitial lung disease. CT of the chest showed diffuse reticulonodular and ground glass opacities throughout both lungs. Possible underlying fibrosis noted. No pulmonary mass nodule and no real effusion noted. No evidence of lymphadenopathy. And no evidence of thromboembolic disease. CBC showed a bit of leukocytosis with WBC count of 13.9. Lymphopenia was noted. Normal electrolytes, normal renal profile, LDH was 1055 and BNP level was 1100. Pro- calcitonin level is pending. Patient had negative PCR for sanchez virus infection. She had negative screening for influenza A, influenza B, RSV. Patient was hypoxic on room air, O2 saturations was 81%, however she was placed on 5 L and her oxygen saturation was up to 96% considering her pulmonary presentation, this consult was initiated. And I saw the patient in the ER. Patient is already on Rocephin and Zithromax, however the admitting physician changed her antibiotics to cefepime. She is on DVT prophylaxis, she is also on methylprednisolone 40 mg IV push every 8 hours. Reevaluated today on 07/29/2021, patient is feeling better today, breathing easier, less cough and less shortness of breath, less GI symptoms. Patient came in with multiple constitutional symptoms as noted above. Chest x-ray showed bilateral interstitial infiltrates, PCR for COVID-19 pneumonia was negative 2. Patient is now on 5 L nasal cannula, O2 sats is 94%. Her pro calcitonin today is 1.25. Patient tested negative for COVID-19, tested negative for influenza A, influenza B and for RSV. On 07/30/2021 patient seen in follow-up on medical surgical floor, she is resting comfortably in bed, she remains on 5 L of oxygen, pulse ox is 91-92%, breathing comfortably, she states her cough is improving, she is not producing any significant amount of sputum, at times she is able to clear some sanderson colored phlegm, she has been afebrile, hemodynamically she has been stable, she remains on cefepime for possibility of underlying community-acquired pneumonia, she remains on IV steroids, she tested negative for COVID 19, RSV and influenza A and B, her pro calcitonin level is improving on today's labs and is down to 0.95 from previous levels of 3.98 on admission. White count is improving and is down to 11.3, hemoglobin is 13.2, blood cultures have shown no growth, mild wheezes on today's exam. On 07/31/2021 patient seen in follow-up on medical surgical floor, her oxygen demand had increased in last 24 hours, and patient today is on 15 L per high flow nasal cannula and 100% nonrebreather mask, and her pulse ox is in the order of 85-88%, she's been afebrile, hemodynamically she is been stable, she states that she has been coughing up some pink tinged phlegm. Denies any chest discomfort, lung sounds reveal diffuse crackles throughout the lung salvador, she remains on cefepime for empiric antibiotic coverage, her blood cultures have remained negative, remains on IV steroids and nebulized bronchodilators. This x-ray is pending, patient will be given a dose of IV Lasix, her pro-calcitonin level is actually improving on today's labs, to 0.95. CTA chest showed no PE On 08/01/2021 patient is seen in follow-up on medical surgical floor. Yesterday her oxygenation has significantly worsened, patient was placed on Airvo at 60 L and FiO2 of 90%, and a nonrebreather mask, and her pulse ox was 81%, and patient was becoming tachypneic and tired. She was subsequently placed on BiPAP support with pressures of 12 and 6 in the 100%. She is satting better, at 92-93%, breathing more comfortably, she is awake and alert, answering questions a ppropriately, she was given a dose of IV Lasix yesterday, her net fluid balance is difficult to estimate, today's chest x-ray shows diffuse bilateral infiltrates that are stable in appearance, no pleural effusion or pneumothorax. Correlate for diffuse pneumonia versus ARDS. Patient is on antibiotics in the form of cefepime, blood cultures have shown no growth so far. We have not been able to obtain a sputum for culture. Afebrile, hemodynamically she's been stable. She is on IV steroids and nebulized bronchodilators. Her pro calcitonin level was actually improving on yesterday's labs, and today it is further improved and is down to 0.25 from initial level of 3.98 on 07/28/2021. ProBNP level was 1100. White blood cell count is slightly improved compared to yesterday, and is down to 14.49, hemoglobin is 13.5, sodium is 142, potassium is 4.2, BUN is 16, creatinine 0.4. Patient tested negative for COVID-19 per PCR test, and her antibiotic test was also negative, negative for influenza A and B and RSV. The patient is seen today 08/02/2021 in follow-up in the intensive care unit. She was transferred here yesterday after developing worsening hypoxemic respiratory failure. She is currently resting fairly comfortably in bed. Awake and alert in no acute distress. She is on the AirVo high flow oxygen at 60 L and 90% FiO2 with a nonrebreather mask used on and off. She has normal saline running at 20 ML's per hour. Chest x-ray continues to show possible septic ARDS versus pulmonary fibrosis versus rheumatoid lung. Blood cultures reveal no growth. White count 15.2. Hemoglobin 14.0. Lymphocytes 0.3. Sodium 136. Potassium 4.5. BUN 27. Creatinine 0.44. Glucose 206. Calcium 9.0. She is continued on DuoNeb inhalations, Symbicort, IV Solu-Medrol. Lovenox, vitamin supplements. She is on antibiotics in the form of cefepime. Pro calcitonin is down to 0.25. The patient is seen today 08/03/2021 in follow-up in the intensive care unit. She is currently sitting up in bed. Awake and alert in mild respiratory distress. She did utilize BiPAP for a few hours last night 15/6 in the 100% FiO2. She was subsequently transitioned to AirVo high flow oxygen at 60 L and 90% FiO2 plus a nonrebreather mask to maintain O2 saturations in the low 90s. She is normal saline at 75 ML's per hour. Chest x-ray continues to show bilateral patchy infiltrates. About the same today compared to previous. White count 13.5. Hemoglobin 12.5. Lymphocytes 0.4. Sodium 136. Potassium 4.5. Creatinine 0.44. Glucose 160. AST 28. ALT 22. She is continued on Symbicort, OB overall, IV Solu-Medrol. She remains on Lovenox for DVT prophylaxis. Vitamin supplements. She is on antibiotics in the form of cefepime. The patient is seen today 08/04/2021 in follow-up in the intensive care unit. She is currently resting comfortably in bed. Awake and alert in no acute distress. She did utilize the BiPAP to approximate 2 AM. Settings are 15/6 and 100% FiO2. She wakes up confused and pulse off the device. She is currently calm and cooperative. She is on AirVo high flow oxygen now at 60 L and 82% FiO2. She is making good urine. 0.9 normal saline at 75 ML's per hour. Her appetite has been good. She remains in sinus rhythm. She remains on DuoNeb inhalations, Symbicort and IV Solu-Medrol. Lovenox for DVT prophylaxis. Antibiotics in the form of cefepime. No new labs today. The patient is seen today 08/05/2021 in follow-up in the intensive care unit. She is currently awake and alert in no acute distress. Resting fairly comfortably on the AirVo high flow oxygen device at 60 L and 83% FiO2. She had utilize the BiPAP last night with settings of 15/6 and 90% FiO2. chest x-ray showing diffuse fluffy alveolar infiltrates unchanged compared to previous. No pneumothorax or large pleural effusions. Blood cultures revealed no growth. White count 16.7. Hemoglobin 14.0. Sodium 136. Potassium 4.9. Creatinine 0.4. She is continued on Symbicort, albuterol, IV Solu-Medrol. Lovenox for DVT prophylaxis. Antibiotics in the form of cefepime. The patient is seen today 08/10/2021 in follow-up on the selective care unit. She is currently sitting up in a chair at the bedside. Awake and alert in no acute distress. She is down to 45 L and 55% FiO2 via the AirVo high flow oxygen device. Chest x-ray continues to show pleuroparenchymal changes similar compared to previous with possible underlying interstitial lung disease versus interstitial edema. Her Balsalazide had been discontinued as a possible culprit for the pneumonitis. She is currently on Symbicort, DuoNeb inhalations, IV Solu-Medrol. Lovenox for DVT prophylaxis. White count 13.9. Hemoglobin 13.2. D-dimer 0.75. Sodium 136. Potassium 4.8. Creatinine 0.46. AST 42. ALT 54. Glucose 125. She had completed a course of cefepime. The patient is seen today 08/11/2021 in follow-up on the selective care unit. She is currently resting quite comfortably in bed. Awake and alert in no acute distress. She remains on AirVo high flow oxygen at 45 L and 55% FiO2 with O2 saturation at 90%. Blood glucose 110. She has been slow to progress. She does remain on DuoNeb inhalations, Symbicort, prednisone. Lovenox for DVT prophylaxis. She remains in a -2.3 L balance. The patient is seen today 08/12/2021 in follow-up on the selective care unit. She is currently awake and alert in no acute distress. Resting comfortably in bed. Maintaining O2 saturation in the 90s on AirVo high flow oxygen at 15 L and 90% FiO2. Chest x-ray reveals stable bilateral left greater than right patchy interstitial opacities. No pneumothorax. No significant effusions. Evidence of COPD/emphysema. Stable compared to previous. Blood glucose 103. She remains on DuoNeb inhalations, Pulmicort and Perforomist inhalations, prednisone. She is continued on IV diuretics. Currently in a -2.9 L balance. Lovenox for DVT prophylaxis. Objective - Vital Signs Vital signs: Vital Signs Temp 99.0 F 08/12/21 09:10 Pulse 94 08/12/21 10:06 Resp 24 08/12/21 09:10 BP 128/72 08/12/21 09:10 Pulse Ox 88 L 08/12/21 09:10 Intake & Output 08/11/21 08/12/21 08/12/21 18:59 06:59 18:59 Intake Total 1048 236 Output Total 2225 1800 700 Balance -1177 -1800 -464 Weight 70.5 kg Intake: IV 10 Invasive Line 4 10 Oral 1038 236 Output: Urine 2225 1800 700 Uretheral (Griffin) 1500 Other: Voiding Method Indwelling Catheter Indwelling Catheter # Voids 1 # Bowel Movements 1 - Exam GENERAL EXAM: Alert, very pleasant, 86-year-old female patient, resting comfortably in bed, currently on AirVo high flow oxygen at 50 L and 90% FiO2 HEAD: Normocephalic/atraumatic. EYES: Normal reaction of pupils, equal size. Conjunctiva pink, sclera white. NOSE: Clear with pink turbinates. THROAT: No erythema or exudates. NECK: No masses, no JVD, no thyroid enlargement, no adenopathy. CHEST: No chest wall deformity. Symmetrical expansion. LUNGS: Equal air entry with bilateral crackles CVS: Regular rate and rhythm, normal S1 and S2, no gallops, no murmurs, no rubs ABDOMEN: Soft, nontender. No hepatosplenomegaly, normal bowel sounds, no guarding or rigidity. EXTREMITIES: No clubbing, no edema, no cyanosis, 2+ pulses and upper and lower extremities. MUSCULOSKELETAL: Muscle strength and tone normal. SPINE: No scoliosis or deformity SKIN: No rashes CENTRAL NERVOUS SYSTEM:No focal deficits, tone is normal in all 4 extremities. PSYCHIATRIC: Alert and oriented -3. Appropriate affect. Intact judgment and insight. - Labs CBC & Chem 7: 08/10/21 06:56 08/10/21 06:56 Labs: Abnormal Lab Results - Last 24 Hours (Table) 08/11/21 08/11/21 08/11/21 Range/Units 11:43 16:58 21:02 POC Glucose (mg/dL) 110 H 216 H 150 H (75-99) mg/dL 08/12/21 Range/Units 05:42 POC Glucose (mg/dL) 103 H (75-99) mg/dL Assessment and Plan Assessment: 1 Acute hypoxic respiratory failure secondary to interstitial lung disease and suspected superimposed, mucoid pneumonia. Patient tested negative for COVID-19, influenza A and B and RSV. Patient also had 2 previous negative PCR test. Patient is fully immunized against COVID 19. Subsequently patient required Airvo and a nonrebreather, and was placed on BiPAP support on 08/01/2021 for respiratory fatigue. Transferred to the intensive care unit on 08/01/2021. Seen today August 12 on the selective care unit. She is on AirVo high flow oxygen at 50 L and 90% FiO2. She has been slow to progress. 2 ARDS related to pneumonia, completed cefepime, currently on prednisone. 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 Lungs sounds bilateral coarse crackles. Maintaining good O2 saturations in the 90s on AirVo high flow oxygen at 50 L and 90% FiO2. I discussed the assessment and plan of care with my nurse practitioner, Micaela Parsons. I attest to the above note as dictated by her.
[2021-08-12 11:32] LABS: Glucose,Whole Blood 372 mg/dL (75-99)
[2021-08-12] MEDS ORDERED: LOPERAMIDE 2 MG CAP PO PRN (11:40)
[2021-08-12] MEDS: ACETAMINOPHEN TAB 500 MG TAB PO PRN (11:59)
--- NOTE | 2021-08-12 14:54 | P.PN ---
Progress Note - Text Progress Note Date: 08/12/21 Chief Complaint: Short of breath This is a pleasant 86-year-old patient, follows with Dr. Chaney. Chronic stable medical conditions include rheumatoid arthritis, Crohn's disease, diet- controlled diabetes, autoimmune disorder, fibromyalgia. She does follow Dr. Reed from rheumatology and does Rituxan injections every 6 months. Sees due for her next one. Patient did take her COVID vaccines back in . She doesn't go out much. For 7 days patient suspect upper cough. Very congested. Clear sputum. Has had fever and chills. Patient also had diarrhea. Some dark stool. No abdominal pain. Patient chronic stable medical conditions also include anxiety, hypothyroid, peripheral neuropathy, hyperlipidemia. Appetite is poor. Initial rapid COVID testing in the ER was negative. A more definitive PCR was sent out. Patient is accompanied by her [id number]. Patient is rather tired and rundown. She is also had chronic immune lung condition in the past. July 29: Short of breath. Tired. 5 L nasal cannula. Eating about 50%. In bed. July 30: Some shortness of breath. Some cough. 5 L nasal cannula. Eating some. Tired. July 31: Worsening short of breath. On 15 L nasal cannula. Congested cough. Eating about 50%. Laying in bed August 01: Shortness of breath not improving. Patient placed on BiPAP. Being moved to the ICU. Decreased oral intake. Tired. Now having brown stools. Seen by GI. No further intervention. August 02: ICU. Moved yesterday. Airvo:. 60 L/90%. With a nonrebreather mask. Barely eating. Short of breath. Tired. Sitting up in bed. August 03: ICU. On BiPAP. Decreased by mouth intake. Tired. Short of breath. August 04: ICU: Patient between Airvo and BiPAP. Tired. Short of breath. Sinus rhythm. Patient's daughter is visiting. Eating some. Encouraged to use ensure. On IV cefepime. IV Solu-Medrol. August 05: ICU. On Airvo. Short of breath. IV cefepime. IV Solu-Medrol. August 06: ICU: Airvo. Remains short of breath. Cefepime discontinued by pulmonary. August 11: Did not feel like eating breakfast. Diet. Had a bowel movement. On Airvo 50/90. Tired. Had a lengthy discussion with the patient about her CODE STATUS and also met with the family to include her son 2 daughters and [id number]. Then Dr. Mora spoke to her. Made DO NOT RESUSCITATE. We alsotalked. about subject of hospice depending on clinical course August 12: Had a fever earlier today. Some shortness of breath. Does feel a bit tired. Remains on Airvo. Oral intake about 25%. Propped up in bed. Review of systems: Was done for constitutional, cardiovascular, GI, pulmonary. relevant finding as above Active Medications Acetaminophen (Acetaminophen Tab 500 Mg Tab) 1,000 mg PO Q6HR PRN PRN Reason: Fever>101 Last Admin: 08/12/21 11:59 Dose: 1,000 mg Documented by: Albuterol Sulfate (Albuterol Hfa Inhaler) 2 puff INHALATION RT-Q6H PRN PRN Reason: Shortness Of Breath Or Wheezing Albuterol/Ipratropium (Ipratropium-Albuterol 3 Ml Neb) 3 ml INHALATION RT-QID [facility] Last Admin: 08/12/21 13:02 Dose: 3 ml Documented by: Amlodipine Besylate (Amlodipine 2.5 Mg Tab) 2.5 mg PO [facility] Last Admin: 08/11/21 20:14 Dose: 2.5 mg Documented by: Ascorbic Acid (Ascorbic Acid 500 Mg Tab) 500 mg PO BID [facility] Last Admin: 08/12/21 09:54 Dose: 500 mg Documented by: Atorvastatin Calcium (Atorvastatin 20 Mg Tab) 20 mg PO [facility] Last Admin: 08/11/21 20:12 Dose: 20 mg Documented by: Budesonide (Budesonide 1 Mg/2 Ml Nebu) 1 mg INHALATION RT-BID [facility] Last Admin: 08/12/21 09:42 Dose: 1 mg Documented by: Buspirone HCl (Buspirone Hcl 10 Mg Tab) 10 mg PO BID [facility] Last Admin: 08/12/21 09:54 Dose: 10 mg Documented by: Cholecalciferol (Cholecalciferol 25 Mcg (1000 Iu) Tablet) 100 mcg PO DAILY [facility] Last Admin: 08/12/21 09:54 Dose: 100 mcg Documented by: Al Hydroxide/Mg Hydroxide 30 ml/ Lidocaine HCl 30 ml/Diphenhydramine HCl 75 mg/Acetaminophen 960 mg 0 ml PO TID [facility] Last Admin: 08/12/21 09:55 Dose: Not Given Documented by: Diclofenac Sodium (Diclofenac Sodium Gel 100 Gm Tube) 4 gm TOPICAL QID PRN; Protocol PRN Reason: Pain Enoxaparin Sodium (Enoxaparin 40 Mg/0.4 Ml Syringe) 40 mg SQ DAILY [facility] Last Admin: 08/12/21 09:55 Dose: 40 mg Documented by: Famotidine (Famotidine 20 Mg/2 Ml Vial) 20 mg IV Q12HR [facility] Last Admin: 08/12/21 09:55 Dose: 20 mg Documented by: Formoterol Fumarate (Formoterol Fumarate 20 Mcg/2 Ml Nebu) 20 mcg INHALATION RT-BID [facility] Last Admin: 08/12/21 09:42 Dose: 20 mcg Documented by: Furosemide (Furosemide 10 Mg/Ml 2 Ml Vial) 20 mg IV Q12HR [facility] Last Admin: 08/12/21 09:55 Dose: 20 mg Documented by: Gabapentin (Gabapentin 300 Mg Cap) 600 mg PO TID [facility] Last Admin: 08/12/21 09:55 Dose: 600 mg Documented by: Guaifenesin (Guaifenesin 600 Mg Tablet.Er) 600 mg PO QID [facility] Last Admin: 08/12/21 11:57 Dose: 600 mg Documented by: Sodium Chloride (Saline 0.9%) 1,000 mls @ 20 mls/hr IV .Q24H [facility] Last Admin: 08/11/21 16:45 Dose: Not Given Documented by: Insulin Aspart (Insulin Aspart (Novolog) 100 Unit/Ml Vial) 0 unit SQ ACHS [facility]; Protocol Last Admin: 08/12/21 11:57 Dose: 8 unit Documented by: Insulin Detemir (Insulin Detemir (Levemir) 100 Unit/Ml Syr) 15 unit SQ DAILY [facility] Last Admin: 08/12/21 09:57 Dose: Not Given Documented by: Ipratropium [place] (Ipratropium [place] 0.06% Nasal [place] (15 Ml)) 2 spray EA NOSTRIL TID [facility] Last Admin: 08/12/21 09:55 Dose: Not Given Documented by: Levothyroxine Sodium (Levothyroxine 75 Mcg Tab) 75 mcg PO DAILY@0630 [facility] Last Admin: 08/12/21 06:39 Dose: 75 mcg Documented by: Loperamide HCl (Loperamide 2 Mg Cap) 2 mg PO QID PRN PRN Reason: Diarrhea Lorazepam (Lorazepam 0.5 Mg Tab) 0.5 mg PO Q6HR PRN PRN Reason: Anxiety Last Admin: 08/07/21 20:19 Dose: 0.5 mg Documented by: Losartan Potassium (Losartan 50 Mg Tab) 50 mg PO DAILY [facility] Last Admin: 08/12/21 09:54 Dose: 50 mg Documented by: Melatonin (Melatonin 3 Mg Tablet) 3 mg PO HS [facility] Last Admin: 08/11/21 20:13 Dose: 3 mg Documented by: Miscellaneous Information (Pneumonia Protocol Utilized 1 Each [facility]) 1 each PO ONCE PRN PRN Reason: Per Protocol Naloxone HCl (Naloxone 0.4 Mg/Ml 1 Ml Vial) 0.2 mg IV Q2M PRN PRN Reason: Opioid Reversal Ondansetron HCl (Ondansetron 4 Mg/2 Ml Vial) 4 mg IVP Q8HR PRN PRN Reason: Nausea And Vomiting Prednisone (Prednisone 20 Mg Tab) 60 mg PO DAILY [facility] Last Admin: 08/12/21 09:54 Dose: 60 mg Documented by: Sodium Chloride (Saline Nasal Gel 14.1 Gm Tube) 1 applic NASAL Q4HR PRN PRN Reason: Dry Nasal Passages Last Admin: 08/08/21 23:11 Dose: 1 applic Documented by: Zinc Sulfate (Zinc Sulfate 220 Mg Cap) 220 mg PO DAILY [facility] Last Admin: 08/12/21 09:54 Dose: 220 mg Documented by: Past medical history to include: Anxiety, hypothyroid, peripheral neuropathy, hyperlipidemia, rheumatoid arthritis, Crohn's disease, diet-controlled diabetes, autoimmune lung disorder, fibromyalgia Social history: Lives with son and [id number]. No smoking no alcohol. Family history: Breast cancer Physical examination: VITAL SIGNS: 101.3, 95, 22, 108/57, 93% onAirvo 50/90 GENERAL: reclining bed, tired. EYES: Pupils equal. Conjunctiva normal. HEENT: External appearance of nose and ears normal, oral cavity grossly normal. NECK: JVD not raised; masses not palpable. HEART: First and second heart sounds are normal; no edema. LUNGS: Respiratory rate increased, - bilateral coarse crackles. ABDOMEN: Soft, nontender, liver spleen not palpable, no masses palpable. PSYCH: Alert and oriented x3; mood and affect-anxiety MUSCULAR skeletal: Evidence of rheumatoid arthritis especially in the hands, significant INVESTIGATIONS, reviewed in the clinical context: August 11: Accu-Cheks noted August 06: WBC 16.3 hemoglobin 13.6 potassium 4.4 creatinine 0.53. Chest x- ray: No change August 05: White count 16.7 hemoglobin 14 potassium 4.9 creatinine 0.4. Pro- calcitonin 0.09 August 04: ABG: PH 7.43 pCO2 61 pO2 78 August 03: WBC 13.5 hemoglobin 12.5 platelets 344 d-dimer 1.4 potassium 4.5 crit 35 creatinine 0.44 CRP 3.3 August 02: WBC 15.2 hemoglobin 14 platelets 371 sodium 136 potassium 4.5 BUN 27 creatinine 0.44. Chest x-ray: Bilateral cloudy infiltrates August 01: White count 14.4 hemoglobin 13.5. ABG: PCO2 57 pO2 57. Potassium 4.2 creatinine 0.4 July 31: White count 17.4 hemoglobin 12.7 Occult stool positive July 30: White count 9.3 hemoglobin 13.2 pro-calcitonin 0.95 July 29: Procalcitonin 3.98 WBC 13.9 hemoglobin 15.1 platelets 273 lymphocytes 0.8 d-dimer 1.09 sodium 133 potassium 4.3 creatinine 0.74 CRP 7.6 Coronavirus [PCR/rapid]: Negative Influenza A, influenza B, RSV, Coronavirus PCR: Not detected EKG tracing personally reviewed by me-normal sinus rhythm, [facility] Chest x-ray film personally reviewed by me-bilateral infiltrate changes, so we'll discontinue chronic. Also looked at the films from 2017 CT angiogram chest: Negative for PE. Reticular-nodular and groundglass infiltrates. Underlying fibrosis. Assessment and plan: - Mucoid/bacterial pneumonia suspected gram-negative.: Not improving IV cefepime discontinued as procalcitonin decreased.. -Acute severe hypoxic respiratory failure from pneumonia: Not improving On BiPAP/Airvo. 50/90 -ARDS secondary to suspected mucoid pneumonia: Slow to respond Follow with packaging coordinator -Episode of GI bleed- dark stools. Stool occult positive. Seen by GI. Follow closely -Initial Clinical suspicion for COVID-19 was high. Initial rapid antigen tested PCR was negative. A more definitive repeat COVID-19 immunoassay test was done/PCR that came back also negative -Chronic rheumatoid arthritis Patient does get Rituxan injections every 6 months -Chronic Crohn's disease Patient did complain of some dark stools. No abdominal pain. Initially GI ser vices are not available in the hospital. 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 Airvo 50/90., bronchodilators. Discussed with the patient. She understands prognosis guarded. Did spike fever 1 today. Follow clinically. Procalcitonin in the morning.
[2021-08-12] MEDS: SODIUM CHLORIDE 0.9% 1,000 ML IV SCH (15:37)
[2021-08-12 16:36] LABS: Glucose,Whole Blood 141 mg/dL (75-99)
[2021-08-12 20:39] LABS: Glucose,Whole Blood 244 mg/dL (75-99)
[2021-08-12] MEDS: MELATONIN 3 MG TABLET PO SCH (21:23)
[2021-08-12] MEDS: ATORVASTATIN 20 MG TAB PO SCH (21:23)
[2021-08-12] MEDS: amLODIPine 2.5 MG TAB PO SCH (21:23)
[2021-08-13 06:19] LABS: Glucose,Whole Blood 106 mg/dL (75-99)
[2021-08-13] MEDS: INSULIN ASPART (NovoLOG) 100 UNIT/ML VIAL SQ SCH ×4 (06:38→20:55)
[2021-08-13] MEDS: LEVOTHYROXINE 75 MCG TAB PO SCH (06:39)
--- NOTE | 2021-08-13 07:41 | XR ---
EXAMINATION TYPE: XR chest 1V portable DATE OF EXAM: 08/13/2021 COMPARISON: August 12, 2021 HISTORY: 86 years Female. STUDY INDICATION GIVEN: acute lung injury . TECHNIQUE: AP upright chest radiograph IMPRESSION: Slightly increased bilateral right greater than left airspace and interstitial opacities. No pneumothorax or large effusion. Stable normal cardiomediastinal silhouette. COPD/emphysema changes noted again. Stable appearance of the osseous structures.
[2021-08-13] MEDS: BUDESONIDE 1 MG/2 ML NEBU INHALATION SCH ×2 (08:08→19:47)
[2021-08-13] MEDS: IPRATROPIUM-ALBUTEROL 3 ML NEB INHALATION SCH ×4 (08:09→19:47)
[2021-08-13] MEDS: FORMOTEROL FUMARATE 20 MCG/2 ML NEBU INHALATION SCH ×2 (08:09→19:47)
[2021-08-13] MEDS: FUROSEMIDE 10 MG/ML 2 ML VIAL IV SCH ×2 (09:24→20:57)
[2021-08-13] MEDS: INSULIN DETEMIR (LEVEMIR) 100 UNIT/ML SYR SQ SCH (09:25)
[2021-08-13] MEDS: FAMOTIDINE 20 MG/2 ML VIAL IV SCH ×2 (09:25→20:58)
[2021-08-13] MEDS: ENOXAPARIN 40 MG/0.4 ML SYRINGE SQ SCH (09:26)
[2021-08-13] MEDS: GABAPENTIN 300 MG CAP PO SCH (09:26)
[2021-08-13] MEDS: CHOLECALCIFEROL 25 MCG (1000 IU) TABLET PO SCH (09:26)
[2021-08-13] MEDS: guaiFENesin 600 MG TABLET.ER PO SCH ×2 (09:26→12:59)
[2021-08-13] MEDS: ZINC SULFATE 220 MG CAP PO SCH (09:26)
[2021-08-13] MEDS: LOSARTAN 50 MG TAB PO SCH (09:26)
[2021-08-13] MEDS: busPIRone HCl 10 MG TAB PO SCH ×2 (09:26→20:57)
[2021-08-13] MEDS: predniSONE 20 MG TAB PO SCH (09:27)
[2021-08-13] MEDS: ASCORBIC ACID 500 MG TAB PO SCH (09:31)
[2021-08-13] MEDS: MAG HYDROX/AL HYDROX/SIMETH 30 ML, LIDOCAINE VISCOUS 30 ML, diphenhydrAMINE ELIXIR 75 M... PO SCH ×4 (09:33)
[2021-08-13] MEDS: IPRATROPIUM BROMIDE 0.06% NASAL SPRAY (15 ML) EA NOSTRIL SCH (09:36)
[2021-08-13 11:48] LABS: Glucose,Whole Blood 274 mg/dL (75-99)
[2021-08-13] MEDS ORDERED: IPRATROPIUM BROMIDE 0.06% NASAL SPRAY (15 ML) EA NOSTRIL PRN (12:55)
[2021-08-13 13:13] LABS: ALT 34 U/L (4-34); AST 49 U/L (14-36); African American GFR (CKD) >90 (>60 ml/min/1.73 sqM); Albumin 2.7 g/dL (3.5-5.0); Alkaline Phosphatase 94 U/L (38-126); Anion Gap 4 mmol/L; Blood Urea Nitrogen 32 mg/dL (7-17); Calcium 8.6 mg/dL (8.4-10.2); Carbon Dioxide 37 mmol/L (22-30); Chloride 91 mmol/L (98-107); Glucose 88 mg/dL (74-99); Non-African American GFR(CKD) 84 (>60 ml/min/1.73 sqM); Potassium 4.6 mmol/L (3.5-5.1); Sodium 132 mmol/L (137-145); Total Bilirubin 0.6 mg/dL (0.2-1.3); Total Protein 5.3 g/dL (6.3-8.2)
[2021-08-13 13:22] LABS: Basophils % (A) 0 %; Eosinophils # (A) 0.1 k/uL (0-0.7); Eosinophils % (A) 1 %; HGB 12.8 gm/dL (11.4-16.0); Hypochromasia Slight; Lymphocytes # (A) 0.3 k/uL (1.0-4.8); Lymphocytes % (A) 2 %; MCHC 30.5 g/dL (31.0-37.0); MCV 91.6 fL (80.0-100.0); Mean Platelet Volume 9.5; Monocytes # (A) 0.2 k/uL (0-1.0); Monocytes % (A) 1 %; Neutrophils # (A) 15.3 k/uL (1.3-7.7); Neutrophils % (A) 96 %; Platelet Count 188 k/uL (150-450); RBC 4.59 m/uL (3.80-5.40); RDW 13.6 % (11.5-15.5)
--- NOTE | 2021-08-13 15:19 | P.PN ---
Subjective Progress Note Date: 08/13/21 Principal diagnosis: Acute hypoxic respiratory failure , multifactorial The patient is seen today 08/10/2021 in follow-up on the selective care unit. She is currently sitting up in a chair at the bedside. Awake and alert in no acute distress. She is down to 45 L and 55% FiO2 via the AirVo high flow oxygen device. Chest x-ray continues to show pleuroparenchymal changes similar compared to previous with possible underlying interstitial lung disease versus interstitial edema. Her Balsalazide had been discontinued as a possible culprit for the pneumonitis. She is currently on Symbicort, DuoNeb inhalations, IV Solu-Medrol. Lovenox for DVT prophylaxis. White count 13.9. Hemoglobin 13.2. D-dimer 0.75. Sodium 136. Potassium 4.8. Creatinine 0.46. AST 42. ALT 54. Glucose 125. She had completed a course of cefepime. The patient is seen today 08/11/2021 in follow-up on the selective care unit. She is currently resting quite comfortably in bed. Awake and alert in no acute distress. She remains on AirVo high flow oxygen at 45 L and 55% FiO2 with O2 saturation at 90%. Blood glucose 110. She has been slow to progress. She does remain on DuoNeb inhalations, Symbicort, prednisone. Lovenox for DVT prophylaxis. She remains in a -2.3 L balance. The patient is seen today 08/12/2021 in follow-up on the selective care unit. She is currently awake and alert in no acute distress. Resting comfortably in bed. Maintaining O2 saturation in the 90s on AirVo high flow oxygen at 15 L and 90% FiO2. Chest x-ray reveals stable bilateral left greater than right patchy interstitial opacities. No pneumothorax. No significant effusions. Evidence of COPD/emphysema. Stable compared to previous. Blood glucose 103. She remains on DuoNeb inhalations, Pulmicort and Perforomist inhalations, prednisone. She is continued on IV diuretics. Currently in a -2.9 L balance. Lovenox for DVT prophylaxis. Reevaluated today on 08/13/2021, patient remains on the selective, at least 8 family members are sitting at bedside. Patient remains on high flow oxygen she is presently on airvo at 90% FiO2 and flow at 15 L/m. O2 saturation is noted marginal in the low 90s and at times seems to dip into the 80s. Patient is having shortness of breath with conversation. And she has now some difficulty swallowing. Her labs today showed evidence of leukocytosis with WBC of 16 hemoglobin is 12.8. Electrolytes are normal bicarb is 37 BUN is 32 creatinine is 0.6. Pro-calcitonin again is 0.38, it was as high as 3.98 on admission and has been climbing up again. Patient was on broad-spectrum antibiotics which have been discontinued after a full course of treatment. Chest x-ray today showed increased bilateral airspace and interstitial opacities consistent with either acute lung injury or interstitial lung disease possibility of underlying infection is not entirely ruled out, but felt to be less likely at this point. Objective - Vital Signs Vital signs: Vital Signs Temp 98.8 F 08/13/21 14:43 Pulse 89 08/13/21 12:06 Resp 18 08/13/21 09:24 BP 128/71 08/13/21 12:06 Pulse Ox 90 L 08/13/21 11:57 Intake & Output 08/12/21 08/13/21 08/13/21 18:59 06:59 18:59 Intake Total 1214 Output Total 1350 500 Balance -136 -500 Weight 69 kg Intake: Oral 1214 Output: Urine 1350 500 Uretheral (Griffin) 260 Other: Voiding Method Indwelling Catheter Indwelling Catheter Indwelling Catheter # Bowel Movements 1 1 - Exam Physical Exam: Revealed an 86-year-old female on high flow oxygen Head: Atraumatic, normocephalic. HEENT: [place], EOMI, nonicteric. [Neck is supple.] [No neck masses.] [No thyro megaly.] [No JVD.] Moist mucous membranes. Chest: [Symmetrical chest expansion, bilateral crackles and rhonchi noted. Cardiac Exam: [Normal S1 and S2, no S3 gallop, no murmur.] Abdomen: [Soft, nontender, no megaly, no rebound, no guarding, normal bowel sounds.] Extremities: [No clubbing, no edema, no cyanosis. Rheumatoid deformities noted in both hands, otherwise negative.] Neurological Exam: Alert and oriented 3, no gross focal deficits. Psychiatric: Normal mood, affect and normal mental status examination. Skin: No rashes. - Labs CBC & Chem 7: 08/13/21 07:25 08/13/21 07:25 Labs: Abnormal Lab Results - Last 24 Hours (Table) 08/12/21 08/12/21 08/13/21 Range/Units 16:33 20:37 06:18 WBC (3.8-10.6) k/uL MCHC (31.0-37.0) g/dL Neutrophils # (1.3-7.7) k/uL Lymphocytes # (1.0-4.8) k/uL Sodium (137-145) mmol/L Chloride (98-107) mmol/L Carbon Dioxide (22-30) mmol/L BUN (7-17) mg/dL POC Glucose (mg/dL) 141 H 244 H 106 H (75-99) mg/dL AST (14-36) U/L Total Protein (6.3-8.2) g/dL Albumin (3.5-5.0) g/dL Procalcitonin (0.02-0.09) ng/mL 08/13/21 08/13/21 08/13/21 Range/Units 07:25 07:25 07:25 WBC 16.0 H (3.8-10.6) k/uL MCHC 30.5 L (31.0-37.0) g/dL Neutrophils # 15.3 H (1.3-7.7) k/uL Lymphocytes # 0.3 L (1.0-4.8) k/uL Sodium 132 L (137-145) mmol/L Chloride 91 L (98-107) mmol/L Carbon Dioxide 37 H (22-30) mmol/L BUN 32 H (7-17) mg/dL POC Glucose (mg/dL) (75-99) mg/dL AST 49 H (14-36) U/L Total Protein 5.3 L (6.3-8.2) g/dL Albumin 2.7 L (3.5-5.0) g/dL Procalcitonin 0.38 H (0.02-0.09) ng/mL 08/13/21 Range/Units 11:46 WBC (3.8-10.6) k/uL MCHC (31.0-37.0) g/dL Neutrophils # (1.3-7.7) k/uL Lymphocytes # (1.0-4.8) k/uL Sodium (137-145) mmol/L Chloride (98-107) mmol/L Carbon Dioxide (22-30) mmol/L BUN (7-17) mg/dL POC Glucose (mg/dL) 274 H (75-99) mg/dL AST (14-36) U/L Total Protein (6.3-8.2) g/dL Albumin (3.5-5.0) g/dL Procalcitonin (0.02-0.09) ng/mL Assessment and Plan Assessment: Impression: Acute hypoxic respiratory failure secondary to interstitial lung disease/known history of rheumatoid lung disease and the possibility of underlying infection was considered but felt to be less likely nonetheless the patient received a good course of antibiotics, received steroids, and she remains on prednisone at 60 mg daily. Patient is presently on high flow oxygen, and overall pulmonary status is marginal at best. Saturations are marginal. Patient is now having difficulty with swallowing and I'm recommending that we discontinue some of the oral medications is presently on including prednisone and I will transition that again to Solu-Medrol. Acute lung injury exact etiology is not clear, remains on prednisone which I will transition today to Solu-Medrol. 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 Had a long discussion with the patient and all her family members at bedside regarding comfort care measures as the patient is wishing to go to comfort care measures, but she had lots of questions on her mind about the approach Discussed even the option of hospice referral Will review the CT of the chest in a.m. and based on the findings most likely the patient is going to proceed to comfort care measures. Time with Patient: Less than 30
[2021-08-13] MEDS: methylPREDNISolone SOD SUCCI 125 MG/2 ML VIAL IV SCH (15:54)
[2021-08-13 16:57] LABS: Glucose,Whole Blood 286 mg/dL (75-99)
[2021-08-13] MEDS: SODIUM CHLORIDE 0.9% 1,000 ML IV SCH (17:45)
[2021-08-13 20:14] LABS: Glucose,Whole Blood 186 mg/dL (75-99)
--- NOTE | 2021-08-13 20:54 | P.PN ---
Progress Note - Text Progress Note Date: 08/13/21 Chief Complaint: Short of breath This is a pleasant 86-year-old patient, follows with Dr. Chaney. Chronic stable medical conditions include rheumatoid arthritis, Crohn's disease, diet- controlled diabetes, autoimmune disorder, fibromyalgia. She does follow Dr. Reed from rheumatology and does Rituxan injections every 6 months. Sees due for her next one. Patient did take her COVID vaccines back in . She doesn't go out much. For 7 days patient suspect upper cough. Very congested. Clear sputum. Has had fever and chills. Patient also had diarrhea. Some dark stool. No abdominal pain. Patient chronic stable medical conditions also include anxiety, hypothyroid, peripheral neuropathy, hyperlipidemia. Appetite is poor. Initial rapid COVID testing in the ER was negative. A more definitive PCR was sent out. Patient is accompanied by her [id number]. Patient is rather tired and rundown. She is also had chronic immune lung condition in the past. July 29: Short of breath. Tired. 5 L nasal cannula. Eating about 50%. In bed. July 30: Some shortness of breath. Some cough. 5 L nasal cannula. Eating some. Tired. July 31: Worsening short of breath. On 15 L nasal cannula. Congested cough. Eating about 50%. Laying in bed August 01: Shortness of breath not improving. Patient placed on BiPAP. Being moved to the ICU. Decreased oral intake. Tired. Now having brown stools. Seen by GI. No further intervention. August 02: ICU. Moved yesterday. Airvo:. 60 L/90%. With a nonrebreather mask. Barely eating. Short of breath. Tired. Sitting up in bed. August 03: ICU. On BiPAP. Decreased by mouth intake. Tired. Short of breath. August 04: ICU: Patient between Airvo and BiPAP. Tired. Short of breath. Sinus rhythm. Patient's daughter is visiting. Eating some. Encouraged to use ensure. On IV cefepime. IV Solu-Medrol. August 05: ICU. On Airvo. Short of breath. IV cefepime. IV Solu-Medrol. August 06: ICU: Airvo. Remains short of breath. Cefepime discontinued by pulmonary. August 11: Did not feel like eating breakfast. Diet. Had a bowel movement. On Airvo 50/90. Tired. Had a lengthy discussion with the patient about her CODE STATUS and also met with the family to include her son 2 daughters and [id number]. Then Dr. Mora spoke to her. Made DO NOT RESUSCITATE. We alsotalked. about subject of hospice depending on clinical course August 12: Had a fever earlier today. Some shortness of breath. Does feel a bit tired. Remains on Airvo. Oral intake about 25%. Propped up in bed. August 13: More short of breath. More tired. Family was visiting earlier. FiO2 requirement increased. Tired. Put on IV Lasix per Dr. Carl. Review of systems: Was done for constitutional, cardiovascular, GI, pulmonary. relevant finding as above Active Medications Acetaminophen (Acetaminophen Tab 500 Mg Tab) 1,000 mg PO Q6HR PRN PRN Reason: Fever>101 Last Admin: 08/12/21 11:59 Dose: 1,000 mg Documented by: Albuterol Sulfate (Albuterol Hfa Inhaler) 2 puff INHALATION RT-Q6H PRN PRN Reason: Shortness Of Breath Or Wheezing Albuterol/Ipratropium (Ipratropium-Albuterol 3 Ml Neb) 3 ml INHALATION RT-QID [facility] Last Admin: 08/13/21 19:47 Dose: 3 ml Documented by: Amlodipine Besylate (Amlodipine 2.5 Mg Tab) 2.5 mg PO HS [facility] Last Admin: 08/12/21 21:23 Dose: 2.5 mg Documented by: Budesonide (Budesonide 1 Mg/2 Ml Nebu) 1 mg INHALATION RT-BID [facility] Last Admin: 08/13/21 19:47 Dose: 1 mg Documented by: Buspirone HCl (Buspirone Hcl 10 Mg Tab) 10 mg PO BID [facility] Last Admin: 08/13/21 09:26 Dose: 10 mg Documented by: Enoxaparin Sodium (Enoxaparin 40 Mg/0.4 Ml Syringe) 40 mg SQ DAILY [facility] Last Admin: 08/13/21 09: Dose: 40 mg Documented by: Famotidine (Famotidine 20 Mg/2 Ml Vial) 20 mg IV Q12HR [facility] Last Admin: 08/13/21 09:25 Dose: 20 mg Documented by: Formoterol Fumarate (Formoterol Fumarate 20 Mcg/2 Ml Nebu) 20 mcg INHALATION RT-BID [facility] Last Admin: 08/13/21 19:47 Dose: 20 mcg Documented by: Furosemide (Furosemide 10 Mg/Ml 2 Ml Vial) 20 mg IV Q12HR [facility] Last Admin: 08/13/21 09:24 Dose: 20 mg Documented by: Sodium Chloride (Saline 0.9%) 1,000 mls @ 20 mls/hr IV .Q24H [facility] Last Admin: 08/13/21 17:45 Dose: Not Given Documented by: Insulin Aspart (Insulin Aspart (Novolog) 100 Unit/Ml Vial) 0 unit SQ ACHS [facility]; Protocol Last Admin: 08/13/21 17:56 Dose: 8 unit Documented by: Insulin Detemir (Insulin Detemir (Levemir) 100 Unit/Ml Syr) 15 unit SQ DAILY [facility] Last Admin: 08/13/21 09:25 Dose: 15 unit Documented by: Ipratropium Coalgate (Ipratropium Coalgate 0.06% Nasal [place] (15 Ml)) 2 spray EA NOSTRIL TID PRN PRN Reason: Allergy Symptoms Levothyroxine Sodium (Levothyroxine 75 Mcg Tab) 75 mcg PO DAILY@0630 [facility] Last Admin: 08/13/21 06:39 Dose: 75 mcg Documented by: Loperamide HCl (Loperamide 2 Mg Cap) 2 mg PO QID PRN PRN Reason: Diarrhea Lorazepam (Lorazepam 0.5 Mg Tab) 0.5 mg PO Q6HR PRN PRN Reason: Anxiety Last Admin: 08/07/21 20:19 Dose: 0.5 mg Documented by: Losartan Potassium (Losartan 50 Mg Tab) 50 mg PO DAILY [facility] Last Admin: 08/13/21 09:26 Dose: 50 mg Documented by: Methylprednisolone Sodium Succinate (Methylprednisolone Sod Succi 125 Mg/2 Ml Vial) 60 mg IV Q8HR [facility] Last Admin: 08/13/21 15:54 Dose: 60 mg Documented by: Miscellaneous Information (Pneumonia Protocol Utilized [facility]) 1 each PO ONCE PRN PRN Reason: Per Protocol Naloxone HCl (Naloxone 0.4 Mg/Ml 1 Ml Vial) 0.2 mg IV Q2M PRN PRN Reason: Opioid Reversal Ondansetron HCl (Ondansetron 4 Mg/2 Ml Vial) 4 mg IVP Q8HR PRN PRN Reason: Nausea And Vomiting Sodium Chloride (Saline Nasal Gel 14.1 Gm Tube) 1 applic NASAL Q4HR PRN PRN Reason: Dry Nasal Passages Last Admin: 08/08/21 23:11 Dose: 1 applic Documented by: Past medical history to include: Anxiety, hypothyroid, peripheral neuropathy, hyperlipidemia, rheumatoid arthritis, Crohn's disease, diet-controlled diabetes, autoimmune lung disorder, fibromyalgia Social history: Lives with son and [id number]. No smoking no alcohol. Family history: Breast cancer Physical examination: VITAL SIGNS: 98.7, 95, 22, 100/57, 86% on Airvo 50/90 GENERAL: reclining bed, tired. Short of breath EYES: Pupils equal. Conjunctiva normal. HEENT: External appearance of nose and ears normal, oral cavity grossly normal. NECK: JVD not raised; masses not palpable. HEART: First and second heart sounds are normal; no edema. LUNGS: Respiratory rate increased, - bilateral coarse crackles. ABDOMEN: Soft, nontender, liver spleen not palpable, no masses palpable. PSYCH: Alert and oriented x3; mood and affect-anxiety MUSCULAR skeletal: Evidence of rheumatoid arthritis especially in the hands, significant INVESTIGATIONS, reviewed in the clinical context: August 13: White count 16 hemoglobin 12.8 potassium 4.6 creatinine 0.6. Pro- calcitonin 0.38 August 11: Accu-Cheks noted August 06: WBC 16.3 hemoglobin 13.6 potassium 4.4 creatinine 0.53. Chest x- ray: No change August 05: White count 16.7 hemoglobin 14 potassium 4.9 creatinine 0.4. Pro- calcitonin 0.09 August 04: ABG: PH 7.43 pCO2 61 pO2 78 August 03: WBC 13.5 hemoglobin 12.5 platelets 344 d-dimer 1.4 potassium 4.5 crit 35 creatinine 0.44 CRP 3.3 August 02: WBC 15.2 hemoglobin 14 platelets 371 sodium 136 potassium 4.5 BUN 27 creatinine 0.44. Chest x-ray: Bilateral cloudy infiltrates August 01: White count 14.4 hemoglobin 13.5. ABG: PCO2 57 pO2 57. Potassium 4.2 creatinine 0.4 July 31: White count 17.4 hemoglobin 12.7 Occult stool positive July 30: White count 9.3 hemoglobin 13.2 pro-calcitonin 0.95 July 29: Procalcitonin 3.98 WBC 13.9 hemoglobin 15.1 platelets 273 lymphocytes 0.8 d-dimer 1.09 sodium 133 potassium 4.3 creatinine 0.74 CRP 7.6 Coronavirus [PCR/rapid]: Negative Influenza A, influenza B, RSV, Coronavirus PCR: Not detected EKG tracing personally reviewed by me-normal sinus rhythm, [facility] Chest x-ray film personally reviewed by me-bilateral infiltrate changes, so we'll discontinue chronic. Also looked at the films from 2017 CT angiogram chest: Negative for PE. Reticular-nodular and groundglass infiltrates. Underlying fibrosis. Assessment and plan: - Mucoid/bacterial pneumonia suspected gram-negative.: Worsening IV cefepime discontinued as procalcitonin decreased.. -Acute severe hypoxic respiratory failure from pneumonia: Worsening On BiPAP/Airvo. 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 Stool occult positive. Seen by GI. Follow closely -Initial Clinical suspicion for COVID-19 was high. Initial rapid antigen tested PCR was negative. A more definitive repeat COVID-19 immunoassay test was done/PCR that came back also negative -Chronic rheumatoid arthritis Patient does get Rituxan injections every 6 months -Chronic Crohn's disease Patient did complain of some dark stools. No abdominal pain. Initially GI services are not available in the hospital. We'll consult inspection manager surgery. Mesalamine ER 1.5 g daily -Suspect underlying chronic rheumatoid lung IV Solu-Medrol. 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 Airvo 50/90., bronchodilators. Prognosis guarded.. Supportive care. Discussed with patient. Prognosis guarded. Dr. Mora spoke to the family today earlier about possible comfort care.
[2021-08-13] MEDS: amLODIPine 2.5 MG TAB PO SCH (20:57)
[2021-08-14] MEDS: methylPREDNISolone SOD SUCCI 125 MG/2 ML VIAL IV SCH ×3 (00:07→16:53)
[2021-08-14] MEDS: INSULIN DETEMIR (LEVEMIR) 100 UNIT/ML SYR SQ SCH ×2 (00:07→21:34)
[2021-08-14 00:08] LABS: Glucose,Whole Blood 181 mg/dL (75-99)
[2021-08-14 06:18] LABS: Glucose,Whole Blood 132 mg/dL (75-99)
[2021-08-14] MEDS: LEVOTHYROXINE 75 MCG TAB PO SCH (06:33)
[2021-08-14] MEDS: INSULIN ASPART (NovoLOG) 100 UNIT/ML VIAL SQ SCH ×4 (06:33→21:34)
[2021-08-14 07:37] LABS: ALT 31 U/L (4-34); AST 52 U/L (14-36); African American GFR (CKD) >90 (>60 ml/min/1.73 sqM); Albumin 2.9 g/dL (3.5-5.0); Alkaline Phosphatase 93 U/L (38-126); Anion Gap 2 mmol/L; Blood Urea Nitrogen 29 mg/dL (7-17); Calcium 8.6 mg/dL (8.4-10.2); Carbon Dioxide 40 mmol/L (22-30); Chloride 90 mmol/L (98-107); Glucose 121 mg/dL (74-99); Non-African American GFR(CKD) 88 (>60 ml/min/1.73 sqM); Potassium 4.5 mmol/L (3.5-5.1); Sodium 132 mmol/L (137-145); Total Bilirubin 0.6 mg/dL (0.2-1.3); Total Protein 5.5 g/dL (6.3-8.2)
--- NOTE | 2021-08-14 07:38 | XR ---
EXAMINATION TYPE: XR chest 1V portable DATE OF EXAM: 08/14/2021 HISTORY: Shortness of breath. COMPARISON: 08/13/2021 TECHNIQUE: Single view of the chest is submitted. FINDINGS: Demonstrated are scattered senescent parenchymal change. Diffuse reticulonodular infiltrates persist bilaterally without change. The heart is stable. Hilar and mediastinal structures are within normal limits. Degenerative changes are seen of the dorsal spine. IMPRESSION: 1. Diffuse reticulonodular infiltrates persist bilaterally without change.
[2021-08-14 07:56] LABS: Basophils % (A) 0 %; Eosinophils % (A) 0 %; HCT 40.7 % (34.0-46.0); HGB 12.9 gm/dL (11.4-16.0); Lymphocytes # (A) 0.3 k/uL (1.0-4.8); Lymphocytes % (A) 2 %; MCH 28.4 pg (25.0-35.0); MCHC 31.7 g/dL (31.0-37.0); MCV 89.6 fL (80.0-100.0); Mean Platelet Volume 8.7; Monocytes # (A) 0.1 k/uL (0-1.0); Monocytes % (A) 1 %; Neutrophils # (A) 10.5 k/uL (1.3-7.7); Neutrophils % (A) 96 %; Platelet Count 164 k/uL (150-450); RBC 4.54 m/uL (3.80-5.40); RDW 13.5 % (11.5-15.5)
[2021-08-14] MEDS: IPRATROPIUM-ALBUTEROL 3 ML NEB INHALATION SCH ×4 (08:19→21:06)
[2021-08-14] MEDS: BUDESONIDE 1 MG/2 ML NEBU INHALATION SCH ×2 (08:19→21:06)
[2021-08-14] MEDS: FORMOTEROL FUMARATE 20 MCG/2 ML NEBU INHALATION SCH ×2 (08:19→21:06)
[2021-08-14] MEDS: busPIRone HCl 10 MG TAB PO SCH ×2 (09:27→21:50)
[2021-08-14] MEDS: LOSARTAN 50 MG TAB PO SCH (09:27)
[2021-08-14] MEDS: FUROSEMIDE 10 MG/ML 2 ML VIAL IV SCH ×2 (09:28→21:34)
[2021-08-14] MEDS: ENOXAPARIN 40 MG/0.4 ML SYRINGE SQ SCH (09:28)
[2021-08-14] MEDS: FAMOTIDINE 20 MG/2 ML VIAL IV SCH (09:28)
[2021-08-14 11:45] LABS: Glucose,Whole Blood 132 mg/dL (75-99)
--- NOTE | 2021-08-14 12:05 | P.PN ---
Subjective Progress Note Date: 08/14/21 This is an 86-year-old female primarily a patient of Dr. Rodriguez, patient is known to have history of rheumatoid arthritis, on multiple medications for her rheumatoid arthritis, she is also on rituxin infusions every 6 months. Patient is being followed by rheumatology, patient is current on her immunization including COVID-19 vaccination, she did receive moderna, 2 injections, and she did not receive her third booster. Patient stated that her last injection was in October. Came in today with 7 days' history of cough, congestion, describes the cough as productive with slightly yellow tinged sputum, patient also has multiple GI symptoms including poor appetite, diarrhea, denies any abdominal marysol n. She also had intermittent fevers and chills. Body aches were also described. However the patient had negative rapid PCR for COVID-19 infection and a follow-up test was also done and it came back also negative. Her chest x- ray and CT of the chest are abnormal. Chest x-ray is suggestive of interstitial lung disease. CT of the chest showed diffuse reticulonodular and ground glass opacities throughout both lungs. Possible underlying fibrosis noted. No pulmonary mass nodule and no real effusion noted. No evidence of lymphadenopathy. And no evidence of thromboembolic disease. CBC showed a bit of leukocytosis with WBC count of 13.9. Lymphopenia was noted. Normal electrolytes, normal renal profile, LDH was 1055 and BNP level was 1100. Pro- calcitonin level is pending. Patient had negative PCR for sanchez virus infection. She had negative screening for influenza A, influenza B, RSV. Patient was hypoxic on room air, O2 saturations was 81%, however she was placed on 5 L and her oxygen saturation was up to 96% considering her pulmonary presentation, this consult was initiated. And I saw the patient in the ER. Patient is already on Rocephin and Zithromax, however the admitting physician changed her antibiotics to cefepime. She is on DVT prophylaxis, she is also on methylprednisolone 40 mg IV push every 8 hours. Reevaluated today on 07/29/2021, patient is feeling better today, breathing easier, less cough and less shortness of breath, less GI symptoms. Patient came in with multiple constitutional symptoms as noted above. Chest x-ray showed bilateral interstitial infiltrates, PCR for COVID-19 pneumonia was negative 2. Patient is now on 5 L nasal cannula, O2 sats is 94%. Her pro calcitonin today is 1.25. Patient tested negative for COVID-19, tested negative for influenza A, influenza B and for RSV. On 07/30/2021 patient seen in follow-up on medical surgical floor, she is resting comfortably in bed, she remains on 5 L of oxygen, pulse ox is 91-92%, breathing comfortably, she states her cough is improving, she is not producing any significant amount of sputum, at times she is able to clear some sanderson colored phlegm, she has been afebrile, hemodynamically she has been stable, she remains on cefepime for possibility of underlying community-acquired pneumonia, she remains on IV steroids, she tested negative for COVID 19, RSV and influenza A and B, her pro calcitonin level is improving on today's labs and is down to 0.95 from previous levels of 3.98 on admission. White count is improving and is down to 11.3, hemoglobin is 13.2, blood cultures have shown no growth, mild wheezes on today's exam. On 07/31/2021 patient seen in follow-up on medical surgical floor, her oxygen demand had increased in last 24 hours, and patient today is on 15 L per high flow nasal cannula and 100% nonrebreather mask, and her pulse ox is in the order of 85-88%, she's been afebrile, hemodynamically she is been stable, she states that she has been coughing up some pink tinged phlegm. Denies any chest discomfort, lung sounds reveal diffuse crackles throughout the lung salvador, she remains on cefepime for empiric antibiotic coverage, her blood cultures have remained negative, remains on IV steroids and nebulized bronchodilators. This x-ray is pending, patient will be given a dose of IV Lasix, her pro-calcitonin level is actually improving on today's labs, to 0.95. CTA chest showed no PE On 08/01/2021 patient is seen in follow-up on medical surgical floor. Yesterday her oxygenation has significantly worsened, patient was placed on Airvo at 60 L and FiO2 of 90%, and a nonrebreather mask, and her pulse ox was 81%, and patient was becoming tachypneic and tired. She was subsequently placed on BiPAP support with pressures of 12 and 6 in the 100%. She is satting better, at 92-93%, breathing more comfortably, she is awake and alert, answering questions a ppropriately, she was given a dose of IV Lasix yesterday, her net fluid balance is difficult to estimate, today's chest x-ray shows diffuse bilateral infiltrates that are stable in appearance, no pleural effusion or pneumothorax. Correlate for diffuse pneumonia versus ARDS. Patient is on antibiotics in the form of cefepime, blood cultures have shown no growth so far. We have not been able to obtain a sputum for culture. Afebrile, hemodynamically she's been stable. She is on IV steroids and nebulized bronchodilators. Her pro calcitonin level was actually improving on yesterday's labs, and today it is further improved and is down to 0.25 from initial level of 3.98 on 07/28/2021. ProBNP level was 1100. White blood cell count is slightly improved compared to yesterday, and is down to 14.49, hemoglobin is 13.5, sodium is 142, potassium is 4.2, BUN is 16, creatinine 0.4. Patient tested negative for COVID-19 per PCR test, and her antibiotic test was also negative, negative for influenza A and B and RSV. On 08/06/2021 patient seen in follow-up in the intensive care unit, she is awake and alert, oriented 3, in no acute distress, she is currently on Airvo at 55 L and FiO2 of 65%, and her pulse ox is 94-95%, she is breathing comfortably, she states her breathing is improved. Overall she seems generally weak but no acute distress. She did wear BiPAP support last night with pressures of 15 and 6 and FiO2 of 90% for about 4 hours. She's been using BiPAP support on and off alt ernating with Airvo. Hemodynamically she stable, she isn't point tenderness an every 20 ML per hour, no other drugs, she is in sinus mechanism with a rate of 71. This had no acute events overnight, lung sounds reveal coarse inspiratory crackles at bilateral bases, no rhonchi or wheezing, no fever or chills, vital signs have been stable. Chest x-ray shows diffuse interstitial and alveolar opacities, no pneumothorax a large pleural effusion. She remains on cefepime for antibiotic coverage. She is on IV steroids at 60 mg every 6 hours, nebulized bronchodilators and Symbicort. She is doing better. Blood cultures have shown no growth. Her white count today is 16.3, hemoglobin is 13.6, sodium is 136, potassium is 4.4, chloride is 93, CO2 is 39, BUN is 34, creatinine 0.53. Her pro calcitonin level is not within normal limits at 0.09. On 08/09/2021 patient seen in follow-up on medical surgical floor, she remains on irritable at 45 L/m, and FiO2 of 54%, and her pulse ox is between 88-90%, she's been afebrile, hemodynamically stable, she is awake and alert, she is generally weak, but yesterday she was able to get up in chair and sit up for a few hours. She states her breathing is improving, limited cough, no phlegm production. Lung sounds reveal coarse inspiratory crackles at bilateral mid to lower lungs, no rhonchi, no wheezing, no complaints of chest pain. She remains on IV Solu-Medrol 40 mg every 6 hours, she has completed a course of antibiotics, has had no fever or chills, her blood cultures have shown no growth, her pro-calcitonin level was within normal limits on 08/05/2021 and her antibiotics have been discontinued. She remains on nebulized bronchodilators, Symbicort, she is on GI and DVT prophylaxis, today's labs have been reviewed showing white blood cell count of 11.9, improving, hemoglobin is 13.8, platelet count is 218, sodium is 135, potassium 5.4, chloride is 93, CO2 37, B1 is 26 creatinine 0.54. She is tolerating oral intake. Overall she states she feels like she is getting better, breathing easier, she only required BiPAP support for 1 hour last night, she wants to try not using it at night as she has difficulty sleeping with the mask on. On 08/14/2001 patient seen in follow-up on selective care unit, she remains on Airvo at 55 L and FiO2 of 85% in addition to nonrebreather mask, and her O2 saturations have remained very marginal at around 86%, patient seems to be very fatigued, she states she is very weak she cannot sit up without assistance. She is awake and alert, she states that she does not want to travel to a CAT scan because of weakness and fatigue, and difficulty breathing. Has been bedbound related to severe hypoxia, and dyspnea with exertion. She's had no fever or chills overnight, vital signs have been stable. No new growth on cultures, blood cultures have remained negative. Today's chest x-ray shows diffuse reticulonodular infiltrates without change compared to previous chest x-ray. Patient currently continues on IV steroids 60 mg every 8 hours, she is on Pulmicort, Perforomist, DuoNeb, she has completed a course of antibiotics. Today's labs have been reviewed, her white blood cell count is 11, hemoglobin is 12.9, sodium is 132, potassium is 4.5, chloride is 90, CO2 is 40, B1 is 29 creatinine 0.53, her last level of pro calcitonin was yesterday at 0.38. Objective - Vital Signs Vital signs: Vital Signs Temp 97.6 F 08/14/21 03:46 Pulse 80 08/14/21 08:30 Resp 22 08/14/21 03:46 BP 114/65 08/14/21 03:46 Pulse Ox 88 L 08/14/21 03:46 Intake & Output 08/13/21 08/14/21 08/14/21 18:59 06:59 18:59 Output Total 1160 Balance -1160 Weight 74 kg Output: Urine 1160 Uretheral (Griffin) 460 Other: Voiding Method Indwelling Catheter Indwelling Catheter - Exam GENERAL EXAM: Alert, very pleasant, 86-year-old white female, currently on Airvo at 55 l/min and Fio2 85% nonrebreather mask with pulse ox of 86%. Patient looks very fatigued and worn out HEAD: Normocephalic/atraumatic. EYES: Normal reaction of pupils, equal size. Conjunctiva pink, sclera white. NOSE: Clear with pink turbinates. THROAT: No erythema or exudates. NECK: No masses, no JVD, no thyroid enlargement, no adenopathy. CHEST: No chest wall deformity. Symmetrical expansion. LUNGS: Equal air entry with coarse inspiratory bilateral crackles at the bilateral bases CVS: Regular rate and rhythm, normal S1 and S2, no gallops, no murmurs, no rubs ABDOMEN: Soft, nontender. No hepatosplenomegaly, normal bowel sounds, no guarding or rigidity. EXTREMITIES: No clubbing, no edema, no cyanosis, 2+ pulses and upper and lower extremities. MUSCULOSKELETAL: Muscle strength and tone normal. SPINE: No scoliosis or deformity SKIN: No rashes CENTRAL NERVOUS SYSTEM: Alert and oriented -3. No focal deficits, tone is normal in all 4 extremities. PSYCHIATRIC: Alert and oriented -3. Appropriate affect. Intact judgment and insight. - Labs CBC & Chem 7: 08/14/21 06:40 08/14/21 06:40 Labs: Abnormal Lab Results - Last 24 Hours (Table) 08/13/21 08/13/21 08/13/21 Range/Units 07:25 07:25 07:25 WBC 16.0 H (3.8-10.6) k/uL MCHC 30.5 L (31.0-37.0) g/dL Neutrophils # 15.3 H (1.3-7.7) k/uL Lymphocytes # 0.3 L (1.0-4.8) k/uL Sodium 132 L (137-145) mmol/L Chloride 91 L (98-107) mmol/L Carbon Dioxide 37 H (22-30) mmol/L BUN 32 H (7-17) mg/dL Glucose (74-99) mg/dL POC Glucose (mg/dL) (75-99) mg/dL AST 49 H (14-36) U/L Total Protein 5.3 L (6.3-8.2) g/dL Albumin 2.7 L (3.5-5.0) g/dL Procalcitonin 0.38 H (0.02-0.09) ng/mL 08/13/21 08/13/21 08/14/21 Range/Units 16:56 20:13 00:06 WBC (3.8-10.6) k/uL MCHC (31.0-37.0) g/dL Neutrophils # (1.3-7.7) k/uL Lymphocytes # (1.0-4.8) k/uL Sodium (137-145) mmol/L Chloride (98-107) mmol/L Carbon Dioxide (22-30) mmol/L BUN (7-17) mg/dL Glucose (74-99) mg/dL POC Glucose (mg/dL) 286 H 186 H 181 H (75-99) mg/dL AST (14-36) U/L Total Protein (6.3-8.2) g/dL Albumin (3.5-5.0) g/dL Procalcitonin (0.02-0.09) ng/mL 08/14/21 08/14/21 08/14/21 Range/Units 06:00 06:40 06:40 WBC 11.0 H (3.8-10.6) k/uL MCHC (31.0-37.0) g/dL Neutrophils # 10.5 H (1.3-7.7) k/uL Lymphocytes # 0.3 L (1.0-4.8) k/uL Sodium 132 L (137-145) mmol/L Chloride 90 L (98-107) mmol/L Carbon Dioxide 40 H (22-30) mmol/L BUN 29 H (7-17) mg/dL Glucose 121 H (74-99) mg/dL POC Glucose (mg/dL) 132 H (75-99) mg/dL AST 52 H (14-36) U/L Total Protein 5.5 L (6.3-8.2) g/dL Albumin 2.9 L (3.5-5.0) g/dL Procalcitonin (0.02-0.09) ng/mL 08/14/21 Range/Units 11:43 WBC (3.8-10.6) k/uL MCHC (31.0-37.0) g/dL Neutrophils # (1.3-7.7) k/uL Lymphocytes # (1.0-4.8) k/uL Sodium (137-145) mmol/L Chloride (98-107) mmol/L Carbon Dioxide (22-30) mmol/L BUN (7-17) mg/dL Glucose (74-99) mg/dL POC Glucose (mg/dL) 132 H (75-99) mg/dL AST (14-36) U/L Total Protein (6.3-8.2) g/dL Albumin (3.5-5.0) g/dL Procalcitonin (0.02-0.09) ng/mL Assessment and Plan Plan: Assessment: #1. Acute hypoxic respiratory failure secondary to interstitial lung disease and suspected superimposed, mucoid pneumonia. Patient tested negative for COVID-19, influenza A and B and RSV. Patient also had 2 previous negative PCR test. Patient is fully immunized against COVID 19. Subsequently patient required Airvo and a nonrebreather, and was placed on BiPAP support on 08/01/2021 for respiratory fatigue. Will be transferred to the intensive care unit today on 08/01/2021. Current BiPAP pressures are 15 and 5 and FiO2 100%. On 08/14/2021 patient is on Airvo at 55 L and FiO2 of 85% and a nonrebreather mask, with marginal O2 saturations. Patient currently remains on IV steroids, she has completed a course of antibiotics, blood cultures have shown no growth, pro-calcitonin level has improved. #2. ARDS/acute lung injury, exact etiology is not clear. patient has completed a course of antibiotics, his on steroids, and inhaled bronchodilators #3. Elevated pro-calcitonin suggesting possibility of bacterial pneumonia, possibly community acquired, patient is currently covered with cefepime, improved, and is down to 0.09 on 08/05/2021. Antibiotics will be discontinued. Blood cultures remain negative #4. 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 Hypertension #7. Dyslipidemia #8. History of hypothyroidism Plan: Patient has been unable to travel to the CT department to complete a high resolution CT of the chest in view of shortness of breath, marginal O2 saturations overall condition is very fatigued, weak and debilitated Patient states she does not want the CT of the chest today Remains on Airvo at 55 L and FiO2 of 85% 100% nonrebreather, and she is maintaining very marginal O2 saturations Dr. Carl has been having daily discussions with the family regarding the patient's condition, at this point patient has been maximized on medical treatment With no improvement CODE STATUS is DO NOT RESUSCITATE At this point we recommend proceeding with hospice consultation The hospice can arrange a meeting with the patient and the family to discuss available options to make the patient comfortable I performed a history & physical examination of the patient and discussed their management with my nurse practitioner, Saundra Schwartz. I reviewed the nurse practitioner's note and agree with the documented findings and plan of care. Lung sounds are positive for diminished breath sounds throughout the lung salvador. The findings and the impression was discussed with the patient. I atte st to the documentation by the nurse practitioner. Time with Patient: Less than 30
[2021-08-14 12:17] VITALS: BP 116/64; TEMP 97
[2021-08-14] MEDS: SODIUM CHLORIDE 0.9% 1,000 ML IV SCH (12:18)
[2021-08-14] MEDS ORDERED: ALPRAZolam 0.5 MG TAB PO STA ×2 (13:44→22:40)
[2021-08-14] MEDS ORDERED: HYDROmorphone 0.5 MG/0.5 ML SYRINGE IVP PRN (15:20)
[2021-08-14 16:44] LABS: Glucose,Whole Blood 180 mg/dL (75-99)
[2021-08-14 19:43] LABS: Glucose,Whole Blood 176 mg/dL (75-99)
--- NOTE | 2021-08-14 21:09 | P.PN ---
Progress Note - Text Progress Note Date: 08/14/21 Chief Complaint: Short of breath This is a pleasant 86-year-old patient, follows with Dr. Chaney. Chronic stable medical conditions include rheumatoid arthritis, Crohn's disease, diet- controlled diabetes, autoimmune disorder, fibromyalgia. She does follow Dr. Reed from rheumatology and does Rituxan injections every 6 months. Sees due for her next one. Patient did take her COVID vaccines back in . She doesn't go out much. For 7 days patient suspect upper cough. Very congested. Clear sputum. Has had fever and chills. Patient also had diarrhea. Some dark stool. No abdominal pain. Patient chronic stable medical conditions also include anxiety, hypothyroid, peripheral neuropathy, hyperlipidemia. Appetite is poor. Initial rapid COVID testing in the ER was negative. A more definitive PCR was sent out. Patient is accompanied by her [id number]. Patient is rather tired and rundown. She is also had chronic immune lung condition in the past. July 29: Short of breath. Tired. 5 L nasal cannula. Eating about 50%. In bed. July 30: Some shortness of breath. Some cough. 5 L nasal cannula. Eating some. Tired. July 31: Worsening short of breath. On 15 L nasal cannula. Congested cough. Eating about 50%. Laying in bed August 01: Shortness of breath not improving. Patient placed on BiPAP. Being moved to the ICU. Decreased oral intake. Tired. Now having brown stools. Seen by GI. No further intervention. August 02: ICU. Moved yesterday. Airvo:. 60 L/90%. With a nonrebreather mask. Barely eating. Short of breath. Tired. Sitting up in bed. August 03: ICU. On BiPAP. Decreased by mouth intake. Tired. Short of breath. August 04: ICU: Patient between Airvo and BiPAP. Tired. Short of breath. Sinus rhythm. Patient's daughter is visiting. Eating some. Encouraged to use ensure. On IV cefepime. IV Solu-Medrol. August 05: ICU. On Airvo. Short of breath. IV cefepime. IV Solu-Medrol. August 06: ICU: Airvo. Remains short of breath. Cefepime discontinued by pulmonary. August 11: Did not feel like eating breakfast. Diet. Had a bowel movement. On Airvo 50/90. Tired. Had a lengthy discussion with the patient about her CODE STATUS and also met with the family to include her son 2 daughters and [id number]. Then Dr. Mora spoke to her. Made DO NOT RESUSCITATE. We alsotalked. about subject of hospice depending on clinical course August 12: Had a fever earlier today. Some shortness of breath. Does feel a bit tired. Remains on Airvo. Oral intake about 25%. Propped up in bed. August 13: More short of breath. More tired. Family was visiting earlier. FiO2 requirement increased. Tired. Put on IV Lasix per Dr. Carl. August 14: Short of breath. Slightly tired. Oxygen requirement has gone up. Son and [id number] visiting. Patient and family informed by the nurse and myself not ready for hospice currently. Review of systems: Was done for constitutional, cardiovascular, GI, pulmonary. relevant finding as above Active Medications Acetaminophen (Acetaminophen Tab 500 Mg Tab) 1,000 mg PO Q6HR PRN PRN Reason: Fever>101 Last Admin: 08/12/21 11:59 Dose: 1,000 mg Documented by: Albuterol Sulfate (Albuterol Hfa Inhaler) 2 puff INHALATION RT-Q6H PRN PRN Reason: Shortness Of Breath Or Wheezing Albuterol/Ipratropium (Ipratropium-Albuterol 3 Ml Neb) 3 ml INHALATION RT-QID [facility] Last Admin: 08/14/21 21:06 Dose: 3 ml Documented by: Amlodipine Besylate (Amlodipine 2.5 Mg Tab) 2.5 mg PO HS [facility] Last Admin: 08/13/21 20:57 Dose: 2.5 mg Documented by: Budesonide (Budesonide 1 Mg/2 Ml Nebu) 1 mg INHALATION RT-BID [facility] Last Admin: 08/14/21 21:06 Dose: 1 mg Documented by: Buspirone HCl (Buspirone Hcl 10 Mg Tab) 10 mg PO BID [facility] Last Admin: 08/14/21 09:27 Dose: 10 mg Documented by: Enoxaparin Sodium (Enoxaparin 40 Mg/0.4 Ml Syringe) 40 mg SQ DAILY [facility] Last Admin: 08/14/21 09:28 Dose: 40 mg Documented by: Famotidine (Famotidine 20 Mg Tab) 20 mg PO BID [facility] Formoterol Fumarate (Formoterol Fumarate 20 Mcg/2 Ml Nebu) 20 mcg INHALATION RT-BID [facility] Last Admin: 08/14/21 21:06 Dose: 20 mcg Documented by: Furosemide (Furosemide 10 Mg/Ml 2 Ml Vial) 20 mg IV Q12HR [facility] Last Admin: 08/14/21 09:28 Dose: 20 mg Documented by: Hydromorphone HCl (Hydromorphone 0.5 Mg/0.5 Ml Syringe) 0.2 mg IVP Q2HR PRN PRN Reason: Pain Last Admin: 08/14/21 15:39 Dose: 0.2 mg Documented by: Sodium Chloride (Saline 0.9%) 1,000 mls @ 20 mls/hr IV .Q24H [facility] Last Admin: 08/14/21 12:18 Dose: Not Given Documented by: Insulin Aspart (Insulin Aspart (Novolog) 100 Unit/Ml Vial) 0 unit SQ ACHS [facility]; Protocol Last Admin: 08/14/21 16:54 Dose: 5 unit Documented by: Insulin Detemir (Insulin Detemir (Levemir) 100 Unit/Ml Syr) 8 unit SQ HS [facility] Last Admin: 08/14/21 00:07 Dose: 8 unit Documented by: Ipratropium [place] (Ipratropium [place] 0.06% Nasal [place] (15 Ml)) 2 spray EA NOSTRIL TID PRN PRN Reason: Allergy Symptoms Levothyroxine Sodium (Levothyroxine 75 Mcg Tab) 75 mcg PO DAILY@0630 [facility] Last Admin: 08/14/21 06:33 Dose: 75 mcg Documented by: Loperamide HCl (Loperamide 2 Mg Cap) 2 mg PO QID PRN PRN Reason: Diarrhea Losartan Potassium (Losartan 50 Mg Tab) 50 mg PO DAILY [facility] Last Admin: 08/14/21 09:27 Dose: 50 mg Documented by: Methylprednisolone Sodium Succinate (Methylprednisolone Sod Succi 125 Mg/2 Ml Vial) 60 mg IV Q8HR [facility] Last Admin: 08/14/21 16:53 Dose: 60 mg Documented by: Miscellaneous Information (Pneumonia Protocol Utilized 1 Each Misc) 1 each PO ONCE PRN PRN Reason: Per Protocol Naloxone HCl (Naloxone 0.4 Mg/Ml 1 Ml Vial) 0.2 mg IV Q2M PRN PRN Reason: Opioid Reversal Ondansetron HCl (Ondansetron 4 Mg/2 Ml Vial) 4 mg IVP Q8HR PRN PRN Reason: Nausea And Vomiting Sodium Chloride (Saline Nasal Gel 14.1 Gm Tube) 1 applic NASAL Q4HR PRN PRN Reason: Dry Nasal Passages Last Admin: 08/08/21 23:11 Dose: 1 applic Documented by: Past medical history to include: Anxiety, hypothyroid, peripheral neuropathy, hyperlipidemia, rheumatoid arthritis, Crohn's disease, diet-controlled diabetes, autoimmune lung disorder, fibromyalgia Social history: Lives with son and [id number]. No smoking no alcohol. Family history: Breast cancer Physical examination: VITAL SIGNS: 97, 84, 26, 160/64, 90% on Airvo plus nonrebreather GENERAL: reclining bed, tired. Short of breath EYES: Pupils equal. Conjunctiva normal. HEENT: External appearance of nose and ears normal, oral cavity grossly normal. NECK: JVD not raised; masses not palpable. HEART: First and second heart sounds are normal; no edema. LUNGS: Respiratory rate increased, - bilateral coarse crackles. Exercise he muscles are working. Not able to speak in full sentences. ABDOMEN: Soft, nontender, liver spleen not palpable, no masses palpable. PSYCH: Alert and oriented x3; mood and affect-anxiety MUSCULAR skeletal: Evidence of rheumatoid arthritis especially in the hands, significant INVESTIGATIONS, reviewed in the clinical context: August 14: White count 11 hemoglobin 12.9 potassium 4.5 creatinine 0.53 August 13: White count 16 hemoglobin 12.8 potassium 4.6 creatinine 0.6. Pro- calcitonin 0.38 August 11: Accu-Cheks noted August 06: WBC 16.3 hemoglobin 13.6 potassium 4.4 creatinine 0.53. Chest x- ray: No change August 05: White count 16.7 hemoglobin 14 potassium 4.9 creatinine 0.4. Pro- calcitonin 0.09 August 04: ABG: PH 7.43 pCO2 61 pO2 78 August 03: WBC 13.5 hemoglobin 12.5 platelets 344 d-dimer 1.4 potassium 4.5 crit 35 creatinine 0.44 CRP 3.3 August 02: WBC 15.2 hemoglobin 14 platelets 371 sodium 136 potassium 4.5 BUN 27 creatinine 0.44. Chest x-ray: Bilateral cloudy infiltrates August 01: White count 14.4 hemoglobin 13.5. ABG: PCO2 57 pO2 57. Potassium 4.2 creatinine 0.4 July 31: White count 17.4 hemoglobin 12.7 Occult stool positive July 30: White count 9.3 hemoglobin 13.2 pro-calcitonin 0.95 July 29: Procalcitonin 3.98 WBC 13.9 hemoglobin 15.1 platelets 273 lymphocytes 0.8 d-dimer 1.09 sodium 133 potassium 4.3 creatinine 0.74 CRP 7.6 Coronavirus [PCR/rapid]: Negative Influenza A, influenza B, RSV, Coronavirus PCR: Not detected EKG tracing personally reviewed by me-normal sinus rhythm, [facility] Chest x-ray film personally reviewed by me-bilateral infiltrate changes, so we'll discontinue chronic. Also looked at the films from 2017 CT angiogram chest: Negative for PE. Reticular-nodular and groundglass infiltrates. Underlying fibrosis. Assessment and plan: - Mucoid/bacterial pneumonia suspected gram-negative.: Worsening IV cefepime discontinued as procalcitonin decreased.. -Acute severe hypoxic respiratory failure from pneumonia: Worsening On BiPAP/Airvo. 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 Stool occult positive. Seen by GI. Follow closely -Initial Clinical suspicion for COVID-19 was high. Initial rapid antigen tested PCR was negative. A more definitive repeat COVID-19 immunoassay test was done/PCR that came back also negative -Chronic rheumatoid arthritis Patient does get Rituxan injections every 6 months -Chronic Crohn's disease Patient did complain of some dark stools. No abdominal pain. Initially GI services are not available in the hospital. We'll consult occupational therapy program director surgery. Mesalamine ER 1.5 g daily -Suspect underlying chronic rheumatoid lung IV Solu-Medrol. 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 Airvo 50/90., bronchodilators. Prognosis poor.. Supportive care. Discussed with the patient family the bedside. Questions answered.
[2021-08-14] MEDS: amLODIPine 2.5 MG TAB PO SCH (21:50)
[2021-08-14] MEDS: FAMOTIDINE 20 MG TAB PO SCH (21:50)
[2021-08-15] MEDS: methylPREDNISolone SOD SUCCI 125 MG/2 ML VIAL IV SCH ×3 (00:02→17:43)
[2021-08-15] MEDS: MORPHINE SULFATE 2 MG/ML SYRINGE IVP PRN ×2 (01:32→04:51)
[2021-08-15] MEDS ORDERED: HALOPERIDOL LACTATE 5 MG/ML 1 ML VIAL IM PRN (02:35)
[2021-08-15] MEDS ORDERED: GLYCOPYRROLATE 0.2 MG/ML 2 ML VIAL IVP PRN (02:35)
[2021-08-15] MEDS ORDERED: ATROPINE OPHTH SOLN 1% 5ML BTL SUBLINGUAL PRN (02:35)
[2021-08-15] MEDS ORDERED: IBUPROFEN 400 MG TAB PO PRN (02:35)
[2021-08-15] MEDS ORDERED: ACETAMINOPHEN TAB 325 MG TAB PO PRN (02:35)
[2021-08-15] MEDS ORDERED: ACETAMINOPHEN SUPPOSITORY 650 MG SUPP RECTAL PRN (02:35)
[2021-08-15] MEDS ORDERED: ZOLPIDEM 5 MG TAB PO PRN (02:35)
[2021-08-15] MEDS ORDERED: MORPHINE SULFATE (100 MG/2 ML) 100 MG in SODIUM CHLORIDE 0.9% 100 ML IV SCH (02:45)
[2021-08-15] MEDS ORDERED: SCOPOLAMINE 1.5MG/72HR PATCH TRANSDERM SCH (02:45)
[2021-08-15] MEDS: LEVOTHYROXINE 75 MCG TAB PO SCH (05:11)
[2021-08-15] MEDS: INSULIN ASPART (NovoLOG) 100 UNIT/ML VIAL SQ SCH ×3 (05:12→17:43)
[2021-08-15] MEDS: FORMOTEROL FUMARATE 20 MCG/2 ML NEBU INHALATION SCH (08:41)
[2021-08-15] MEDS: BUDESONIDE 1 MG/2 ML NEBU INHALATION SCH (08:41)
[2021-08-15] MEDS: IPRATROPIUM-ALBUTEROL 3 ML NEB INHALATION SCH (08:42)
[2021-08-15 10:57] VITALS: RESP 10
[2021-08-15] MEDS: FUROSEMIDE 10 MG/ML 2 ML VIAL IV SCH (12:06)
[2021-08-15] MEDS: busPIRone HCl 10 MG TAB PO SCH (12:06)
[2021-08-15] MEDS: LOSARTAN 50 MG TAB PO SCH (12:06)
[2021-08-15] MEDS: FAMOTIDINE 20 MG TAB PO SCH (12:06)
[2021-08-15] MEDS: ENOXAPARIN 40 MG/0.4 ML SYRINGE SQ SCH (12:06)
[2021-08-15] MEDS: SODIUM CHLORIDE 0.9% 1,000 ML IV SCH (17:43)
[2021-08-15 20:39] VITALS: PULSE 89
--- NOTE | 2021-08-15 20:57 | P.DS ---
Providers Date of admission: 07/28/21 11:47 Expected date of discharge: 08/15/21 Attending physician: Aly Snyder Consults: 07/28/21 11:47 Consult Physician Urgent Consulting Provider: Frantz Mora Consult Reason/Comments: Dyspnea, hypoxia Do you want consulting provider notified?: Yes 07/29/21 17:54 Consult Physician Routine Consulting Provider: Royce Catherine Consult Reason/Comments: Dark stools Do you want consulting provider notified?: Yes 07/31/21 14:53 Consult Physician Routine Consulting Provider: Beryl Villafuerte Consult Reason/Comments: Dark stools Do you want consulting provider notified?: Yes Primary care physician: Ozzydonovan [facility] Course: Chief Complaint: Short of breath This is a pleasant 86-year-old patient, follows with Dr. Chaney. Chronic stable medical conditions include rheumatoid arthritis, Crohn's disease, diet- controlled diabetes, autoimmune disorder, fibromyalgia. She does follow Dr. Reed from rheumatology and does Rituxan injections every 6 months. Sees due for her next one. Patient did take her COVID vaccines back in September/October. She doesn't go out much. For 7 days patient suspect upper cough. Very congested. Clear sputum. Has had fever and chills. Patient also had diarrhea. Some dark stool. No abdominal pain. Patient chronic stable medical conditions also include anxiety, hypothyroid, peripheral neuropathy, hyperlipidemia. Appetite is poor. Initial rapid COVID testing in the ER was negative. A more definitive PCR was sent out. Patient is accompanied by her [id number]. Patient is rather tired and rundown. She is also had chronic immune lung condition in the past. Patient continued to remain short of breath. Hypoxia gradually Worsening. Plate on the BiPAP. Was moved to the ICU. Also put on Airvo. Was empirically treated with IV cefepime and IV Solu-Medrol. Procalcitonin came back negative. Cultures now negative. Antibiotics discontinued. She discussion was had with pulmonary the patient several family members. Patient was ultimately changed to DO NOT RESUSCITATE status. Patient's both restarted continue to deteriorate. August 15: Overnight patient was made comfort care because of the tolerating respiratory status. This morning changed to nasal cannula. Morphine for comfort. Family at the bedside. Comfortable. Patient related the evening succumbed and Consultation: Dr. Mora and partners from pulmonary Dr. Kandice Villafuerte from GI Past medical history to include: Anxiety, hypothyroid, peripheral neuropathy, hyperlipidemia, rheumatoid arthritis, Crohn's disease, diet-controlled diabetes, autoimmune lung disorder, fibromyalgia Social history: Lives with son and [id number]. No smoking no alcohol. Family history: Breast cancer Physical examination: Laying in bed. Breathing a bit heavy. Nasal cannula. Lungs diminished breath sounds INVESTIGATIONS, reviewed in the clinical context: August 14: White count 11 hemoglobin 12.9 potassium 4.5 creatinine 0.53 Occult stool positive July 30: White count 9.3 hemoglobin 13.2 pro-calcitonin 0.95 July 29: Procalcitonin 3.98 WBC 13.9 hemoglobin 15.1 platelets 273 lymphocytes 0.8 d-dimer 1.09 sodium 133 potassium 4.3 creatinine 0.74 CRP 7.6 Coronavirus [PCR/rapid]: Negative Influenza A, influenza B, RSV, Coronavirus PCR: Not detected EKG tracing personally reviewed by me-normal sinus rhythm, [facility] Chest x-ray film personally reviewed by me-bilateral infiltrate changes, so we'll discontinue chronic. Also looked the films from 2017 CT angiogram chest: Negative for PE. Reticular-nodular and groundglass infiltrates. Underlying fibrosis. Cause of : Pulmonary fibrosis Assessment and plan: - Mucoid/bacterial pneumonia suspected gram-negative.: IV cefepime discontinued as procalcitonin decreased.. -Acute severe hypoxic respiratory failure from pneumonia: -ARDS secondary to suspected mucoid pneumonia: -Episode of GI bleed- dark stools. -Initial Clinical suspicion for COVID-19 was high. Initial rapid antigen tested PCR was negative. 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 -Chronic right rotator cuff shoulder injury -Hypothyroid Disposition: Patient Plan - Discharge Summary Discharge Rx Participant: No New Discharge Prescriptions: No Action busPIRone HCl [Buspar] 10 mg PO BID amLODIPine [Norvasc] 2.5 mg PO HS Mesalamine [Mesalamine ER] 1.5 gm PO DAILY Acetaminophen Tab [Tylenol Tab] 1,000 mg PO Q6H PRN PRN Reason: Fever And/ Or Pain Irbesartan [Avapro] 150 mg PO DAILY Ipratropium [place] 0.06%Nasal [Atrovent Nasal 0.06%] 2 spray EA NOSTRIL TID Diclofenac Sodium Gel [Voltaren Gel] 4 gm TOPICAL QID PRN PRN Reason: Pain Atorvastatin [Lipitor] 20 mg PO HS Levothyroxine Sodium [Synthroid] 75 mcg PO DAILY Gabapentin 600 mg PO TID Discharge Medication List amLODIPine [Norvasc] 2.5 mg PO HS 09/21/14 [History] busPIRone HCl [Buspar] 10 mg PO BID 09/21/14 [History] Acetaminophen Tab [Tylenol Tab] 1,000 mg PO Q6H PRN 07/28/21 [History] Atorvastatin [Lipitor] 20 mg PO HS 07/28/21 [History] Diclofenac Sodium Gel [Voltaren Gel] 4 gm TOPICAL QID PRN 07/28/21 [History] Gabapentin 600 mg PO TID 07/28/21 [History] Ipratropium [place] 0.06%Nasal [Atrovent Nasal 0.06%] 2 spray EA NOSTRIL TID 07/28/21 [History] Irbesartan [Avapro] 150 mg PO DAILY 07/28/21 [History] Levothyroxine Sodium [Synthroid] 75 mcg PO DAILY 07/28/21 [History] Mesalamine [Mesalamine ER] 1.5 gm PO DAILY 07/28/21 [History] Follow up Appointment(s)/Referral(s): Ozzy Chaney DO [Primary Care Provider] - 1-2 days Isaiah Rebollar MD [STAFF PHYSICIAN] - 1 Week
== END 2021-08-16 01:10 | disposition expired | DRG 177 ==
LOC: EC 09:03 → 4SSUR 11:47 → 2SICU 08-01 14:32 → 3SCARD 08-08 15:56
PROVIDERS: ADMIT Hospitalist; ATTEND Hospitalist
PROC: 3E0333Z Introduction of Anti-inflammatory into Peripheral Vein, Percutaneous Approach (ICD-10-PCS; 2021-07-28)
PROC: 5A09457 Assistance with Respiratory Ventilation, 24-96 Consecutive Hours, Continuous Positive Airway Pressure (ICD-10-PCS; 2021-08-03)
PROC: 5A0955A Assistance with Respiratory Ventilation, Greater than 96 Consecutive Hours, High Flow/Velocity Cannula (ICD-10-PCS; principal; 2021-08-04)
DX: J15.6 Pneumonia due to other Gram-negative bacteria (principal); J80 Acute respiratory distress syndrome; D84.9 Immunodeficiency, unspecified; K50.911 Crohn's disease, unspecified, with rectal bleeding; D72.810 Lymphocytopenia; E03.9 Hypothyroidism, unspecified; E78.5 Hyperlipidemia, unspecified; F32.A Depression, unspecified; F41.9 Anxiety disorder, unspecified; E11.42 Type 2 diabetes mellitus with diabetic polyneuropathy; I10 Essential (primary) hypertension; J43.9 Emphysema, unspecified; J84.89 Other specified interstitial pulmonary diseases; J98.01 Acute bronchospasm; M05.10 Rheumatoid lung disease with rheumatoid arthritis of unspecified site; M79.7 Fibromyalgia; R13.10 Dysphagia, unspecified; Z20.822 Contact with and (suspected) exposure to COVID-19; Z51.5 Encounter for palliative care; Z66 Do not resuscitate; Z74.01 Bed confinement status; Z79.4 Long term (current) use of insulin; Z79.890 Hormone replacement therapy; Z79.899 Other long term (current) drug therapy; Z80.3 Family history of malignant neoplasm of breast; Z82.49 Family history of ischemic heart disease and other diseases of the circulatory system; Z90.710 Acquired absence of both cervix and uterus; Z88.2 Allergy status to sulfonamides
CPT/HCPCS: 36410; 36415; 36600; 71045; 71275; 76937; 80048; 80053; 82272; 82728; 82805; 83605; 83615; 83735; 83880; 84145; 85025; 85379; 85610; 85730; 86140; 87040; 87635; 87636; 93005; 94640; 94660; 94760; 96360; 96361; 99285